=== PATIENT | male | born 1955 | race Caucasian/White ===

== ENCOUNTER 2019-01-22 08:19 | Emergency (ER) | payer BC ==
--- NOTE | 2019-01-22 09:34 | RAD REPORT ---
EXAM DESCRIPTION: RAD - Foot Right 3 View - 01/22/2019 9:20 am CLINICAL HISTORY: wound infection COMPARISON: Foot Right Wo Cont dated 09/04/2017; Foot Right 2 View dated 09/02/2017 FINDINGS: Evidence of multiple previous toe amputations are seen. Soft tissue wound is present along the plantar forefoot. No underlying evidence of osteomyelitis identified. No foreign body visualized .
--- NOTE | 2019-01-22 10:08 | EDPHYS ---
Physician Documentation [facility] Name: Surinder Andrade Age: 63 yrs Sex: Male : 1955 Arrival Date: 01/22/2019 Time: 08:22 Bed 13 Private MD: Varghese Martinez ED Physician Davidson Clark HPI: 01/22 09:52 This 63 yrs old Male presents to ER via Ambulatory with complaints of Foot jr8 Infection. 09:52 The patient presents with pain. The complaints affect the right foot. Onset: The jr8 symptoms/episode began/occurred gradually, 1 week(s) ago. Modifying factors: The symptoms are alleviated by nothing, the symptoms are aggravated by weight bearing. Associated signs and symptoms: The patient has no apparent associated signs or symptoms. Severity of symptoms: At their worst the symptoms were mild, in the emergency department the symptoms are unchanged. The patient has experienced a previous episode. The patient has not recently seen a physician. Patient stated that callous on right foot fell off. Stated that since then has has open wound to foot. Starting to become more painful and now has discoloration to the wound . Historical: - Allergies: 08:29 No Known Allergies; aa5 - Home Meds: 08:50 aspirin 81 mg Oral chew 1 tab once daily [Active]; Nicorette 4 mg Bucl gum 1 piece of tw2 gum as needed [Active]; - PMHx: 08:29 Sanchez's Cyst - right knee; aa5 - PSHx: 08:29 R toes amputated; Abdominal Aorta bypass; aa5 - Immunization history:: Adult Immunizations unknown. - Social history:: Smoking status: Patient uses tobacco products, smokes one pack cigarettes per day. - Ebola Screening: : No symptoms or risks identified at this time. ROS: 09:52 Eyes: Negative for injury, pain, redness, and discharge, ENT: Negative for injury, jr8 pain, and discharge, Neck: Negative for injury, pain, and swelling, Cardiovascular: Negative for chest pain, palpitations, and edema, Respiratory: Negative for shortness of breath, cough, wheezing, and pleuritic chest pain, Abdomen/GI: Negative for abdominal pain, nausea, vomiting, diarrhea, and constipation, Back: Negative for injury and pain, MS/Extremity: Negative for injury and deformity, Neuro: Negative for headache, weakness, numbness, tingling, and seizure. 09:52 Skin: Positive for ulceration, of the ball of right foot. Exam: 09:52 Eyes: Pupils equal round and reactive to light, extra-ocular motions intact. Lids and jr8 lashes normal. Conjunctiva and sclera are non-icteric and not injected. Cornea within normal limits. Periorbital areas with no swelling, redness, or edema. ENT: Nares patent. No nasal discharge, no septal abnormalities noted. Tympanic membranes are normal and external auditory canals are clear. Oropharynx with no redness, swelling, or masses, exudates, or evidence of obstruction, uvula midline. Mucous membranes moist. Neck: Trachea midline, no thyromegaly or masses palpated, and no cervical lymphadenopathy. Supple, full range of motion without nuchal rigidity, or vertebral point tenderness. No Meningismus. Cardiovascular: Regular rate and rhythm with a normal S1 and S2. No gallops, murmurs, or rubs. Normal PMI, no JVD. No pulse deficits. Respiratory: Lungs have equal breath sounds bilaterally, clear to auscultation and percussion. No rales, rhonchi or wheezes noted. No increased work of breathing, no retractions or nasal flaring. Abdomen/GI: Soft, non-tender, with normal bowel sounds. No distension or tympany. No guarding or rebound. No evidence of tenderness throughout. Back: No spinal tenderness. No costovertebral tenderness. Full range of motion. MS/ Extremity: Pulses equal, no cyanosis. Neurovascular intact. Full, normal range of motion. Neuro: Awake and alert, GCS 15, oriented to person, place, time, and situation. Cranial nerves II-XII grossly intact. Motor strength 5/5 in all extremities. Sensory grossly intact. Cerebellar exam normal. Normal gait. 09:52 Skin: quarter sized ulcer noted to right ball of foot that has neon green appearance to it. No purulent discharge or surrounding erythema/cellulitis noted. Mild pain to palpation . Vital Signs: 08:29 BP 170 / 114; Pulse 80; Resp 16 S; Temp 98.2(TE); Pulse Ox 96% on R/A; Weight 72.57 kg aa5 (R); Height 5 ft. 10 in. (177.80 cm) (R); Pain 3/10; 09:23 BP 138 / 78; Pulse 70; Resp 17; Pulse Ox 97% on R/A; tw2 10:26 BP 135 / 83; Pulse 79; Resp 17; Pulse Ox 97% on R/A; tw2 08:29 Body Mass Index 22.96 (72.57 kg, 177.80 cm) aa5 MDM: 08:34 Patient medically screened. jr8 09:52 Data reviewed: vital signs, nurses notes, radiologic studies, plain films, and as a jr8 result, I will discharge patient. Data interpreted: Pulse oximetry: on room air is 97 %. Interpretation: normal. Counseling: I had a detailed discussion with the patient and/or guardian regarding: the historical points, exam findings, and any diagnostic results supporting the discharge/admit diagnosis, radiology results, the need for outpatient follow up, a general surgeon, to return to the emergency department if symptoms worsen or persist or if there are any questions or concerns that arise at home. ED course: Spoke with Dr. Edouard who will see patient in wound healing clinic. To start him on 1/4 % acetic acid and antibiotics . 01/22 08:55 Order name: Wound Culture jr8 01/22 08:55 Order name: XRAY Foot RIGHT 3 View; Complete Time: 09:43 jr8 Administered Medications: No medications were administered Disposition: 11:30 Co-signature as Attending Physician, Davidson Clark MD. rn Disposition: 01/22/19 10:08 Discharged to Home. Impression: Open wound of foot. - Condition is Stable. - Discharge Instructions: Wound Care. - Prescriptions for Levaquin 750 mg Oral Tablet - take 1 tablet by ORAL route once daily for 10 days; 10 tablet. - Medication Reconciliation Form, Thank You Letter, Antibiotic Education, Prescription Opioid Use form. - Follow up: Jonatan Edouard MD; When: 2 - 3 days; Reason: Recheck today's complaints, Continuance of care, Re-evaluation by your physician. - Problem is new. - Symptoms have improved. - Notes: Written prescripton for 0.25% acetic acid solution Signatures: Dispatcher [employer] EDMS Davidson Clark MD MD rn Calderon, Audri, RN RN aa5 Stuart Valencia PA PA jr8 Lashonda Mcdaniel RN RN tw2 Corrections: (The following items were deleted from the chart) 10:27 10:08 01/22/2019 10:08 Discharged to Home. Impression: Open wound of foot. Condition is tw2 Stable. Forms are Medication Reconciliation Form, Thank You Letter, Antibiotic Education, Prescription Opioid Use. Follow up: Dr. Jonatan Edouard; When: 2 - 3 days; Reason: Recheck today's complaints, Continuance of care, Re-evaluation by your physician. Problem is new. Symptoms have improved. jr8
--- NOTE | 2019-01-22 10:08 | ER ---
Nurse's Notes [facility] Name: Surinder Andrade Age: 63 yrs Sex: Male : 1955 Arrival Date: 01/22/2019 Time: 08:22 Bed 13 Private MD: Varghese Martinez Diagnosis: Open wound of foot Presentation: 01/22 08:22 Presenting complaint: Patient states: "I've got a foot infection for about a week now". aa5 Pt c/o pain to right foot. 08:22 Transition of care: patient was not received from another setting of care. Onset of aa5 symptoms was January 2019. Risk Assessment: Do you want to hurt yourself or someone else? Patient reports no desire to harm self or others. Care prior to arrival: None. 08:22 Method Of Arrival: Ambulatory aa5 08:22 Acuity: ANDREA 3 aa5 08:50 Initial Sepsis Screen: Does the patient meet any 2 criteria? No. Patient's initial tw2 sepsis screen is negative. Does the patient have a suspected source of infection? Yes: Skin breakdown/wound. Historical: - Allergies: 08:29 No Known Allergies; aa5 - Home Meds: 08:50 aspirin 81 mg Oral chew 1 tab once daily [Active]; Nicorette 4 mg Bucl gum 1 piece of tw2 gum as needed [Active]; - PMHx: 08:29 Sanchez's Cyst - right knee; aa5 - PSHx: 08:29 R toes amputated; Abdominal Aorta bypass; aa5 - Immunization history:: Adult Immunizations unknown. - Social history:: Smoking status: Patient uses tobacco products, smokes one pack cigarettes per day. - Ebola Screening: : No symptoms or risks identified at this time. Screenin:29 Abuse screen: Denies threats or abuse. Nutritional screening: No deficits noted. tw2 Tuberculosis screening: No symptoms or risk factors identified. Fall Risk Secondary diagnosis (15 points) impaired mobility. Assessment: 08:30 General: Appears in no apparent distress. Behavior is calm, cooperative, appropriate tw2 for age. Pain: Complains of pain in ball of right foot. Neuro: Level of Consciousness is awake, alert, obeys commands, Oriented to person, place, time, situation. Cardiovascular: Denies chest pain, shortness of breath, Heart tones S1 S2 Patient's skin is warm and dry. Respiratory: Airway is patent Respiratory effort is even, unlabored, Respiratory pattern is regular, symmetrical, Breath sounds are clear bilaterally. GI: No signs and/or symptoms were reported involving the gastrointestinal system. Abdomen is flat, Bowel sounds present X 4 quads. : No signs and/or symptoms were reported regarding the genitourinary system. EENT: No signs and/or symptoms were reported regarding the EENT system. Derm: Wound noted ball of right foot Wound is appears to be a pressure callused wound about a quarter in size with green tinge noted, pt has right great toe, 2nd toe, 4th and 5th toe amputated on this foot. Musculoskeletal: Range of motion: intact in all extremities. 09:21 Reassessment: Patient appears in no apparent distress at this time. No changes from tw2 previously documented assessment. Patient and/or family updated on plan of care and expected duration. Pain level reassessed. Patient is alert, oriented x 3, equal unlabored respirations, skin warm/dry/pink. 10:26 Reassessment: Patient appears in no apparent distress at this time. No changes from tw2 previously documented assessment. Patient and/or family updated on plan of care and expected duration. Pain level reassessed. Patient is alert, oriented x 3, equal unlabored respirations, skin warm/dry/pink. Vital Signs: 08:29 BP 170 / 114; Pulse 80; Resp 16 S; Temp 98.2(TE); Pulse Ox 96% on R/A; Weight 72.57 kg aa5 (R); Height 5 ft. 10 in. (177.80 cm) (R); Pain 3/10; 09:23 BP 138 / 78; Pulse 70; Resp 17; Pulse Ox 97% on R/A; tw2 10:26 BP 135 / 83; Pulse 79; Resp 17; Pulse Ox 97% on R/A; tw2 08:29 Body Mass Index 22.96 (72.57 kg, 177.80 cm) aa5 ED Course: 08:22 Patient arrived in ED. rg4 08:22 Varghese Martinez MD is Private Physician. rg4 08:22 Arm band placed on Patient placed in an exam room, on a stretcher. aa5 08:28 Triage completed. aa5 08:29 Mcdaniel, Lashonda, RN is Primary Nurse. tw2 08:30 Bed in low position. Call light in reach. awake overnight monitor on. Pulse ox on. NIBP on. tw2 08:34 Stuart Valencia PA is PHCP. jr8 08:34 Davidson Clark MD is Attending Physician. jr8 09:11 Wound Culture Sent. tw2 09:21 XRAY Foot RIGHT 3 View In Process Unspecified. EDMS 10:08 Jonatan Edouard MD is Referral Physician. jr8 10:27 No provider procedures requiring assistance completed. Patient did not have IV access tw2 during this emergency room visit. Administered Medications: No medications were administered Outcome: 10: Discharge ordered by . jr8 10: Discharged to home ambulatory. tw2 10:27 Condition: stable 10:27 Discharge instructions given to patient, Instructed on discharge instructions, follow up and referral plans. medication usage, wound care, Demonstrated understanding of instructions, follow-up care, medications, wound care. 10:27 Patient left the ED. tw2 Signatures: Dispatcher [employer] [facility] Dayanara Jiang RN RN aa5 Stuart Valencia PA PA jr8 Lashonda Mcdaniel RN RN tw2 Ida Choudhury rg4 Corrections: (The following items were deleted from the chart) 09:50 08:30 Derm: Wound noted ball of right foot Wound is appears to be a pressure callused tw2 wound about a quarter in size, pt has right great toe, 2nd toe, 4th and 5th toe amputated on this foot tw2
[2019-01-22 10:31] VITALS: TEMP 98.2
[2019-01-22 10:33] VITALS: O2SAT 97
[2019-01-22 10:34] VITALS: BP 135/83
== END 2019-01-22 10:27 | disposition home or self-care (01) ==
LOC: ER 08:19
DX: S91.301A Unspecified open wound, right foot, initial encounter (principal); Z79.82 Long term (current) use of aspirin; F17.210 Nicotine dependence, cigarettes, uncomplicated
CPT/HCPCS: 87070; 87077; 87186; 87205; 99284

== ENCOUNTER 2019-05-31 16:49 | Inpatient (IN) | payer BC ==
--- OUTSIDE RECORDS SUMMARY | 2019-05-31 16:51 | XMS REPORT ---
:1955 [facility] Address [address] [place] [address] Dr. Hope [address] [place] [id number] Care Team Providers Name Role Phone Unavailable Unavailable Unavailable Problems This patient has no known problems. Allergies, Adverse Reactions, Alerts This patient has no known allergies or adverse reactions. Medications This patient has no known medications.
[2019-05-31 18:23] LABS: Absolute Lymphocytes (CBC) 1.1 K/uL (0.7-4.9); Basophils % 0.3 % (0-1.3); Hematocrit 41.6 % (39.6-49.0); Lymphocytes % 13.1 % (15.3-44.8); RBC Red Blood Cell Count 3.89 M/uL (4.33-5.43)
[2019-05-31 18:47] LABS: Albumin 2.8 g/dL (3.4-5.0); Bilirubin Total 0.4 mg/dL (0.2-1.0); Potassium 3.3 mmol/L (3.5-5.1); Protein, Total 7.5 g/dL (6.4-8.2)
[2019-05-31 18:51] LABS: Blood Morphology Comment NOTED (NOT SEEN); Macrocytosis 1+; Platelet Estimate ADEQ; Urine White Blood Cell Casts OK
--- NOTE | 2019-05-31 19:07 | RAD REPORT ---
EXAM DESCRIPTION: RAD - Tib Fib Right - 05/31/2019 6:48 pm CLINICAL HISTORY: leg pain Pain to left leg COMPARISON: No comparisons FINDINGS: Soft tissue swelling is seen along the medial aspect of the left leg. No fracture, disloca tion or evidence of osteomyelitis. No subcutaneous gas.
[2019-05-31] MEDS ORDERED: VANCOMYCIN 1 GM/VIAL ONE (19:47)
[2019-05-31] MEDS ORDERED: NA CHLORIDE 0.9% 250 ML ONE (19:47)
--- NOTE | 2019-05-31 19:47 | ER ---
Nurse's Notes [facility] Name: Surinder Andrade Age: 63 yrs Sex: Male : 1955 Arrival Date: 05/31/2019 Time: 16:51 Bed Ultrasound Private MD: Varghese Martinez Diagnosis: Cellulitis of the right lower limb Presentation: 05/31 17:02 Presenting complaint: Patient states: I see Dr Edouard for wound care of my right foot la1 and he said it looks like the infection is going in deep and if your swelling gets worse to go to the ER. Transition of care: patient was not received from another setting of care. Onset of symptoms was May 31, 2019. Risk Assessment: Do you want to hurt yourself or someone else? Patient reports no desire to harm self or others. Initial Sepsis Screen: Does the patient meet any 2 criteria? No. Patient's initial sepsis screen is negative. Does the patient have a suspected source of infection? No. Patient's initial sepsis screen is negative. Care prior to arrival: None. 17:02 Method Of Arrival: Ambulatory la1 17:02 Acuity: ANDREA 3 la1 Historical: - Allergies: 17:02 No Known Allergies; la1 - Home Meds: 17:04 lisinopril 2.5 mg Oral tab 1 tab once daily [Active]; bupropion HCl 150 mg Oral TbER 1 la1 tab 2 times per day [Active]; clopidogrel 75 mg oral tab 1 tab once daily [Active]; doxycycline hyclate 100 mg Oral cap 1 cap 2 times per day [Active]; Cipro 500 mg Oral tab 1 tab every 12 hours [Active]; - PMHx: 17:02 Sanchez's Cyst - right knee; High Cholesterol; la1 17:04 Hypertension; la1 - PSHx: 21:14 Unable to obtain; rv - Immunization history:: Adult Immunizations up to date. - Social history:: Smoking status: unknown. - Ebola Screening: : No symptoms or risks identified at this time. Screenin:22 Abuse screen: Denies threats or abuse. Denies injuries from another. Nutritional rv screening: No deficits noted. Tuberculosis screening: No symptoms or risk factors identified. Fall Risk None identified. Assessment: 17:20 General: Appears in no apparent distress. uncomfortable, Behavior is calm, cooperative. rv Pain: Complains of pain in right foot. Neuro: Level of Consciousness is awake, alert, obeys commands, Oriented to person, place, time, situation. Cardiovascular: Patient's skin is warm and dry. Respiratory: Airway is patent. GI: No signs and/or symptoms were reported involving the gastrointestinal system. : No signs and/or symptoms were reported regarding the genitourinary system. EENT: No signs and/or symptoms were reported regarding the EENT system. Derm: Skin is red, Wound noted ball of right foot. Musculoskeletal: Swelling present in right massey, anterior aspect of right ankle and dorsum of right foot. Vital Signs: 17:02 BP 109 / 55; Pulse 67; Resp 16; Temp 97.5; Pulse Ox 98% on R/A; Weight 73.94 kg; Height la1 5 ft. 10 in. (177.80 cm); 17:30 BP 104 / 63; Pulse 85; Resp 16; Pulse Ox 96% on R/A; rv 18:00 BP 115 / 63; Pulse 82; Resp 15; Pulse Ox 96% on R/A; rv 18:30 BP 124 / 64; Pulse 80; Resp 15; Pulse Ox 97% on R/A; rv 19:00 BP 115 / 53; Pulse 77; Resp 16; Pulse Ox 97% on R/A; rv 21:10 BP 124 / 64; Pulse 84; Resp 17; Temp 98.2; Pulse Ox 99% ; rr5 17:02 Body Mass Index 23.39 (73.94 kg, 177.80 cm) la1 ED Course: 16:51 Patient arrived in ED. rg4 16:51 Varghese Martinez MD is Private Physician. rg4 17:01 Arm band placed on left wrist. la1 17:03 Triage completed. la1 17:10 Corey Powell RN is Primary Nurse. rv 17:22 Patient has correct armband on for positive identification. Bed in low position. Call rv light in reach. Side rails up X 1. Pulse ox on. NIBP on. 17:32 Adrian Jimenez PA is PHCP. jmm 17:33 Davidson Clark MD is Attending Physician. jmm 18:30 No provider procedures requiring assistance completed. Inserted saline lock: 22 gauge rv in right antecubital area, using aseptic technique. Blood collected. 18:49 Tib Fib Right XRAY In Process Unspecified. EDMS 19:45 Reynold Rivera MD is Hospitalizing Provider. jmm 20:10 US Extremity Venous Unilateral Ltd In Process Unspecified. EDMS 21:16 Patient admitted, IV remains in place. rv Administered Medications: 19:55 Drug: vancoMYCIN 1 grams Route: IVPB; Infused Over: 2 hrs; Site: right antecubital; rv 21:15 Follow up: IV Status: Completed infusion rv 20:41 Drug: Potassium Effervescent Tablet 25 mEq Route: PO; rv 21:15 Follow up: Response: No adverse reaction rv Outcome: 19:46 Decision to Hospitalize by Provider. jmm 21:16 Admitted to Med/surg accompanied by tech, via wheelchair, room 213, with chart, Report rv called to MIGUEL PRETTY 21:16 Condition: good 21:16 Instructed on the need for admit. 21:36 Patient left the ED. rv Signatures: Dispatcher [employer] EDMS Adrian Jimenez PA PA [facility] Sabino Syed, RN RN Ida Sosa rg4 Corey Powell, RN RN rv Lloyd Donaot, RN RN rr5
--- NOTE | 2019-05-31 19:48 | EDPHYS ---
Physician Documentation [facility] Name: Surinder Andrade Age: 63 yrs Sex: Male : 1955 Arrival Date: 05/31/2019 Time: 16:51 Bed Ultrasound Private MD: Varghese Martinez ED Physician Davidson Clark HPI: 05/31 17:39 This 63 yrs old Male presents to ER via Ambulatory with complaints of Foot jmm Pain. 17:39 The patient presents with pain, that is acute, swelling. Onset: The symptoms/episode jmm began/occurred gradually. Modifying factors: The symptoms are alleviated by nothing. the symptoms are aggravated by nothing. This is a 63 year old male with a history of hlp, htn that presents to the ED with complaints of right lower leg pain and swelling which has worsened over the past week. Patient denies fever, chills. Denies shortness of breath. . Historical: - Allergies: 17:02 No Known Allergies; la1 - Home Meds: 17:04 lisinopril 2.5 mg Oral tab 1 tab once daily [Active]; bupropion HCl 150 mg Oral TbER 1 la1 tab 2 times per day [Active]; clopidogrel 75 mg oral tab 1 tab once daily [Active]; doxycycline hyclate 100 mg Oral cap 1 cap 2 times per day [Active]; Cipro 500 mg Oral tab 1 tab every 12 hours [Active]; - PMHx: 17:02 Sanchez's Cyst - right knee; High Cholesterol; la1 17:04 Hypertension; la1 - PSHx: 21:14 Unable to obtain; rv - Immunization history:: Adult Immunizations up to date. - Social history:: Smoking status: unknown. - Ebola Screening: : No symptoms or risks identified at this time. ROS: 17:39 Constitutional: Negative for fever, chills, and weight loss, Cardiovascular: Negative jmm for chest pain, palpitations, and edema, Respiratory: Negative for shortness of breath, cough, wheezing, and pleuritic chest pain. 17:39 MS/extremity: Positive for pain, swelling. 17:39 Skin: Positive for erythema. 17:39 All other systems are negative. Exam: 17:39 Head/Face: atraumatic. Eyes: EOMI, no conjunctival erythema appreciated ENT: Moist jmm Mucus Membranes Neck: Trachea midline, Supple Chest/axilla: Normal chest wall appearance and motion. Cardiovascular: Regular rate and rhythm. No edema appreciated Respiratory: Normal respirations, no respiratory distress appreciated Abdomen/GI: Non distended, soft Back: Normal ROM 17:39 Constitutional: The patient appears in no acute distress, alert, awake. 17:39 Skin: erythema noted to the right lower leg, dorsalis pulse noted, NVI. 17:39 Neuro: Orientation: is normal, Mentation: is normal, Memory: is normal. 17:39 Psych: Behavior/mood is pleasant, cooperative. Vital Signs: 17:02 BP 109 / 55; Pulse 67; Resp 16; Temp 97.5; Pulse Ox 98% on R/A; Weight 73.94 kg; Height la1 5 ft. 10 in. (177.80 cm); 17:30 BP 104 / 63; Pulse 85; Resp 16; Pulse Ox 96% on R/A; rv 18:00 BP 115 / 63; Pulse 82; Resp 15; Pulse Ox 96% on R/A; rv 18:30 BP 124 / 64; Pulse 80; Resp 15; Pulse Ox 97% on R/A; rv 19:00 BP 115 / 53; Pulse 77; Resp 16; Pulse Ox 97% on R/A; rv 21:10 BP 124 / 64; Pulse 84; Resp 17; Temp 98.2; Pulse Ox 99% ; rr5 17:02 Body Mass Index 23.39 (73.94 kg, 177.80 cm) la1 MDM: 17:39 Patient medically screened. [facility] 19:43 Data reviewed: vital signs, nurses notes. Counseling: I had a detailed discussion with abran the patient and/or guardian regarding: the historical points, exam findings, and any diagnostic results supporting the discharge/admit diagnosis, lab results, radiology results, the need for further work-up and treatment in the hospital. ED course: I discussed the patient with Dr. Rivera whom accepted admission. . 05/31 17:43 Order name: CBC with Diff; Complete Time: 18:59 [facility] 05/31 17:43 Order name: CMP; Complete Time: 18:47 [facility] 05/31 17:43 Order name: Lactate; Complete Time: 18:46 [facility] 05/31 17:43 Order name: Procalcitonin; Complete Time: 18:59 [facility] 05/31 17:43 Order name: Blood Culture Adult (2) [facility] 05/31 18:29 Order name: CBC Smear Scan; Complete Time: 18:59 [facility] 05/31 20:26 Order name: Basic Metabolic Panel [facility] 05/31 20:26 Order name: Basic Metabolic Panel [facility] 05/31 20:26 Order name: CBC with Automated Diff [facility] 05/31 20:26 Order name: CBC with Automated Diff [facility] 05/31 20:26 Order name: Protime (+INR) [facility] 05/31 20:26 Order name: Protime (+INR) [facility] 05/31 20:26 Order name: PTT, Activated Partial Thromb [facility] 05/31 20:26 Order name: PTT, Activated Partial Thromb [facility] 05/31 17:43 Order name: Saline Lock; Complete Time: 18:15 [facility] 05/31 17:44 Order name: US Extremity Venous Unilateral Ltd; Complete Time: 20:37 [facility] 05/31 18:25 Order name: Tib Fib Right XRAY; Complete Time: 19:10 [facility] 05/31 20:26 Order name: CONS Pharmacy Consult [facility] 05/31 20:26 Order name: CONS Pharmacy Consult [facility] 05/31 20:26 Order name: Consistent Carb (ADA) [address] EDMS Administered Medications: 19:55 Drug: vancoMYCIN 1 grams Route: IVPB; Infused Over: 2 hrs; Site: right antecubital; rv 21:15 Follow up: IV Status: Completed infusion rv 20:41 Drug: Potassium Effervescent Tablet 25 mEq Route: PO; rv 21:15 Follow up: Response: No adverse reaction rv Disposition: 05/31/19 19:46 Hospitalization ordered by Reynold Rivera for Observation. Preliminary diagnosis is Cellulitis of the right lower limb. - Bed requested for Telemetry/MedSurg (observation). - Status is Observation. rv - Condition is Stable. - Problem is new. - Symptoms have worsened. UTI on Admission? No Addendum: 06/03/2019 07:21 Co-signature as Attending Physician, Davidson Clark MD. r n Signatures: Dispatcher [employer] EDSD Harriett Salinas RN RN mw Mickail, Joel, PA PA jmm Nieto, Roman, MD MD rn Attema, Lee, RN RN la1 Andre, Corey, RN RN rv Corrections: (The following items were deleted from the chart) 05/31 20:37 19:46 Hospitalization Ordered by Reynold Rivera MD for Observation. Preliminary mw diagnosis is Cellulitis of the right lower limb. Bed requested for Telemetry/MedSurg (observation). Status is Observation. Condition is Stable. Problem is new. Symptoms have worsened. UTI on Admission? No. jmm 21:36 20:37 05/31/2019 19:46 Hospitalization Ordered by Reynold Rivera MD for Observation. rv Preliminary diagnosis is Cellulitis of the right lower limb. Bed requested for Telemetry/MedSurg (observation). Status is Observation. Condition is Stable. Problem is new. Symptoms have worsened. UTI on Admission? No. mw
[2019-05-31] MEDS ORDERED: MORPHINE 4 MG/ML SYR IV PRN (20:19)
[2019-05-31] MEDS ORDERED: ACETAMINOPHEN 500 MG TAB PO PRN (20:19)
[2019-05-31] MEDS ORDERED: ONDANSETRON 4 MG/2 ML VIAL IV PRN (20:19)
--- NOTE | 2019-05-31 20:25 | RAD REPORT ---
EXAM DESCRIPTION: US - Extremity Venous Uni Ltd - 05/31/2019 8:09 pm CLINICAL HISTORY: right lower leg Leg swelling and edema. COMPARISON: Extremity Venous Uni Ltd dated 09/02/2017 FINDINGS: Right lower extremity venous system was interrogated with Doppler technique. Normal flow, compressibility and augmentation was noted. There is no DVT present. IMPRESSION: No evidence of right lower extremity deep venous thrombosis.
[2019-05-31] MEDS ORDERED: VANCOMYCIN/NS 1 gm 1 GM/250 ML BAG IVPB SCH (20:30)
[2019-05-31] MEDS ORDERED: POTASSIUM 25 MEQ EFFERV TAB ONE (20:34)
[2019-05-31] MEDS ORDERED: NA CHLORIDE 0.9% 1,000 ML IV SCH (21:00)
[2019-05-31] MEDS: Levofloxacin500mg IV 500 MG/100 ML BAG IV SCH (22:15)
[2019-06-01 01:50] VITALS: BMI 23.3
[2019-06-01 06:05] LABS: Absolute Lymphocytes (CBC) 0.8 K/uL (0.7-4.9); Basophils % 0.5 % (0-1.3); Hematocrit 40.4 % (39.6-49.0); Lymphocytes % 11.9 % (15.3-44.8); MPV 7.3 fL (7.6-11.3); RBC Red Blood Cell Count 3.81 M/uL (4.33-5.43)
[2019-06-01 06:15] LABS: Protime INR 1.13
[2019-06-01 06:22] LABS: BUN Blood Urea Nitrogen 8 mg/dL (7-18); Bicarbonate 28 mmol/L (21-32); Glucose Level 115 mg/dL (74-106); Potassium 4.2 mmol/L (3.5-5.1); Sodium Level 140 mmol/L (136-145)
[2019-06-01] MEDS ORDERED: TRAMADOL HCL 50 MG TAB PO PRN (07:05)
[2019-06-01] MEDS ORDERED: HYDROCODONE/APAP 7.5/325 MG TAB PO PRN (07:05)
[2019-06-01 07:08] LABS: Urine Appearance CLEAR; Urine Bilirubin NEGATIVE (NEG); Urine Blood NEGATIVE (NEG); Urine Color YELLOW; Urine Glucose 1+ (NEG); Urine Protein NEGATIVE (NEG)
[2019-06-01 08:28] LABS: Urine Microscopic Reflex NO UMIC
[2019-06-01] MEDS: CLOPIDOGREL 75 MG TABLET PO SCH (08:50)
[2019-06-01] MEDS: BUPROPRION HCL S.R. 150MG TAB PO SCH ×2 (08:50→20:57)
[2019-06-01] MEDS: LISINOPRIL 5 MG TAB PO SCH (08:50)
[2019-06-01] MEDS: VANCOMYCIN 1.25 GM in NA CHLORIDE 0.9% 250 ML IVPB SCH ×2 (08:51→20:57)
[2019-06-01] MEDS ORDERED: HOME MED 1 EA UNK (Lisinopril [Zestril] 2.5 MG) PO SCH (09:00)
--- NOTE | 2019-06-01 09:46 | P.PN ---
Subjective Date of Service: 06/01/19 Primary Care Provider: Dr. Grigsby; Surgery-Dr. Edouard Chief Complaint: Right lower extremity swelling, pain Subjective: Other (Pain improved. Patient stable at this time) Physical Examination - Vital Signs Temperature: 97.4 F Blood Pressure: 120/72 Pulse: 69 Respirations: 16 Pulse Ox (%): 96 - Physical Exam General: Alert, In no apparent distress, Oriented x3, Cooperative HEENT: Atraumatic Neck: Supple Respiratory: Clear to auscultation bilaterally, Normal air movement Cardiovascular: Normal pulses, Regular rate/rhythm Gastrointestinal: Normal bowel sounds, Soft and benign, Non-distended Musculoskeletal: Other (Patient with prior amputations of the right great toe, 2nd digit, 4th digit, and 5th digit. Ulcer to the distal 1st metatarsal. Swelling, mild erythema noted to the region. Swelling up to mid right lower extremity noted. Pain noted to the foot. No significant exudate noted from the ulcer.) Integumentary: Other (As above) Neurological: Normal speech, Normal strength at 5/5 x4 extr, Normal tone - Studies Laboratory Data (last 24 hrs) 05/31/19 18:12: Sodium 136, Potassium 3.3 L, BUN 8, Creatinine 0.87, Glucose 99 , Total Bilirubin 0.4, AST 44 H, ALT 46, Alkaline Phosphatase 107 05/31/19 18:12: WBC 8.4, Hgb 14.1, Hct 41.6, Plt Count 241 Medications List Reviewed: Yes Assessment & Plan Discharge Plan: Home Plan to discharge in: 48 Hours Physician Review Additional Text: Impression: Right lower extremity cellulitis with chronic foot ulcer complicated with severe PVD suspect possible osteomyelitis Chronic pain with neuropathy COPD Hypertension Hyperlipidemia Tobacco abuse Plan: Right lower extremity cellulitis with chronic foot ulcer complicated with severe PVD suspect possible osteomyelitis: Continue IV antibiotic therapy- Levaquin/vancomycin. Pharmacy to monitor and adjust medication. X-ray shows edema but no bone destruction. Venous Doppler shows no DVT. Prior CT scan reviewed shows severe PVD to the lower extremities. Suspect possible osteomyelitis. Will order MRI further evaluate. If abnormal patient will likely require long-term IV antibiotic therapy. Surgery consulted. Await recommendation. Likely no need for surgical intervention at this time. Will start DVT prophylaxis-Lovenox. Will provide pain medication as needed. Will review and restart home medication. Anticipate discharge in 2-3 days pending clinical improvement and MRI evaluation. Chronic pain with neuropathy: Continue with pain medication. Will add Neurontin. COPD: Continue with COPD medication. Hypertension: Review and restart home medication. Will monitor and adjust appropriately. Hyperlipidemia: Review and restart home medication. Tobacco abuse: Will provide nicotine patch. Tobacco cessation education provided. Time Spent Managing Pts Care (In Minutes): 55
[2019-06-01] MEDS ORDERED: GABAPENTIN 100 MG CAP PO PRN (09:47)
[2019-06-01] MEDS ORDERED: ALBUTEROL 2.5 MG/3 ML NEB SOL NEB PRN (09:58)
[2019-06-01] MEDS ORDERED: IPRATROPIUM BROM 0.5MG/2.5ML NEB PRN (09:58)
[2019-06-01] MEDS: NICOTINE 21 MG/PAT TD SCH (10:23)
--- NOTE | 2019-06-01 12:14 | P.HP ---
Certification for Inpatient Patient admitted to: Inpatient With expected LOS: >2 Midnights Patient will require the following post-hospital care: None Practitioner: I am a practitioner with admitting privileges, knowledge of patient current condition, hospital course, and medical plan of care. Services: Services provided to patient in accordance with Admission requirements found in Title 42 Section 412.3 of the Code of Federal Regulations Patient History Date of Service: 05/31/19 Reason for admission: Right lower extremity swelling, pain History of Present Illness: Pt is a 63-year-old gentleman came in the hospital with a diabetic foot ulcer. Patient has severe peripheral arterial disease. Patient has occlusion of the right femoral artery. He states that he was told he needs a stent but he is not able to get one while he has an active infection. He had a debridement of his diabetic foot ulcer. This was done on Monday. He was told that if his pain got worse to come to the ER. Early this morning his pain got much worse. He decided to come into the hospital for further evaluation. In the emergency room, he has significant cellulitis of the right foot. He had a diabetic foot ulcer which appeared infected. Allergies No Known Allergies Allergy (Verified 09/02/17 14:48) Home Medications: Buproprion S.r. [Wellbutrin Sr*] 150 mg PO BID 09/02/17 Clopidogrel Bisulfate [Plavix*] 75 mg PO DAILY 03/06/19 Lisinopril [Zestril] 2.5 mg PO DAILY 03/06/19 Atorvastatin Calcium [Lipitor] 20 mg PO BEDTIME 05/31/19 Ciprofloxacin HCl [Cipro 500 MG Tablet] 500 mg PO Q12H 05/31/19 Doxycycline Hyclate 100 mg PO BID 05/31/19 - Past Medical/Surgical History Has patient received pneumonia vaccine in the past: No Diabetic: No -: PVD -: History aortofemoral bypass -: History 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 He has 3 children. He works in the [employer] - Family History Mother Medical History: Cancer Father Medical History: Other (see notes) Notes: depression - Social History Smoking Status: Current some day smoker Alcohol use: Yes CD- Drugs: No Caffeine use: Yes Place of Residence: Home Review of Systems 10-point ROS is otherwise unremarkable Physical Examination - Vital Signs Temperature: 97.4 F Blood Pressure: 120/72 Pulse: 69 Respirations: 15 Pulse Ox (%): 95 - Physical Exam General: Alert, In no apparent distress, Oriented x3 HEENT: Atraumatic, PERRLA, Mucous membr. moist/pink, EOMI, Sclerae nonicteric Neck: Supple, 2+ carotid pulse no bruit, No LAD, Without JVD or thyroid abnormality Respiratory: Clear to auscultation bilaterally, Normal air movement Cardiovascular: Regular rate/rhythm, Normal S1 S2, No murmurs Gastrointestinal: Normal bowel sounds, Soft and benign, Non-distended, No tenderness Musculoskeletal: No clubbing, No swelling, No tenderness Integumentary: Tenderness/swelling, Erythema, Warmth, Diabetic ulcer Neurological: Normal speech, Normal tone, Normal affect Lymphatics: No axilla or inguinal lymphadenopathy - Studies Laboratory Data (last 24 hrs) 05/31/19 18:12: Sodium 136, Potassium 3.3 L, BUN 8, Creatinine 0.87, Glucose 99 , Total Bilirubin 0.4, AST 44 H, ALT 46, Alkaline Phosphatase 107 05/31/19 18:12: WBC 8.4, Hgb 14.1, Hct 41.6, Plt Count 241 Assessment & Plan - Problems (Diagnosis) (1) Cellulitis Onset Date: 09/04/17 Current Visit: No Status: Acute Qualifiers: Site of cellulitis: extremity Site of cellulitis of extremity: lower extremity Laterality: right Qualified Code(s): L03.115 - Cellulitis of right lower limb (2) Pressure ulcer of right foot, stage 3 Current Visit: No Status: Acute (3) PVD (peripheral vascular disease) Onset Date: 09/04/17 Current Visit: No Status: Acute (4) COPD (chronic obstructive pulmonary disease) Onset Date: 09/04/17 Current Visit: No Status: Chronic Qualifiers: COPD type: chronic bronchitis (5) History of amputation Onset Date: 09/04/17 Current Visit: No Status: Chronic (6) Neuropathy Onset Date: 09/04/17 Current Visit: No Status: Chronic (7) Tobacco abuse Onset Date: 09/04/17 Current Visit: No Status: Chronic - Plan 1. Continue with IV antibiotic 2. Continue with local wound care 3. Surgical consultation 4. Gentle IV hydration 5. Monitor CBC 6. Strict blood sugar monitoring 7. Pain control 8. Anti-platelet therapy 9. Outpatient follow-up with Interventional Radiology or Cardiology for possible stent placement 10.GI and DVT prophylaxis Discharge Plan: Home Plan to discharge in: Greater than 2 days - Advance Directives Does patient have a Living Will: No Does patient have a Durable POA for Healthcare: No - Code Status/Comfort Care Code Status Assessed: Yes Code Status: Full Code Critical Care: No Time Spent Managing PTS Care (In Minutes): 45
[2019-06-01] MEDS: COLLAGENASE 30 GM OINTMENT TOP SCH (15:42)
[2019-06-01] MEDS: ENOXAPARIN 40 MG/0.4 ML SQ SCH (16:56)
[2019-06-01] MEDS: ATORVASTATIN 20 MG TAB PO SCH (20:56)
[2019-06-01] MEDS: Levofloxacin500mg IV 500 MG/100 ML BAG IV SCH (21:01)
[2019-06-02 08:02] LABS: BUN Blood Urea Nitrogen 7 mg/dL (7-18); Bicarbonate 27 mmol/L (21-32); Glucose Level 109 mg/dL (74-106); Magnesium 2.1 mg/dL (1.8-2.4); Potassium 4.2 mmol/L (3.5-5.1); Sodium Level 141 mmol/L (136-145)
[2019-06-02] MEDS: BUPROPRION HCL S.R. 150MG TAB PO SCH ×2 (08:30→21:00)
[2019-06-02] MEDS: NICOTINE 21 MG/PAT TD SCH (08:30)
[2019-06-02] MEDS: CLOPIDOGREL 75 MG TABLET PO SCH (08:30)
[2019-06-02] MEDS: LISINOPRIL 5 MG TAB PO SCH (08:30)
[2019-06-02] MEDS: COLLAGENASE 30 GM OINTMENT TOP SCH (08:32)
[2019-06-02] MEDS: VANCOMYCIN 1.25 GM in NA CHLORIDE 0.9% 250 ML IVPB SCH (08:39)
[2019-06-02 08:49] LABS: Absolute Lymphocytes (CBC) 1.1 K/uL (0.7-4.9); Basophils % 0.5 % (0-1.3); Hematocrit 39.7 % (39.6-49.0); Lymphocytes % 16.9 % (15.3-44.8); MPV 7.7 fL (7.6-11.3); RBC Red Blood Cell Count 3.68 M/uL (4.33-5.43)
--- NOTE | 2019-06-02 09:28 | P.PN ---
Subjective Date of Service: 06/02/19 Primary Care Provider: Dr. Grigsby; Surgery-Dr. Edouard Chief Complaint: Right lower extremity swelling, pain Subjective: Other (Patient doing well this time. Right lower extremity swelling improved.) Physical Examination - Vital Signs Temperature: 97.3 F Blood Pressure: 117/66 Pulse: 62 Respirations: 16 Pulse Ox (%): 98 - Physical Exam General: Alert, In no apparent distress, Oriented x3, Cooperative HEENT: Atraumatic Neck: Supple Respiratory: Clear to auscultation bilaterally, Normal air movement Cardiovascular: Normal pulses, Regular rate/rhythm Gastrointestinal: Normal bowel sounds, Soft and benign, Non-distended, No tenderness, No masses, No rebound, No guarding Integumentary: Other (Swelling to the right lower extremity improved. Less pain noted. No significant change to ulcer.) Neurological: Normal speech, Normal strength at 5/5 x4 extr, Normal tone, Normal affect - Studies Medications List Reviewed: Yes Assessment & Plan Discharge Plan: Home Plan to discharge in: 24 Hours Physician Review Additional Text: Impression: Right lower extremity cellulitis with chronic foot ulcer complicated with severe PVD suspect possible osteomyelitis Chronic pain with neuropathy COPD Hypertension Hyperlipidemia Tobacco abuse Plan: Right lower extremity cellulitis with chronic foot ulcer complicated with severe PVD suspect possible osteomyelitis: Overall patient improved. Patient working with physical therapy. MRI ordered for tomorrow to rule out osteomyelitis. Continue IV antibiotic therapy-Levaquin/vancomycin. Pharmacy to monitor and adjust medication. Patient continues with Plavix for PVD. Continue DVT prophylaxis-Lovenox. Surgery has been consulted. Await further recommendation. Likely no need for surgical intervention at this time. If MRI positive patient will require long-term IV antibiotic therapy and PICC line. Otherwise if negative likely discharge tomorrow with oral medication. Will discuss with surgery. Chronic pain with neuropathy: Continue with pain medication. COPD: Continue with COPD medication. Hypertension: Blood pressure stable. Continue with medication. Will monitor and adjust appropriately. Hyperlipidemia: Continue with medication Tobacco abuse: Continue with nicotine patch as needed. Tobacco cessation education provided. Time Spent Managing Pts Care (In Minutes): 55
[2019-06-02 09:46] LABS: Blood Morphology Comment NOTED (NOT SEEN); Macrocytosis 1+; Platelet Estimate ADEQ; Urine White Blood Cell Casts OK
--- NOTE | 2019-06-02 10:59 | CON ---
Date of Consultation: 06/01/2019 Reason For Consultation: Infected wound, right foot. History Of Present Illness: The patient is a 63-year-old gentleman, who I have been following in the wound healing center last time and he had beginning to have early cellulitis and he was sta rted on Cipro and doxycycline, and I advised him should the redness and pain get worse over the weeke nd, then he is to go to the emergency room and be admitted for IV antibiotics and that is exactly wha t happened on Monday night, so he was admitted, IV antibiotics were started, and I was consulted to jose m koenig his wound. He is awake and alert. He does have an occlusion of the right femoral artery and c ardiologist are waiting for the infection to be under control before they do any intervention. He de nies any purulent discharge and no fever or chills. Review of Systems: Otherwise unremarkable. No sore throat, runny nose, cough, headaches, or dizziness. No chest pain. Past Medical History: Significant for peripheral vascular disease, hypertension, hyperlipidemia. Past Surgical History: Aortofemoral bypass; 1st, 2nd, 4th, and 5th digits amputation on the right si de. Allergies: NONE. Social History: He does smoke and drink occasionally. He has been counseled. Family History: Significant for unknown type of cancer in the mother and depression. Physical Examination: Vital Signs: Stable. He is currently afebrile. General: He is awake, alert, and oriented x3. Head and Neck: Cranial nerves 2 through 12 are grossly within normal limits. No neck masses. No JV D. Throat clear. Neck is supple. Chest: Clear. Heart: S1, S2. Abdomen: Soft. Extremities: Diminished dorsalis, pedis, and posterior tibial pulses. On the right foot, there is u lcer on the plantar aspect near the base of the 1st metatarsal head. This is approximately 2 cm. Hi s x-ray does not look too bad. Surrounding area, there is minimal edema. It appears the redness has gotten better with the IV antibiotics. There is no purulent discharge; however, there is an area wh ere there is some bogginess to the tissue, may appear to be a bruise from trauma. Laboratory Data: Shows white count is normal. He did have a left shift on admission, which has norm alized. His INR is 1.13. Chemistry reviewed, essentially within normal limits. He had an x-ray, wh ich shows soft tissue swelling seen in the medial aspect of the left leg. No fracture, dislocation, or osteo. No subcutaneous gas. Then he had a venous study done, shows no DVT, and he is currently o n antibiotics, Levaquin and vancomycin. Assessment: Right foot cellulitis, peripheral vascular disease, and wound with a little bit of fibri n on it. Recommendations: We will do collagenase dressing for the wound itself. Continue the IV antibiotics. We will await the results of the MRI and make further recommendations after that. Should the patie nt not have osteo, he could probably be discharged home on oral antibiotics and I can follow him up i n the wound healing center. Should he have osteo, he may need PICC line and 6 weeks of IV antibiotic s, and we will see what the MRI shows regarding that area with little bit of bogginess, make sure federico t he does not have a deep collection that we are missing clinically. CLAIR/ORLY Voice ID: [id number] Report ID: [id number]
[2019-06-02] MEDS: FAMOTIDINE 20 MG TAB PO SCH ×2 (15:56→21:00)
[2019-06-02] MEDS: ENOXAPARIN 40 MG/0.4 ML SQ SCH (15:57)
[2019-06-02] MEDS: ATORVASTATIN 20 MG TAB PO SCH (21:00)
[2019-06-02] MEDS: VANCOMYCIN 1.5 GM in NA CHLORIDE 0.9% 500 ML IVPB SCH (21:01)
[2019-06-02] MEDS: Levofloxacin500mg IV 500 MG/100 ML BAG IV SCH (23:14)
[2019-06-03 05:46] LABS: Absolute Lymphocytes (CBC) 0.9 K/uL (0.7-4.9); Basophils % 0.5 % (0-1.3); Hematocrit 39.3 % (39.6-49.0); Lymphocytes % 15.5 % (15.3-44.8); MPV 7.2 fL (7.6-11.3); RBC Red Blood Cell Count 3.68 M/uL (4.33-5.43)
[2019-06-03 05:58] LABS: Magnesium 2.2 mg/dL (1.8-2.4); Potassium 4.4 mmol/L (3.5-5.1)
[2019-06-03] MEDS: VANCOMYCIN 1.5 GM in NA CHLORIDE 0.9% 500 ML IVPB SCH ×2 (08:45→20:43)
[2019-06-03] MEDS: BUPROPRION HCL S.R. 150MG TAB PO SCH ×2 (08:46→21:00)
[2019-06-03] MEDS: NICOTINE 21 MG/PAT TD SCH (08:46)
[2019-06-03] MEDS: LISINOPRIL 5 MG TAB PO SCH (08:47)
[2019-06-03] MEDS: CLOPIDOGREL 75 MG TABLET PO SCH (08:47)
[2019-06-03] MEDS: FAMOTIDINE 20 MG TAB PO SCH ×2 (08:47→20:59)
[2019-06-03] MEDS: COLLAGENASE 30 GM OINTMENT TOP SCH (08:48)
--- NOTE | 2019-06-03 09:08 | RAD REPORT ---
EXAM DESCRIPTION: MRI - Foot Right Wo Cont - 06/03/2019 8:34 am CLINICAL HISTORY: Soft tissue wound, possible osteomyelitis, prior toe amputations COMPARISON: Right foot January 2019 TECHNIQUE: Multiplanar imaging of the right foot performed using T1 weighted, T1 fat saturation, T2 fat saturation and T2 stir sequencing. FINDINGS: Hyperintense T2 signal is present in the first metatarsal head extending into the distal a spect of the shaft. T1 imaging shows a slight decrease in signal intensity. No cortical disruption co nfirmed. Edema signal is present along the dorsal, plantar and medial margins of the first metatarsal head. Along the medial margin of the first metatarsal head there is a 2.5 centimeter oval fluid julia ection. From this examination, a cannot be determined if this is an abscess or simply a reactive flui d collection from pressure on the medial soft tissues. No other abnormal signal intensity seen in the foot. The first, second, fourth and fifth toes have be en resected. There is been resection and/or remodeling of the fourth and fifth metatarsal heads. No other abnormal fluid collection. No suspicious or abnormal tendon signal abnormality. IMPRESSION: Suspected osteomyelitis of the first metatarsal head. Collective findings favor osteomye litis over reactive edema. Significant edema in the soft tissues along the dorsal, medial and plantar margins of the first metat arsal head. A 2.5 centimeter fluid collection is present adjacent to the medial margin first metatarsal head. Flu id is homogeneous in signal. From this examination it cannot be determined if this is an abscess julia ection or reactive fluid due to pressure on the soft tissues adjacent to the medial metatarsal head.
--- NOTE | 2019-06-03 11:17 | P.PN ---
Subjective Date of Service: 06/03/19 Primary Care Provider: Dr. Grigsby; Surgery-Dr. Edouard Chief Complaint: Right lower extremity swelling, pain Subjective: Improving, Doing well Physical Examination - Vital Signs Temperature: 97.7 F Blood Pressure: 142/65 Pulse: 63 Respirations: 18 Pulse Ox (%): 96 - Physical Exam General: Alert, In no apparent distress, Oriented x3, Cooperative HEENT: Atraumatic Neck: Supple Respiratory: Clear to auscultation bilaterally, Normal air movement Cardiovascular: Normal pulses, Regular rate/rhythm Gastrointestinal: Normal bowel sounds, Soft and benign, Non-distended, No tenderness, No masses, No rebound, No guarding Musculoskeletal: Other (Swelling to the right lower extremity improved. Ulcer to the right foot stable.) - Studies Medications List Reviewed: Yes Assessment & Plan Discharge Plan: Other (snf facility verses long-term acute care facility for long-term IV antibiotic therapy in) Plan to discharge in: 24 Hours Physician Review Additional Text: Impression: Right lower extremity cellulitis with chronic foot ulcer complicated with severe PVD complicated with osteomyelitis of 1st metatarsal head with 2.5 cm fluid collection adjacent to the medial margin of the 1st metatarsal head Chronic pain with neuropathy COPD Hypertension Hyperlipidemia Tobacco abuse Plan: Right lower extremity cellulitis with chronic foot ulcer complicated with severe PVD complicated with osteomyelitis of 1st metatarsal head with 2.5 cm fluid collection adjacent to the medial margin of the 1st metatarsal head: Overall patient improved. Patient on IV antibiotic therapy-Levaquin/ vancomycin. Will discuss with surgery to determine if patient will require surgical intervention. Will discuss findings with surgery of MRI. Patient likely requires long-term IV antibiotic therapy. If so PICC line will need to be arranged. Await further recommendations from surgery. Will need to determine if patient will require skilled placement vs long-term acute facility placement vs IV antibiotic therapy at home with prison IV antibiotics. Anticipate discharge once arrangements for long-term IV antibiotic therapy and determination of disposition can be arranged. Chronic pain with neuropathy: Continue with pain medication. COPD: Continue with COPD medication. Hypertension: Blood pressure stable. Continue with medication. Will monitor and adjust appropriately. Hyperlipidemia: Continue with medication Tobacco abuse: Continue with nicotine patch as needed. Tobacco cessation education provided. Time Spent Managing Pts Care (In Minutes): 55
[2019-06-03] MEDS: ENOXAPARIN 40 MG/0.4 ML SQ SCH (17:52)
--- NOTE | 2019-06-03 18:05 | RAD REPORT ---
EXAM DESCRIPTION: RAD - Chest Single View - 06/03/2019 5:48 pm CLINICAL HISTORY: Picc line placement COMPARISON: Chest Single View dated 08/24/2017; CHEST SINGLE VIEW dated 03/27/2012 FINDINGS: Portable chest was obtained following placement of a left upper extremity PICC line. The c atheter tip projects over the SVC.
--- NOTE | 2019-06-03 20:37 | PN ---
Date of Progress Note: 06/03/2019 Subjective: Patient is awake, alert, no complaint. Vital signs are stable, afebrile. MRI shows a l ittle bit of fluid collection in the medial aspect of the right foot and osteomyelitis. Physical Examination: No significant change. Assessment: Infected wound, right foot with osteo and peripheral vascular disease. Recommendation: We will debride that wound tomorrow in the operating room. The patient understands the risks, benefits, and alternatives and agrees to procedure. Also get a PICC line for 6 weeks IV a ntibdago. /MODL Voice ID: [id number] Report ID: [id number]
[2019-06-03] MEDS ORDERED: NA CHLORIDE 0.9% 250 ML ONE (20:46)
[2019-06-03] MEDS: Levofloxacin500mg IV 500 MG/100 ML BAG IV SCH (20:59)
[2019-06-03] MEDS: ATORVASTATIN 20 MG TAB PO SCH (21:00)
[2019-06-04 06:36] LABS: Absolute Lymphocytes (CBC) 0.9 K/uL (0.7-4.9); Basophils % 0.6 % (0-1.3); Hematocrit 39.2 % (39.6-49.0); Lymphocytes % 14.5 % (15.3-44.8); MPV 7.6 fL (7.6-11.3); RBC Red Blood Cell Count 3.71 M/uL (4.33-5.43)
[2019-06-04 06:52] LABS: Magnesium 2.1 mg/dL (1.8-2.4)
[2019-06-04] MEDS: VANCOMYCIN 1.5 GM in NA CHLORIDE 0.9% 500 ML IVPB SCH (07:25)
[2019-06-04] MEDS: BUPROPRION HCL S.R. 150MG TAB PO SCH (08:56)
[2019-06-04] MEDS: FAMOTIDINE 20 MG TAB PO SCH (08:57)
[2019-06-04] MEDS: CLOPIDOGREL 75 MG TABLET PO SCH (08:57)
[2019-06-04] MEDS: LISINOPRIL 5 MG TAB PO SCH (08:57)
[2019-06-04] MEDS: NICOTINE 21 MG/PAT TD SCH (08:57)
[2019-06-04] MEDS: COLLAGENASE 30 GM OINTMENT TOP SCH (08:58)
--- NOTE | 2019-06-04 10:02 | P.DS ---
Admission Date: 05/31/19 Discharge Date: 06/04/19 Primary Care Provider: Dr. Grigsby; Surgery-Dr. Edouard Disposition: DC HOME/HOME HEALTH CARE Discharge Condition: GOOD Reason for Admission: Right lower extremity swelling, pain Consultations: Surgery: Dr. Edouard Procedures: Xray: COMPARISON: No comparisons FINDINGS: Soft tissue swelling is seen along the medial aspect of the left leg. No fracture, dislocation or evidence of osteomyelitis. No subcutaneous gas. Venous doppler: COMPARISON: Extremity Venous [facility] dated 09/02/2017 FINDINGS: Right lower extremity venous system was interrogated with Doppler technique. Normal flow, compressibility and augmentation was noted. There is no DVT present. IMPRESSION: No evidence of right lower extremity deep venous thrombosis. MRI foot: FINDINGS: Hyperintense T2 signal is present in the first metatarsal head extending into the distal aspect of the shaft. T1 imaging shows a slight decrease in signal intensity. No cortical disruption confirmed. Edema signal is present along the dorsal, plantar and medial margins of the first metatarsal head. Along the medial margin of the first metatarsal head there is a 2.5 centimeter oval fluid collection. From this examination, a cannot be determined if this is an abscess or simply a reactive fluid collection from pressure on the medial soft tissues. No other abnormal signal intensity seen in the foot. The first, second, fourth and fifth toes have been resected. There is been resection and/or remodeling of the fourth and fifth metatarsal heads. No other abnormal fluid collection. No suspicious or abnormal tendon signal abnormality. IMPRESSION: Suspected osteomyelitis of the first metatarsal head. Collective findings favor osteomyelitis over reactive edema. Significant edema in the soft tissues along the dorsal, medial and plantar margins of the first metatarsal head. A 2.5 centimeter fluid collection is present adjacent to the medial margin first metatarsal head. Fluid is homogeneous in signal. From this examination it cannot be determined if this is an abscess collection or reactive fluid due to pressure on the soft tissues adjacent to the medial metatarsal head. Surgery: I and D of right foot Medical Problem List: Right lower extremity cellulitis with chronic foot ulcer complicated with osteomyelitis of 1st metatarsal head with 2.5 cm fluid collection adjacent to the medial margin of the 1st metatarsal head and PVD Chronic pain with neuropathy COPD Hypertension Hyperlipidemia Tobacco abuse Depression with anxiety Brief History of Present Illness: 63-year-old male presented to the emergency room with pain, swelling and erythema to the right lower extremity. Patient has chronic ulcer to the right foot. Patient recently on antibiotic therapy without improvement. Patient was admitted for further evaluation and treatment. Hospital Course: Patient presented with right lower extremity pain, erythema and swelling with chronic ulcer at the distal metatarsal head. Patient previously on oral antibiotic therapy. He reported no improvement on antibiotic therapy. Patient seen in evaluated the emergency room. Found to have right lower extremity cellulitis. Patient was admitted for IV antibiotic treatment and further evaluation. During the course of his stay MRI showed osteomyelitis of the 1st metatarsal head with a 2.5 cm fluid collection adjacent to the medial margin of the 1st metatarsal. Arterial Doppler shows severe lower extremity PVD. Patient seen and evaluated by surgery. Surgical intervention was required. Irrigation and debridement performed by Surgery. Patient requires long-term IV antibiotic therapy for osteomyelitis. PICC line placed. Arrangements for outpatient IV antibiotic therapy has been arranged. Patient will continue with IV vancomycin at home for 6 weeks. At discharge patient currently on vancomycin 1.25 g IV twice daily. Pharmacy is to monitor and adjust medication. Will need to monitor vancomycin trough levels prior to every 3rd dose. Will also need to monitor lab-BMP twice a week. Further adjustment in medication-vancomycin can be done by his PCP-Dr. Grigsby. Goal vancomycin level is 15 to 20 ug/ml. I have contacted his PCP to address plan of care. PCP will follow and adjust closely. Home health will be arranged prior to discharge to help in this process. Patient will continue with wound care as per surgery. Patient will follow up with [facility] to further monitor and treat. Patient with underlying chronic pain with neuropathy. At discharge patient will continue with tramadol 50 mg 1 pill 3 times a day as needed for pain. Will add Neurontin 100 mg 3 times a day as needed for pain as well. Further adjustment can be done by his PCP. Patient with peripheral vascular disease. Patient with prior bypass. Patient will continue with his medication-Plavix 75 mg daily. Patient may follow up with cardiology to further monitor and address. Patient with underlying hypertension. Blood pressure remained stable. At discharge he will continue with lisinopril 2.5 mg daily. Recommend to maintain blood pressures less 150/80. Further adjustment can be done by his PCP. Patient with hyperlipidemia. At discharge he will continue with Lipitor 20 mg daily. Patient with underlying depression/anxiety. Patient will continue with his medication of Wellbutrin SR 150 mg 1 pill twice daily. Further adjustment can be done by his PCP. Patient with tobacco abuse. Tobacco cessation addressed in detail. Patient will continue with nicotine patch. Education on cessation will be provided. Patient likely with underlying COPD due to his tobacco history. Will recommend to start COPD medication. At discharge he will continue with Symbicort 2 puffs 3 times a day and Pro air 2 puffs 3 times a day as needed for shortness of breath. Will recommend to establish care with pulmonology to further address and monitor. Vital Signs/Physical Exam: Temp Pulse Resp BP Pulse Ox 97.6 F 56 18 159/71 H 98 06/04/19 08:00 06/04/19 08:00 06/04/19 08:00 06/04/19 08:00 06/04/19 08:00 General: Alert, In no apparent distress, Oriented x3, Cooperative HEENT: Atraumatic Neck: Supple Respiratory: Clear to auscultation bilaterally, Normal air movement Cardiovascular: Normal pulses, Regular rate/rhythm Gastrointestinal: Normal bowel sounds, No tenderness, No masses, No rebound, No guarding Integumentary: Other (Right foot bandaged) Neurological: Normal speech, Normal strength at 5/5 x4 extr, Normal tone Laboratory Data at Discharge: WBC 6.4 K/uL (4.3-10.9) 06/04/19 06:00 Hgb 13.2 g/dL (13.6-17.9) L 06/04/19 06:00 Hct 39.2 % (39.6-49.0) L 06/04/19 06:00 Plt Count 294 K/uL (152-406) 06/04/19 06:00 PT 13.3 SECONDS (9.5-12.5) H 06/01/19 05:43 INR 1.13 06/01/19 05:43 APTT 29.5 SECONDS (24.3-36.9) 06/01/19 05:43 Sodium 141 mmol/L (136-145) 06/04/19 06:00 Potassium 4.0 mmol/L (3.5-5.1) 06/04/19 06:00 BUN 10 mg/dL (7-18) 06/04/19 06:00 Creatinine 0.96 mg/dL (0.55-1.3) 06/04/19 06:00 Glucose 105 mg/dL (74-106) 06/04/19 06:00 Magnesium 2.1 mg/dL (1.8-2.4) 06/04/19 06:00 Total Bilirubin 0.4 mg/dL (0.2-1.0) 05/31/19 18:12 AST 44 U/L (15-37) H 05/31/19 18:12 ALT 46 U/L (12-78) 05/31/19 18:12 Alkaline Phosphatase 107 U/L (45-117) 05/31/19 18:12 Home Medications: Buproprion S.r. [Wellbutrin Sr*] 150 mg PO BID 09/02/17 Clopidogrel Bisulfate [Plavix*] 75 mg PO DAILY 03/06/19 Lisinopril [Zestril] 2.5 mg PO DAILY 03/06/19 Atorvastatin Calcium [Lipitor*] 20 mg PO BEDTIME 05/31/19 Albuterol Sulfate [Proair Hfa] 2 puff IH TID PRN #1 hfa.aer.ad 06/04/19 Budesonide/Formoterol Fumarate [Symbicort 160-4.5 Mcg Inhaler] 2 puff IH BID #1 hfa.aer.ad 06/04/19 Collagenase [Santyl Ointment*] 1 appl TOP DAILY tube 06/04/19 Gabapentin [Neurontin*] 100 mg PO BID PRN #30 cap 06/04/19 Nicotine [Nicoderm*] 21 mg TD DAILY #30 patch.td24 06/04/19 traMADol HCL [Ultram*] 50 mg PO TID PRN #20 tab 06/04/19 New Medications: Albuterol Sulfate [Proair Hfa] 2 puff IH TID PRN #1 hfa.aer.ad PRN Reason: Shortness Of Breath Budesonide/Formoterol Fumarate [Symbicort 160-4.5 Mcg Inhaler] 2 puff IH BID #1 hfa.aer.ad Gabapentin [Neurontin*] 100 mg PO BID PRN #30 cap PRN Reason: Pain Scale 2-4 (Mild) Nicotine [Nicoderm*] 21 mg TD DAILY #30 patch.td24 traMADol HCL [Ultram*] 50 mg PO TID PRN #20 tab PRN Reason: Pain Scale 2-4 (Mild) Patient Discharge Instructions: 1. Recommend follow up with PCP within 1 week to follow up this hospitalization and to monitor antibiotics. 2. Patient presented with right lower extremity pain, erythema and swelling with chronic ulcer at the distal metatarsal head. Patient previously on oral antibiotic therapy. He reported no improvement on antibiotic therapy. Patient seen in evaluated the emergency room. Found to have right lower extremity cellulitis. Patient was admitted for IV antibiotic treatment and further evaluation. During the course of his stay MRI showed osteomyelitis of the 1st metatarsal head with a 2.5 cm fluid collection adjacent to the medial margin of the 1st metatarsal. Arterial Doppler shows severe lower extremity PVD. Patient seen and evaluated by surgery. Surgical intervention was required. Irrigation and debridement performed by Surgery. Patient requires long-term IV antibiotic therapy for osteomyelitis. PICC line placed. Arrangements for outpatient IV antibiotic therapy has been arranged. Patient will continue with IV vancomycin at home for 6 weeks. At discharge patient currently on vancomycin 1.25 g IV twice daily. Pharmacy is to monitor and adjust medication. Will need to monitor vancomycin trough levels prior to every 3rd dose. Will also need to monitor lab-BMP twice a week. Further adjustment in medication-vancomycin can be done by his PCP-Dr. Grigsby. Goal vancomycin level is 15 to 20 ug/ml. I have contacted his PCP to address plan of care. PCP will follow and adjust closely. Home health will be arranged prior to discharge to help in this process. Patient will continue with wound care as per surgery. Patient will follow up with surgery [facility] to further monitor and treat. 3. Patient with underlying chronic pain with neuropathy. At discharge patient will continue with tramadol 50 mg 1 pill 3 times a day as needed for pain. Will add Neurontin 100 mg 3 times a day as needed for pain as well. Further adjustment can be done by his PCP. 4. Patient with peripheral vascular disease. Patient with prior bypass. Patient will continue with his medication-Plavix 75 mg daily. Patient may follow up with cardiology to further monitor and address. 5. Patient with underlying hypertension. Blood pressure remained stable. At discharge he will continue with lisinopril 2.5 mg daily. Recommend to maintain blood pressures less 150/80. Further adjustment can be done by his PCP. 6. Patient with hyperlipidemia. At discharge he will continue with Lipitor 20 mg daily. 7. Patient with underlying depression/ anxiety. Patient will continue with his medication of Wellbutrin SR 150 mg 1 pill twice daily. Further adjustment can be done by his PCP. 8. Patient with tobacco abuse. Tobacco cessation addressed in detail. Patient will continue with nicotine patch. Education on cessation will be provided. 9. Patient likely with underlying COPD due to his tobacco history. Will recommend to start COPD medication. At discharge he will continue with Symbicort 2 puffs 3 times a day and Pro air 2 puffs 3 times a day as needed for shortness of breath. Will recommend to establish care with pulmonology to further address and monitor. Diet: AHA Activity: Fall precautions Followup: Jonatan Edouard MD [ACTIVE - CAN ADMIT] - 1-2 Weeks ([facility] in my clinic) Time spent managing pt's care (in minutes): 55
[2019-06-04] MEDS ORDERED: NA CHLORIDE 0.9% 1,000 ML ONE (11:11)
[2019-06-04] MEDS ORDERED: COLLAGENASE 30 GM OINTMENT TOP ONE (11:18)
[2019-06-04] MEDS ORDERED: LIDOCAINE 1% MPF 5 ML VIAL ONE (11:49)
[2019-06-04] MEDS ORDERED: MIDAZOLAM HCL 2 MG/2 ML INJ ONE (11:49)
[2019-06-04] MEDS ORDERED: FENTANYL CITR 100 MCG/2 ML ONE (11:49)
[2019-06-04] MEDS ORDERED: PROPOFOL 200 MG/20 ML VIAL IV ONE (11:49)
[2019-06-04] MEDS ORDERED: KETOROLAC 30 MG/ML INJ ONE (12:33)
[2019-06-04] MEDS ORDERED: ONDANSETRON 4 MG/2 ML VIAL ONE (12:46)
[2019-06-04] MEDS ORDERED: VANCOMYCIN 1.25 GM in NA CHLORIDE 0.9% 250 ML IVPB SCH (13:00)
--- NOTE | 2019-06-04 13:12 | P.OP ---
Preoperative diagnosis: Infected wound right foot with osteo Postoperative diagnosis: same Primary procedure: I and D and Debridement Infected right foot wound Anesthesia: gen Estimated blood loss: min Specimen: pus Findings: as above Complications: None Transferred to: Recovery Room Condition: Good
[2019-06-04 13:16] VITALS: O2SAT 99
[2019-06-04 13:22] VITALS: BP 160/69; TEMP 97.9
--- NOTE | 2019-06-05 01:15 | OP ---
Date of Procedure: 06/04/2019 Surgeon: Jonatan Edouard MD Preoperative Diagnosis: Infected wound right foot with osteomyelitis. Postoperative Diagnosis: Infected wound right foot with osteomyelitis. Procedure: Incision and drainage and debridement of right foot infected wound. Estimated Blood Loss: Minimal. Specimen: Pus. Findings: Above. Anesthesia: General. Complications: None. Disposition: Patient tolerated the procedure in stable condition, taken to Recovery in good general condition. Procedure In Detail: Patient was brought to the OR and placed in supine position. General anesthesi a was begun. Patient was prepped and draped in usual sterile fashion. Marcaine 0.5% was infiltrated locally for postop pain control. Then, 15 blade was used to make approximately a 2 cm diameter inci cayetano on the medial aspect of the right foot and in the subcutaneous tissue, pus encounter. Cultures obtained. Necrotic tissue was debrided with sharp and blunt dissection. Bleeding controlled with ca utery. A curette used as well. Wound irrigated. Bleeding controlled with cautery and collagenase dressing was applied. The patient was awakened and taken to Recovery in good general con dition. /MODL Voice ID: [id number] Report ID: [id number]
== END 2019-06-04 16:18 | disposition home or self-care (01) | DRG 623 ==
LOC: ER 16:49 → ERHOLD 20:19 → 2ND 20:56
PROVIDERS: ADMIT Hospitalist; ATTEND Family Medicine
PROC: 02HV33Z Insertion of Infusion Device into Superior Vena Cava, Percutaneous Approach (ICD-10-PCS; 2019-06-03)
PROC: 0JBQ0ZZ Excision of Right Foot Subcutaneous Tissue and Fascia, Open Approach (ICD-10-PCS; principal; 2019-06-04 13:00)
DX: E11.621 Type 2 diabetes mellitus with foot ulcer (principal); L03.115 Cellulitis of right lower limb; M86.171 Other acute osteomyelitis, right ankle and foot; E11.69 Type 2 diabetes mellitus with other specified complication; I73.9 Peripheral vascular disease, unspecified; J44.9 Chronic obstructive pulmonary disease, unspecified; G62.9 Polyneuropathy, unspecified; I10 Essential (primary) hypertension; E78.5 Hyperlipidemia, unspecified; F17.200 Nicotine dependence, unspecified, uncomplicated; Z89.439 Acquired absence of unspecified foot
CPT/HCPCS: 36415; 71045; 80048; 80053; 80202; 81003; 82962; 83605; 83735; 84145; 85025; 85610; 85730; 87040; 87070; 87075; 87077; 87186; 87205; 88304; 93971; 96365; 97116; 97161; 97530; 99285; J1650; J2250; J2405; J2704; J3010; J3590; J7030

== ENCOUNTER 2019-06-11 12:01 | Emergency (ER) | payer BC ==
--- OUTSIDE RECORDS SUMMARY | 2019-06-11 12:23 | XMS REPORT ---
:1955 [facility] Address [address] [place] [address] Dr. Hope [address] [place] [id number] Care Team Providers Name Role Phone Unavailable Unavailable Unavailable Problems This patient has no known problems. Allergies, Adverse Reactions, Alerts This patient has no known allergies or adverse reactions. Medications This patient has no known medications.
--- NOTE | 2019-06-11 13:13 | ER ---
Nurse's Notes [facility] Name: Surinder Andrade Age: 63 yrs Sex: Male : 1955 Arrival Date: 06/11/2019 Time: 12:04 Bed 17 Private MD: Varghese Martinez Diagnosis: Suspected PICC line malfunction, resolved Presentation: 06/11 12:09 Presenting complaint: Patient states: My PICC line works for my vanc but I am due for a la1 vanc blood level and she could not draw from my line and tried to stick me once but didn't get it so they sent me here. Transition of care: patient was not received from another setting of care. Onset of symptoms was June 11, 2019. Risk Assessment: Do you want to hurt yourself or someone else? Patient reports no desire to harm self or others. Initial Sepsis Screen: Does the patient meet any 2 criteria? No. Patient's initial sepsis screen is negative. Does the patient have a suspected source of infection? No. Patient's initial sepsis screen is negative. Care prior to arrival: None. 12:09 Method Of Arrival: Ambulatory la1 12:09 Acuity: ANDREA 4 la1 Historical: - Allergies: 12:10 No Known Allergies; la1 - PMHx: 12:10 Sanchez's Cyst - right knee; High Cholesterol; Hypertension; la1 - Immunization history:: Adult Immunizations up to date. - Social history:: Smoking status: Patient uses tobacco products, smokes one-half pack cigarettes per day. - Ebola Screening: : No symptoms or risks identified at this time. - Family history:: not pertinent. - Hospitalizations: : No recent hospitalization is reported. Screenin:30 Abuse screen: Denies threats or abuse. Denies injuries from another. Nutritional sg screening: No deficits noted. Tuberculosis screening: No symptoms or risk factors identified. Never had TB. Fall Risk None identified. Assessment: 12:30 General: Appears in no apparent distress. well groomed, well developed, well nourished, sg Behavior is calm, cooperative, appropriate for age. Pain: Denies pain. Neuro: Level of Consciousness is awake, alert, obeys commands, Oriented to person, place, time, Geodetic Computator are equal bilaterally Moves all extremities. Gait is steady, Speech is normal, Facial symmetry appears normal, Pupils are PERRLA. Cardiovascular: Heart tones S1 S2 present Capillary refill is brisk in bilateral fingers Patient's skin is warm and dry. Chest pain is denied. Respiratory: Airway is patent Respiratory effort is even, unlabored, Respiratory pattern is regular, symmetrical, Breath sounds are clear. GI: Abdomen is round non-distended. : No signs and/or symptoms were reported regarding the genitourinary system. EENT: No signs and/or symptoms were reported regarding the EENT system. Derm: Skin is pink, warm \T\ dry. Musculoskeletal: Circulation, motion, and sensation intact. Range of motion: intact in all extremities. 13:03 Reassessment: Patient appears in no apparent distress at this time. Patient is alert, sg oriented x 3, equal unlabored respirations, skin warm/dry/pink. awaiting discharge orders at this time. Vital Signs: 12:10 BP 190 / 78; Pulse 67; Resp 16; Temp 97.5; Pulse Ox 98% on R/A; Weight 72.57 kg; Height la1 5 ft. 10 in. (177.80 cm); 13:04 BP 178 / 82; Pulse 67; Resp 16; Pulse Ox 99% on R/A; sg 12:10 Body Mass Index 22.96 (72.57 kg, 177.80 cm) la1 ED Course: 12:04 Patient arrived in ED. mr 12:04 Varghese Martinez MD is Private Physician. mr 12:10 Triage completed. la1 12:11 Arm band placed on right wrist. la1 12:12 Davidson Clark MD is Attending Physician. rn 12:15 Amarjit Doyle RN is Primary Nurse. sg 12:42 Initial lab(s) drawn, by mi, sent to lab. Accessed PICC line. Clean \T\ dry. Dressing sg intact. Good blood return. Flushes easily. 12:44 Patient has correct armband on for positive identification. Bed in low position. Call sg light in reach. Side rails up X2. Pulse ox on. NIBP on. Head of bed elevated. Administered Medications: 12:44 Not Given (PICC Line flushed and Blood returned Bilateral Ports): Activase 2 ml IV sg Thrombolytics once; into each catheter lumnem may repeat once x1 Outcome: 13:12 Discharge ordered by . rn 13:18 Patient left the ED. sg Signatures: Amarjit Doyle RN RN sg Rivera, Suki mr Davidson Clark MD MD rn Attema, SUKHWINDER Gallo RN1
--- NOTE | 2019-06-11 13:13 | EDPHYS ---
Physician Documentation [facility] Name: Surinder Andrade Age: 63 yrs Sex: Male : 1955 Arrival Date: 06/11/2019 Time: 12:04 Bed 17 Private MD: Varghese Martinez ED Physician Davidson Clark HPI: 06/11 13:09 This 63 yrs old Male presents to ER via Ambulatory with complaints of Clogged rn PICC line. 13:09 Reports sent in here for PICC line not drawing, was able to get Vancomycin this AM, but rn nurse unable to get vancomycin trough. No other complaints. . Onset: The symptoms/episode began/occurred today. The patient has not experienced similar symptoms in the past. The patient has not recently seen a physician. Historical: - Allergies: 12:10 No Known Allergies; la1 - PMHx: 12:10 Sanchez's Cyst - right knee; High Cholesterol; Hypertension; la1 - Immunization history:: Adult Immunizations up to date. - Social history:: Smoking status: Patient uses tobacco products, smokes one-half pack cigarettes per day. - Ebola Screening: : No symptoms or risks identified at this time. - Family history:: not pertinent. - Hospitalizations: : No recent hospitalization is reported. ROS: 13:09 Constitutional: Negative for fever, chills, and weight loss, Cardiovascular: Negative rn for chest pain, palpitations, and edema, Respiratory: Negative for shortness of breath, cough, wheezing, and pleuritic chest pain, MS/Extremity: Negative for injury and deformity. Exam: 13:09 Constitutional: This is a well developed, well nourished patient who is awake, alert, rn and in no acute distress. MS/ Extremity: LUE PICC line in place, properly dressed and not withdrawn. Vital Signs: 12:10 BP 190 / 78; Pulse 67; Resp 16; Temp 97.5; Pulse Ox 98% on R/A; Weight 72.57 kg; Height la1 5 ft. 10 in. (177.80 cm); 13:04 BP 178 / 82; Pulse 67; Resp 16; Pulse Ox 99% on R/A; sg 12:10 Body Mass Index 22.96 (72.57 kg, 177.80 cm) la1 MDM: 12:12 Patient medically screened. rn 13:09 Differential Diagnosis clogged PICC line. Data reviewed: vital signs, nurses notes, and rn as a result, I will discharge patient. Counseling: I had a detailed discussion with the patient and/or guardian regarding: the historical points, exam findings, and any diagnostic results supporting the discharge/admit diagnosis, the need for outpatient follow up, to return to the emergency department if symptoms worsen or persist or if there are any questions or concerns that arise at home. ED course: Initially activase ordered for PICC line, but nursing able to withdraw blood easily. Vanc trough sent, patient requests to be discharged and if we could fax over. Amarjit Doyle RN will look for results and fax over. . 06/11 12:16 Order name: Vancomycin,Trough rn Administered Medications: 12:44 Not Given (PICC Line flushed and Blood returned Bilateral Ports): Activase 2 ml IV sg Thrombolytics once; into each catheter lumnem may repeat once x1 Disposition: 06/11/19 13:12 Discharged to Home. Impression: Suspected PICC line malfunction, resolved. - Condition is Stable. - Discharge Instructions: PICC Home Guide. - Medication Reconciliation Form, Thank You Letter, Antibiotic Education, Prescription Opioid Use form. - Follow up: Private Physician; When: As needed; Reason: Recheck today's complaints, Re-evaluation by your physician. - Problem is new. - Symptoms have improved. Signatures: Dispatcher [employer] EDMS Amarjit Doyle, SUKHWINDER PRETTY sg Davidson Clark MD MD rn Attema, Lee, RN RN la1 Corrections: (The following items were deleted from the chart) 13:18 13:12 06/11/2019 13:12 Discharged to Home. Impression: Suspected PICC line malfunction, sg resolved. Condition is Stable. Forms are Medication Reconciliation Form, Thank You Letter, Antibiotic Education, Prescription Opioid Use. Follow up: Private Physician; When: As needed; Reason: Recheck today's complaints, Re-evaluation by your physician. Problem is new. Symptoms have improved. rn
[2019-06-11 14:07] VITALS: TEMP 97.5
[2019-06-11 14:08] VITALS: BP 178/82; O2SAT 99
== END 2019-06-11 13:18 | disposition home or self-care (01) ==
LOC: ER 12:01
DX: T82.9XXA Unspecified complication of cardiac and vascular prosthetic device, implant and graft, initial encounter (principal); I10 Essential (primary) hypertension; F17.210 Nicotine dependence, cigarettes, uncomplicated
CPT/HCPCS: 36415; 80202; 99284

== ENCOUNTER 2019-06-21 13:08 | Inpatient (IN) | payer BC ==
--- OUTSIDE RECORDS SUMMARY | 2019-06-21 13:10 | XMS REPORT ---
:1955 Author Organization [facility] Address [address] [place] [address] [address] [place] [address] Care Team Providers Name Role Phone Unavailable Unavailable Unavailable Problems This patient has no known problems. Allergies, Adverse Reactions, Alerts This patient has no known allergies or adverse reactions. Medications This patient has no known medications.
[2019-06-21 13:57] LABS: Urine Blood TRACE (NEG); Urine Glucose NEGATIVE (NEG); Urine Protein TRACE (NEG); Urine pH 6.5 (5.0-7.0)
--- NOTE | 2019-06-21 14:34 | RAD REPORT ---
EXAM DESCRIPTION: RAD - Chest Single View - 06/21/2019 2:21 pm CLINICAL HISTORY: Renal failure, shortness of breath COMPARISON: June 03 TECHNIQUE: AP portable chest image was obtained 1419 hours . FINDINGS: No peripheral mass or consolidation. Lung markings are not substantially different from co mparison. No significant degree of failure or volume overload seen. Left upper extremity PICC line re marky in place. Heart and vasculature are normal. No measurable pleural effusion and no pneumothorax. No acute bony abnormality seen. No acute aortic findings suspected. IMPRESSION: No acute cardiopulmonary process. Chest findings are not significantly different from comparison.
[2019-06-21 14:52] LABS: Basophils % 0.8 % (0-1.3); Hematocrit 41.9 % (39.6-49.0); Lymphocytes % 11.4 % (15.3-44.8); MPV 7.1 fL (7.6-11.3); RBC Red Blood Cell Count 4.02 M/uL (4.33-5.43)
[2019-06-21 14:53] LABS: Protime INR 1.09
--- NOTE | 2019-06-21 14:53 | RAD REPORT ---
EXAM DESCRIPTION: CT - Stone Protocol - 06/21/2019 2:37 pm CLINICAL HISTORY: Abdominal pain COMPARISON: None. TECHNIQUE: Axial 5 mm thick images were obtained without oral or IV contrast. The [id number] span s the entirety of the system including uppermost abdomen and lung bases. All CT scans are performed using dose optimization technique as appropriate and may include automated exposure control or mA/KV adjustment according to patient size. FINDINGS: No hydronephrosis is present in either kidney and no obstructing calculus. Vascular calcif ications and nonobstructing small calyx calculi are present in each kidney. There is stranding in the perinephric fat that is mild and symmetric. No cortical thinning. No suspicious renal masses. Isoden se masses and pyelonephritis are not excluded on a stone protocol CT scan. No urinary bladder suspici ous finding. No significant adrenal finding. No suspicious prostate gland or seminal vesicle abnormal ity. Imaged portions of the liver, spleen and pancreas show no suspicious findings on non-contrast imaging . Gallbladder is contracted. No biliary tree dilatation. No gastric dilatation or gastric wall thickening seen. No dilation of the small bowel. The appendix i s normal. A slightly thickened irregular haro at the ileocecal valve likely reflect a normal mucosal fold artifact. No stranding in the adjacent fat. Remainder the colon shows no acute finding. Small fat only right inguinal hernia is present. No congestion or edema. No mass or bulky lymphadenop athy. No omental thickening. No free air, free fluid or pneumatosis. Disc and bony degenerative changes are present. Aortic, mesenteric and renal vascular calcifications are present. Patient has an aortobifemoral bypas s graft in place. Patency cannot be assessed on noncontrast imaging. IMPRESSION: No hydronephrosis and no obstructing calculi. Kidneys appear edematous. Isodense masses and pyelonephritis are not excluded. No acute urinary bladd er abnormality seen. Slight thickening of the haro of the colon near the ileocecal valve. This is probably normal fold ar tifact rather than mass. This can be evaluated further with colonoscopy or with outpatient CT imaging using oral and IV contrast. Aortofemoral bypass graft is in place. Patency cannot be assessed on a noncontrast study. Isodense masses and pyelonephritis are not excluded on stone protocol technique.
[2019-06-21 15:12] LABS: ALT/SGPT 26 U/L (12-78); AST/SGOT 18 U/L (15-37); Albumin 3.3 g/dL (3.4-5.0); Alkaline Phosphatase 100 U/L (45-117); BUN Blood Urea Nitrogen 29 mg/dL (7-18); Bicarbonate 25 mmol/L (21-32); Bilirubin Direct 0.1 mg/dL (0-0.2); Bilirubin Total 0.6 mg/dL (0.2-1.0); Glucose Level 81 mg/dL (74-106); Magnesium 2.3 mg/dL (1.8-2.4); NT PRO-BNP 1065 pg/mL (<125); Phosphorus 4.6 mg/dL (2.5-4.9); Potassium 4.5 mmol/L (3.5-5.1); Protein, Total 8.4 g/dL (6.4-8.2); Sodium Level 139 mmol/L (136-145); Troponin (Emerg Dept Use Only) < 0.02 ng/mL (0.0-0.045); Uric Acid 6.2 mg/dL (3.5-7.2)
--- NOTE | 2019-06-21 15:17 | RAD REPORT ---
EXAM DESCRIPTION: US - Renal Ultrasound-Complete - 06/21/2019 3:04 pm CLINICAL HISTORY: Pain, acute kidney injury COMPARISON: CT study same date FINDINGS: The right kidney measures 8.0 x 3.5 x 6.0 cm. The left kidney measures 10.7 x 6.9 x 5.3 c m. Cortical thickness is normal. Slight increase in echogenicity of the cortex seen in each kidney. N o hydronephrosis or suspicious renal mass. No bladder wall thickening or mass. No intraluminal stone or mass. IMPRESSION: Bilateral medical renal disease is evident. No hydronephrosis or suspicious mass.
--- NOTE | 2019-06-21 16:00 | ER ---
Nurse's Notes [facility] Name: Surinder Andrade Age: 63 yrs Sex: Male : 1955 Arrival Date: 06/21/2019 Time: 13:10 Bed 7 Private MD: Diagnosis: Acute Kidney Injury Presentation: 06/21 13:36 Presenting complaint: Patient states: "I did blood work yesterday and called me and aj1 said not to take my Vancomycin, and go to the ER because I have acute kidney failure." Patient has a PICC line to the left upper arm for osteomyelitis in his right foot. Reports abdominal pain. Reports nausea. Denies V?D. Transition of care: patient was not received from another setting of care. Onset of symptoms was June 21, 2019. Risk Assessment: Do you want to hurt yourself or someone else? Patient reports no desire to harm self or others. Initial Sepsis Screen: Does the patient meet any 2 criteria? No. Patient's initial sepsis screen is negative. Does the patient have a suspected source of infection? Yes: Other: known osteomyelitis. Care prior to arrival: None. 13:36 Method Of Arrival: Ambulatory aj 13:36 Acuity: ANDREA 3 aj1 Triage Assessment: 13:38 General: Appears in no apparent distress. comfortable, Behavior is calm, cooperative, aj1 appropriate for age. Pain: Complains of pain in abdomen Pain currently is 3 out of 10 on a pain scale. Neuro: Level of Consciousness is awake, alert, obeys commands. Cardiovascular: Patient's skin is warm and dry. Respiratory: Airway is patent Respiratory effort is even, unlabored, Respiratory pattern is regular, symmetrical. Historical: - Allergies: 13:38 No Known Allergies; aj1 - PMHx: 13:38 Sanchez's Cyst - right knee; High Cholesterol; Hypertension; osteomyelitis; aj1 - Immunization history:: Adult Immunizations up to date. - Ebola Screening: : Patient denies travel to an Ebola-affected area in the 21 days before illness onset. - Social history:: Smoking status: Patient/guardian denies using tobacco. Screenin:45 Abuse screen: Denies threats or abuse. Denies injuries from another. Nutritional bp screening: No deficits noted. Tuberculosis screening: No symptoms or risk factors identified. Fall Risk None identified. Assessment: 13:40 General: SEE TRIAGE NOTE. bp 15:00 Reassessment: ALL CURRENT ORDERS COMPLETED, RESULTS PENDING. bp 16:00 Reassessment: ADMIT IN PROCESS. bp 17:56 Reassessment: ADMIT COMPLETE, REPORT TO EDILMA RN FOR RM 410. bp Vital Signs: 13:38 BP 151 / 76; Pulse 70; Resp 18; Temp 98.2; Pulse Ox 98% on R/A; Weight 72.57 kg (R); iw Height 5 ft. 10 in. (177.80 cm) (R); 15:00 BP 165 / 73; Pulse 67; Resp 17; Pulse Ox 95% ; bp 16:41 BP 183 / 75; Pulse 62; Resp 14; Pulse Ox 99% ; bp 13:38 Body Mass Index 22.96 (72.57 kg, 177.80 cm) iw ED Course: 13:10 Patient arrived in ED. as 13:38 Triage completed. aj1 13:38 Arm band placed on Patient placed in waiting room, Patient notified of wait time. aj1 13:45 Patient has correct armband on for positive identification. Bed in low position. Call bp light in reach. Side rails up X2. Adult w/ patient. 13:48 Arya Braswell, SUKHWINDER is Primary Nurse. bp 13:48 Adrian Jimenez PA is PHCP. jmm 13:48 Shayan Vitale MD is Attending Physician. jmm 14:22 XRAY Chest (1 view) In Process Unspecified. EDMS 14:34 Initial lab(s) drawn, by me, sent to lab. Inserted saline lock: 20 gauge in right ms forearm, using aseptic technique. Blood collected. 14:40 CT Stone Protocol In Process Unspecified. EDMS 15:05 US Rp Exam Complete In Process Unspecified. EDMS 15:58 Justin Marino MD is Hospitalizing Provider. jmm 17:56 No provider procedures requiring assistance completed. Patient admitted, IV remains in bp place. Administered Medications: No medications were administered Outcome: 15:59 Decision to Hospitalize by Provider. jmm 17:57 Admitted to Med/surg accompanied by tech, via wheelchair, room 410, with chart, Report bp called to EDILMA PRETTY 17:57 Condition: stable 17:57 Instructed on the need for admit. 18:20 Patient left the ED. bp Signatures: Dispatcher [employer] Talita Cowan RN RN aj1 Adrian Jimenez PA PA jmm Martinez, Amelia as Christine Merritt RN RN iw Solis, Maria ms Peltier, Brian, RN RN bp Corrections: (The following items were deleted from the chart) 13:47 13:38 BP 151 / 76; Pulse 70bpm; Resp 8bpm; Pulse Ox 98% RA; Temp 98.2F; 72.57 kg iw Reported; Height 5 ft. 10 in. Reported; BMI: 22.9; aj1
--- NOTE | 2019-06-21 16:01 | EDPHYS ---
Physician Documentation [facility] Name: Surinder Andrade Age: 63 yrs Sex: Male : 1955 Arrival Date: 06/21/2019 Time: 13:10 Bed 7 Private MD: ED Physician Shayan Vitale HPI: 06/21 14:12 This 63 yrs old Male presents to ER via Ambulatory with complaints of Flank jmm Pain. 14:12 This is a 63 year old male with a history of htn, hlp that presents to the ED with jmm nausea, 2 episodes of vomiting. Patient is currently taking vancomycin to treat osteomyelitis of the right foot. Patient is s/p debridement of the foot last week and visited with Dr. Edouard whom stated his wound was healing well. . Historical: - Allergies: 13:38 No Known Allergies; aj1 - PMHx: 13:38 Sanchez's Cyst - right knee; High Cholesterol; Hypertension; osteomyelitis; aj1 - Immunization history:: Adult Immunizations up to date. - Ebola Screening: : Patient denies travel to an Ebola-affected area in the 21 days before illness onset. - Social history:: Smoking status: Patient/guardian denies using tobacco. ROS: 14:12 Constitutional: Negative for fever, chills, and weight loss, Cardiovascular: Negative jmm for chest pain, palpitations, and edema, Respiratory: Negative for shortness of breath, cough, wheezing, and pleuritic chest pain. 14:12 Back: Negative for injury and pain, Skin: Negative for injury, rash, and discoloration, Neuro: Negative for headache, weakness, numbness, tingling, and seizure. 14:12 Abdomen/GI: Positive for abdominal pain, nausea and vomiting. 14:12 All other systems are negative. Exam: 14:12 Constitutional: This is a well developed, well nourished patient who is awake, alert, jmm and in no acute distress. Head/Face: atraumatic. Eyes: EOMI, no conjunctival erythema appreciated ENT: Moist Mucus Membranes Neck: Trachea midline, Supple Chest/axilla: Normal chest wall appearance and motion. Cardiovascular: Regular rate and rhythm. No edema appreciated Respiratory: Normal respirations, no respiratory distress appreciated 14:12 Abdomen/GI: Inspection: abdomen appears normal, Bowel sounds: normal, Palpation: abdomen is soft and non-tender, in all quadrants. 14:12 Back: ROM is normal. 14:12 Musculoskeletal/extremity: ROM: intact in all extremities. 14:12 Skin: Appearance: Color: normal in color. 14:12 Neuro: Orientation: is normal, Mentation: is normal, Memory: is normal. 14:12 Psych: Behavior/mood is pleasant, cooperative. 15:55 ECG was reviewed by the Attending Physician. [facility] Vital Signs: 13:38 BP 151 / 76; Pulse 70; Resp 18; Temp 98.2; Pulse Ox 98% on R/A; Weight 72.57 kg (R); iw Height 5 ft. 10 in. (177.80 cm) (R); 15:00 BP 165 / 73; Pulse 67; Resp 17; Pulse Ox 95% ; bp 16:41 BP 183 / 75; Pulse 62; Resp 14; Pulse Ox 99% ; bp 13:38 Body Mass Index 22.96 (72.57 kg, 177.80 cm) iw MDM: 13:51 Patient medically screened. joseph 15:55 Data reviewed: vital signs, nurses notes. Counseling: I had a detailed discussion with [facility] the patient and/or guardian regarding: the historical points, exam findings, and any diagnostic results supporting the discharge/admit diagnosis, lab results, radiology results, the need for further work-up and treatment in the hospital. ED course: I discussed the patient with Dr. Marino whom accepted admission. . 06/21 13:48 Order name: Basic Metabolic Panel; Complete Time: 15:15 06/21 13:48 Order name: CBC with Diff; Complete Time: 15:18 w 06/21 13:48 Order name: LFT's; Complete Time: 15:15 w 06/21 13:48 Order name: Magnesium; Complete Time: 15:15 w 06/21 13:48 Order name: NT PRO-BNP; Complete Time: 15:15 w 06/21 13:48 Order name: PT-INR; Complete Time: 15:12 w 06/21 13:48 Order name: Troponin (emerg Dept Use Only); Complete Time: 15:15 w 06/21 13:48 Order name: LDH; Complete Time: 15:15 w 06/21 13:48 Order name: Uric Acid; Complete Time: 15:15 w 06/21 13:48 Order name: Phosphorus; Complete Time: 15:15 snw 06/21 13:48 Order name: Vancomycin,Trough; Complete Time: 15:15 snw 06/21 13:48 Order name: Blood Culture Adult (2) snw 06/21 13:48 Order name: Lactate; Complete Time: 15:15 snw 06/21 13:54 Order name: Urine Dipstick--Ancillary (enter results); Complete Time: 14:08 06/21 13:48 Order name: US Rp Exam Complete; Complete Time: 15:43 snw 06/21 13:48 Order name: XRAY Chest (1 view); Complete Time: 14:45 snw 06/21 13:48 Order name: EKG; Complete Time: 13:50 snw 06/21 13:48 Order name: Cardiac monitoring; Complete Time: 13:52 snw 06/21 13:48 Order name: EKG - Nurse/Tech; Complete Time: 14:34 snw 06/21 13:48 Order name: IV Saline Lock; Complete Time: 14:34 snw 06/21 13:48 Order name: Labs collected and sent; Complete Time: 14:34 snw 06/21 13:48 Order name: O2 Per Protocol; Complete Time: 13:49 snw 06/21 13:48 Order name: O2 Sat Monitoring; Complete Time: 13:49 snw 06/21 14:08 Order name: CT Stone Protocol; Complete Time: 15:12 jmm EC:55 Rate is 66 beats/min. Rhythm is regular. QRS [place] is Normal. MT interval is normal. QRS jmm interval is normal. QT interval is normal. No Q waves. T waves are Normal. No ST changes noted. Reviewed by me. Administered Medications: No medications were administered Disposition: 06/21/19 15:59 Hospitalization ordered by Justin Marino for Inpatient Admission. Preliminary diagnosis is Acute Kidney Injury. - Bed requested for Telemetry/MedSurg (Inpatient). - Status is Inpatient Admission. bp - Condition is Stable. - Problem is new. - Symptoms are unchanged. UTI on Admission? No Addendum: 06/23/2019 08:14 Co-signature as Attending Physician, Shayan Vitale MD I agree with the assessment and c thomas plan of care. Signatures: Dispatcher [employer] EDMS Payal Gibson Angela, RN RN aj1 Shayan Vitale MD MD cha Therrien, Shelly, SUPPLIER DIVERSITY DIRECTOR-C SUPPLIER DIVERSITY DIRECTOR-Csnw Adrian Jimenez PA PA [facility] Arya Braswell, RN RN bp Corrections: (The following items were deleted from the chart) 06/21 17:05 15:59 Hospitalization Ordered by Justin Marino MD for Inpatient Admission. Preliminary bd diagnosis is Acute Kidney Injury. Bed requested for Telemetry/MedSurg (Inpatient). Status is Inpatient Admission. Condition is Stable. Problem is new. Symptoms are unchanged. UTI on Admission? No. [facility] 18:20 17:05 06/21/2019 15:59 Hospitalization Ordered by Justin Marino MD for Inpatient bp Admission. Preliminary diagnosis is Acute Kidney Injury. Bed requested for Telemetry/MedSurg (Inpatient). Status is Inpatient Admission. Condition is Stable. Problem is new. Symptoms are unchanged. UTI on Admission? No. bd
--- NOTE | 2019-06-21 16:20 | EKG ---
Test Date: 2019-06-21 Test Time: 13:57:07 Director Ship: EMRE MEASUREMENT RESULTS: Intervals: Rate: 66 AR: 152 QRSD: 82 QT: 416 QTc: 436 [place]: P: 71 AR: 152 QRS: 64 T: 69 INTERPRETIVE STATEMENTS: Normal sinus rhythm Normal ECG Compared to ECG 08/24/2017 12:22:45 No significant changes Electronically Signed On 06-21-19 16:19:52 CDT by Lalo Orellana
--- NOTE | 2019-06-21 16:51 | P.HP ---
Patient History Date of Service: 06/21/19 History of Present Illness: Mr. Andrade is a 63-year-old gentleman with past medical history of hypertension , hyperlipidemia and osteomyelitis who presented with nausea/vomiting abdominal pain. Patient is currently undergoing vancomycin treatment for osteomyelitis. He was discharged on June 14 with a 6 weeks IV vancomycin course. Currently he is getting 1.25 mg b.i.d. vancomycin via PICC line at home. He states that for the past 1 week he has been having nausea that has not resolved and a couple episodes of vomiting that has been nonbloody and nonbilious. He did see Dr. Edouard last week for debridement in the wound looked well but his nausea was progressively getting worse. He was also told to come to the ER for after his labs were checked and he was found to have elevated creatinine on the lab work. Therefore, patient came to the ER. In the ER, patient blood pressure was 151/76, heart rate of 70, respirations of 18, afebrile at 98.2 and satting 90% on room air. His BMI is 22.96. His labs were remarkable for creatinine of 4.59 and a vancomycin trough elevated at 50. He is renal ultrasound was positive for medical renal disease. At the time of my exam, he is alert oriented x3, in no acute distress and hemodynamically stable. He denied any chest pain, shortness of breath, headache , vision changes, speech changes, lightheadedness/dizziness or complaints. He continued to complain of nausea but had not had any vomiting. His abdominal pain was improved. Allergies No Known Allergies Allergy (Verified 09/02/17 14:48) Home medications list reviewed: Yes Home Medications: Buproprion S.r. [Wellbutrin Sr*] 150 mg PO BID 09/02/17 Clopidogrel Bisulfate [Plavix*] 75 mg PO DAILY 03/06/19 Lisinopril [Zestril] 2.5 mg PO DAILY 03/06/19 Atorvastatin Calcium [Lipitor*] 20 mg PO BEDTIME 05/31/19 Albuterol Sulfate [Proair Hfa] 2 puff IH TID PRN #1 hfa.aer.ad 06/04/19 Budesonide/Formoterol Fumarate [Symbicort 160-4.5 Mcg Inhaler] 2 puff IH BID #1 hfa.aer.ad 06/04/19 Collagenase [Santyl Ointment*] 1 appl TOP DAILY tube 06/04/19 Gabapentin [Neurontin*] 100 mg PO BID PRN #30 cap 06/04/19 Nicotine [Nicoderm*] 21 mg TD DAILY #30 patch.td24 06/04/19 traMADol HCL [Ultram*] 50 mg PO TID PRN #20 tab 06/04/19 - Past Medical/Surgical History Diabetic: No -: PVD -: History aortofemoral bypass -: History 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 He has 3 children. He works in the [employer] - Family History Mother -: Cancer Father -: Other (see notes) Notes: depression - Social History Alcohol use: Yes CD- Drugs: No Caffeine use: Yes Review of Systems 10-point ROS is otherwise unremarkable Physical Examination - Physical Exam General: Alert, In no apparent distress, Oriented x3 HEENT: Atraumatic, PERRLA, Mucous membr. moist/pink, EOMI, Sclerae nonicteric Neck: Supple, 2+ carotid pulse no bruit, No LAD, Without JVD or thyroid abnormality Respiratory: Clear to auscultation bilaterally, Normal air movement Cardiovascular: Regular rate/rhythm, Normal S1 S2 Gastrointestinal: Normal bowel sounds, No tenderness Musculoskeletal: No tenderness Integumentary: No rashes Neurological: Normal gait, Normal speech, Normal strength at 5/5 x4 extr, Normal tone, Normal affect Lymphatics: No axilla or inguinal lymphadenopathy - Studies Laboratory Data (last 24 hrs) 06/21/19 14:25: PT 12.8 H, INR 1.09 06/21/19 14:25: WBC 8.9, Hgb 14.1, Hct 41.9, Plt Count 254 06/21/19 14:25: Sodium 139, Potassium 4.5, BUN 29 H, Creatinine 4.59 H, Glucose 81, Uric Acid 6.2, Phosphorus 4.6, Magnesium 2.3, Total Bilirubin 0.6, AST 18, ALT 26, Alkaline Phosphatase 100 Assessment and Plan - Problems (Diagnosis) (1) Acute kidney injury Current Visit: Yes Status: Acute Plan: Likely secondary to vancomycin usage -patient may also have some underlying kidney disease, will get nephrology consultation. -IV fluids -will get pharmacy consultation to help dose vancomycin (2) Osteomyelitis Current Visit: No Status: Chronic Plan: Patient was discharged on August 14, 2019 with osteomyelitis, on 6 weeks of IV vancomycin. Patient is currently 7/42 days. -pharmacy consultation to help dose vancomycin -will continue wound care Qualifiers: Osteomyelitis type: subacute Osteomyelitis location: foot Laterality: right Qualified Code(s): M86.271 - Subacute osteomyelitis, right ankle and foot (3) Non-healing surgical wound Current Visit: No Status: Acute Plan: Continue wound care Qualifiers: Encounter type: subsequent encounter Qualified Code(s): T81.89XD - Other complications of procedures, not elsewhere classified, subsequent encounter (4) PVD (peripheral vascular disease) Onset Date: 09/04/17 Current Visit: No Status: Chronic (5) Thromboembolism of abdominal aorta Current Visit: No Status: Acute (6) COPD (chronic obstructive pulmonary disease) Onset Date: 09/04/17 Current Visit: No Status: Chronic Qualifiers: COPD type: chronic bronchitis (7) Tobacco abuse Onset Date: 09/04/17 Current Visit: No Status: Chronic - Plan DVT prophylaxis: Lovenox GI prophylaxis: None Diet: Renal Disposition: pending symptomatic improvement and nephrology evaluation. - Advance Directives Does patient have a Living Will: No Does patient have a Durable POA for Healthcare: No Time Spent Managing Pts Care (In Minutes): 55
[2019-06-21] MEDS: NA CHLORIDE 0.9% 1,000 ML IV SCH (18:44)
[2019-06-21] MEDS ORDERED: ENOXAPARIN 40 MG/0.4 ML SQ SCH (21:00)
[2019-06-22 00:38] LABS: Urine Appearance CLEAR; Urine Bilirubin NEGATIVE (NEG); Urine Blood NEGATIVE (NEG); Urine Color YELLOW; Urine Glucose NEGATIVE (NEG); Urine Protein TRACE (NEG); Urine Urobilinogen 0.2 mg/dL (0.2-1.0); Urine pH 6.5 (5.0-7.0)
[2019-06-22] MEDS ORDERED: ALTEPLASE 2 MG/VIAL IV ONE (00:49)
[2019-06-22 00:54] LABS: Urine Microscopic Reflex ORDER UMIC
[2019-06-22] MEDS ORDERED: WATER FOR INJ,STERILE 10 ML ONE (00:55)
[2019-06-22] MEDS ORDERED: ALTEPLASE 2 MG/VIAL IV SCH (01:00)
[2019-06-22 01:35] LABS: Urine Bacteria <20 /HPF (NONE SEEN); Urine Culture Reflex Order REFLEXED; Urine RBC NONE SEEN /HPF (NONE SEEN)
[2019-06-22] MEDS: NA CHLORIDE 0.9% 1,000 ML IV SCH ×3 (03:17→23:33)
[2019-06-22 05:38] LABS: Absolute Lymphocytes (CBC) 0.9 K/uL (0.7-4.9); Basophils % 0.5 % (0-1.3); Hematocrit 38.6 % (39.6-49.0); MPV 7.3 fL (7.6-11.3); RBC Red Blood Cell Count 3.67 M/uL (4.33-5.43)
[2019-06-22 05:56] LABS: Albumin 2.8 g/dL (3.4-5.0); Bilirubin Total 0.3 mg/dL (0.2-1.0); Potassium 4.2 mmol/L (3.5-5.1); Protein, Total 7.1 g/dL (6.4-8.2)
[2019-06-22 07:42] LABS: Blood Morphology Comment NOTED (NOT SEEN); Macrocytosis 1+; Platelet Estimate ADEQ; Urine White Blood Cell Casts OK
[2019-06-22] MEDS: ASPIRIN 81 MG CHEWABLE TABLET PO SCH (09:43)
[2019-06-22] MEDS: RANITIDINE 150 MG TABLET PO SCH (09:43)
[2019-06-22] MEDS: CLOPIDOGREL 75 MG TABLET PO SCH (09:43)
[2019-06-22] MEDS: BUPROPRION HCL S.R. 150MG TAB PO SCH ×2 (09:46→19:55)
[2019-06-22] MEDS: COLLAGENASE 30 GM OINTMENT TOP SCH (14:59)
[2019-06-22] MEDS ORDERED: HYDRALAZINE HCL 20 MG/ML VIAL IV ONE ×2 (15:46→16:00)
[2019-06-22] MEDS ORDERED: HYDRALAZINE HCL 20 MG/ML VIAL IV PRN (15:47)
[2019-06-22] MEDS: ENOXAPARIN 30 MG/0.3 ML SQ SCH (19:55)
[2019-06-22] MEDS: LINEZOLID 600 MG TAB PO SCH (19:57)
--- NOTE | 2019-06-22 20:15 | PN ---
Subjective: Currently, patient is lying in bed, looks comfortable. Has been having no chest pain. No abdominal pain. He is concerned about his kidneys. He is waiting for fruit or nut farmworker to show up to evaluate him. Physical Examination: Vital Signs: Blood pressure is 153/67, respiratory rate 17, pulse 62, temperature 98.2. General: Patient is alert and oriented x3. Does not look in any distress. HEENT: Atraumatic, normocephalic. PERRLA. Oral mucosa is moist. Neck: Supple. No JVD. No bruits. Chest: Clear to auscultation. Good air entry. Heart: Regular rate and rhythm. S1, S2 normal. No gallop or murmur. Abdomen: Soft, nontender. No masses. No hepatosplenomegaly. Positive bowel sounds. Extremities: No clubbing, cyanosis, or edema. No calf tenderness. Neurologic: Grossly intact. Left foot in dressing. Laboratory Data: Labs today showed CBC was normal except for hemoglobin of 13, platelets 221. Chemi stry within normal except for BUN of 32, creatinine of 4.5, calcium of 8.3. Assessment And Plan: 1.Acute kidney failure secondary to vancomycin and we will hold vancomycin for now. 2.Nephrology consulted. Continue IV fluids. 3.Osteomyelitis. Patient was on IV antibiotic with vancomycin. In the event he has continued nephr otoxicity, we will hold that and start patient on Zyvox 600 mg twice a day. Needs adjustment with re nal insufficiency, according to the Pharmacy. 4.Nonhealing surgical wound. We will continue wound care and consult wound care consult. 5.Peripheral vascular disease, chronic. Observe. 6.History of chronic obstructive pulmonary disease, stable. We will observe for now. 7.Tobacco abuse. Advised to quit. 8.Deep vein thrombosis prophylaxis with Lovenox. 9.Peripheral vascular disease. Continue on Plavix. HERB/ORLY Voice ID: [id number] Report ID: [id number]
[2019-06-23 05:13] LABS: Basophils % 0.8 % (0-1.3); Hematocrit 33.9 % (39.6-49.0); Lymphocytes % 15.4 % (15.3-44.8); MPV 7.3 fL (7.6-11.3); RBC Red Blood Cell Count 3.27 M/uL (4.33-5.43)
[2019-06-23 05:33] LABS: Albumin 2.6 g/dL (3.4-5.0); Bilirubin Total 0.3 mg/dL (0.2-1.0); Potassium 3.5 mmol/L (3.5-5.1); Protein, Total 6.4 g/dL (6.4-8.2)
[2019-06-23] MEDS ORDERED: POTASSIUM CL SA 10 MEQ TAB PO ONE (09:00)
[2019-06-23] MEDS: LINEZOLID 600 MG TAB PO SCH ×2 (09:50→21:37)
[2019-06-23] MEDS: RANITIDINE 150 MG TABLET PO SCH (09:50)
[2019-06-23] MEDS: ASPIRIN 81 MG CHEWABLE TABLET PO SCH (09:50)
[2019-06-23] MEDS: BUPROPRION HCL S.R. 150MG TAB PO SCH ×2 (09:51→21:34)
[2019-06-23] MEDS: CLOPIDOGREL 75 MG TABLET PO SCH (09:51)
[2019-06-23] MEDS: HYDRALAZINE HCL 20 MG/ML VIAL IV PRN (12:22)
[2019-06-23] MEDS: COLLAGENASE 30 GM OINTMENT TOP SCH (12:23)
[2019-06-23] MEDS: NA CHLORIDE 0.9% 1,000 ML IV SCH (14:12)
[2019-06-23] MEDS: HYDRALAZINE HCL 20 MG/ML VIAL IV ONE ×2 (16:09→16:15)
[2019-06-23] MEDS: NACHLORIDE 0.45% 1,000 ML IV SCH (16:13)
[2019-06-23] MEDS: NIFEDIPINE XL 30 MG TABLET PO SCH (17:30)
--- NOTE | 2019-06-23 18:14 | PN ---
Subjective: Currently, patient is lying in bed. He looks comfortable. He has no chest pain. No ab dominal pain. No fever. No chills. His is at the bedside. He continues to have IV fluids and had a good oral intake. Review of Systems: Otherwise negative. Objective: Vital Signs: Currently, blood pressure is 181/77, respiratory rate 18, pulse 59, tempera ture 97.1. General: Patient is alert and oriented x3. Does not look in any distress. HEENT: Atraumatic, normocephalic. PERRLA. Oral mucosa is moist. Neck: Supple. No JVD. No bruits. Chest: Clear to auscultation. Good air entry. Heart: Regular rate and rhythm. S1, S2 normal. No gallop or murmur. Abdomen: Soft, nontender. No masses. No hepatosplenomegaly. Positive bowel sounds. Extremities: No clubbing, cyanosis, or edema. Left foot in dressing. He mostly had multiple amputa kiana toes with open wound. Laboratory Data: CBC was normal except for hemoglobin 11.9, platelets 194, white blood cells of 6.7. Chemistry within normal except for sodium 146, chloride 116, BUN 30, creatinine 3.99, GFR 15, calci um 7.4. Assessment And Plan: 1.Acute kidney failure secondary to vancomycin toxicity. Vancomycin on hold for now. Nephrology co nsult requested and still pending. Continue IV fluids. Creatinine improving. 2.Osteomyelitis. Patient was on antibiotic with vancomycin. Patient was needed to finish a total o f 6 weeks, but due to toxicity was started on Zyvox orally. We will consult Dr. Colby tomorrow to harry samano if patient okay to go on oral versus need for IV, which is most likely the case and then we bebe l need to arrange for home health. 3.Nonhealing surgical wound. We will consult Wound Care tomorrow morning. 4.Peripheral vascular disease, chronic. No active issue. Observe. 5.Hypertension, not well controlled. Patient on IV hydralazine. 6.History of chronic obstructive pulmonary disease, well controlled, observe. 7.Tobacco abuse. Advised to quit. 8.Deep vein thrombosis prophylaxis, on Lovenox. 9.Discharge plan will depend on antibiotic choice in terms of antibiotic as well as Nephrology recom mendation. HERB/ORLY Voice ID: [id number] Report ID: [id number]
[2019-06-23] MEDS ORDERED: ONDANSETRON 4 MG/2 ML VIAL IV ONE (19:00)
--- NOTE | 2019-06-23 20:59 | CON ---
Date of Consultation: 06/23/2019 Reason For Consultation: Acute renal failure. History Of Present Illness: Mr. Andrade is a 63-year-old male with past medical history significant f or history of peripheral vascular disease, who recently had osteomyelitis of his foot, for which he w as undergoing treatment with vancomycin. He was discharged on June 14 with 6 weeks course of IV vancomycin. He was getting 1.25 g twice daily of vancomycin via PICC line at home. He states that h jonh has been having severe episodes of nausea and vomiting, which have been nonbloody and nonbilious, a nd he had routine labs done by Dr. Martinez, and was told that his renal function had also significantl y worse, hence he was brought into the hospital for further evaluation. He is still complaining of n ausea, but is significantly better at this time. Past Medical History: Significant for history of peripheral vascular disease; history of aortofemora l bypass; history of first, second, fourth, and fifth digit amputation; tobacco abuse; history of vas cular surgery with aortic bypass. Social History: Patient is . 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 Denies any alcohol or drug use and is a s moker. Family History: Significant for history of mother with cancer and father with depression. Review of Systems: Positive for some nausea and vomiting and pain in his right foot, but other than that denies any shor tness of breath, chest pain. All other review of systems are negative. Physical Examination: Vital Signs: At this time are showing temperature of 97.9, pulse rate of 57, respiratory rate of 16, and blood pressure 185/82. General: He appears in no acute distress. HEENT: Atraumatic head. Lungs: Clear to auscultation. Heart: Auscultation of the heart reveals regular rate and rhythm. Abdomen: Soft and nontender. Extremities: Showed no evidence of edema. Right foot was noted to be in dressing. Laboratory Data: Sodium of 146; potassium of 3.5; chloride of 116; bicarb of 23; BUN of 30; and crea tinine improving to 3.99, it was 4.5 at the time of admission. He previously had completely normal r enal function. Albumin was low at 2.6. CBC showing stable hemoglobin, hematocrit, and platelet coun t. His vancomycin level was 50 at the time of admission. Current Medications: Normal saline at 100 mL an hour, aspirin, bupropion, Plavix, Lovenox for DVT pr ophylaxis, hydralazine 10 mg q.6 h. p.r.n., potassium 1 time dosage, and ranitidine 150 mg p.o. daily . Impression: 1.Acute renal failure secondary to possibly from interstitial nephritis from vancomycin toxicity bailee roseanna acute tubular necrosis from nausea and vomiting related to side effects from vancomycin. However , vancomycin is currently being held anyway because of higher level. We will need to monitor the tro ugh to ensure improvement in the levels and improvement in renal function. 2.Osteomyelitis. Patient was on IV antibiotic with vancomycin, it is currently on hold. The patien t has been started on Zyvox. 3.Nonhealing surgical wound of his right foot. Wound care and wound care consult are still pending at this time. 4.Peripheral vascular disease. 5.Deep venous thrombosis prophylaxis, on Lovenox. 6.Hypertension seems uncontrolled likely secondary to IV fluids. 7.Mild hypernatremia noted on labs. Plan: Patient's renal function seems to be improving at this time. We will go ahead and discontinue normal saline and just put him on half-normal saline and also resume his home antihypertensive thera py to improve his blood pressures. In the meanwhile, we will continue to monitor his renal function closely and avoid further hypotension, nephrotoxins and monitor him. Thank you very much for this consultation. Please do not hesitate to call us with any questions or c oncerns. DORIS/ORLY Voice ID: [id number] Report ID: [id number]
[2019-06-23] MEDS: ENOXAPARIN 30 MG/0.3 ML SQ SCH (21:34)
--- NOTE | 2019-06-24 01:55 | P.PN ---
Subjective Date of Service: 06/24/19 Primary Care Provider: Dr. Grigsby; Surgery-Dr. Edouard Chief Complaint: Acute renal failure Subjective: Improving Physical Examination - Vital Signs Temperature: 98.8 F Blood Pressure: 156/71 Pulse: 70 Respirations: 16 Pulse Ox (%): 99 - Physical Exam General: Alert, In no apparent distress, Oriented x3, Cooperative HEENT: Atraumatic Neck: Supple Respiratory: Clear to auscultation bilaterally, Normal air movement Cardiovascular: Normal pulses, Regular rate/rhythm Gastrointestinal: Normal bowel sounds, Soft and benign, Non-distended, No masses , No rebound, No guarding Neurological: Normal speech, Normal strength at 5/5 x4 extr, Normal tone - Studies Medications List Reviewed: Yes Assessment & Plan Discharge Plan: Home Plan to discharge in: 72 Hours Physician Review Additional Text: Impression: Acute renal failure secondary to vancomycin toxicity Osteomyelitis of the left foot Peripheral vascular disease Hypertension COPD Tobacco abuse Plan: Acute renal failure secondary to vancomycin toxicity: Vancomycin has been discontinued along with lisinopril. Patient now on Zyvox. Nephrology consulted and has adjusted medication. Continue with IV fluid hydration. Renal function improved. Continue monitor renal function closely. Will need discuss with nephrology and surgery on plan of care. Will need to determine for how long the patient will require antibiotic therapy and where. Patient previously getting antibiotics at home. Follow up on lab has been an issue. Will need to consider home with home antibiotics verses skilled placement to continue possible IV antibiotic therapy. Patient prefers to go home. Infectious disease consulted for further recommendation. Hospitalist Team will continue care and monitoring. Anticipate discharge in the next 48-72 hr pending clinical improvement and determination of plan of care. Osteomyelitis of the left foot: Patient no longer on vancomycin. Currently on oral Zyvox. Infectious disease consulted for further recommendation on type and duration of therapy. Peripheral vascular disease: Continue with medication Hypertension: Continue with medication. Lisinopril discontinued due to renal failure. Further adjustment may be required for better control. COPD: Continue medication. Tobacco abuse: Continue tobacco cessation education. Time Spent Managing Pts Care (In Minutes): 55
[2019-06-24] MEDS ORDERED: ALBUTEROL 2.5 MG/3 ML NEB SOL NEB PRN (01:56)
[2019-06-24] MEDS ORDERED: IPRATROPIUM BROM 0.5MG/2.5ML NEB PRN (01:56)
[2019-06-24 05:33] LABS: Absolute Lymphocytes (CBC) 0.9 K/uL (0.7-4.9); Basophils % 0.8 % (0-1.3); Hematocrit 35.8 % (39.6-49.0); Lymphocytes % 12.6 % (15.3-44.8); MPV 7.1 fL (7.6-11.3); RBC Red Blood Cell Count 3.45 M/uL (4.33-5.43)
[2019-06-24 05:53] LABS: Albumin 2.9 g/dL (3.4-5.0); Bilirubin Total 0.3 mg/dL (0.2-1.0); Potassium 4.1 mmol/L (3.5-5.1); Protein, Total 7.3 g/dL (6.4-8.2)
[2019-06-24 06:13] VITALS: BMI 22.3
[2019-06-24] MEDS ORDERED: ARFORMOTEROL TARTRATE 15 MCG/2 ML VIAL.NEB NEB SCH (08:00)
[2019-06-24] MEDS: BUPROPION 150 MG PO SCH ×2 (08:50→21:33)
[2019-06-24] MEDS: LINEZOLID 600 MG TAB PO SCH (08:51)
[2019-06-24] MEDS: RANITIDINE 150 MG PO SCH (08:51)
[2019-06-24] MEDS: CLOPIDOGREL 75 MG TABLET PO SCH (08:51)
[2019-06-24] MEDS: ASPIRIN EC 81 MG TABLETS PO SCH (08:51)
[2019-06-24] MEDS: NIFEDIPINE XL 30 MG TABLET PO SCH (08:52)
[2019-06-24] MEDS: COLLAGENASE 30 GM OINTMENT TOP SCH (08:52)
[2019-06-24] MEDS ORDERED: NIFEDIPINE XL 30 MG TABLET PO SCH (09:00)
[2019-06-24] MEDS: NACHLORIDE 0.45% 1,000 ML IV SCH ×2 (13:33→21:00)
[2019-06-24] MEDS ORDERED: CIPROFLOXACIN 400mg IV 400 MG/200 ML BAG IV SCH (14:30)
--- NOTE | 2019-06-24 18:21 | RAD REPORT ---
EXAM DESCRIPTION: MRI - Foot Right Wo Cont - 06/24/2019 4:29 pm CLINICAL HISTORY: Follow up osteomyelitis, osteomyelitis findings previously shown first metatarsal head COMPARISON: MRI right foot June 03 TECHNIQUE: Multiplanar imaging of the right foot performed using T1 weighted, T1 fat saturation, T2 fat saturation hand T2 stir sequencing. FINDINGS: Hypointense T1 signal is present in the first metatarsal head primarily along the plantar margin. This is more pronounced than seen on the June 03 examination. Hyperintense T2 signal is pre sent similar to the comparison study. Cortical thinning is seen without homer disruption identified i n the first metatarsal head. T2 signal abnormality extends into the shaft similar to comparison. No o ther metatarsal or phalanx signal abnormality. Fluid collections seen on the medial margin of the fir st metal tarsal head no longer present. There is continued hypointense T1 and hyperintense T2 signal in the soft tissues around the first metatarsal head. IMPRESSION: First metatarsal head osteomyelitis findings are evident with the T1 signal abnormality progressive from June 03. Fluid collection along the medial margin of the first metatarsal head has been drained or resolved. E dematous/inflammatory signal surrounds the first metatarsal head.
[2019-06-24] MEDS: HYDRALAZINE HCL 20 MG/ML VIAL IV PRN (18:53)
--- NOTE | 2019-06-24 19:06 | CON ---
History Of Present Illness: Patient is a 63-year-old male here with decreased kidney function after patient was started on vancomycin for about 10 days for his osteomyelitis of left foot. Patient has significant history of diabetic ulcer and osteomyelitis for which he came in to have his toe debrided. Patient was then sent home on vancomycin 1.25 g IV twice a day. Patient came back with creatinine close to 4 and vancomycin trough level last one was 50. Patient currently being on Zyvox. Past Medical History: Hypertension, hypercholesteremia, COPD, diabetic foot ulcer, diabetic neuropathy, osteomyelitis, peripheral vascular disease, and tobacco use. Social History: Tobacco, positive. Alcohol positive. Family History: Noncontributory. Medications: Zyvox. See MARS for other medication. Allergies: NO KNOWN DRUG ALLERGIES. Review of Systems: A 10-point review was performed. Physical Examination: General: This is a 63-year-old male, lying in bed, not in any acute cardiopulmonary distress. Vital Signs: Temperature 97.6, pulse 59, respirations 16, blood pressure 150/ 68. HEENT: Unremarkable. Neck: Supple. Lungs: Decreased breath sounds. Heart: S1, S2. Regular. Abdomen: Soft. Bowel sounds present. Extremities: No edema. Laboratory Data: WBC 7.3, hemoglobin 12.4, platelets are 225. Chemistry shows sodium 144, potassium 4.1, chloride 111, bicarb 24, BUN 31, creatinine 4.17, glucose is 93. Assessment And Plan: A 63-year-old male with neuropathy and osteomyelitis. Patient was growing Pseudomonas aeruginosa and Staphylococcus aureus on the last culture. Currently on vancomycin with elevated levels, will hold Zyvox as the patient vancomycin levels are elevated. We will recommend to start patient on coverage for Pseudomonas also with Cipro adjusted to his kidney function if MRI shows that he has bone infection. We will follow patient closely. Thank you Dr. Carvajal for consult. ROLDAN/MIGUELL Voice ID: [id number] Report ID: [id number] ULYSSES
--- NOTE | 2019-06-24 20:38 | P.PN ---
Date of Service: 06/24/19 Vital Signs Temp Pulse Resp BP Pulse Ox 97.7 F 67 16 181/88 H 100 06/24/19 16:00 06/24/19 18:54 06/24/19 16:00 06/24/19 18:54 06/24/19 16:00 Medications Albuterol Sulfate (Proventil 0.083% Neb Soln) 2.5 mg NEB [id number] PRN PRN Reason: SHORTNESS OF BREATH Stop: 07/24/19 02:01 Calcitriol (Rocaltrol) 0.5 mcg PO DAILY MAXIMO Stop: 07/25/19 09:01 Cholecalciferol (Vitamin D 5,000 Iu Cap) 5,000 unit PO DAILY MAXIMO Stop: 07/25/19 09:01 Collagenase (Santyl Ointment) 1 appl TOP DAILY MAXIMO Stop: 07/23/19 09:01 Last Admin: 06/24/19 08:52 Dose: 1 paula Enoxaparin Sodium (Lovenox 30 Mg Inj) 30 mg SQ DAILY@2100 MAXIMO Stop: 07/22/19 21:01 Last Admin: 06/23/19 21:34 Dose: 30 mg Home Med (Home Med) 0 ea PO DAILY MAXIMO Stop: 07/24/19 09:01 Last Admin: 06/24/19 08:51 Dose: 1 ea Home Med (Home Med) 0 ea PO DAILY MAXIMO Stop: 07/24/19 09:01 Last Admin: 06/24/19 08:51 Dose: 1 ea Home Med (Home Med) 0 ea PO BID MAXIMO Stop: 07/24/19 09:01 Last Admin: 06/24/19 08:50 Dose: 1 ea Home Med (Home Med) 0 ea PO DAILY MAXIMO Stop: 07/24/19 09:01 Last Admin: 06/24/19 08:51 Dose: 1 ea Hydralazine HCl (Apresoline) 10 mg IV Q6HP PRN PRN Reason: Titrate to SBP (MUST DEFINE) Stop: 07/22/19 17:01 Last Admin: 06/24/19 18:53 Dose: 10 mg Sodium Chloride (Sodium Chloride 0.45%) 1,000 mls @ 50 mls/hr IV .Q20H MAXIMO Stop: 07/23/19 16:01 Last Admin: 06/24/19 13:33 Dose: 1,000 mls Ipratropium [place] (Atrovent Neb) 0.5 mg NEB [id number] PRN PRN Reason: SHORTNESS OF BREATH Stop: 07/24/19 02:01 Nifedipine (Procardia Xl) 30 mg PO DAILY MAXIMO Stop: 07/23/19 17:01 Last Admin: 06/24/19 08:52 Dose: 30 mg Sodium Chloride (Normal Saline Flush) 10 ml IV BID MAXIMO Stop: 07/21/19 21:01 Last Admin: 06/24/19 08:52 Dose: 10 ml Microbiology Results 06/21/19 14:45 Blood - Blood Aerobic Blood Culture - Preliminary No growth in 24 hours. 06/21/19 14:45 Blood - Blood Anaerobic Blood Culture - Preliminary No growth in 24 hours. 06/21/19 14:25 Blood - Blood Aerobic Blood Culture - Preliminary No growth in 24 hours. 06/21/19 14:25 Blood - Blood Anaerobic Blood Culture - Preliminary No growth in 24 hours. Assessment/ Plan: Nephrology CPS stable without CP or SOB. No acute events overnight. Feeling better. Denies NSAIDs or any bladder issues. Vitals, medications, blood work and imaging reviewed in the chart. NAD. MMM. Neck supple. CTA. RRR. Soft Abd. No C/C/E. No rash. Right foot wound. AAO. Normal Speech. A/ MICHEL concerning for ATN. Hypernatremia. Hypocalcemia. HTN. Anemia in chronic illness. Moderate malnutrition. Left foot osteomyelitis. P/ Continue current POC and Medications. AM labs. Daily weight. No NSAIDs. Abx as ordered. ID note reviewed. Start Vitamin D. Increase IVF rate. Low sodium diet. EXAM DESCRIPTION: MRI - Foot Right Wo Cont - 06/24/2019 4:29 pm CLINICAL HISTORY: Follow up osteomyelitis, osteomyelitis findings previously shown first metatarsal head COMPARISON: MRI right foot June 03 TECHNIQUE: Multiplanar imaging of the right foot performed using T1 weighted, T1 fat saturation, T2 fat saturation hand T2 stir sequencing. FINDINGS: Hypointense T1 signal is present in the first metatarsal head primarily along the plantar margin. This is more pronounced than seen on the June 03 examination. Hyperintense T2 signal is present similar to the comparison study. Cortical thinning is seen without homer disruption identified in the first metatarsal head. T2 signal abnormality extends into the shaft similar to comparison. No other metatarsal or phalanx signal abnormality. Fluid collections seen on the medial margin of the first metal tarsal head no longer present. There is continued hypointense T1 and hyperintense T2 signal in the soft tissues around the first metatarsal head. IMPRESSION: First metatarsal head osteomyelitis findings are evident with the T1 signal abnormality progressive from June 03. Fluid collection along the medial margin of the first metatarsal head has been drained or resolved. Edematous/inflammatory signal surrounds the first metatarsal head. EXAM DESCRIPTION: US - Renal Ultrasound-Complete - 06/21/2019 3:04 pm CLINICAL HISTORY: Pain, acute kidney injury COMPARISON: CT study same date FINDINGS: The right kidney measures 8.0 x 3.5 x 6.0 cm. The left kidney measures 10.7 x 6.9 x 5.3 cm. Cortical thickness is normal. Slight increase in echogenicity of the cortex seen in each kidney. No hydronephrosis or suspicious renal mass. No bladder wall thickening or mass. No intraluminal stone or mass. IMPRESSION: Bilateral medical renal disease is evident. No hydronephrosis or suspicious mass.
[2019-06-24] MEDS: ENOXAPARIN 30 MG/0.3 ML SQ SCH (21:34)
[2019-06-24 23:25] LABS: UR MICROALBUMIN 4.8 mg/dL (< 1.9)
[2019-06-25 05:00] LABS: Absolute Lymphocytes (CBC) 0.9 K/uL (0.7-4.9); Basophils % 0.8 % (0-1.3); Hematocrit 34.9 % (39.6-49.0); Lymphocytes % 13.5 % (15.3-44.8); MPV 7.2 fL (7.6-11.3); RBC Red Blood Cell Count 3.31 M/uL (4.33-5.43)
[2019-06-25] MEDS: NACHLORIDE 0.45% 1,000 ML IV SCH ×2 (05:41→10:20)
[2019-06-25 06:12] LABS: Magnesium 1.5 mg/dL (1.8-2.4); Potassium 3.7 mmol/L (3.5-5.1); Uric Acid 4.9 mg/dL (3.5-7.2)
[2019-06-25 06:14] LABS: Urine Appearance CLEAR; Urine Bilirubin NEGATIVE (NEG); Urine Blood NEGATIVE (NEG); Urine Color YELLOW; Urine Glucose NEGATIVE (NEG); Urine Protein NEGATIVE (NEG); Urine Urobilinogen 0.2 mg/dL (0.2-1.0); Urine pH 6.5 (5.0-7.0)
[2019-06-25 06:19] LABS: Urine Bacteria <20 /HPF (NONE SEEN); Urine Culture Reflex Order NOT NEEDED
[2019-06-25 06:20] LABS: Urine RBC NONE SEEN /HPF (NONE SEEN)
[2019-06-25] MEDS ORDERED: MAGNESIUM OXIDE 400 MG TAB PO ONE (07:30)
[2019-06-25] MEDS: BUPROPION 150 MG PO SCH ×2 (08:24→20:43)
[2019-06-25] MEDS: ASPIRIN EC 81 MG TABLETS PO SCH (08:24)
[2019-06-25] MEDS: CLOPIDOGREL 75 MG TABLET PO SCH (08:24)
[2019-06-25] MEDS: RANITIDINE 150 MG PO SCH (08:24)
[2019-06-25] MEDS: NIFEDIPINE XL 30 MG TABLET PO SCH (08:25)
[2019-06-25] MEDS: CALCITROL 0.25 MCG CAP PO SCH (08:25)
[2019-06-25] MEDS: COLLAGENASE 30 GM OINTMENT TOP SCH (08:26)
[2019-06-25] MEDS: VITAMIN D 5,000 UNIT CAP PO SCH (08:26)
[2019-06-25] MEDS ORDERED: COLLAGENASE TOP SCH (14:15)
--- NOTE | 2019-06-25 15:57 | P.PN ---
Subjective Date of Service: 06/25/19 Primary Care Provider: Dr. Grigsby; Surgery-Dr. Edouard Chief Complaint: Acute renal failure Subjective: No new changes, Tolerating diet, Ambulating, Working w/ PT, Doing well Review of Systems 10-point ROS is otherwise unremarkable Physical Examination - Vital Signs Temperature: 97.6 F Blood Pressure: 178/80 Pulse: 65 Respirations: 18 Pulse Ox (%): 100 - Physical Exam General: Alert, In no apparent distress HEENT: Atraumatic, PERRLA, EOMI Neck: Supple, JVD not distended Respiratory: Clear to auscultation bilaterally, Normal air movement Cardiovascular: Regular rate/rhythm, Normal S1 S2 Gastrointestinal: Normal bowel sounds, No tenderness Musculoskeletal: No tenderness Integumentary: No rashes Neurological: Normal speech, Normal tone, Normal affect Lymphatics: No axilla or inguinal lymphadenopathy - Studies Medications List Reviewed: Yes Assessment And Plan Discharge Plan: Home Plan to discharge in: Greater than 2 days - Code Status/Comfort Care Code Status Assessed: Yes Physician Review Additional Text: Impression/Plan: Acute renal failure secondary to vancomycin toxicity: -BUN/CR improved today Still Cr is 3.62 -Vancomycin has been discontinued along with lisinopril. -Nephrology consulted and Appreciated Reccs. -Continue with IV fluid hydration. Osteomyelitis of the left foot: -Foot MRI with Osteomyelitis -Stop Vanc and zosyn and Zyvox -Start Cipro and will need total of 22 days per ID reccs -BMP to be done M/TH at home Peripheral vascular disease: -Continue with medication Hypertension: -Continue with medication. Lisinopril discontinued due to renal failure. COPD: -Continue medication. Tobacco abuse: -Continue tobacco cessation education. Critical Care: No
[2019-06-25] MEDS: CIPROFLOXACIN 400mg IV 400 MG/200 ML BAG IV SCH (16:01)
[2019-06-25] MEDS: ACETIC ACID 0.25% IRRIG IRR SCH (16:01)
--- NOTE | 2019-06-25 18:21 | CON ---
Date of Consultation: 06/24/2019 Reason For Consultation: Wound right foot with osteomyelitis. History Of Present Illness: The patient is a 63-year-old gentleman, who was diagnosed with osteomyel itis approximately 3 or 4 weeks ago and started with a PICC line and vancomycin, and he was having is sues with his vancomycin level and creatinine. He was discharged from the hospital on June 14, for a 6-week course of vancomycin, which he was getting at home, and the levels were being followed by Isidro Martinez, and he had level done last week and was found that he had elevated creatinine, and therefo re he was sent to the ER, was admitted for medical management. Nephrology and Infectious Disease wer e consulted and I was consulted for wound care. He had nausea, vomiting, and abdominal pain prior to admission, does not anymore. No purulent discharge from the wound. The wound was debrided in the [facility] with a curette last . No fever or chills. Review of Systems: Otherwise unremarkable. Past Medical History: Significant for peripheral vascular disease, hypertension, hypercholesterolemi a. Past Surgical History: Aortofemoral bypass; history of 1st, 2nd, 4th, and 5th digits of foot amputat ion on the right side; vascular surgery. Allergies: NONE. Social History: He does not smoke currently, used to in the past. Drinks occasionally. Family History: Unknown type of cancer in the mother and depression in the father. Physical Examination: Vital Signs: Currently are stable. Blood pressure is slightly high at 178/80. He is afebrile. General: He is awake, alert, and oriented x3. Head and Neck: No masses. Chest: Clear. Heart: S1, S2. Abdomen: Soft. Extremities: Diminished dorsalis pedis and posterior tibial pulses. On the medial aspect of the rig ht foot, there is approximately a 1.5 to 1.75 cm wound with minimal fibrin. No surrounding erythema, warmth, or edema. No purulent discharge. Diminished dorsalis pedis and posterior tibial pulses. Laboratory Data: White count is 6.4. There is no left shift. INR is 1.09. Chemistry reviewed. Hi s BUN and creatinine have improved since being hospitalized down to 31 and 3.89. His creatinine was 4.59 on admission. Electrolytes are being checked and being replaced as needed. He had an MRI done on Char[address] 9, which shows 1st metatarsal head osteo, slight progression from June 03, fluid colle ction no longer there, some edematous inflammatory signals around the 1st metatarsal head. Currently , the patient is on Zyvox and vancomycin levels are being monitored. Cultures reviewed. He had righ t foot wound cultures, which reveal pseudomonas, sensitive to Levaquin and Cipro. Assessment: A 63-year-old gentleman with multiple medical problems with right foot wound and periphe ral vascular disease as well as osteomyelitis. Recommendations: Zyvox and Cipro should suffice. Once he is medically stable from renal insufficien cy aspect, he can be discharged. Will clean the wound with acetic acid and do collagenase dressing a nd he can follow up with me in the wound healing center next week. Please note, I discussed the case with Dr. Agrawal. CLAIR/ORLY Voice ID: [id number] Report ID: [id number]
--- NOTE | 2019-06-25 20:27 | P.PN ---
Date of Service: 06/25/19 Vital Signs Temp Pulse Resp BP Pulse Ox 98.2 F 78 18 153/63 H 100 06/25/19 20:00 06/25/19 20:00 06/25/19 20:00 06/25/19 20:00 06/25/19 20:00 Medications Acetic Acid (Acetic Acid 0.25%) 1,000 ml IRR DAILY MAXIMO Stop: 07/26/19 09:01 Last Admin: 06/25/19 16:01 Dose: 50 ml Albuterol Sulfate (Proventil 0.083% Neb Soln) 2.5 mg NEB [id number] PRN PRN Reason: SHORTNESS OF BREATH Stop: 07/24/19 02:01 Calcitriol (Rocaltrol) 0.5 mcg PO DAILY MAXIMO Stop: 07/25/19 09:01 Last Admin: 06/25/19 08:25 Dose: 0.5 mcg Cholecalciferol (Vitamin D 5,000 Iu Cap) 5,000 unit PO DAILY MAXIMO Stop: 07/25/19 09:01 Last Admin: 06/25/19 08:26 Dose: 5,000 unit Enoxaparin Sodium (Lovenox 30 Mg Inj) 30 mg SQ DAILY@2100 MAXIMO Stop: 07/22/19 21:01 Last Admin: 06/24/19 21:34 Dose: 30 mg Home Med (Home Med) 0 ea PO DAILY MAXIMO Stop: 07/24/19 09:01 Last Admin: 06/25/19 08:24 Dose: 1 ea Home Med (Home Med) 0 ea PO DAILY MAXIMO Stop: 07/24/19 09:01 Last Admin: 06/25/19 08:24 Dose: 1 ea Home Med (Home Med) 0 ea PO BID MAXIMO Stop: 07/24/19 09:01 Last Admin: 06/25/19 08:24 Dose: 1 ea Home Med (Home Med) 0 ea PO DAILY MAXIMO Stop: 07/24/19 09:01 Last Admin: 06/25/19 08:24 Dose: 1 ea Home Med (Home Med) 1 ea TOP DAILY MAXIMO Stop: 07/25/19 14:16 Hydralazine HCl (Apresoline) 10 mg IV Q6HP PRN PRN Reason: Titrate to SBP (MUST DEFINE) Stop: 07/22/19 17:01 Last Admin: 06/24/19 18:53 Dose: 10 mg Sodium Chloride (Sodium Chloride 0.45%) 1,000 mls @ 75 mls/hr IV .[id number] MAXIMO Stop: 07/24/19 21:01 Last Admin: 06/25/19 10:20 Dose: Not Given Ciprofloxacin/Dextrose (Cipro 400 Mg/200 Ml Ivpb (Premix)) 400 mg in 200 mls @ 200 mls/hr IV DAILY MAXIMO; Protocol Stop: 07/16/19 09:59 Last Admin: 06/25/19 16:01 Dose: 200 mls Ipratropium Norman (Atrovent Neb) 0.5 mg NEB [id number] PRN PRN Reason: SHORTNESS OF BREATH Stop: 07/24/19 02:01 Nifedipine (Procardia Xl) 30 mg PO DAILY MAXIMO Stop: 07/23/19 17:01 Last Admin: 06/25/19 08:25 Dose: 30 mg Sodium Chloride (Normal Saline Flush) 10 ml IV BID MAXIMO Stop: 07/21/19 21:01 Last Admin: 06/25/19 08:27 Dose: 10 ml Microbiology Results 06/21/19 14:45 Blood - Blood Aerobic Blood Culture - Preliminary No growth in 24 hours. 06/21/19 14:45 Blood - Blood Anaerobic Blood Culture - Preliminary No growth in 24 hours. 06/21/19 14:25 Blood - Blood Aerobic Blood Culture - Preliminary No growth in 24 hours. 06/21/19 14:25 Blood - Blood Anaerobic Blood Culture - Preliminary No growth in 24 hours. Assessment/ Plan: Nephrology CPS stable without CP or SOB. No acute events overnight. Feeling better. Denies NSAIDs or any bladder issues. Vitals, medications, blood work and imaging reviewed in the chart. NAD. MMM. Neck supple. CTA. RRR. Soft Abd. No C/C. RLE edema trace. No rash. Right foot wound. AAO. Normal Speech. A/ MICHEL concerning for ATN. Hypernatremia. Hypocalcemia. HyperPO4. Hypomagnesemia. HTN. Anemia in chronic illness. Moderate malnutrition. Left foot osteomyelitis. P/ Continue current POC and Medications. AM labs. Daily weight. No NSAIDs. Abx as ordered. Will adjust IVF as needed. EXAM DESCRIPTION: MRI - Foot Right Wo Cont - 06/24/2019 4:29 pm CLINICAL HISTORY: Follow up osteomyelitis, osteomyelitis findings previously shown first metatarsal head COMPARISON: MRI right foot June 03 TECHNIQUE: Multiplanar imaging of the right foot performed using T1 weighted, T1 fat saturation, T2 fat saturation hand T2 stir sequencing. FINDINGS: Hypointense T1 signal is present in the first metatarsal head primarily along the plantar margin. This is more pronounced than seen on the June 03 examination. Hyperintense T2 signal is present similar to the comparison study. Cortical thinning is seen without homer disruption identified in the first metatarsal head. T2 signal abnormality extends into the shaft similar to comparison. No other metatarsal or phalanx signal abnormality. Fluid collections seen on the medial margin of the first metal tarsal head no longer present. There is continued hypointense T1 and hyperintense T2 signal in the soft tissues around the first metatarsal head. IMPRESSION: First metatarsal head osteomyelitis findings are evident with the T1 signal abnormality progressive from June 03. Fluid collection along the medial margin of the first metatarsal head has been drained or resolved. Edematous/inflammatory signal surrounds the first metatarsal head. EXAM DESCRIPTION: US - Renal Ultrasound-Complete - 06/21/2019 3:04 pm CLINICAL HISTORY: Pain, acute kidney injury COMPARISON: CT study same date FINDINGS: The right kidney measures 8.0 x 3.5 x 6.0 cm. The left kidney measures 10.7 x 6.9 x 5.3 cm. Cortical thickness is normal. Slight increase in echogenicity of the cortex seen in each kidney. No hydronephrosis or suspicious renal mass. No bladder wall thickening or mass. No intraluminal stone or mass. IMPRESSION: Bilateral medical renal disease is evident. No hydronephrosis or suspicious mass.
[2019-06-25] MEDS: ENOXAPARIN 30 MG/0.3 ML SQ SCH (20:43)
--- NOTE | 2019-06-25 20:57 | PN ---
Subjective: The patient is lying in bed. Denies any headache, nausea, vomiting, chest pain, abdomin al pain, constipation, or diarrhea. Objective: Vital Signs: Temperature 97, pulse 55, respirations 18, blood pressure . Laboratory Data: Shows WBC 6.4, hemoglobin 11.8, platelets 211. Chemistry shows sodium 137, potassi um 3.7, chloride 107, bicarb 31, BUN is 31, creatinine 3.89, better than yesterday. Assessment And Plan: Osteomyelitis of 1st metatarsal head on MRI. Continue on antibiotic for 6 week s. We can stop vancomycin and start patient on Cipro 400 mg once a day adjust antibiotic accordingly. We will follow the patient as needed. ROLDAN/ORLY Voice ID: [id number] Report ID: [id number]
[2019-06-26] MEDS: NACHLORIDE 0.45% 1,000 ML IV SCH (01:40)
[2019-06-26 05:13] LABS: Absolute Lymphocytes (CBC) 0.8 K/uL (0.7-4.9); Hematocrit 36.9 % (39.6-49.0); Lymphocytes % 12.9 % (15.3-44.8); RBC Red Blood Cell Count 3.53 M/uL (4.33-5.43)
[2019-06-26 05:36] LABS: Potassium 3.2 mmol/L (3.5-5.1)
[2019-06-26 06:24] VITALS: O2SAT 98
[2019-06-26 08:22] VITALS: BP 184/78; TEMP 97.8
[2019-06-26] MEDS: CIPROFLOXACIN 400mg IV 400 MG/200 ML BAG IV SCH (08:57)
[2019-06-26] MEDS: BUPROPION 150 MG PO SCH (08:57)
[2019-06-26] MEDS: RANITIDINE 150 MG PO SCH (08:58)
[2019-06-26] MEDS: NIFEDIPINE XL 30 MG TABLET PO SCH (08:58)
[2019-06-26] MEDS: ASPIRIN EC 81 MG TABLETS PO SCH (08:58)
[2019-06-26] MEDS: CLOPIDOGREL 75 MG TABLET PO SCH (08:58)
[2019-06-26] MEDS: CALCITROL 0.25 MCG CAP PO SCH (08:59)
[2019-06-26] MEDS: VITAMIN D 5,000 UNIT CAP PO SCH (08:59)
[2019-06-26] MEDS ORDERED: MAGNESIUM OXIDE 400 MG TAB PO ONE (09:00)
[2019-06-26] MEDS: ACETIC ACID 0.25% IRRIG IRR SCH (09:00)
[2019-06-26] MEDS ORDERED: POTASSIUM CL SA 10 MEQ TAB PO ONE (09:00)
--- NOTE | 2019-06-26 14:44 | PN ---
Date of Progress Note: 06/25/2019 Subjective: The patient is awake, alert, no complaints. Objective: Vital Signs: Stable. Afebrile. Physical exam, no changes. Laboratory Data: Creatinine is improving. Assessment: Right foot wound with osteomyelitis. Recommendation: Agree with Cipro IV for long-term IV antibiotics. Wound care as ordered. Followup [facility] the [facility]. CLAIR/ORLY Voice ID: [id number] Report ID: [id number]
--- NOTE | 2019-06-26 15:28 | PN ---
Subjective: Patient is sitting in bed, not in any acute distress. Objective: Vital Signs: Temperature 97, pulse 63, respirations 16, blood pressure 184/78. No new changes in examination. Assessment And Plan: Right foot diabetic ulcer and osteomyelitis of first metatarsal head. Continue antibiotic, total course of 6 weeks. Patient is on day 21 of 42. To continue Cipro 400 mg IV once a day for 21 more days. We will follow the patient as needed. Patient to follow CBC and BMP. Renal failure, improving. Continue supportive care and wound care. NF/MODL Voice ID: [id number] Report ID: [id number]
--- NOTE | 2019-06-26 16:40 | P.DS ---
Admission Date: 06/21/19 Discharge Date: 06/26/19 Primary Care Provider: Dr. Grigsby; Surgery-Dr. Edouard Disposition: ROUTINE DISCHARGE Discharge Condition: GOOD Reason for Admission: Acute renal failure Consultations: Nephrology-Dr. Mario Brown Infectious Disease-Dr. Colby General Surgery-Dr. Edouard. Procedures: None - Problems (1) Acute kidney injury Status: Acute (2) Cellulitis Onset Date: 09/04/17 Status: Acute Qualifiers: Site of cellulitis: extremity Site of cellulitis of extremity: lower extremity Laterality: right Qualified Code(s): L03.115 - Cellulitis of right lower limb (3) Open wound of right foot with complication Status: Acute (4) Osteomyelitis Status: Chronic Qualifiers: Osteomyelitis type: subacute Osteomyelitis location: foot Laterality: right Qualified Code(s): M86.271 - Subacute osteomyelitis, right ankle and foot Brief History of Present Illness: 63-year-old gentleman who was being treated for osteomyelitis with prolonged outpatient IV vancomycin therapy developed abdominal pain and nausea and presented to the emergency department where he was found to have elevated creatinine suggesting acute renal failure. He had no complain of urinary retention. Patient was subsequently admitted for further management. Hospital Course: Patient was admitted to the medical floor and resuscitated with IV fluids. He was seen by infectious Disease who changed the vancomycin to IV ciprofloxacin due to concern for vancomycin induced nephropathy. He was evaluated by nephrology, renal ultrasound was performed and did not show any hydronephrosis or any evidence of obstructive uropathy. Nephrology recommended IV hydration. His serum creatinine started trending down with hydration. He was also evaluated by general surgery who recommended to continue medical management with antibiotics. Patient is deemed stable for discharge. His creatinine has trended down. He will follow with Dr. Martin for monitoring and further management of his renal function. Patient is slated for a 6 week course of IV antibiotics. He is to complete 3 more weeks of IV ciprofloxacin. Vital Signs/Physical Exam: Temp Pulse Resp BP Pulse Ox 97.8 F 63 16 184/78 H 100 06/26/19 08:00 06/26/19 08:58 06/26/19 08:00 06/26/19 08:58 06/26/19 08:00 General: Alert, In no apparent distress, Oriented x3 HEENT: Atraumatic Neck: Supple Respiratory: Clear to auscultation bilaterally Cardiovascular: No edema, Regular rate/rhythm, Normal S1 S2 Gastrointestinal: Normal bowel sounds, Soft and benign Neurological: Normal gait, Normal speech, Normal strength at 5/5 x4 extr Laboratory Data at Discharge: WBC 6.3 K/uL (4.3-10.9) 06/26/19 04:50 Hgb 12.6 g/dL (13.6-17.9) L 06/26/19 04:50 Hct 36.9 % (39.6-49.0) L 06/26/19 04:50 Plt Count 226 K/uL (152-406) 06/26/19 04:50 PT 12.8 SECONDS (9.5-12.5) H 06/21/19 14:25 INR 1.09 06/21/19 14:25 Sodium 136 mmol/L (136-145) 06/26/19 04:50 Potassium 3.2 mmol/L (3.5-5.1) L 06/26/19 04:50 BUN 35 mg/dL (7-18) H 06/26/19 04:50 Creatinine 3.67 mg/dL (0.55-1.3) H 06/26/19 04:50 Glucose 142 mg/dL (74-106) H 06/26/19 04:50 Uric Acid 4.9 mg/dL (3.5-7.2) 06/25/19 04:30 Phosphorus 5.0 mg/dL (2.5-4.9) H 06/25/19 04:30 Magnesium 1.6 mg/dL (1.8-2.4) L 06/26/19 04:50 Total Bilirubin 0.3 mg/dL (0.2-1.0) 06/24/19 05:05 AST 10 U/L (15-37) L 06/24/19 05:05 ALT 18 U/L (12-78) 06/24/19 05:05 Alkaline Phosphatase 83 U/L (45-117) 06/24/19 05:05 Home Medications: Buproprion S.r. [Wellbutrin Sr*] 150 mg PO BID 09/02/17 Clopidogrel Bisulfate [Plavix*] 75 mg PO DAILY 03/06/19 Aspirin 81 mg PO DAILY 06/21/19 Ranitidine HCl [Acid Control] 150 mg PO DAILY 06/21/19 Collagenase [Santyl Ointment*] 1 paula TOP DAILY 06/22/19 Acetic Acid 0.25% [Acetic Acid 0.25%*] 1,000 ml IRR DAILY btl 06/26/19 Calcitrol [Rocaltrol*] 0.5 mcg PO DAILY 30 Days #30 cap 06/26/19 Cholecalciferol (Vitamin D3) [Vitamin D 5,000 IU Cap*] 5,000 unit PO DAILY 30 Days #30 cap 06/26/19 Nifedipine Xl [Procardia Xl*] 30 mg PO DAILY 30 Days #30 tab 06/26/19 New Medications: Calcitrol [Rocaltrol*] 0.5 mcg PO DAILY 30 Days #30 cap Cholecalciferol (Vitamin D3) [Vitamin D 5,000 IU Cap*] 5,000 unit PO DAILY 30 Days #30 cap Nifedipine Xl [Procardia Xl*] 30 mg PO DAILY 30 Days #30 tab Diet: AHA Activity: Ad christian Followup: Jonatan Edouard MD [ACTIVE - CAN ADMIT] - 1 Week (surgeon- Call to schedule an appointment )
--- NOTE | 2019-06-26 18:02 | PN ---
Date of Progress Note: 06/26/2019 Subjective: Patient is seen and examined. He is presumably be discharged home on p.o. ciprofloxacin and Zyvox. Physical Examination: Vital Signs: Have been reviewed. Blood pressure seems to be running in the 180s range just this mor juliette. Previously was okay. General: He appears in no acute distress. Lungs: Clear to auscultation. Abdomen: Soft and nontender. Extremities: Without any evidence of edema. Right foot was noted to be in dressing. Laboratory Data: Showing creatinine improving to 3.6, potassium of 3.2. Other electrolytes are stab le. CBC showing stable hemoglobin, hematocrit, and platelet count. Current Medications: Have been reviewed. His lisinopril is currently on hold. He has received 10 m Eq of potassium chloride x1 time dose. Impression: 1.Acute renal failure secondary to possibly from vancomycin toxicity versus acute tubular necrosis, improving at this time. 2.Hypertension seems uncontrolled, but we would hold off on lisinopril and would resume nifedipine a t the time of discharge. 3.Hypokalemia has received with mild supplementation. We will need outpatient followup if he is dis charged. 4.Osteomyelitis of the foot. Patient is being followed by Dr. Edouard and the wound seems to be heali ng okay. He is going to be discharged on Zyvox and ciprofloxacin. Plan: Patient is overall doing okay at this time. Continue to monitor renal function closely. We w ill need outpatient followup. I have given him my contact information and my office will be stephanie wagner for followup. Continue to monitor renal function closely and advised to avoid hypotension and nephrotoxins. We will follow up with him. DORIS/ORLY Voice ID: [id number] Report ID: [id number]
[2019-06-27] MEDS ORDERED: COLLAGENASE 30 GM OINTMENT TOP SCH (09:00)
== END 2019-06-26 15:52 | disposition home or self-care (01) | DRG 683 ==
LOC: ER 13:08 → ERHOLD 16:29 → 4TH 17:56
PROVIDERS: ADMIT Internal Medicine; ATTEND Family Medicine
DX: N17.9 Acute kidney failure, unspecified (principal); E87.0 Hyperosmolality and hypernatremia; E46 Unspecified protein-calorie malnutrition; M86.271 Subacute osteomyelitis, right ankle and foot; E83.51 Hypocalcemia; Z68.22 Body mass index [BMI] 22.0-22.9, adult; T36.8X5A Adverse effect of other systemic antibiotics, initial encounter; I73.9 Peripheral vascular disease, unspecified; J44.9 Chronic obstructive pulmonary disease, unspecified; I10 Essential (primary) hypertension; F17.210 Nicotine dependence, cigarettes, uncomplicated; E11.40 Type 2 diabetes mellitus with diabetic neuropathy, unspecified; E11.621 Type 2 diabetes mellitus with foot ulcer
CPT/HCPCS: 36415; 71045; 74176; 76377; 76770; 80048; 80053; 80076; 80202; 81001; 81003; 81015; 82043; 82570; 83605; 83615; 83735; 83880; 84100; 84300; 84484; 84550; 85025; 85610; 87040; 87070; 87077; 87086; 87088; 87186; 87205; 93005; 94760; 99251; 99285; J0360; J0744; J1650; J2405; J2997; J3590; J7030; J7605

== ENCOUNTER 2020-11-28 17:08 | Inpatient (IN) | payer BC, OTHER ==
--- NOTE | 2020-11-28 18:55 | EDPHYS ---
Physician Documentation [facility] Name: Surinder Andrade Age: 65 yrs Sex: Male : 1955 Arrival Date: 11/28/2020 Time: 17:12 Bed 5 Private MD: ED Physician Shayan Vitale HPI: 11/28 18:43 This 65 yrs old Male presents to ER via Ambulatory with complaints of Foot joseph Pain. 18:43 The patient presents with decreased range of motion, pain, swelling, tenderness. The joseph complaints affect the right foot. Context: The problem was sustained at an unknown location. Onset: The symptoms/episode began/occurred 5 day(s) ago. Modifying factors: The symptoms are alleviated by nothing, elevation of extremity, the symptoms are aggravated by weight bearing, movement. Associated signs and symptoms: Pertinent positives: calf tenderness, swelling, warmth. Severity of symptoms: At their worst the symptoms were moderate, in the emergency department the symptoms are unchanged. The patient has experienced similar episodes in the past, multiple times. Historical: - Allergies: 17:19 No Known Allergies; ll1 - PMHx: 17:19 osteomyelitis; High Cholesterol; Sanchez's Cyst - right knee; Hypertension; ll1 - PSHx: 17:19 triple bypass; ll1 - Immunization history:: Flu vaccine is up to date. - Social history:: Smoking status: Patient reports the use of cigarette tobacco products, smokes one pack cigarettes per day. - Family history:: not pertinent. ROS: 18:43 Constitutional: Negative for fever, chills, and weight loss, Eyes: Negative for injury, joseph pain, redness, and discharge, ENT: Negative for injury, pain, and discharge, Neck: Negative for injury, pain, and swelling, Cardiovascular: Negative for chest pain, palpitations, and edema, Respiratory: Negative for shortness of breath, cough, wheezing, and pleuritic chest pain, Abdomen/GI: Negative for abdominal pain, nausea, vomiting, diarrhea, and constipation, Back: Negative for injury and pain, : Negative for injury, bleeding, discharge, and swelling, Neuro: Negative for headache, weakness, numbness, tingling, and seizure, Psych: Negative for depression, anxiety, suicide ideation, homicidal ideation, and hallucinations, Allergy/Immunology: Negative for hives, rash, and allergies, Endocrine: Negative for neck swelling, polydipsia, polyuria, polyphagia, and marked weight changes. 18:43 MS/extremity: Positive for decreased range of motion, pain, swelling, tenderness, of the lateral aspect of right calf, right ankle, lateral aspect of right foot, right Achilles, right heel, medial aspect of right calf, medial aspect of right foot, right massey, anterior aspect of right ankle and dorsum of right foot. Exam: 18:43 Constitutional: This is a well developed, well nourished patient who is awake, alert, joseph and in no acute distress. Head/Face: Normocephalic, atraumatic. Eyes: Pupils equal round and reactive to light, extra-ocular motions intact. Lids and lashes normal. Conjunctiva and sclera are non-icteric and not injected. Cornea within normal limits. Periorbital areas with no swelling, redness, or edema. ENT: Nares patent. No nasal discharge, no septal abnormalities noted. Tympanic membranes are normal and external auditory canals are clear. Oropharynx with no redness, swelling, or masses, exudates, or evidence of obstruction, uvula midline. Mucous membranes moist. Neck: Trachea midline, no thyromegaly or masses palpated, and no cervical lymphadenopathy. Supple, full range of motion without nuchal rigidity, or vertebral point tenderness. No Meningismus. Chest/axilla: Normal chest wall appearance and motion. Nontender with no deformity. No lesions are appreciated. Cardiovascular: Regular rate and rhythm with a normal S1 and S2. No gallops, murmurs, or rubs. Normal PMI, no JVD. No pulse deficits. Respiratory: Lungs have equal breath sounds bilaterally, clear to auscultation and percussion. No rales, rhonchi or wheezes noted. No increased work of breathing, no retractions or nasal flaring. Abdomen/GI: Soft, non-tender, with normal bowel sounds. No distension or tympany. No guarding or rebound. No evidence of tenderness throughout. Back: No spinal tenderness. No costovertebral tenderness. Full range of motion. Male : Normal genitalia with no discharge or lesions. Neuro: Awake and alert, GCS 15, oriented to person, place, time, and situation. Cranial nerves II-XII grossly intact. Motor strength 5/5 in all extremities. Sensory grossly intact. Cerebellar exam normal. Normal gait. Psych: Awake, alert, with orientation to person, place and time. Behavior, mood, and affect are within normal limits. 18:43 Skin: abscess, that is moderate sized, of the right foot, cellulitis, that is moderate, induration, that is mild is noted. Vital Signs: 17:19 BP 145 / 73; Pulse 97; Resp 17; Temp 98.0; Pulse Ox 96% ; Weight 72.57 kg; Height 5 ft. ll1 10 in. (177.80 cm); Pain 7/10; 21:30 BP 114 / 50; Pulse 82; Resp 18; Temp 98; Pulse Ox 94% on R/A; mg2 17:19 Body Mass Index 22.96 (72.57 kg, 177.80 cm) ll1 MDM: 18:07 Patient medically screened. joseph 18:51 Differential diagnosis: fracture, sprain, penetrating trauma, cellulitis. Data joseph reviewed: vital signs, nurses notes, diagnostic data from outside facility, old medical records, lab test result(s), EKG, radiologic studies, doppler, plain films. Data interpreted: monitoring tech: rate is 97 beats/min, rhythm is regular, Pulse oximetry: on room air is 96 %. Test interpretation: by ED physician or midlevel provider: ECG, plain radiologic studies. Counseling: I had a detailed discussion with the patient and/or guardian regarding: the historical points, exam findings, and any diagnostic results supporting the discharge/admit diagnosis, the presence of at least one elevated blood pressure reading (>120/80) during this emergency department visit, lab results, radiology results, the need for further work-up and treatment in the hospital. 11/28 18:43 Order name: Basic Metabolic Panel 11/28 18:43 Order name: CBC with Diff 11/28 18:43 Order name: LFT's 11/28 18:43 Order name: Magnesium 11/28 18:43 Order name: NT PRO-BNP joseph 11/28 18:43 Order name: PT-INR; Complete Time: 21:33 joseph 11/28 18:43 Order name: Troponin (emerg Dept Use Only) 11/28 18:43 Order name: XRAY Chest (1 view); Complete Time: 21:33 11/28 18:43 Order name: Blood Culture Adult (2) 11/28 18:43 Order name: Lactate [facility] 11/28 18:43 Order name: Basic Metabolic Panel [facility] 11/28 18:44 Order name: CBC with Automated Diff [facility] 11/28 19:24 Order name: COVID-19 : Document "Date of Symptom Onset" if Symptomatic. lp1 11/28 21:08 Order name: SARS-COV-2 RT PCR; Complete Time: 21:33 [facility] 11/28 18:43 Order name: EKG; Complete Time: 18:44 [facility] 11/28 18:43 Order name: Cardiac monitoring; Complete Time: 20:20 [facility] 11/28 18:43 Order name: EKG - Nurse/Tech; Complete Time: 20:20 [facility] 11/28 18:43 Order name: Foot Right 3 View XRAY; Complete Time: 21:33 [facility] 11/28 18:43 Order name: US LE Artery Uni Ltd; Complete Time: 21:33 [facility] 11/28 18:43 Order name: US Extremity Venous Unilateral Ltd; Complete Time: 21:33 [facility] 11/28 20:04 Order name: CONS Pharmacy Consult [facility] 11/28 20:04 Order name: CONS Pharmacy Consult [facility] 11/28 20:04 Order name: CONS Pharmacy Consult [facility] 11/28 20:04 Order name: CONS Physician Consult [facility] 11/28 20:04 Order name: Heart Healthy [facility] 11/28 18:43 Order name: IV Saline Lock; Complete Time: 20:20 [facility] 11/28 18:43 Order name: Labs collected and sent; Complete Time: 20:20 [facility] 11/28 18:43 Order name: O2 Per Protocol; Complete Time: 20:20 [facility] 11/28 18:43 Order name: O2 Sat Monitoring; Complete Time: 20:21 [facility] Administered Medications: 20:01 Drug: Zosyn 3.375 grams Route: IVPB; Infused Over: 60 mins; Site: left antecubital; mg2 21:40 Follow up: Response: No adverse reaction; IV Status: Completed infusion mg2 20:19 Drug: morphine 2 mg Route: IVP; Site: left antecubital; mg2 21:40 Follow up: Response: No adverse reaction mg2 20:19 Drug: Zofran (Ondansetron) 4 mg Route: IVP; Site: left antecubital; mg2 21:40 Follow up: Response: No adverse reaction mg2 21:24 Drug: vancoMYCIN 1.5 grams Route: IVPB; Infused Over: 2 hrs; Site: left antecubital; mg2 21:50 Follow up: Response: No adverse reaction; IV Status: Infusion continued upon admission mg2 21:39 Drug: Nicoderm CQ 21 mg/24 hr 21 mg {Note: back area.} Route: Transdermal; Site: mg2 anterior chest wall; 21:50 Follow up: Response: No adverse reaction mg2 Disposition: 11/28/20 18:55 Hospitalization ordered by Daren Jenkins for Inpatient Admission. Preliminary diagnosis are Cellulitis and acute lymphangitis of other parts of limb - right foot / lower extremity, Other peripheral vascular diseases, Tobacco abuse counseling, Tobacco use. - Bed requested for Telemetry/MedSurg (Inpatient). - Status is Inpatient Admission. mg2 - Condition is Stable. - Problem is new. - Symptoms have improved. Critical care time excluding procedures: 18:51 Critical care time: Bedside Care: 20 minutes, Family Intervention: 5 minutes. Total joseph time: 25 minutes Signatures: Dispatcher [employer] EDTN Harriett Salinas RN RN mw Anderson, Corey, MD MD cha Marinas, Patrick, JU [employer] MANA[employer] pm1 Jose A Mccollum RN RN mg2 Mari Karimi RN RN ll1 Corrections: (The following items were deleted from the chart) 21:11 18:55 Hospitalization Ordered by Daren Jenkins MD for Inpatient Admission. Preliminary diagnosis is Cellulitis and acute lymphangitis of other parts of limb - right foot / lower extremity; Other peripheral vascular diseases; Tobacco abuse counseling; Tobacco use. Bed requested for Telemetry/MedSurg (Inpatient). Status is Inpatient Admission. Condition is Stable. Problem is new. Symptoms have improved. joseph 21:56 21:11 11/28/2020 18:55 Hospitalization Ordered by Darne Jenkins MD for Inpatient mg2 Admission. Preliminary diagnosis is Cellulitis and acute lymphangitis of other parts of limb - right foot / lower extremity; Other peripheral vascular diseases; Tobacco abuse counseling; Tobacco use. Bed requested for Telemetry/MedSurg (Inpatient). Status is Inpatient Admission. Condition is Stable. Problem is new. Symptoms have improved.
--- NOTE | 2020-11-28 18:55 | ER ---
Nurse's Notes [facility] Name: Surinder Andrade Age: 65 yrs Sex: Male : 1955 Arrival Date: 11/28/2020 Time: 17:12 Bed 5 Private MD: Diagnosis: Cellulitis and acute lymphangitis of other parts of limb-right foot / lower extremity;Other peripheral vascular diseases;Tobacco abuse counseling;Tobacco use Presentation: 11/28 17:19 Chief complaint: Patient states: R foot pain and infection for 4-5 days. + drainage. No ll1 known fever. Doctor appointment next Monday (Dr. Edouard). Only has 1 toe left on that foot. Foot is red and swollen. Oozing of blood from beneath his only digit and end of foot. Coronavirus screen: Client denies travel out of the [place] in the last 14 days. At this time, the client does not indicate any symptoms associated with coronavirus-19. Ebola Screen: Patient denies travel to an Ebola-affected area in the 21 days before illness onset. Initial Sepsis Screen: Does the patient meet any 2 criteria? HR > 90 bpm. No. Patient's initial sepsis screen is negative. Does the patient have a suspected source of infection? Yes: Skin breakdown/wound. Risk Assessment: Do you want to hurt yourself or someone else? Patient reports no desire to harm self or others. Onset of symptoms was November 24, 2020. 17:19 Method Of Arrival: Ambulatory ll1 17:19 Acuity: ANDREA 3 ll1 Triage Assessment: 17:25 General: Appears in no apparent distress. Behavior is calm, cooperative, appropriate ll1 for age. Pain: Complains of pain in right foot Quality of pain is described as aching. Neuro: No deficits noted. Cardiovascular: No deficits noted. Respiratory: No deficits noted. Derm: Reports pain, redness, swelling to R foot for 4-5 days. + bloody drainage. Musculoskeletal: Circulation, motion, and sensation intact. Capillary refill < 3 seconds, Swelling present in right foot Tenderness present in right foot Reports pain in right foot. Historical: - Allergies: 17:19 No Known Allergies; ll1 - PMHx: 17:19 osteomyelitis; High Cholesterol; Sanchez's Cyst - right knee; Hypertension; ll1 - PSHx: 17:19 triple bypass; ll1 - Immunization history:: Flu vaccine is up to date. - Social history:: Smoking status: Patient reports the use of cigarette tobacco products, smokes one pack cigarettes per day. - Family history:: not pertinent. Screenin:55 Abuse screen: Denies threats or abuse. Nutritional screening: No deficits noted. ll1 Tuberculosis screening: No symptoms or risk factors identified. Fall Risk IV access (20 points). Gait- Impaired (20 pts.). Total Collins Fall Scale indicates Low Risk Score (25-44 pts). Fall prevention measures have been instituted. Side Rails Up X 2 Frequent Obs/Assesments occuring As available Patient and Family Educated on Fall Prevention Program and strategies. Assessment: 20:00 General: Appears in no apparent distress. comfortable, Behavior is calm, cooperative. mg2 Pain: Complains of pain in right foot. Neuro: Level of Consciousness is awake, alert, obeys commands, Oriented to person, place, time, situation. Cardiovascular: Capillary refill < 3 seconds Patient's skin is warm and dry. Respiratory: Airway is patent Respiratory effort is even, unlabored, Respiratory pattern is regular, symmetrical. GI: No signs and/or symptoms were reported involving the gastrointestinal system. : No signs and/or symptoms were reported regarding the genitourinary system. EENT: No signs and/or symptoms were reported regarding the EENT system. Derm: swelling and redness in right foot. Musculoskeletal: 21:49 Reassessment: Patient appears in no apparent distress at this time. Patient and/or mg2 family updated on plan of care and expected duration. Pain level reassessed. Patient is alert, oriented x 3, equal unlabored respirations, skin warm/dry/pink. floor nurse will call me back to receive report. Vital Signs: 17:19 BP 145 / 73; Pulse 97; Resp 17; Temp 98.0; Pulse Ox 96% ; Weight 72.57 kg; Height 5 ft. ll1 10 in. (177.80 cm); Pain 7/10; 21:30 BP 114 / 50; Pulse 82; Resp 18; Temp 98; Pulse Ox 94% on R/A; mg2 17:19 Body Mass Index 22.96 (72.57 kg, 177.80 cm) ll1 ED Course: 17:12 Patient arrived in ED. ds1 17:21 Triage completed. ll1 17:22 Arm band placed on. ll1 18:07 Shayan Vitale MD is Attending Physician. joseph 18:07 Brooklynn Garcia RN is Primary Nurse. ph 18:53 Daren Jenkins MD is Hospitalizing Provider. joseph 19:09 XRAY Chest (1 view) In Process Unspecified. EDMS 19:09 Foot Right 3 View XRAY In Process Unspecified. EDMS 19:45 Inserted saline lock: 20 gauge in left antecubital area, using aseptic technique. mg2 19:55 Primary Nurse role handed off by Brooklynn Garcia RN mw2 20:18 Jose A Mccollum, SUKHWINDER is Primary Nurse. mg2 20:19 US LE Artery Uni Ltd In Process Unspecified. EDMS 20:19 US Extremity Venous Unilateral Ltd In Process Unspecified. EDMS 20:23 Patient has correct armband on for positive identification. Door closed. Warm blanket mg2 given. 20:23 No provider procedures requiring assistance completed. mg2 21:48 Patient admitted, IV remains in place. mg2 Administered Medications: 20:01 Drug: Zosyn 3.375 grams Route: IVPB; Infused Over: 60 mins; Site: left antecubital; mg2 21:40 Follow up: Response: No adverse reaction; IV Status: Completed infusion mg2 20:19 Drug: morphine 2 mg Route: IVP; Site: left antecubital; mg2 21:40 Follow up: Response: No adverse reaction mg2 20:19 Drug: Zofran (Ondansetron) 4 mg Route: IVP; Site: left antecubital; mg2 21:40 Follow up: Response: No adverse reaction mg2 21:24 Drug: vancoMYCIN 1.5 grams Route: IVPB; Infused Over: 2 hrs; Site: left antecubital; mg2 21:50 Follow up: Response: No adverse reaction; IV Status: Infusion continued upon admission mg2 21:39 Drug: Nicoderm CQ 21 mg/24 hr 21 mg {Note: back area.} Route: Transdermal; Site: mg2 anterior chest wall; 21:50 Follow up: Response: No adverse reaction mg2 Outcome: 18:55 Decision to Hospitalize by Provider. joseph 21:55 Admitted to Med/surg accompanied by tech, via stretcher, room 209, with chart, Report mg2 called to SUKHWINDER Bocanegra 21:55 Condition: good 21:55 Instructed on the need for admit, Demonstrated understanding of instructions. 21:56 Patient left the ED. mg2 Signatures: Dispatcher [employer] EDMS Shayan Vitale MD MD cha Sanford, Demi ds1 Brooklynn Garcia, SUKHWINDER RN Rod Taylor mw2 Jose A Mccollum RN RN mg2 Mari Karimi RN RN ll1 Corrections: (The following items were deleted from the chart) 17:53 17:19 Chief complaint: Patient states: R foot pain and infection for 4-5 days. + ll1 drainage. No known fever. Doctor appointment next Monday (Dr. Edouard) ll1 21:49 21:30 Pulse 82bpm; Resp 18bpm; Temp 98F; mg2 mg2
[2020-11-28] MEDS ORDERED: MORPHINE 2 MG/ML SYR ONE (19:46)
[2020-11-28] MEDS ORDERED: PIPER/TAZO/NS 3.375gm 3.375 GM/100 ML BAG ONE (19:47)
[2020-11-28] MEDS ORDERED: ONDANSETRON 4 MG/2 ML VIAL ONE (19:47)
[2020-11-28] MEDS ORDERED: VANCOMYCIN 1 GM/VIAL ONE (19:47)
[2020-11-28] MEDS ORDERED: NA CHLORIDE 0.9% 250 ML ONE (19:47)
--- NOTE | 2020-11-28 19:47 | RAD REPORT ---
EXAM DESCRIPTION: RAD - Chest Single View - 11/28/2020 7:18 pm CLINICAL HISTORY: COUGH Chest pain. COMPARISON: Chest Single View dated 06/21/2019; Chest Single View dated 06/03/2019; Chest Single View d ated 08/24/2017; CHEST SINGLE VIEW dated 03/27/2012 FINDINGS: Portable technique limits examination quality. The lungs are emphysematous but grossly clear. The heart is normal in size. No displaced fractures. IMPRESSION: Mild diffuse COPD.
--- NOTE | 2020-11-28 19:48 | RAD REPORT ---
EXAM DESCRIPTION: RAD - Foot Right 3 View - 11/28/2020 7:11 pm CLINICAL HISTORY: PAIN Pain and swelling COMPARISON: Foot Right Wo Cont dated 06/24/2019; Foot Right Wo Cont dated 06/03/2019 FINDINGS: First, second, fourth and fifth toe amputation noted. Soft tissue swelling affects the thi rd toe. No radiographic finding to indicate osteomyelitis. If osteomyelitis remains a clinical concer n, follow-up MRI of the foot would be recommended.
[2020-11-28] MEDS ORDERED: MORPHINE 2 MG/ML SYR IV PRN (19:53)
[2020-11-28] MEDS ORDERED: ACETAMINOPHEN 500 MG TAB PO PRN (19:53)
[2020-11-28] MEDS ORDERED: ONDANSETRON 4 MG/2 ML VIAL IV PRN (19:53)
[2020-11-28] MEDS ORDERED: ALBUTEROL 2.5 MG/3 ML NEB SOL NEB PRN ×2 (19:53→20:30)
[2020-11-28] MEDS ORDERED: VANCOMYCIN/NS 1 gm 1 GM/250 ML BAG IVPB SCH (20:00)
--- NOTE | 2020-11-28 20:20 | P.HP ---
Certification for Inpatient Patient admitted to: Observation With expected LOS: >2 Midnights Patient will require the following post-hospital care: None Practitioner: I am a practitioner with admitting privileges, knowledge of patient current condition, hospital course, and medical plan of care. Services: Services provided to patient in accordance with Admission requirements found in Title 42 Section 412.3 of the Code of Federal Regulations Patient History Date of Service: 11/28/20 Reason for admission: leg pain History of Present Illness: 65-year-old male past medical history of HTN, PVD s/p bilateral lower extremity angiogram with reported b/l stent placement by a physician in [place] about 3 years ago; history of RLE right 2nd to 4th digit amputation about 4 years ago, developed shooting pain from the lower back radiating to both legs since over 1 week with worsening right lower extremity pain and swelling. He has seen his primary care physician and was recommended to see Dr Arias General surgery on Monday but patient presented to ED because of worsening symptoms. He denies any fever or chills. He denies any nausea and vomiting. He denies any recent trauma to the foot. He still continues to smoke. He has been admitted for persistent right lower extremity cellulitis Allergies No Known Allergies Allergy (Verified 09/02/17 14:48) Home medications list reviewed: No Home Medications: Buproprion S.r. [Wellbutrin Sr*] 150 mg PO BID 09/02/17 Clopidogrel Bisulfate [Plavix*] 75 mg PO DAILY 03/06/19 Aspirin 81 mg PO DAILY 06/21/19 raNITIdine HCl [Acid Control] 150 mg PO DAILY 06/21/19 Collagenase [Santyl Ointment*] 1 paula TOP DAILY 06/22/19 Acetic Acid 0.25% [Acetic Acid 0.25%*] 1,000 ml IRR DAILY btl 06/26/19 Calcitrol [Rocaltrol*] 0.5 mcg PO DAILY 30 Days #30 cap 06/26/19 Cholecalciferol (Vitamin D3) [Vitamin D 5,000 IU Cap*] 5,000 unit PO DAILY 30 Days #30 cap 06/26/19 Nifedipine Xl [Procardia Xl*] 30 mg PO DAILY 30 Days #30 tab 06/26/19 - Past Medical/Surgical History Has patient received pneumonia vaccine in the past: No Diabetic: No -: PVD -: History aortofemoral bypass -: History 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 He has 3 children. He works in the [employer] - Family History Mother -: Cancer Father -: Other (see notes) Notes: depression - Social History Smoking Status: Current every day smoker Alcohol use: No CD- Drugs: No Caffeine use: Yes Place of Residence: Home Review of Systems 10-point ROS is otherwise unremarkable Physical Examination - Physical Exam General: Alert, In no apparent distress, Oriented x3 HEENT: Atraumatic, Normocephalic, PERRLA Neck: Supple, 2+ carotid pulse no bruit, JVD not distended Respiratory: Clear to auscultation bilaterally, Normal air movement Cardiovascular: No edema, Normal pulses, Regular rate/rhythm, Normal S1 S2 Gastrointestinal: Normal bowel sounds, Soft and benign, Non-distended, No tenderness Musculoskeletal: Other (Right LE edema, erythema and tenderness,amputated 2-4th toe, black blister over lateral 5th bed ) Integumentary: No rashes, No breakdown, No significant lesion Neurological: Normal gait, Normal speech, Normal strength at 5/5 x4 extr, Sensation intact, Cranial nerves 3-12 intact - Studies Imagings Data: FINDINGS: First, second, fourth and fifth toe amputation noted. Soft tissue swelling affects the third toe. No radiographic finding to indicate osteomyelitis. If osteomyelitis remains a clinical concern, follow-up MRI of the foot would be recommended. Assessment and Plan - Problems (Diagnosis) (1) COPD (chronic obstructive pulmonary disease) Onset Date: 09/04/17 Current Visit: No Status: Chronic Qualifiers: COPD type: chronic bronchitis (2) PVD (peripheral vascular disease) Onset Date: 09/04/17 Current Visit: No Status: Chronic (3) Tobacco abuse Onset Date: 09/04/17 Current Visit: No Status: Chronic (4) Cellulitis Onset Date: 09/04/17 Current Visit: No Status: Resolved Qualifiers: Site of cellulitis: extremity Site of cellulitis of extremity: lower extremity Laterality: right Qualified Code(s): L03.115 - Cellulitis of right lower limb - Plan # Right lower leg extremity cellulitis- unclear etiology Follow Doppler ultrasound of the lower extremity to assess vascular flow Start empirical vancomycin Obtain blood culture Consult General surgery next primary need repeat angiogram if impaired vascular flow on ultrasound # PVD-continue aspirin and Plavix # COPD-noted on chest x-ray, start duonebs No urgent need for steroids now #Tobacco use-start nicotine patch # DVT prophylaxis-subcutaneous Lovenox # Advanced directive-full code - Advance Directives Does patient have a Living Will: No Does patient have a Durable POA for Healthcare: No - Code Status/Comfort Care Code Status: Full Code Physician Review: Patient Assessed, Agree with Above Assessment and Plan Time Spent Managing Pts Care (In Minutes): 65
[2020-11-28] MEDS ORDERED: HYDRALAZINE HCL 20 MG/ML VIAL IV PRN (20:30)
--- NOTE | 2020-11-28 20:39 | RAD REPORT ---
EXAM DESCRIPTION: US - Extremity Venous Uni Ltd - 11/28/2020 8:19 pm CLINICAL HISTORY: PAIN Leg swelling and edema. COMPARISON: Extremity Venous Uni Ltd dated 05/31/2019 FINDINGS: Right lower extremity venous system was interrogated with Doppler technique. Normal flow, compressibility and augmentation was noted. There is no DVT present.4-5 cm complex popliteal cyst. IMPRESSION: No evidence of right lower extremity deep venous thrombosis.
--- NOTE | 2020-11-28 20:40 | RAD REPORT ---
EXAM DESCRIPTION: US - Lower Extremity Artery [facility] - 11/28/2020 8:19 pm CLINICAL HISTORY: PAIN COMPARISON: Lower Ext Angio dated 02/28/2019 FINDINGS: Doppler interrogation of the right lower extremity arterial system was performed. Triphasi c and biphasic flow is seen without a significant flow restricting lesion or stenosis. No occlusion o r near occlusion seen. IMPRESSION: No significant flow abnormality seen right lower extremity arterial system.
[2020-11-28] MEDS: IPRATROPIUM BROM 0.5MG/2.5ML NEB SCH (20:45)
[2020-11-28] MEDS ORDERED: VANCOMYCIN 1.25 GM in NA CHLORIDE 0.9% 250 ML IVPB ONE (21:00)
[2020-11-28 21:19] LABS: Absolute Lymphocytes (CBC) 1.4 K/uL (0.7-4.9); Basophils % 0.5 % (0-1.3); Hematocrit 43.6 % (39.6-49.0); Lymphocytes % 16.1 % (15.3-44.8); RBC Red Blood Cell Count 3.89 M/uL (4.33-5.43)
[2020-11-28 21:20] LABS: Protime INR 1.03
[2020-11-28 21:36] LABS: ALT/SGPT 44 U/L (12-78); AST/SGOT 37 U/L (15-37); Albumin 2.9 g/dL (3.4-5.0); Alkaline Phosphatase 99 U/L (45-117); BUN Blood Urea Nitrogen 5 mg/dL (7-18); Bicarbonate 28 mmol/L (21-32); Bilirubin Direct 0.2 mg/dL (0-0.2); Bilirubin Total 0.5 mg/dL (0.2-1.0); Glucose Level 90 mg/dL (74-106); Magnesium 2.3 mg/dL (1.8-2.4); NT PRO-BNP 162 pg/mL (<125); Protein, Total 7.2 g/dL (6.4-8.2); Sodium Level 140 mmol/L (136-145); Troponin (Emerg Dept Use Only) < 0.02 ng/mL (0.0-0.045)
[2020-11-28] MEDS: NA CHLORIDE 0.9% 1,000 ML IV SCH (23:01)
[2020-11-28 23:16] LABS: Blood Morphology Comment NOTED (NOT SEEN); Macrocytosis 3+; Platelet Estimate ADEQ; White Blood Cell Scan OK (OK)
[2020-11-29] MEDS: GABAPENTIN 100 MG CAP PO SCH ×4 (01:27→20:14)
[2020-11-29] MEDS: IPRATROPIUM BROM 0.5MG/2.5ML NEB SCH ×4 (01:40→19:30)
[2020-11-29] MEDS ORDERED: INFLUENZA VACCINE (for 3y+) 0.5 ML DOSE IMVAC ONE (06:00)
[2020-11-29] MEDS ORDERED: PNEUMOCOCCAL VACCINE 0.5 ML IMVAC ONE (06:00)
[2020-11-29] MEDS: NICOTINE 21 MG/PAT TD SCH (09:42)
[2020-11-29] MEDS: ASPIRIN 81 MG CHEWABLE TABLET PO SCH (09:42)
[2020-11-29] MEDS: ENOXAPARIN 40 MG/0.4 ML SQ SCH (09:42)
[2020-11-29] MEDS: CLOPIDOGREL 75 MG TABLET PO SCH (09:42)
[2020-11-29] MEDS: VANCOMYCIN 1.25 GM in NA CHLORIDE 0.9% 250 ML IVPB SCH ×2 (09:52→20:14)
--- NOTE | 2020-11-29 12:12 | P.PN ---
Subjective Date of Service: 11/29/20 Patient appears to have osteomyelitis. Patient will need surgical intervention. At this time or not really shore the extent of the surgery that will be needed. Arterial Dopplers were unremarkable. Patient is going to get a MRI of the foot in the morning. Review of Systems 10-point ROS is otherwise unremarkable Physical Examination - Vital Signs Temperature: 98.5 F Blood Pressure: 138/65 Pulse: 81 Respirations: 16 Pulse Ox (%): 99 - Physical Exam General: Alert, In no apparent distress, Oriented x3 HEENT: Atraumatic, PERRLA, EOMI Neck: Supple, JVD not distended Respiratory: Clear to auscultation bilaterally, Normal air movement Cardiovascular: Regular rate/rhythm, Normal S1 S2 Gastrointestinal: Normal bowel sounds, No tenderness Musculoskeletal: No tenderness Integumentary: No rashes Neurological: Normal speech, Normal tone, Normal affect Lymphatics: No axilla or inguinal lymphadenopathy - Studies Medications List Reviewed: Yes Assessment & Plan - Problems (Diagnosis) (1) Foot osteomyelitis, right Current Visit: Yes Status: Acute (2) History of peripheral arterial disease Current Visit: Yes Status: Acute (3) Tobacco abuse Onset Date: 09/04/17 Current Visit: No Status: Chronic - Plan 1. Continue with IV antibiotic 2. Continue with local wound care 3. Wound care consultation/surgical consultation 4. Gentle IV hydration 5. Monitor CBC 6. Strict blood sugar monitoring 7. Pain control 8. MRI of the right foot in the morning 9. Arterial Dopplers are unremarkable so the large vessel (arterial) circulation is adequate 10. GI and DVT prophylaxis - Advance Directives Does patient have a Living Will: No Does patient have a Durable POA for Healthcare: No - Code Status/Comfort Care Code Status: Full Code Physician Review: Patient Assessed, Agree with Above Assessment and Plan
--- NOTE | 2020-11-29 13:31 | CON ---
Date of Consultation: 11/28/2020 Reason For Consultation: Infection of right foot. History Of Present Illness: The patient is a 65-year-old gentleman comes in with about a week histor y of pain, redness, swelling and a developing ulcer on the right lateral foot. He was admitted for I V antibiotics and further work up. He denies any purulent discharge. No groin pain. No fever or ch ills. No sore throat, runny nose, cough, headaches, or dizziness. He has had similar episodes in th e past. Does not recall any trauma or wearing tight shoes. Review of Systems: Otherwise unremarkable. Past Medical History: Peripheral vascular disease. Tobacco abuse. Past Surgical History: Aortobifemoral bypass, amputation of the first, second, fourth and fifth digi t. Allergies: NO ALLERGIES. HE STILL CONTINUES TO SMOKE, HAS BEEN COUNSELED, DRINKS OCCASIONALLY. Family History: Noncontributory. Physical Examination: Vital Signs: Stable. He is currently afebrile. General: He is awake, alert, and oriented x3. Head and Neck: Cranial nerves 2 through 12 are grossly within normal limits. No neck masses. No JV D. Throat clear. Neck is supple. Chest: Clear. Heart: S1, S2. Abdomen: Soft. Extremities: Neurovascularly intact. There are diminished dorsalis pedis and posterior tibial pulse s. There is redness and some wrinkling of the skin and swelling in the right forefoot and lateral fo ot. There is necrotic blister approximately 4 x 4 cm. As to how deep the infection goes is hard to tell. The area is tender and warm. Imaging: His foot x-ray reviewed and shows soft tissue swelling of third toe. If osteo remains a co ncern, followup MRI would be recommended. No obvious osseous seen on the x-ray. Venous study is neg ative for DVT. Had a Doppler study, which shows no significant flow abnormality seen in the right lo wer extremity arterial system; however, the study does not indicate whether the dorsalis pedis and po sterior tibial are patient. Laboratory Data: White count is 8.7. There is no left shift. INR is 1.03. Chemistry reviewed; lact ic acid was 1.4. Assessment: Cellulitis and infected wound right foot. Possible osteomyelitis. Recommendation: IV antibiotics as ordered. We will get an MRI to better evaluate that area to see i f the patient indeed does have osteomyelitis clinically suspicious for osteomyelitis that necrotic ar ea does need to be debrided and therefore we will take the patient to the OR in the morning for debri fausto of the infected wound on the right foot. The patient understands the risks, benefits, and alt ernatives and agrees to procedure. Plan of care discussed with Dr. Rivera and Javan. CLAIR/ORLY Voice ID: [id number] Report ID: [id number]
[2020-11-29] MEDS: NA CHLORIDE 0.9% 1,000 ML IV SCH (20:14)
[2020-11-30] MEDS: IPRATROPIUM BROM 0.5MG/2.5ML NEB SCH ×4 (01:20→19:30)
[2020-11-30 04:57] VITALS: BMI 21.0
[2020-11-30] MEDS: GABAPENTIN 100 MG CAP PO SCH ×3 (09:00→21:02)
[2020-11-30] MEDS: NA CHLORIDE 0.9% 1,000 ML ONE (09:30)
[2020-11-30] MEDS ORDERED: BUPIVACAINE 0.5% PF 10 ML VIAL ONE (09:47)
[2020-11-30] MEDS ORDERED: MIDAZOLAM HCL 2 MG/2 ML INJ ONE (09:50)
[2020-11-30] MEDS ORDERED: FENTANYL CITR 100 MCG/2 ML ONE (09:50)
[2020-11-30] MEDS ORDERED: propofoL 200 MG/20 ML VIAL IV ONE (09:50)
[2020-11-30] MEDS ORDERED: LIDOCAINE 1% MPF 5 ML VIAL ONE (09:50)
[2020-11-30] MEDS: VANCOMYCIN 1.25 GM in NA CHLORIDE 0.9% 250 ML IVPB SCH ×2 (10:00→10:19)
[2020-11-30] MEDS ORDERED: KETOROLAC 30 MG/ML INJ ONE (10:15)
[2020-11-30] MEDS ORDERED: ONDANSETRON 4 MG/2 ML VIAL ONE (10:26)
[2020-11-30] MEDS ORDERED: COLLAGENASE 30 GM OINTMENT TOP ONE (10:34)
--- NOTE | 2020-11-30 10:34 | P.OP ---
Business Applications Analyst: NONE,NONE Preoperative diagnosis: Infected wound right foot Postoperative diagnosis: same Primary procedure: I and D and Debridement Right Foot infected wound Anesthesia: General Estimated blood loss: min Specimen: Pus and C&S and debridement tissue Findings: as above Complications: None Transferred to: Recovery Room Condition: Good
--- NOTE | 2020-11-30 11:29 | OP ---
Date of Procedure: 11/30/2020 Surgeon: Jonatan Edouard MD Baker Doughnut: CLIFTON Vega. Preoperative Diagnosis: Infected wound right foot with cellulitis. Postoperative Diagnosis: Infected wound right foot with cellulitis. Procedure: Incision, drainage and debridement of right foot infected wound to subcutaneous tissue 4 x 4 cm. Estimated Blood Loss: Minimal. Specimen: Pus for culture and sensitivity and debridement tissue. Finding: As above. Anesthesia: General. Complications: None. Disposition: The patient tolerated the procedure in stable condition, taken to Recovery in good gene ral condition. Procedure In Detail: The patient was brought to the OR and placed in supine position. General anest hesia was begun. The patient was prepped and draped in usual sterile fashion. Marcaine 0.5% was inf iltrated locally and a 15 blade and sharp dissection utilized to debride any infected wound on the la teral aspect of the right foot with the toe amputation had been done and it was approximately 4 x 4 c m. There was brownish pus that was encountered in the subcutaneous tissue. Pus was cultured and anitra ridement tissue were sent to Pathology. A 4 x 4 cm area of wound was debrided down through the subcu taneous tissue close to the bone but not involving the bone. Wound irrigated, bleeding controlled wi th cautery and then collagenase dressing applied. The patient tolerated the procedure in stable condition and taken to Recovery in good general condition. Curette and rasps were used on debridemen t and calluses nearby as well. /MODL Voice ID: [id number] Report ID: [id number]
[2020-11-30] MEDS: ASPIRIN 81 MG CHEWABLE TABLET PO SCH (11:39)
[2020-11-30] MEDS: NICOTINE 21 MG/PAT TD SCH (11:40)
[2020-11-30] MEDS: NA CHLORIDE 0.9% 1,000 ML IV SCH (12:00)
[2020-11-30] MEDS ORDERED: TRAMADOL HCL 50 MG TAB PO PRN (12:47)
--- NOTE | 2020-11-30 12:48 | P.PN ---
Subjective Date of Service: 11/30/20 Primary Care Provider: Dr. Grigsby; Surgery-Dr. Edouard Chief Complaint: leg pain Subjective: Doing well Physical Examination - Vital Signs Temperature: 97.5 F Blood Pressure: 156/76 Pulse: 72 Respirations: 16 Pulse Ox (%): 94 - Studies Medications List Reviewed: Yes Assessment & Plan Discharge Plan: Home Plan to discharge in: 72 Hours Physician Review Additional Text: Physical exam: Patient alert, cooperative without significant distress. Heart: Regular rate rhythm Lungs: Clear to auscultation Abdomen: Soft Extremities: Mild erythema noted to the right foot. Prior amputations noted. Some swelling noted compared to the left. Impression: Infected right foot with cellulitis status post incision, drainage and debridement Hypertension Depression Peripheral vascular disease with prior bypass Tobacco abuse Plan: Infected right foot with cellulitis status post incision, drainage and debridement: Continue IV antibiotic therapy. Spoke with surgery. Surgery recommends to get either MRI or bone scan to evaluate for possible osteomyeli tis. If osteomyelitis noted patient will require long-term IV antibiotic therapy with PICC line. If negative patient can likely go home with oral antibiotic therapy. Await culture results. Will continue to assess. Will provide medication for pain. Hypertension: Restart Procardia Depression: Restart Wellbutrin Peripheral vascular disease with prior bypass: Continue Plavix. Tobacco abuse: Continue nicotine patch. Time Spent Managing Pts Care (In Minutes): 55
--- NOTE | 2020-11-30 13:16 | EKG ---
Test Date: 2020-11-28 Test Time: 20:10:16 Helicopter Crew Chief: MG MEASUREMENT RESULTS: Intervals: Rate: 77 ID: [id number] QRSD: 74 QT: 394 QTc: 445 Mcbh [place]: P: 82 ID: [id number] QRS: 74 T: 98 INTERPRETIVE STATEMENTS: Normal sinus rhythm ST & T wave abnormality, consider inferior ischemia Abnormal ECG Compared to ECG 06/21/2019 13:57:07 ST (T wave) deviation now present Possible ischemia now present Electronically Signed On 11-30-20 13:12:44 SCREED PERSON by Leif Garza
--- NOTE | 2020-11-30 15:59 | RAD REPORT ---
EXAM DESCRIPTION: MRI - Foot Right Wo Cont - 11/30/2020 3:43 pm CLINICAL HISTORY: Osteomyelitis Pain, swelling, osteomyelitis COMPARISON: Foot Right Wo Cont dated 06/24/2019; Foot Right Wo Cont dated 06/03/2019; Foot Right Wo Con t dated 09/04/2017; MRI FOOT RIGHT dated 07/18/2013; Foot Right 3 View dated 11/28/2020 FINDINGS: Previous amputation of the first, second, third and fourth toes noted. Moderate soft tissue thickening is seen along the plantar aspect of the forefoot. Edema signal is seen in the distal most portion of the first metatarsal head with diminished T1 signa l also present in this region. This is suspicious for mild osteomyelitis. No drainable fluid collecti on seen. IMPRESSION: Mild osteomyelitis suspected distal aspect of the first metatarsal head.
[2020-11-30] MEDS: BUPROPRION HCL S.R. 150MG TAB PO SCH (21:02)
[2020-12-01] MEDS: IPRATROPIUM BROM 0.5MG/2.5ML NEB SCH ×4 (02:26→19:45)
[2020-12-01] MEDS: VANCOMYCIN/NS 1 gm 1 GM/250 ML BAG IV SCH ×2 (06:06→18:40)
[2020-12-01 06:35] LABS: Absolute Lymphocytes (CBC) 0.7 K/uL (0.7-4.9); Basophils % 0.8 % (0-1.3); Hematocrit 41.7 % (39.6-49.0); Lymphocytes % 13.7 % (15.3-44.8); MPV 7.4 fL (7.6-11.3); RBC Red Blood Cell Count 3.69 M/uL (4.33-5.43)
[2020-12-01 06:47] LABS: Magnesium 2.3 mg/dL (1.8-2.4)
[2020-12-01 07:56] LABS: Blood Morphology Comment NOT SEEN (NOT SEEN); Platelet Estimate ADEQ; White Blood Cell Scan OK (OK)
[2020-12-01] MEDS: ENOXAPARIN 40 MG/0.4 ML SQ SCH (09:10)
[2020-12-01] MEDS: NICOTINE 21 MG/PAT TD SCH (09:11)
[2020-12-01] MEDS: BUPROPRION HCL S.R. 150MG TAB PO SCH ×2 (09:11→20:43)
[2020-12-01] MEDS: CLOPIDOGREL 75 MG TABLET PO SCH (09:11)
[2020-12-01] MEDS: ASPIRIN 81 MG CHEWABLE TABLET PO SCH (09:11)
[2020-12-01] MEDS: GABAPENTIN 100 MG CAP PO SCH ×3 (09:11→20:43)
[2020-12-01] MEDS: NIFEDIPINE XL 30 MG TABLET PO SCH (09:12)
--- NOTE | 2020-12-01 14:33 | P.PN ---
Subjective Date of Service: 12/01/20 Primary Care Provider: Dr. Grigsby; Surgery-Dr. Edouard Chief Complaint: leg pain Subjective: Improving, Doing well Physical Examination - Vital Signs Temperature: 96.8 F Blood Pressure: 159/74 Pulse: 87 Respirations: 18 Pulse Ox (%): 94 - Studies Medications List Reviewed: Yes Assessment & Plan Discharge Plan: Home Plan to discharge in: 48 Hours Physician Review Additional Text: Physical exam: Patient alert, cooperative without significant distress. Heart: Regular rate rhythm Lungs: Clear to auscultation Abdomen: Soft Extremities: Bandage to the right foot noted Impression: Infected right foot with cellulitis status post incision, drainage and debridement with noted mild osteomyelitis of the distal aspect of the 1st metatarsal head Hypertension Depression Peripheral vascular disease with prior bypass Tobacco abuse Plan: Infected right foot with cellulitis status post incision, drainage and debridement with noted mild osteomyelitis of the distal aspect of the 1st metatarsal head: Continue IV antibiotic therapy. Await wound culture results. Spoke with surgery yesterday. Patient will require PICC line. Await culture results to determine what antibiotic the patient will require as an outpatient. Patient will need IV antibiotic therapy for 6 weeks. Will arrange for outpatient antibiotic therapy at home in the next 48 hr. Hypertension: Continue Procardia Depression: Continue Wellbutrin Peripheral vascular disease with prior bypass: Continue Plavix. Tobacco abuse: Continue nicotine patch. Time Spent Managing Pts Care (In Minutes): 55
[2020-12-01] MEDS ORDERED: ALBUTEROL 2.5 MG/3 ML NEB SOL NEB PRN (18:00)
[2020-12-01] MEDS: HYDROCODONE/APAP 7.5/325 MG TAB PO PRN (20:42)
[2020-12-01] MEDS: COLLAGENASE 30 GM OINTMENT TOP SCH (21:52)
[2020-12-02] MEDS: IPRATROPIUM BROM 0.5MG/2.5ML NEB SCH ×2 (01:35→08:05)
[2020-12-02 05:56] LABS: Absolute Lymphocytes (CBC) 0.6 K/uL (0.7-4.9); Basophils % 0.8 % (0-1.3); Hematocrit 40.6 % (39.6-49.0); Lymphocytes % 11.1 % (15.3-44.8); MPV 7.2 fL (7.6-11.3); RBC Red Blood Cell Count 3.63 M/uL (4.33-5.43)
[2020-12-02] MEDS: VANCOMYCIN/NS 1 gm 1 GM/250 ML BAG IV SCH (06:00)
[2020-12-02 06:21] LABS: Magnesium 2.1 mg/dL (1.8-2.4); Potassium 3.4 mmol/L (3.5-5.1)
[2020-12-02 07:13] LABS: White Blood Cell Scan OK (OK)
[2020-12-02 07:14] LABS: Blood Morphology Comment NOTED (NOT SEEN); Macrocytosis 1+; Platelet Estimate ADEQ
--- NOTE | 2020-12-02 07:18 | RAD REPORT ---
EXAM DESCRIPTION: RAD - Chest Single View - 12/01/2020 10:36 pm CLINICAL HISTORY: Device placement PICC line placement IMPRESSION: PICC line with its tip in the distal superior vena cava
[2020-12-02] MEDS: ENOXAPARIN 40 MG/0.4 ML SQ SCH (09:21)
[2020-12-02] MEDS: NICOTINE 21 MG/PAT TD SCH (09:21)
[2020-12-02] MEDS: BUPROPRION HCL S.R. 150MG TAB PO SCH ×2 (09:21→20:00)
[2020-12-02] MEDS: GABAPENTIN 100 MG CAP PO SCH ×3 (09:22→20:04)
[2020-12-02] MEDS: ASPIRIN 81 MG CHEWABLE TABLET PO SCH (09:22)
[2020-12-02] MEDS: HYDROCODONE/APAP 7.5/325 MG TAB PO PRN ×2 (09:22→22:51)
[2020-12-02] MEDS: CLOPIDOGREL 75 MG TABLET PO SCH (09:22)
[2020-12-02] MEDS: NIFEDIPINE XL 30 MG TABLET PO SCH (09:22)
[2020-12-02] MEDS: COLLAGENASE 30 GM OINTMENT TOP SCH (09:23)
[2020-12-02] MEDS ORDERED: ALBUTEROL 2.5 MG/3 ML NEB SOL NEB PRN (10:39)
[2020-12-02] MEDS ORDERED: IPRATROPIUM BROM 0.5MG/2.5ML NEB PRN (10:39)
--- NOTE | 2020-12-02 10:39 | P.PN ---
Subjective Date of Service: 12/02/20 Primary Care Provider: Dr. Grigsby; Surgery-Dr. Edouard Chief Complaint: leg pain Subjective: Improving, Doing well Physical Examination - Vital Signs Temperature: 98.2 F Blood Pressure: 179/75 Pulse: 73 Respirations: 18 Pulse Ox (%): 95 - Studies Medications List Reviewed: Yes Assessment & Plan Discharge Plan: Home Plan to discharge in: 48 Hours Physician Review Additional Text: Physical exam: Patient alert, cooperative without significant distress. Heart: Regular rate rhythm Lungs: Clear to auscultation Abdomen: Soft Extremities: Bandage to the right foot noted Impression: Infected right foot with cellulitis status post incision, drainage and debridement with noted mild osteomyelitis of the distal aspect of the 1st metatarsal head Hypertension Depression Peripheral vascular disease with prior bypass Tobacco abuse Suspect underlying COPD Plan: Infected right foot with cellulitis status post incision, drainage and debridement with noted mild osteomyelitis of the distal aspect of the 1st metatarsal head: Continue IV antibiotic therapy. Await wound culture results. PICC line now in place. Will consult infectious disease on IV antibiotic therapy at discharge. If cultures negative then will rely on the Infectious Disease to provide antibiotic, dosage and duration of therapy. Once this has been determined then will arrange for IV antibiotic therapy as an outpatient. Case discussed with social media sr strategy manager. Anticipate possible discharge in the next 48 hr pending set up for IV antibiotic therapy. Hypertension: Continue Procardia Depression: Continue Wellbutrin Peripheral vascular disease with prior bypass: Continue Plavix. Tobacco abuse: Continue nicotine patch. Suspect underlying COPD: Will start Dulera. Continue albuterol/Atrovent as needed. Time Spent Managing Pts Care (In Minutes): 55
--- NOTE | 2020-12-02 13:04 | PN ---
Date of Progress Note: 12/02/2020 Subjective: MRI reviewed. The patient has mild osteomyelitis of the first toe. The area where infe ction was actually does not appear to be involved. Vitals are stable, afebrile. White count is with in normal. His cultures are showing normal skin dewayne so far. His wound is clean with good granulat ion tissue. No surrounding erythema, warmth or edema. They have markedly improved. Assessment: Status post incision and drainage and debridement of right foot infected wound. Recommendations: Continue IV antibiotics. Check cultures and adjust antibiotics accordingly. PICC line has already been place. Discharged planning. We will follow the patient in the [facility] and wound care is ordered. /MODL Voice ID: [id number] Report ID: [id number]
[2020-12-02] MEDS: DULERA 100/5 (MOMETASONE/FORMOTEROL) INHALER IH SCH (19:59)
[2020-12-02] MEDS: LACTOBACILLUS/ACIDOPHILUS TAB PO SCH (20:03)
[2020-12-03 06:15] LABS: Absolute Lymphocytes (CBC) 0.8 K/uL (0.7-4.9); Basophils % 0.7 % (0-1.3); Hematocrit 42.8 % (39.6-49.0); Lymphocytes % 13.4 % (15.3-44.8); MPV 7.1 fL (7.6-11.3); RBC Red Blood Cell Count 3.86 M/uL (4.33-5.43)
[2020-12-03 06:25] LABS: Magnesium 2.2 mg/dL (1.8-2.4); Potassium 3.5 mmol/L (3.5-5.1)
[2020-12-03] MEDS: VANCOMYCIN/NS 1 gm 1 GM/250 ML BAG IV SCH (07:19)
[2020-12-03] MEDS: ENOXAPARIN 40 MG/0.4 ML SQ SCH (09:46)
[2020-12-03] MEDS: DOCUSATE NA 100 MG CAP PO SCH (09:47)
[2020-12-03] MEDS: BUPROPRION HCL S.R. 150MG TAB PO SCH ×2 (09:47→21:22)
[2020-12-03] MEDS: CLOPIDOGREL 75 MG TABLET PO SCH (09:47)
[2020-12-03] MEDS: LACTOBACILLUS/ACIDOPHILUS TAB PO SCH ×2 (09:47→21:22)
[2020-12-03] MEDS: HYDROCODONE/APAP 7.5/325 MG TAB PO PRN ×2 (09:47→21:22)
[2020-12-03] MEDS: NICOTINE 21 MG/PAT TD SCH (09:47)
[2020-12-03] MEDS: GABAPENTIN 100 MG CAP PO SCH ×3 (09:47→21:22)
[2020-12-03] MEDS: NIFEDIPINE XL 30 MG TABLET PO SCH (09:48)
[2020-12-03] MEDS: ASPIRIN 81 MG CHEWABLE TABLET PO SCH (09:48)
[2020-12-03] MEDS: COLLAGENASE 30 GM OINTMENT TOP SCH (09:52)
[2020-12-03] MEDS: DULERA 100/5 (MOMETASONE/FORMOTEROL) INHALER IH SCH ×2 (13:23→21:22)
--- NOTE | 2020-12-03 14:46 | P.PN ---
Subjective Date of Service: 12/03/20 Primary Care Provider: Dr. Grigsby; Surgery-Dr. Edouard Chief Complaint: leg pain Subjective: No new changes, Doing well Physical Examination - Vital Signs Temperature: 98 F Blood Pressure: 107/61 Pulse: 72 Respirations: 18 Pulse Ox (%): 94 - Studies Medications List Reviewed: Yes Assessment & Plan Discharge Plan: Home Plan to discharge in: 24 Hours Physician Review Additional Text: Physical exam: Patient alert, cooperative without significant distress. Heart: Regular rate rhythm Lungs: Clear to auscultation Abdomen: Soft Extremities: Bandage to the right foot noted Impression: Infected right foot with cellulitis status post incision, drainage and debridement with noted mild osteomyelitis of the distal aspect of the 1st metatarsal head Hypertension Depression Peripheral vascular disease with prior bypass Tobacco abuse Suspect underlying COPD Plan: Infected right foot with cellulitis status post incision, drainage and debridement with noted mild osteomyelitis of the distal aspect of the 1st metatarsal head: Continue IV antibiotic therapy-vancomycin. Wound culture results still negative. Will pursue IV antibiotic therapy as an outpatient. Patient currently on IV vancomycin 1 g every [address] in place. Social work to work on outpatient antibiotic therapy. Social work also to set up home health to to monitor vanc trough prior to every 3rd dose and lab-BMP twice per week for the duration of therapy. Once this has been arranged then can think about discharging patient. Case discussed with surgery yesterday. Patient may be able to continue IV antibiotic therapy as an outpatient then transition to oral medication but this will be depend on how the patient does. Patient to follow up with surgery at [facility]. Plan of care discussed with PCP- Dr. Grigsby. patient agrees with plan of care. Hypertension: Continue Procardia Depression: Continue Wellbutrin Peripheral vascular disease with prior bypass: Continue Plavix. Tobacco abuse: Continue nicotine patch. Suspect underlying COPD: Continued Dulera. Continue albuterol/Atrovent as needed. Time Spent Managing Pts Care (In Minutes): 55
[2020-12-04] MEDS: VANCOMYCIN/NS 1 gm 1 GM/250 ML BAG IV SCH (05:53)
[2020-12-04 09:20] LABS: Magnesium 2.1 mg/dL (1.8-2.4); Potassium 4.7 mmol/L (3.5-5.1)
[2020-12-04] MEDS: ASPIRIN 81 MG CHEWABLE TABLET PO SCH (09:26)
[2020-12-04] MEDS: NIFEDIPINE XL 30 MG TABLET PO SCH (09:26)
[2020-12-04] MEDS: LACTOBACILLUS/ACIDOPHILUS TAB PO SCH (09:26)
[2020-12-04] MEDS: GABAPENTIN 100 MG CAP PO SCH ×2 (09:26→13:46)
[2020-12-04] MEDS: CLOPIDOGREL 75 MG TABLET PO SCH (09:26)
[2020-12-04] MEDS: BUPROPRION HCL S.R. 150MG TAB PO SCH (09:27)
[2020-12-04] MEDS: NICOTINE 21 MG/PAT TD SCH (09:27)
[2020-12-04] MEDS: DOCUSATE NA 100 MG CAP PO SCH (09:27)
[2020-12-04] MEDS: DULERA 100/5 (MOMETASONE/FORMOTEROL) INHALER IH SCH (09:28)
[2020-12-04] MEDS: ENOXAPARIN 40 MG/0.4 ML SQ SCH (09:28)
[2020-12-04] MEDS: COLLAGENASE 30 GM OINTMENT TOP SCH (09:29)
[2020-12-04 09:37] VITALS: O2SAT 95
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
--- NOTE | 2020-12-04 15:25 | P.DS ---
Admission Date: 11/28/20 Discharge Date: 12/04/20 Primary Care Provider: Dr. Grigsby; Surgery-Dr. Edouard Disposition: DC HOME/HOME HEALTH CARE Discharge Condition: GOOD Reason for Admission: leg pain Consultations: Surgery-Dr. Edouard Procedures: COVID: Negative Venous doppler: FINDINGS: Right lower extremity venous system was interrogated with Doppler technique. Normal flow, compressibility and augmentation was noted. There is no DVT present.4-5 cm complex popliteal cyst. IMPRESSION: No evidence of right lower extremity deep venous thrombosis. Arterial doppler: COMPARISON: Lower Ext Angio dated 02/28/2019 FINDINGS: Doppler interrogation of the right lower extremity arterial system wa s performed. Triphasic and biphasic flow is seen without a significant flow restricting lesion or stenosis. No occlusion or near occlusion seen. IMPRESSION: No significant flow abnormality seen right lower extremity arterial system. Surgery: Date of Procedure: 11/30/2020 Surgeon: Jonatan Edouard MD Pulmonary Physical Therapist: CLIFTON Vega. Preoperative Diagnosis: Infected wound right foot with cellulitis. Postoperative Diagnosis: Infected wound right foot with cellulitis. Procedure: Incision, drainage and debridement of right foot infected wound to subcutaneous tissue 4 x 4 cm. Estimated Blood Loss: Minimal. Specimen: Pus for culture and sensitivity and debridement tissue. Finding: As above. Anesthesia: General. Complications: None. MRI: FINDINGS: Previous amputation of the first, second, third and fourth toes noted. Moderate soft tissue thickening is seen along the plantar aspect of the forefoot. Edema signal is seen in the distal most portion of the first metatarsal head with diminished T1 signal also present in this region. This is suspicious for mild osteomyelitis. No drainable fluid collection seen. IMPRESSION: Mild osteomyelitis suspected distal aspect of the first metatarsal head. Impression: Infected right foot with cellulitis status post incision, drainage and debridement with noted mild osteomyelitis of the distal aspect of the 1st metatarsal head Hypertension Depression Peripheral vascular disease with prior bypass Tobacco abuse Suspect underlying COPD Brief History of Present Illness: 65-year-old male with multiple medical problems presented to the emergency room with right foot pain. Patient with prior amputations in the past. Patient was found to have significant cellulitis to the right foot. Osteomyelitis was suspected. Patient admitted for further evaluation and treatment. Hospital Course: Patient presented with Infected right foot with cellulitis. Patient with prior amputations of the digits. Patient was seen and evaluated by surgery. Venous and arterial Doppler unremarkable. Surgery recommended intervention. Patient had incision, drainage and debridement of the foot. Surgery also recommended MRI to rule out osteomyelitis. MRI showed mild osteomyelitis of the distal aspect of the 1st metatarsal head. Patient did well post operatively. Patient continue with IV vancomycin. Surgery recommended to continue IV antibiotic therapy for up to 6 weeks. IV antibiotic therapy has been arranged. Patient will continue with IV vancomycin 1 g every 24 hr at home. Home health arranged to check lab-vancomycin trough prior to every 3rd dose and lab-BMP twice per week. Adjustments in medication can be done by his PCP Dr. Grigsby. This was discussed in detail with his PCP who agrees with plan of care. Patient will continue with current wound care as recommended by surgery. Patient will [facility] next week with surgery-Dr. Edouard. Surgery will determine for how long patient will continue with IV antibiotic therapy as patient may be able to transition to oral medication-antibiotic for 6 weeks. Patient with history of hypertension. At discharge patient will continue with Procardia XL 30 mg daily. Recommend to monitor blood pressure daily. Recommend to maintain blood pressure less than 130/80. Further adjustment can be done by his PCP. If blood pressure remains elevated greater than 140/90. He is to co ntact his PCP for further recommendation. Patient with depression. At discharge patient will continue with Wellbutrin 150 mg 1 pill twice daily. Further adjustment can be done by his PCP. Patient with history of peripheral vascular disease with prior bypass. At discharge patient will continue with aspirin 81 mg daily and aspirin 75 mg daily. Patient with tobacco abuse. Tobacco cessation addressed in detail. Patient may continue with nicotine patch daily. Further adjustment can be done by his PCP. Suspect underlying COPD. Medications initiated. At discharge patient will continue with Symbicort 2 puffs twice daily and Pro air 2 puffs 3 times a day as needed for shortness of breath. Patient would benefit with pulmonology evaluation as an outpatient. Patient may require pulmonary function test to further evaluate. At discharge patient will be provided gabapentin 100 mg 3 times a day as needed for pain. Patient also provided lactobacillus 1 pill 3 times a day for the duration of antibiotics. Docusate 100 mg daily will be provided as stool softener. Vital Signs/Physical Exam: Temp Pulse Resp BP Pulse Ox 97.4 F 71 16 173/76 H 95 12/04/20 14:22 12/04/20 14:22 12/04/20 14:22 12/04/20 14:22 12/04/20 14:22 General: Alert, In no apparent distress, Oriented x3, Cooperative HEENT: Atraumatic Neck: Supple Respiratory: Clear to auscultation bilaterally, Normal air movement Cardiovascular: Normal pulses, Regular rate/rhythm Gastrointestinal: Normal bowel sounds, No masses, No rebound, No guarding Neurological: Normal speech, Normal strength at 5/5 x4 extr, Normal tone, Normal affect Laboratory Data at Discharge: WBC 6.20 K/uL (4.3-10.9) 12/03/20 06:00 Hgb 14.8 g/dL (13.6-17.9) 12/03/20 06:00 Hct 42.8 % (39.6-49.0) 12/03/20 06:00 Plt Count 215 K/uL (152-406) 12/03/20 06:00 PT 11.8 SECONDS (9.5-12.5) 11/28/20 20:55 INR 1.03 11/28/20 20:55 Sodium 140 mmol/L (136-145) 12/04/20 08:42 Potassium 4.7 mmol/L (3.5-5.1) 12/04/20 08:42 BUN 16 mg/dL (7-18) 12/04/20 08:42 Creatinine 1.28 mg/dL (0.55-1.3) 12/04/20 08:42 Glucose 138 mg/dL (74-106) H 12/04/20 08:42 Magnesium 2.1 mg/dL (1.8-2.4) 12/04/20 08:42 Total Bilirubin 0.5 mg/dL (0.2-1.0) 11/28/20 20:55 AST 37 U/L (15-37) 11/28/20 20:55 ALT 44 U/L (12-78) 11/28/20 20:55 Alkaline Phosphatase 99 U/L (45-117) 11/28/20 20:55 Home Medications: Buproprion S.r. [Wellbutrin Sr*] 150 mg PO BID 09/02/17 Clopidogrel Bisulfate [Plavix*] 75 mg PO DAILY 03/06/19 Aspirin 81 mg PO DAILY 06/21/19 raNITIdine HCl [Acid Control] 150 mg PO DAILY 06/21/19 Nifedipine Xl [Procardia Xl*] 30 mg PO DAILY 30 Days #30 tab 06/26/19 Albuterol Sulfate [Proair Hfa] 2 puff IH TID PRN #1 hfa.aer.ad 12/04/20 Budesonide/Formoterol Fumarate [Symbicort 160-4.5 Mcg Inhaler] 2 puff IH BID #1 hfa.aer.ad 12/04/20 Collagenase [Santyl Ointment*] 1 appl TOP DAILY #1 tube 12/04/20 Docusate [Colace Cap*] 100 mg PO DAILY #30 cap 12/04/20 Gabapentin [Neurontin*] 100 mg PO TID PRN #30 cap 12/04/20 Lactobacillus Acidophilus [Acidophilus Lactobacilli] 1 each PO TID #90 capsule 12/04/20 Nicotine [Nicoderm*] 21 mg TD DAILY #30 patch.td24 12/04/20 New Medications: Lactobacillus Acidophilus [Acidophilus Lactobacilli] 1 each PO TID #90 capsule Docusate [Colace Cap*] 100 mg PO DAILY #30 cap Gabapentin [Neurontin*] 100 mg PO TID PRN #30 cap PRN Reason: Pain Scale 2-4 (Mild) Nicotine [Nicoderm*] 21 mg TD DAILY #30 patch.td24 Albuterol Sulfate [Proair Hfa] 2 puff IH TID PRN #1 hfa.aer.ad PRN Reason: Shortness Of Breath Collagenase [Santyl Ointment*] 1 appl TOP DAILY #1 tube Budesonide/Formoterol Fumarate [Symbicort 160-4.5 Mcg Inhaler] 2 puff IH BID #1 hfa.aer.ad Physician Discharge Instructions: Follow up with PCP in 1 week. Patient presented with Infected right foot with cellulitis. Patient with prior amputations of the digits. Patient was seen and evaluated by surgery. Venous and arterial Doppler unremarkable. Surgery recommended intervention. Patient had incision, drainage and debridement of the foot. Surgery also recommended MRI to rule out osteomyelitis. MRI showed mild osteomyelitis of the distal aspect of the 1st metatarsal head. Patient did well post operatively. Patient continue with IV vancomycin. Surgery recommended to continue IV antibiotic therapy for up to 6 weeks. IV antibiotic therapy has been arranged. Patient will continue with IV vancomycin 1 g every 24 hr at home. Home health arranged to check lab-vancomycin trough prior to every 3rd dose and lab-BMP twice per week. Adjustments in medication can be done by his PCP Dr. Grigsby. This was discussed in detail with his PCP who agrees with plan of care. Patient will continue with current wound care as recommended by surgery. Patient will follow [facility] next week with surgery-Dr. Edouard. Surgery will determine for how long patient will continue with IV antibiotic therapy as patient may be able to transition to oral medication-antibiotic for 6 weeks. Patient with history of hypertension. At discharge patient will continue with Procardia XL 30 mg daily. Recommend to monitor blood pressure daily. Recommend to maintain blood pressure less than 130/80. Further adjustment can be done by his PCP. If blood pressure remains elevated greater than 140/90. He is to contact his PCP for further recommendation. Patient with depression. At discharge patient will continue with Wellbutrin 150 mg 1 pill twice daily. Further adjustment can be done by his PCP. Patient with history of peripheral vascular disease with prior bypass. At discharge patient will continue with aspirin 81 mg daily and aspirin 75 mg daily. Patient with tobacco abuse. Tobacco cessation addressed in detail. Patient may continue with nicotine patch daily. Further adjustment can be done by his PCP. Suspect underlying COPD. Medications initiated. At discharge patient will continue with Symbicort 2 puffs twice daily and Pro air 2 puffs 3 times a day as needed for shortness of breath. Patient would benefit with pulmonology evaluation as an outpatient. Patient may require pulmonary function test to further evaluate. At discharge patient will be provided gabapentin 100 mg 3 times a day as needed for pain. Patient also provided lactobacillus 1 pill 3 times a day for the duration of antibiotics. Docusate 100 mg daily will be provided as stool softener. Diet: AHA Activity: Fall precautions Followup: Varghese Martinez MD [Primary Care Provider] - Time spent managing pt's care (in minutes): 55
[2020-12-04 17:38] VITALS: BP 137/65; TEMP 97.5
== END 2020-12-04 19:48 | disposition home health service (06) | DRG 464 ==
LOC: ER 17:08 → ERHOLD 19:54 → 2ND 21:36
PROVIDERS: ADMIT Internal Medicine; ATTEND Family Medicine
PROC: 0JBQ0ZZ Excision of Right Foot Subcutaneous Tissue and Fascia, Open Approach (ICD-10-PCS; principal; 2020-11-30 10:00)
PROC: 02HV33Z Insertion of Infusion Device into Superior Vena Cava, Percutaneous Approach (ICD-10-PCS; 2020-12-01)
DX: M86.8X7 Other osteomyelitis, ankle and foot (principal); L03.115 Cellulitis of right lower limb; I73.9 Peripheral vascular disease, unspecified; I10 Essential (primary) hypertension; F32.9 Major depressive disorder, single episode, unspecified; J44.9 Chronic obstructive pulmonary disease, unspecified; F17.210 Nicotine dependence, cigarettes, uncomplicated; Z89.421 Acquired absence of other right toe(s); Z79.02 Long term (current) use of antithrombotics/antiplatelets; Z79.82 Long term (current) use of aspirin; Z79.899 Other long term (current) drug therapy; Z20.822 Contact with and (suspected) exposure to COVID-19
CPT/HCPCS: 36415; 36569; 71045; 80048; 80076; 80202; 83605; 83735; 83880; 84484; 85025; 85610; 87040; 87070; 87075; 87205; 88304; 93005; 93926; 93971; 94010; 94640; 96365; 96375; 99285; J0360; J1650; J2250; J2270; J2405; J2543; J2704; J3010; J3370; J3590; J7030; J7050; J7606; U0003

== ENCOUNTER 2021-10-29 10:04 | Day surgery (SDC) | payer BC, OTHER ==
[2021-10-29] MEDS ORDERED: OXYMETAZOLINE HCL 0.05% 15ML NAS ONE ×5 (11:14→12:07)
[2021-10-29] MEDS: Ringers Lactate 1,000 ML IV ONE ×2 (11:30→13:09)
[2021-10-29] MEDS ORDERED: dexAMETHasone 10 MG/ML VIAL ONE ×2 (12:00→13:00)
[2021-10-29] MEDS ORDERED: MIDAZOLAM HCL 2 MG/2 ML INJ ONE ×2 (12:00→12:16)
[2021-10-29] MEDS ORDERED: propofoL 200 MG/20 ML VIAL IV ONE ×2 (12:00→12:15)
[2021-10-29] MEDS ORDERED: LIDOCAINE 1% MPF 5 ML VIAL ONE (12:00)
[2021-10-29] MEDS ORDERED: FENTANYL CITR 100 MCG/2 ML ONE ×2 (12:00→12:16)
[2021-10-29] MEDS ORDERED: ROCURONIUM 50 MG/5 ML VIAL IV ONE ×2 (12:03→12:16)
[2021-10-29] MEDS ORDERED: LIDOCAINE 1% W/EPI 1:100,000 MDV 20 ML VIAL ONE (12:07)
[2021-10-29] MEDS ORDERED: ONDANSETRON 4 MG/2 ML VIAL ONE (12:16)
[2021-10-29] MEDS ORDERED: LIDOCAINE 2% MPF 5 ML VIAL ONE (12:16)
[2021-10-29] MEDS ORDERED: EPHEDRINE SULF 50 MG/ML VIAL ONE (13:18)
[2021-10-29] MEDS ORDERED: KETOROLAC 30 MG/ML INJ ONE (13:43)
[2021-10-29] MEDS ORDERED: GLYCOPYRROLATE 0.2 MG/ML SYR ONE (13:43)
[2021-10-29] MEDS ORDERED: NEOSTIGMINE 1 MG/ML -5 ML ONE (13:44)
[2021-10-29] MEDS ORDERED: LABETALOL 20 MG/4ML SYRINGE IV ONE (14:27)
[2021-10-29] MEDS: HYDRALAZINE HCL 20 MG/ML VIAL ONE ×2 (14:36→14:46)
[2021-10-29] MEDS: MORPHINE 4 MG/ML SYR ONE ×2 (14:46→14:51)
[2021-10-29 15:00] VITALS: TEMP 97.6
[2021-10-29] MEDS ORDERED: Ringers Lactate 1,000 ML IV ONE (15:18)
[2021-10-29] MEDS ORDERED: IBUPROFEN 400 MG TAB ONE (15:21)
[2021-10-29 17:00] VITALS: BP 152/61; O2SAT 95
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
== END 2021-10-29 16:30 | disposition home or self-care (01) ==
LOC: OR 10:04
PROVIDERS: ATTEND Otolaryngology
PROC: 0NSB0ZZ Reposition Nasal Bone, Open Approach (ICD-10-PCS; principal; 2021-10-29 12:15)
DX: S02.2XXA Fracture of nasal bones, initial encounter for closed fracture (principal); J34.0 Abscess, furuncle and carbuncle of nose; J34.2 Deviated nasal septum; H60.42 Cholesteatoma of left external ear; Z20.822 Contact with and (suspected) exposure to COVID-19
CPT/HCPCS: 21336; U0003; J0360; J2704; J2250; J3010; J1100; J2710; J7120 ×2; J2405

== ENCOUNTER 2022-02-02 07:34 | Emergency (ER) | payer BC, OTHER ==
--- OUTSIDE RECORDS SUMMARY | 2022-02-02 07:38 | XMS REPORT | Continuity of Care Document ---
:1955 Author Organization [facility] t Address [address] [place] [address] Dr. Hope [address] [place] [id number] Care Team Providers Name Role Phone Unavailable Unavailable Unavailable Problems This patient has no known problems. Allergies, Adverse Reactions, Alerts This patient has no known allergies or adverse reactions. Medications This patient has no known medications. Procedures This patient has no known procedures. Results This patient has no known results.
[2022-02-02 08:22] LABS: Absolute Lymphocytes (CBC) 1.1 K/uL (0.7-4.9); Hematocrit 54.7 % (39.6-49.0); Lymphocytes % 14.5 % (15.3-44.8); MPV 7.1 fL (7.6-11.3)
[2022-02-02 08:35] LABS: Albumin 3.6 g/dL (3.4-5.0); Bilirubin Total 0.7 mg/dL (0.2-1.0); Potassium 4.6 mmol/L (3.5-5.1); Protein, Total 7.8 g/dL (6.4-8.2)
[2022-02-02 08:43] LABS: Blood Morphology Comment NOTED (NOT SEEN); Macrocytosis 2+; Platelet Estimate ADEQ; White Blood Cell Scan OK (OK)
--- NOTE | 2022-02-02 09:26 | RAD REPORT ---
EXAM DESCRIPTION: US - Lower Extremity Artery Uni Ltd - 02/02/2022 9:17 am CLINICAL HISTORY: Pain, cool extremity COMPARISON: Lower Extremity Artery Uni Ltd dated 11/28/2020 FINDINGS: Color Doppler, grayscale, and spectral analysis was performed. Patent right common femoral artery. There is a stent in the right SFA. It is completely occluded arthur g much of its course. No flow is identified within the popliteal artery, posterior tibial artery, dick salis pedis arteries. Incidental note of a Sanchez cyst measuring 3.3 cm. IMPRESSION: Occluded right SFA, popliteal artery, dorsalis pedis artery, and posterior tibial artery .
--- NOTE | 2022-02-02 09:56 | ER ---
Nurse's Notes [facility] Name: Surinder Andrade Age: 66 yrs Sex: Male : 1955 Arrival Date: 02/02/2022 Time: 07:36 Bed 13 Private MD: Varghese Martinez Diagnosis: Severe Peripheral arterial disease- Ischemic RLE Presentation: 02/02 08:02 Chief complaint: Patient states: My right leg is cool, painful, it started yesterday iw but worse today. I have had many vascular procedures in the past. Coronavirus screen: Vaccine status: Patient reports receiving the 2nd dose of the covid vaccine. Ebola Screen: Patient negative for fever greater than or equal to 101.5 degrees Fahrenheit, and additional compatible Ebola Virus Disease symptoms. Initial Sepsis Screen: Does the patient meet any 2 criteria? No. Patient's initial sepsis screen is negative. Does the patient have a suspected source of infection? No. Patient's initial sepsis screen is negative. Risk Assessment: Do you want to hurt yourself or someone else? Patient reports no desire to harm self or others. Onset of symptoms was February 02, 2022. 08:02 Method Of Arrival: Wheelchair iw 08:02 Acuity: ANDREA 2 iw Triage Assessment: 10:42 General: Appears in no apparent distress. Behavior is calm, cooperative. ap3 Historical: - Allergies: 10:38 No Known Allergies; ap3 - Home Meds: 10:38 lisinopril 2.5 mg Oral tab 1 tab once daily [Active]; ap3 - PMHx: 10:38 osteomyelitis; Hypertension; High Cholesterol; Sanchez's Cyst - right knee; ap3 - PSHx: 10:38 bypass; Cholecystectomy; ap3 - Immunization history:: Adult Immunizations unknown. - Social history:: Smoking status: Patient reports the use of cigarette tobacco products, smokes one pack cigarettes per day. Screenin:39 Abuse screen: Denies threats or abuse. Nutritional screening: No deficits noted. ap3 Tuberculosis screening: No symptoms or risk factors identified. Fall Risk Fall in past 12 months (25 points). Secondary diagnosis (15 points) impaired mobility, IV access (20 points). Ambulatory Aid- Crutches/Cane/Walker (15 pts). Gait- Weak (10 pts.). Mental Status- Oriented to own ability (0 pts). Total Collins Fall Scale indicates High Risk Score (45 or more points). Fall prevention measures have been instituted. Side Rails Up X 2 Placed Close to Nursing Station Frequent Obs/Assessments Occuring Family Present and informed to notify staff if the need to leave the bedside As available patient and family educated on Fall Prevention Program and Strategies. Assessment: 10:20 General: next Ptt and PT/INR due at 1412. ap3 10:40 Pain: Complains of pain in right leg Pain currently is 3 out of 10 on a pain scale. at ap3 worst was 10 out of 10 on a pain scale. Aggravated by exercise, increased activity, repositioning, weight bearing, Also complains of effected leg is cool to the touch at the foot. Neuro: Level of Consciousness is awake, alert, obeys commands, Oriented to person, place, time, situation, Appropriate for age Gait is unsteady, Speech is normal. Musculoskeletal: Reports weakness in right leg numbness in right leg. 10:53 General: patient provided with urinal. ap3 12:43 Reassessment: Patient and/or family updated on plan of care and expected duration. Pain ap3 level reassessed. Patient is alert, oriented x 3, equal unlabored respirations, skin warm/dry/pink. 13:53 Reassessment: Patient and/or family updated on plan of care and expected duration. Pain ap3 level reassessed. Patient is alert, oriented x 3, equal unlabored respirations, skin warm/dry/pink. Vital Signs: 08:03 BP 169 / 75; Pulse 93; Resp 16; Temp 98.2; Pulse Ox 100% on R/A; Weight 70.31 kg; iw Height 5 ft. 10 in. (177.80 cm); 10:00 BP 148 / 81; Pulse 64; Pulse Ox 96% ; ap3 10:45 BP 142 / 97; Pulse 68; Pulse Ox 97% ; ap3 12:20 BP 146 / 69; Pulse 75; Pulse Ox 95% on R/A; ap3 13:46 BP 160 / 76; Pulse 72; Pulse Ox 96% ; ap3 08:03 Body Mass Index 22.24 (70.31 kg, 177.80 cm) iw ED Course: 07:36 Patient arrived in ED. as 07:36 Varghese Martinez MD is Private Physician. as 07:49 Sabino [facility]ed [facility]C [facility] la1 07:49 Shayan Vitale MD is Attending Physician. la1 08:03 Triage completed. iw 08:03 Arm band placed on left wrist. iw 08:16 Initial lab(s) drawn, by me, sent to lab. Inserted saline lock: 20 gauge in right em1 forearm, using aseptic technique. Blood collected. 08:18 CBC with Diff Sent. em1 08:18 CMP Sent. em1 08:18 PT-INR Sent. em1 08:18 Ptt, Activated Sent. em1 08:58 Adrianna Valentin, RN is Primary Nurse. ap3 09:18 Extremity Venous Uni Ltd US In Process Unspecified. EDMS 09:18 Lower Extremity Artery Uni Ltd US In Process Unspecified. EDMS 09:53 SARS-COV-2 RT PCR (Document "Date of Onset" if Symptomatic) Sent. zm 10:05 SARS-COV-2 RT PCR (Document "Date of Onset" if Symptomatic) Sent. zm 10:39 Patient has correct armband on for positive identification. Placed in gown. Bed in low ap3 position. Call light in reach. Side rails up X2. cafeteria monitor on. Pulse ox on. NIBP on. Door closed. Noise minimized. Warm blanket given. 13:46 initiated transfer to [facility]. bd 14:36 Report given to SUKHWINDER Evans at [facility]. ap3 15:25 No provider procedures requiring assistance completed. Patient transferred, IV remains ap3 in place. Administered Medications: 10:12 Drug: Heparin (OK Drip) 12 units/kg/hr - (HEParin 70681 units, D5W 500 ml) ap3 {Co-Signature: jshantell (Iban Barger RN).} Route: IV; Rate: calculated rate; Site: right forearm; 15:26 Follow up: IV Status: Infusion continued upon transfer ap3 10:15 Drug: Heparin (OK-Bolus No thrombolytic) - HEParin 60 units/kg {Co-Signature: tommie ap3 (Iban Barger RN).} Route: IVP; Site: right forearm; 10:46 Follow up: Response: No adverse reaction ap3 10:19 Drug: Aspirin 81 mg Route: PO; ap3 10:45 Follow up: Response: No adverse reaction ap3 10:19 Drug: PlaVIX (clopidogrel) 75 mg Route: PO; ap3 10:45 Follow up: Response: No adverse reaction ap3 Outcome: 09:55 ER care complete, transfer ordered by MD. poole 15:25 Transferred by ground EMS to [facility]. ap3 15:25 Condition: stable 15:25 Discharge instructions given to patient, Instructed on the need for transfer. 15:27 Patient left the ED. ap3 Signatures: Dispatcher [employer] EDMS Payal Gibson Amelia as Williams, Irene, RN SUKHWINDER iw Crow Clarke em1 Sabino Syed, MARSHMALLOW MAKER-C MARSHMALLOW MAKER-Cla1 Adrianna Valentin RN RN ap3 Lucila Clarke RN jd3 Corrections: (The following items were deleted from the chart) 10:45 10:00 BP 142 / 97; Pulse 68bpm; Pulse Ox 97%; ap3 ap3
--- NOTE | 2022-02-02 09:56 | EDPHYS ---
Physician Documentation [facility] Name: Surinder Andrade Age: 66 yrs Sex: Male : 1955 Arrival Date: 02/02/2022 Time: 07:36 Bed 13 Private MD: Varghese Martinez ED Physician Shayan Vitale HPI: 02/02 08:17 This 66 yrs old Male presents to ER via Wheelchair with complaints of Numbness - Leg. la1 08:17 Onset: The symptoms/episode began/occurred yesterday. Associated signs and symptoms: la1 Pertinent positives: Cool/pale RLE , Pertinent negatives: abdominal pain, chest pain. Modifying factors: The patient symptoms are alleviated by movement, the patient symptoms are aggravated by nothing. The patient has experienced similar episodes in the past. Patient has significant vascular disease/PAD and multiple surgeries with stents, cleanouts, bypass. Extremity appears cool, is painful no palpable pulse DP/PT. Historical: - Allergies: 10:38 No Known Allergies; ap3 - Home Meds: 10:38 lisinopril 2.5 mg Oral tab 1 tab once daily [Active]; ap3 - PMHx: 10:38 osteomyelitis; Hypertension; High Cholesterol; Sanchez's Cyst - right knee; ap3 - PSHx: 10:38 bypass; Cholecystectomy; ap3 - Immunization history:: Adult Immunizations unknown. - Social history:: Smoking status: Patient reports the use of cigarette tobacco products, smokes one pack cigarettes per day. ROS: 08:19 Constitutional: Negative for fever, chills, and weight loss, Eyes: Negative for injury, la1 pain, redness, and discharge, Neck: Negative for injury, pain, and swelling, Cardiovascular: Negative for chest pain, palpitations, and edema, Respiratory: Negative for shortness of breath, cough, wheezing, and pleuritic chest pain, Abdomen/GI: Negative for abdominal pain, nausea, vomiting, diarrhea, and constipation. 08:19 : Negative for injury, bleeding, discharge, and swelling, Neuro: Negative for headache, weakness, numbness, tingling, and seizure. 08:19 MS/extremity: Positive for Pain, numbness/tingling to right lower extremity. 08:19 Skin: Positive for pallor. Exam: 08:20 Constitutional: This is a well developed, well nourished patient who is awake, alert, la1 and in no acute distress. Head/Face: Normocephalic, atraumatic. Chest/axilla: Normal chest wall appearance and motion. Nontender with no deformity. No lesions are appreciated. Cardiovascular: Regular rate and rhythm with a normal S1 and S2. No gallops, murmurs, or rubs. Normal PMI, no JVD. No pulse deficits. Respiratory: Lungs have equal breath sounds bilaterally, clear to auscultation and percussion. No rales, rhonchi or wheezes noted. No increased work of breathing, no retractions or nasal flaring. Abdomen/GI: Soft, non-tender, with normal bowel sounds. No distension or tympany. No guarding or rebound. No evidence of tenderness throughout. 08:20 Musculoskeletal/extremity: Extremities: noted in the right leg: Pain, pallor, cool to touch, Pulses: are absent in the right posterior tibial artery and right dorsalis pedis artery, numbness. 08:20 Skin: Pallor, cool to touch right lower extremity. Vital Signs: 08:03 BP 169 / 75; Pulse 93; Resp 16; Temp 98.2; Pulse Ox 100% on R/A; Weight 70.31 kg; iw Height 5 ft. 10 in. (177.80 cm); 10:00 BP 148 / 81; Pulse 64; Pulse Ox 96% ; ap3 10:45 BP 142 / 97; Pulse 68; Pulse Ox 97% ; ap3 12:20 BP 146 / 69; Pulse 75; Pulse Ox 95% on R/A; ap3 13:46 BP 160 / 76; Pulse 72; Pulse Ox 96% ; ap3 08:03 Body Mass Index 22.24 (70.31 kg, 177.80 cm) iw MDM: 08:26 Patient medically screened. la1 14:04 Data reviewed: vital signs, nurses notes, radiologic studies, I have discussed the la1 patient's presentation/case with the attending Emergency Department Physician; and as a result, I will admit patient. Counseling: I had a detailed discussion with the patient and/or guardian regarding: the historical points, exam findings, and any diagnostic results supporting the discharge/admit diagnosis, radiology results, the need to transfer to another facility, [facility] does not immediately have the required specialist. 02/02 08:04 Order name: Ptt, Activated; Complete Time: 08:44 iw 02/02 08:04 Order name: PT-INR; Complete Time: 08:44 iw 02/02 08:04 Order name: CBC with Diff; Complete Time: 08:56 iw 02/02 08:04 Order name: CMP; Complete Time: 08:44 iw 02/02 08:44 Order name: CBC Smear Scan; Complete Time: 08:56 EDMS 02/02 09:50 Order name: SARS-COV-2 RT PCR (Document "Date of Onset" if Symptomatic); Complete Time: iw 12:00 02/02 08:02 Order name: Extremity Venous Uni Ltd US; Complete Time: 10:00 iw 02/02 08:02 Order name: Lower Extremity Artery Uni Ltd US; Complete Time: 09:28 iw 02/02 08:04 Order name: IV; Complete Time: 08:17 iw 02/02 13:55 Order name: Ptt, Activated ap3 02/02 14:04 Order name: NPO; Complete Time: 14:11 la1 Administered Medications: 10:12 Drug: Heparin (OR Drip) 12 units/kg/hr - (HEParin 81543 units, D5W 500 ml) ap3 {Co-Signature: jd3 (Iban Barger RN).} Route: IV; Rate: calculated rate; Site: right forearm; 15:26 Follow up: IV Status: Infusion continued upon transfer ap3 10:15 Drug: Heparin (OR-Bolus No thrombolytic) - HEParin 60 units/kg {Co-Signature: jd3 ap3 (Iban Barger RN).} Route: IVP; Site: right forearm; 10:46 Follow up: Response: No adverse reaction ap3 10:19 Drug: Aspirin 81 mg Route: PO; ap3 10:45 Follow up: Response: No adverse reaction ap3 10:19 Drug: PlaVIX (clopidogrel) 75 mg Route: PO; ap3 10:45 Follow up: Response: No adverse reaction ap3 Disposition Summary: 02/02/22 09:55 Transfer Ordered Transfer Location: [facility] la1 Reason: Higher level of care la1 Condition: Serious la1 Problem: new la1 Symptoms: have improved la1 Accepting Physician: Dr. Ramon Linares(02/02/22 15:27) ap3 Diagnosis - Severe Peripheral arterial disease- Ischemic RLE la1 Forms: - Medication Reconciliation Form la1 - SBAR form la1 Addendum: 02/04/2022 07:48 Co-signature as Attending Physician, Shayan Vitale MD I agree with the assessment and c thomas plan of care. Signatures: Dispatcher [employer] EDShayan Todd MD MD cha Williams, Irene, SUKHWINDER PRETTY iw Sabino Syed, MATH PROFESSOR-C MATH PROFESSOR-[facility] Adrianna Valentin RN RN ap3 Iban Barger RN jd3 Corrections: (The following items were deleted from the chart) 02/02 14:04 09:55 Dr. Boogie mercer1 la1 15:27 14:04 Dr. Ramon Linares la1 ap3
--- NOTE | 2022-02-02 09:57 | RAD REPORT ---
EXAM DESCRIPTION: US - Extremity Venous Uni Ltd - 02/02/2022 9:37 am CLINICAL HISTORY: Pain COMPARISON: None. TECHNIQUE: Real-time sonographic evaluation of the right lower extremity deep venous system was perf ormed. FINDINGS: Normal compressibility, flow augmentation, phasic flow and spontaneous flow is identified in the right lower extremity deep venous system. No intraluminal filling defects seen. IMPRESSION: No DVT in the right lower extremity.
[2022-02-02] MEDS ORDERED: HEPARIN/D5W 25,000 UNIT/500 ML BAG IV ONE (10:11)
[2022-02-02] MEDS ORDERED: CLOPIDOGREL 75 MG TABLET ONE (10:11)
[2022-02-02] MEDS ORDERED: ASPIRIN EC 81 MG TAB PO ONE (10:11)
[2022-02-02] MEDS ORDERED: HEPARIN 5000 UNIT/ML 1 ML VIAL ONE (10:17)
[2022-02-02 21:41] VITALS: TEMP 98.2
[2022-02-02 21:46] VITALS: BP 160/76; O2SAT 96
--- NOTE | 2022-02-03 07:56 | EKG ---
Test Date: 2022-02-02 Test Time: 10:04:26 Second Baller: LAURA MEASUREMENT RESULTS: Intervals: Rate: 66 NC: 144 QRSD: 76 QT: 408 QTc: 427 [place]: P: 73 NC: 144 QRS: 80 T: 78 INTERPRETIVE STATEMENTS: Normal sinus rhythm Possible Anterior infarct, age undetermined Abnormal ECG Compared to ECG 11/28/2020 20:10:16 Myocardial infarct finding now present ST (T wave) deviation no longer present Possible ischemia no longer present Electronically Signed On 02-03-22 07:55:32 CDT by Leif Garza
== END 2022-02-02 15:27 | disposition short-term general hospital (02) ==
LOC: ER 07:34
DX: I73.89 Other specified peripheral vascular diseases (principal); I10 Essential (primary) hypertension; E78.00 Pure hypercholesterolemia, unspecified; F17.210 Nicotine dependence, cigarettes, uncomplicated; Z20.822 Contact with and (suspected) exposure to COVID-19
CPT/HCPCS: 96365; 93005; 85025; 36415; 85610; 85730 ×2; 80053; 93926; 93971; 99285; 96366; U0003; J1644 ×3

== ENCOUNTER 2023-01-05 19:15 | Emergency (ER) | payer BC ==
--- NOTE | 2023-01-05 19:41 | EDPHYS ---
Physician Documentation [facility] Name: Surinder Andrade Age: 67 yrs Sex: Male : 1955 Arrival Date: 01/05/2023 Time: 19:20 Bed IW1 Private MD: Varghese Martinez ED Physician Davidson Clark HPI: 01/05 19:35 This 67 yrs old Male presents to ER via Unassigned with complaints of Check out knees. cp 19:35 Details of fall: The patient fell from an upright position, while standing. cp 19:35 Onset: The symptoms/episode began/occurred today. cp 19:35 Patient declines being evaluated in exam room and requests discharge to f/u at [place]. cp ROS: 19:37 Constitutional: Negative for body aches, chills, fever, poor PO intake. cp 19:37 Cardiovascular: Negative for chest pain. 19:37 Abdomen/GI: Negative for abdominal pain, vomiting, diarrhea, constipation. 19:37 Neuro: Negative for altered mental status, headache, loss of consciousness. cp 19:37 All other systems are negative. Exam: 19:38 Constitutional: The patient appears in no acute distress, alert, awake, comfortable, cp non-diaphoretic, non-toxic, well developed, well nourished. 19:38 Head/Face: Normocephalic, atraumatic. cp 19:38 Neck: ROM/movement: is normal, is supple, without pain, no range of motions limitations. 19:38 Chest/axilla: Inspection: normal. 19:38 Respiratory: the patient does not display signs of respiratory distress, Respirations: normal, no use of accessory muscles, no retractions, labored breathing, is not present. 19:38 Abdomen/GI: Exam negative for discomfort, distension, guarding, Inspection: abdomen appears normal. 19:38 Neuro: Orientation: to person, place \T\ time. Mentation: is normal, Motor: moves all fours, strength is normal. MDM: 19:36 Patient medically screened. cp 19:38 Differential diagnosis: closed head injury, contusion, fracture, laceration, multiple cp trauma. 19:40 Data reviewed: nurses notes. cp 19:40 Test considered but Not performed: X-ray: knee. cp 19:40 Counseling: I had a detailed discussion with the patient and/or guardian regarding: the cp historical points, exam findings, and any diagnostic results supporting the discharge/admit diagnosis, to return to the emergency department if symptoms worsen or persist or if there are any questions or concerns that arise at home. ED course: Patient refuses further evaluation at this time. Patient understands risks of missed diagnosis and may return at any time for reevaluation. Administered Medications: No medications were administered Disposition: 19:59 Co-signature as Attending Physician, Davidson Clark MD I reviewed the patient's care rn provided by the Advanced Practice Provider and agree with the diagnosis and treatment plan. Disposition Summary: 01/05/23 19:40 Discharge Ordered Location: Home cp Problem: new cp Symptoms: are unchanged cp Condition: Stable cp Diagnosis - Fall on same level, unspecified cp Followup: cp - With: Private Physician - When: 1 - 2 days - Reason: Recheck today's complaints Discharge Instructions: - Discharge Summary Sheet cp - Fall Prevention in the Home, Adult cp Forms: - Medication Reconciliation Form cp - Thank You Letter cp - Antibiotic Education cp - Prescription Opioid Use cp Signatures: Davidson Clark MD MD rn Shayan Garcia PA PA cp Corrections: (The following items were deleted from the chart) 01/06 11:37 01/05 19:33 Constitutional: Negative for body aches, chills, fever, poor PO intake, cp cp 01/06 11:37 01/05 19:33 Cardiovascular: Negative for chest pain, cp cp 01/06 11:37 01/05 19:33 Abdomen/GI: Negative for abdominal pain, cp cp
--- NOTE | 2023-01-05 19:41 | ER ---
Nurse's Notes [facility] Name: Surinder Andrade Age: 67 yrs Sex: Male : 1955 Arrival Date: 01/05/2023 Time: 19:20 Bed IW1 Private MD: Varghese Martinez Diagnosis: Fall on same level, unspecified Assessment: 01/05 19:38 Reassessment: Pt states he doesn't want to be seen at our ER. He wants to be seen at [facility] [place]. Pt declines vital signs at this time. ED Course: 19:20 Patient arrived in ED. es 19:21 Varghese Martinez MD is Private Physician. es 19:33 Shyaan Garcia PA is PHCP. cp 19:33 Davidson Clark MD is Attending Physician. cp Administered Medications: No medications were administered Outcome: 19:40 Discharge ordered by MD. cp 19:43 Patient left the ED. [facility] Signatures: Shayy Dawson Shayan Garcia PA PA cp Sonali Bolden, RN RN vc1
--- OUTSIDE RECORDS SUMMARY | 2023-01-05 20:19 | XMS REPORT | Continuity of Care Document ---
:1955 Author Organization [facility] t Address [address] [place] [address] Care Team Providers Name Role Phone Asked, No Pcp Primary Care Physician Unavailable Aakash Meraz Attending Clinician NILA VALDEZ Attending Clinician Unavailable Christopher HINTON, Ashley Attending Clinician Gina Singh MA Attending Clinician Unavailable Jorge HINTON, Minesh Sorto Attending Clinician Kolby HINTON, Bony Emerson Attending Clinician [phone] Ramon Wheat Attending Clinician Otilia HINTON, Javier Blum Attending Clinician Barrie HINTON, Ceci Lares Attending Clinician Briana Giron Attending Clinician MINESH PATEL Admitting Clinician Unavailable Payers Payer Name Policy Type Policy Number Effective Date Expiration Date S ource Problems Condition Condition Condition Status Onset Resolution Last Treating Co mments Source Name Details Category Date Date Treatment Clinician Date Cold foot Cold foot Disease Active Met hodi with with 02-02 st peripheral peripheral 00:00: Ho spita vascular vascular 00 l disease disease Tobacco Tobacco Disease Active Methodi use use 4-20 st 00:00: Hospita 00 l Primary Primary Disease Active Methodi hypertensi hypertensi 4-20 st on on 00:00: Hospita 00 l Allergies, Adverse Reactions, Alerts Allergy Allergy Status Severity Reaction(s) Onset Inactive Treating Comm ents Source Name Type Date Date Clinician Chlorhex Propensi Active Rash Method i idine ty to 02-03 st Gluconat adverse 00:00: Hospita e reaction 00 l s to drug Social History Social Habit Start Date Stop Date Quantity Comments Source History of Smokes tobacco [facility] tobacco use daily Hospital Alcohol intake 2022-08-29 2022-08-29 Current drinker [facility] 00:00:00 00:00:00 of alcohol Hospital (finding) Tobacco use and 2022-02-03 2022-02-03 Smokeless tobacco Me [facility]od[facility] exposure 00:00:00 00:00:00 non-user Hospital Sex Ass[birth year] At [birth year] [facility] 00:00:00 00:00:00 Hospital Smoking Status Start Date Stop Date Source Smokes tobacco daily 2022-02-03 [facility]:00[facility] Ordered Filled Start Stop Current Ordering Indication Dosage Frequency Signature Comments Components Source Medication Medication Date Date Medication? Clinician (SIG) Name Name gabapentin 2021-10- No 300mg Q.[id number] Take 1 Methodi (NEURONTIN) 14 -[id number] 300 mg 00:00: 05:59 3D (300 mg Hospita capsule 00 :00 total) by l mouth 3 (three) times a day. gabapentin 2022- No [id number] 300mg Q.[id number] Take 1 Methodi (NEURONTIN) 07-04 09-[id number] 300 mg 00:00: 04:59 3D (300 mg Hospita capsule 00 :00 total) by l mouth 3 (three) times a day. Eliquis 5 Yes 5mg Q.5D Take 1 Method i mg tablet 8-05 tablet (5 st 00:00: mg total) Hospita 00 by mouth 2 l (two) times a day. atorvastati Yes 40mg QD Take 1 Meth analisa n (LIPITOR) 8-05 tablet (40 st 40 mg 00:00: mg total) Hospita tablet 00 by mouth l daily. apixaban 2021- No 5mg Q.5D Take 1 Method i (ELIQUIS) 5 4-30 05-31 tablet (5 st mg tablet 00:00: 04:59 mg total) Ho spita 00 :00 by mouth 2 l (two) times a day for 30 days. clopidogreL 2021- No 75mg QD Take 75 mg Methodi (PLAVIX) 75 -07 02-[address] mg tablet 13:19: 00:00 daily. Hospi ta 00 :00 l aspirin 2021- No 81mg QD Take 81 mg Met hodi (ECOTRIN) 02-07-[address] 81 MG 13:19: 00:00 daily. Hospita enteric 00 :00 l coated tablet lisinopriL 2021- No 2.5mg QD Take 2.5 M ethodi (PRINIVIL) 02-07-[address] 2.5 mg 13:19: 00:00 mouth Hospita tablet 00 :00 daily. l lisinopriL 2021- No 10mg QD Take 1 Meth analisa (PRINIVIL) 02-07-26 tablet (10 st 10 mg 00:00: 04:59 mg total) Hospit a tablet 00 :00 by mouth l daily for 30 days. clopidogreL 2021- No 75mg QD Take 1 Met hodi (PLAVIX) 75 -08 05-24 tablet (75 s t mg tablet 00:00: 04:59 mg total) Ho spita 00 :00 by mouth l daily for 90 days. acetaminoph 2021- No 650mg Q4H Take 2 Me thodi en -08 03-[address] (TYLENOL) 00:00: 04:59 (650 mg Hosp trinh 325 MG 00 :00 total) by l tablet mouth every 4 (four) hours for 30 days. atorvastati 2021- No 40mg QD Take 1 Met hodi n (Lipitor) - 05-25 tablet (40 s t 40 mg 00:00: 04:59 mg total) Hospit a tablet 00 :00 by mouth l daily for 30 days. [place]DROcodone 2021- [place] [address] 1{tbl} Q6H Take 1 Methodi -acetaminop -24 05-[address] hen (NORCO) 00:00: 04:59 mouth Hosp trinh 10-325 mg 00 :00 every 6 l per tablet (six) hours as needed for severe pain for up to 10 days .acute pain. Max Daily Amount: 4 tablets apixaban 2021- No 10mg Q.5D Take 2 Method i (ELIQUIS) 5 424 04-[address] mg tablet 00:00: 04:59 (10 mg Hospi ta 00 :00 total) by l mouth 2 (two) times a day for 5 days. LISINOPRIL, Yes Method i BULK, MISC 3 st 00:00: Hospita 00 l clopidogreL 2021- No 75mg QD Take 1 Met brannon (PLAVIX) 75 05-28 09- tablet (75 s t mg tablet 00:00: 00:00 mg total) Ho spita 00 :00 by mouth l daily. Vital Signs Vital Name Observation Time Observation Value Comments Source Body height 2022-08-29 14:49:00 177.8 cm [facility] Body weight 2022-08-29 14:49:00 68.947 kg [facility] BMI 2022-08-29 14:49:00 21.81 kg/m2 [facility] Systolic blood 2022-03-10 18:05:00 166 mm[Hg] [facility] pressure Diastolic blood 2022-03-10 18:05:00 76 mm[Hg] [facility] pressure Heart rate 2022-03-10 18:05:00 72 /min [facility] Body temperature 2022-03-10 18:05:00 36.72 Xochilt [facility] Oxygen saturation in 2022-03-10 18:05:00 99 /min [facility] Arterial blood by Pulse oximetry Respiratory rate 2022-02-06 13:40:00 18 /min [facility] Procedures Procedure Date / Time Performing Clinician Source Performed XR LUMBAR SPINE COMPLETE 2022-07-04 13:42:10 Aakash Meraz [facility] 4+ VW Andry US DUPLEX ARTERIAL LOWER 2022-03-10 17:58:59 Ashley White [facility] EXTREMITY RIGHT US ANKLE BRACHIAL INDEX 2022-03-10 17:58:46 Ashley White [facility] HEPATIC FUNCTION PANEL 2022-02-06 14:52:00 Crow Feliciano [facility] XR CHEST 1 VW PORTABLE 2022-02-06 12:11:00 [facility] Trevon ECG 12-LEAD 2022-02-06 08:58:19 [facility]spital Trevon ECG 12-LEAD 2022-02-05 18:06:25 [facility] PART[facility] THROMB[facility]LASTIN 2022-02-05 16:37:00 Javier Bingham [facility] TIME (PTT) XR CHEST 1 VW PORTABLE 2022-02-05 10:20:00 [facility] Trevon CBC WITH PLATELET AND 2022-02-05 08:58:00 [facility] DIFFERENTIAL [place] BASIC METABOLIC PANEL 2022-02-05 08:58:00 [facility] Trevon PARTIAL THROMBOPLASTIN 2022-02-05 08:58:00 Minesh Patel [facility] TIME (PTT) ESTIMATED GFR 2022-02-05 08:58:00 [facility] PROTHROMBIN TIME WITH INR 2022-02-04 21:48:00 [facility] PARTIAL THROMBOPLASTIN 2022-02-04 21:48:00 [facility] TIME (PTT) CBC WITH PLATELET AND 2022-02-04 19:24:00 [facility] DIFFERENTIAL [place] BASIC METABOLIC PANEL 2022-02-04 19:24:00 [facility] Trevon ESTIMATED GFR 2022-02-04 19:24:00 [facility] ACTIVATED CLOTTING TIME 2022-02-04 17:37:00 [facility] ACTIVATED CLOTTING TIME 2022-02-04 17:03:00 [facility] ACTIVATED CLOTTING TIME 2022-02-04 15:49:00 [facility] [place] AN ELECTIVE 2022-02-04 15:34:00 Yolie Barlow [facility] SUPRAGLOTTIC AIRWAY ARTERIOGRAM WITH 2022-02-04 15:18:00 Otilia Javieryumiko Blum [facility] ANGIOPLASTY, IF INDICATED FIBRINOGEN 2022-02-04 12:56:00 hSireen Hilario Ho spital CBC HEMOGRAM 2022-02-04 12:56:00 Shireen Hilario Ho spital POC GLUCOSE 2022-02-04 09:58:00 [facility] 2022-02-04 08:52:00 Shireen Hilario Ho spital CBC HEMOGRAM 2022-02-04 08:52:00 Shireen Hilario Ho spital PARTIAL THROMBOPLASTIN 2022-02-04 08:52:00 Shireen Hilario [facility] TIME (PTT) ARTERIAL BLOOD GAS 2022-02-04 08:52:00 [facility] XR CHEST 1 VW PORTABLE 2022-02-04 06:03:00 [facility] P[facility] GLUCOSE 2022-02-04 05:32:00 Jorge [facility] CBC WITH PLATELET AND 2022-02-04 05:31:00 [facility] DIFFERENTIAL [place] BASIC METABOLIC PANEL 2022-02-04 05:31:00 [facility] Trevon FIBRINOGEN 2022-02-04 05:31:00 Shireen Hilario spital ESTIMATED GFR 2022-02-04 05:31:00 [facility] PRE/POST OP 2022-02-04 05:02:18 Suma [facility] Leann ACTIVATED CLOTTING TIME 2022-02-04 03:21:00 [facility] ACTIVATED CLOTTING TIME 2022-02-04 03:09:00 [facility] ACTIVATED CLOTTING TIME 2022-02-04 02:53:00 [facility] ARTERIAL BLOOD GAS, 2022-02-04 02:28:00 [facility] CORRECTED SODIUM LEVEL, SYRINGE 2022-02-04 02:28:00 Minesh Patel [facility] POTASSIUM, SYRINGE 2022-02-04 02:28:00 [facility] HEMOGLOBIN, SYRINGE 2022-02-04 02:28:00 [facility] IONIZED CALCIUM, ARTERIAL 2022-02-04 02:28:00 [facility] GLUCOSE LEVEL, SYRINGE 2022-02-04 02:28:00 [facility] POC ARTERIAL BLOOD GAS, 2022-02-04 02:24:00 [facility] CORRECTED AND LYTES ACTIVATED CLOTTING TIME 2022-02-04 02:23:00 [facility] ARTERIAL LINE 2022-02-04 01:38:08 [facility] [place] AN ELECTIVE 2022-02-04 01:35:00 [facility] ENDOTRACHEAL AIRWAY LOWER EXTREMITY 2022-02-04 01:12:00 Ashley White [facility] spital ANGIOGRAM,POSSIBLE ANGIOPLASTY,POSSIBLE STENT ANTI XA, UNFRACTIONATED 2022-02-03 17:56:00 [facility] ABO AND RH CONFIRMATION 2022-02-03 14:45:00 [facility] BY PROTOCOL US ANKLE BRACHIAL INDEX 2022-02-03 13:23:43 [facility] CBC WITH PLATELET AND 2022-02-03 10:08:00 [facility] DIFFERENTIAL [place] BASIC METABOLIC PANEL 2022-02-03 10:08:00 [facility] Trevon LIPID PANEL 2022-02-03 10:08:00 [facility] ANTI XA, UNFRACTIONATED 2022-02-03 10:08:00 [facility] ESTIMATED GFR 2022-02-03 10:08:00 [facility] COVID-19 QUALITATIVE 2022-02-03 04:54:00 [facility] RT-PCR Michelle BASIC METABOLIC PANEL 2022-02-03 04:54:00 [facility] Michelle CBC WITH PLATELET AND 2022-02-03 04:54:00 [facility] DIFFERENTIAL [facility] PROTHROMBIN TIME WITH INR 2022-02-03 04:54:00 [facility] Michelle PARTIAL THROMBOPLASTIN 2022-02-03 04:54:00 [facility] TIME (PTT) Michelle ESTIMATED GFR 2022-02-03 04:54:00 [facility] US DUPLEX ARTERIAL LOWER 2022-02-03 03:00:21 [facility] EXTREMITY BILATERAL CT ANGIOGRAM ABDOMINAL 2022-02-03 02:41:10 [facility] AORTA AND BILATERAL ILIOFEMORAL RUNOFF W WO CONTRAST ZZCOVID-19 ANTI-SPIKE IGG 2022-02-02 23:47:00 [facility] ANTIBODY TITER COVID-19 SEROLOGY 2022-02-02 23:47:00 [facility] PATIENT SURVEILLANCE HEMOGLOBIN A1C 2022-02-02 23:47:00 [facility] THYROID STIMULATING 2022-02-02 23:47:00 [facility] HORMONE T4, FREE 2022-02-02 23:47:00 [facility] PARTIAL THROMBOPLASTIN 2022-02-02 23:47:00 [facility] TIME (PTT) PROTHROMBIN TIME WITH INR 2022-02-02 23:47:00 [facility] ANTI XA, UNFRACTIONATED 2022-02-02 23:47:00 [facility] BASIC METABOLIC PANEL 2022-02-02 23:47:00 [facility] ESTIMATED GFR 2022-02-02 23:47:00 [facility] TYPE AND SCREEN 2022-02-02 23:45:00 [facility] ECG 12-LEAD 2022-02-02 23:41:03 [facility] NON VASCULAR EXTERNAL 2022-02-02 13:53:00 [facility] STUDY NON VASCULAR EXTERNAL 2022-02-02 13:01:00 [facility] STUDY Plan of Care Planned Activity Planned Date Details Comments Source Future Scheduled 2022-11-30 INFLUENZA VACCINE Method [facility] Test 14:58:53 [code = INFLUENZA VACCINE] Future Scheduled 2022-11-30 Hepatitis C screening [facility] Test 14:58:53 (procedure) [code = 712710905] Future Scheduled 2022-11-30 SHINGLES VACCINES (1 Met [facility] Test 14:58:53 of 2) [code = SHINGLES VACCINES (1 of 2)] Future Scheduled 2022-11-30 COLONOSCOPY SCREENING [facility] Test 14:58:53 [code = COLONOSCOPY SCREENING] Future Scheduled 2022-11-30 65+ PNEUMOCOCCAL Methodi [facility] Test 14:58:53 VACCINE (2 - PCV) [code = 65+ PNEUMOCOCCAL VACCINE (2 - PCV)] Future Scheduled 2022-11-30 COVID-19 VACCINE (3 - [facility] Test 14:58:53 Booster for Moderna series) [code = COVID-19 VACCINE (3 - Booster for Moderna series)] Encounters Start End Encounter Admission Attending Care Care Encounter Source Date/Time Date/Time Type Type Clinicians Facility Department ID 2022-08-30 2022-08-30 Telephone Elizabeth 1.2.840.1 [id number] Methodi 00:00:00 00:00:[address] Andry 3.430.2.7 Hospit a .3.505568 l .8 2022-08-29 2022-08-29 Office Elizabeth 1.2.840.1 [id number] Methodi 09:00:00 09:07:13 Visit Aakash 25486.1.[address] Andry 3.430.2.7 Hospit a .3.280120 l .8 2022-08-29 2022-08-29 Travel 1.2.840.1 1.2.144.392 [id number] Methodi 00:00:00 00:00:[address] 3.430.2.7 0.2.7.3.698 Ho spita .3.539000 084.8 l .8 2022-08-29 2022-08-29 Outpatient ELIZABETH [facility] [id number] Jbsa Randolph 00:00:00 00:00:00 AAKASH [address] 2022-07-21 2022-07-21 Telephone Elizabeth, 1.2.840.1 [id number] Methodi 00:00:00 00:00:[address] Andry 3.430.2.7 Hospit a .3.776636 l .8 2022-07-04 2022-07-04 Office Pauline, 1.2.840.1 [id number] Methodi 08:30:00 09:28:12 Visit Aakash 96826.1.[address] Andry 3.430.2.7 Hospit a .3.900453 l .8 2022-07-04 2022-07-04 Travel 1.2.840.1 1.2.667.963 [id number] Methodi 00:00:00 00:00:[address] 3.430.2.7 0.2.7.3.698 Ho spita .3.628133 084.8 l .8 2022-07-04 2022-07-04 Outpatient PAULINE, [facility] [id number] Jbsa Randolph 00:00:00 00:00:00 AAKASH [address] 2022-07-04 2022-07-04 Outpatient PAULINE, [facility] [id number] Jbsa Randolph 00:00:00 00:00:00 AAKASH [address] 2022-06-27 2022-06-27 [facility], 1.2.840.1 [id number] Methodi 08:56:46 23:59:00 Encounter Aakash 17472.1.[address] Andry 3.430.2.7 Hospit a .3.059427 l .8 2022-06-27 2022-06-27 [facility] 1.2.840.1 [id number] Methodi 08:34:05 08:55:00 Encounter Aakash 82372.1.[address] Andry 3.430.2.7 Hospit a .3.065398 l .8 2022-06-27 2022-06-27 [facility], 1.2.840.1 [id number] Methodi 08:33:56 08:33:56 Encounter Aakash 02492.1.[address] Andry 3.430.2.7 Hospit a .3.217712 l .8 2022-06-27 2022-06-27 [facility], 1.2.840.1 [id number] Methodi 00:00:00 00:00:00 Only Aakash 01966.1.[address] Andry 3.430.2.7 Hospit a .3.105981 l .8 2022-06-27 2022-06-27 Outpatient JOSÉ MIGUEL [facility] [id number] Jbsa Randolph 00:00:00 00:00:00 NILA 876 Method i 2022-06-27 2022-06-27 Outpatient [facility] [id number] Jbsa Randolph 00:00:00 00:00:00 AAKASH 467 Method i 2022-06-27 2022-06-27 Outpatient [facility] [id number] Jbsa Randolph 00:00:00 00:00:00 AAKASH 493 Method i 2022-06-27 2022-06-27 Outpatient [facility] [id number] Jbsa Randolph 00:00:00 00:00:00 AAKASH 339 Method i 2022-03-10 2022-03-10 Office Ashley White 1.2.840.1 [id number] Methodi 13:50:00 14:41:[address] 3.430.2.7 Hospit a .3.575906 l .8 2022-03-10 2022-03-10 Travel 1.2.840.1 1.2.474.840 [id number] Methodi 00:00:00 00:00:[address] 3.430.2.7 0.2.7.3.698 Ho spita .3.386901 084.8 l .8 2022-03-10 2022-03-10 Outpatient ASHLEY WHITE [facility] [id number] Jbsa Randolph 00:00:00 00:00:[address] 2022-03-10 2022-03-10 Outpatient ASHLEY WHITE [facility] [id number] Jbsa Randolph 00:00:00 00:00:[address] 2022-03-10 2022-03-10 Outpatient ASHLEY WHITE [facility] [id number] Jbsa Randolph 00:00:00 00:00:[address] 2022-02-07 2022-02-07 Telephone Samantha, 1.2.840.1 [id number] Methodi 00:00:00 00:00:[address] 3.430.2.7 Hospit a .3.944223 l .8 2022-02-02 2022-02-06 Hospital Jroge, 1.2.840.1 [id number] Methodi 16:53:00 13:19:00 Encounter Minesh Sorto 59510.1.[address] 3.430.2.7 Hospit a .3.013869 l .8 2022-02-02 2022-02-06 Inpatient JORGE [facility] [id number] Jbsa Randolph 00:00:00 00:00:00 MINESH 536 Method i 2022-02-04 2022-02-04 Anesthesia Bony Jarrett 1.2.840.1 [id number] Methodi 10:19:00 13:09:00 Event Ramon Wheat 05700.1.[address] 3.430.2.7 Hospit a .3.993119 l .8 2022-02-04 2022-02-04 Surgery [facility], 1.2.840.1 [id number] Methodi 10:15:00 12:40:00 Javier Blum 58849.1.[address] 3.430.2.7 Hospit a .3.972172 l .8 2022-02-03 2022-02-04 Surgery Ashley White 1.2.840.1 [id number] Methodi 20:00:00 01:15:[address] 3.430.2.7 Hospit a .3.788894 l .8 2022-02-03 2022-02-03 Anesthesia Ceci Sood 1.2.840.1 [id number] Methodi 20:13:00 23:33:00 Event Briana Giron 54397.1.[address] 3.430.2.7 Hospit a .3.144143 l .8 Results Test Description Test Time Test Comments Results Result Comments Source ECG 12 lead 2022-02-06 16:02:26 Test Item Value Reference Range Interpretation Comme nts Ventricular rate (test code = 253) 60 Atrial rate (test code = 255) 60 OH interval (test code = 266) 158 QRSD interval (test code = 260) 66 QT interval (test code = 264) 430 QTC interval (test code = 265) 430 P axis 1 (test code = 267) 68 QRS axis 1 (test code = 268) 47 T wave axis (test code = 270) 70 EKG impression (test code = 273) Normal sinus rhythm-Normal ECG-In automated comparison with ECG of 05-FEB-2022 13:06,-No significant change was found- [facility] [id number] 17:42:00 Test Item Value Reference Range Interpretation Comments Activated clotting time 114 See_Comment Oper ator Name: Kolby (test code = 5298) Analisa ce ID: [id number] [Automated mess age] The system which ge nerated this result tra nsmitted reference range : 96 - 152 sec. The refere nce range was not used to interpret this result as normal/abnormal . [facility] Pre/Post [id number] 14:24:33 Test Item Value Reference Range Interpretation Comments Ventricular rate (test 88 code = 253) Atrial rate (test code = 88 255) OH interval (test code = 132 266) QRSD interval (test code 62 = 260) QT interval (test code = 360 264) QTC interval (test code = 435 265) P axis 1 (test code = 49 267) QRS axis 1 (test code = 60 268) T wave axis (test code = 52 270) EKG impression (test code Normal sinus = 273) rhythm-Normal ECG- [facility] [id number] 10:01:00 Test Item Value Reference Range Interpretation Comments POC glucose (test code 113 mg/dL 65-99 H Opera veronica Name: Sagar = [id number]) Jailyn ID : [id number] able: [facility] 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 The reference r massimo was not used to interpret this result as normal/abnor mal. pO2, arterial (test code 243 See_Comment H [A utomated message] = 2703-7) The system [employer] h generated this result transmitted ref erence range: 80 - 90 mmHg. The reference r massimo was not used to interpret this result as normal/abnor mal. Temperature, Celsius 37.0 Degrees C (test code = 8310-5) O2 saturation, arterial 100 % 95-100 (test code = 2708-6) pH, arterial corrected 7.32 (test code = 72791-1) pCO2, arterial corrected 33 mmHg (test code = 21717-0) pO2, arterial corrected 243 mmHg (test code = 76755-9) Base excess, arterial -8 See_Comment L [Auto mated message] (test code = 1925-7) The [facility] tem which generated this result transmitted ref erence range: -2 - 2 m Eq/L. The reference r massimo was not used to interpret this result as normal/abnor mal. Lab Interpretation (test Abnormal code = 67378-2) [facility], [id number] 02:35:00 Test Item Value Reference Range Interpretation Comments Glucose, syringe (test code = 76 mg/dL 65-99 2345-7) [facility], [id number] 02:35:00 Test Item Value Reference Range Interpretation Comments Hemoglobin, syringe (test code = 11.6 g/dL 14.0-18.0 L 718-7) Lab Interpretation (test code = Abnormal 34432-4) [facility] calcium, [id number] 02:35:00 Test Item Value Reference Range Interpretation Comments Ionized calcium, arterial (test 1.74 mmol/L 1.11-1.32 HH code = 72099-7) Lab Interpretation (test code = Abnormal 05226-8) [facility], [id number] 02:35:00 Test Item Value Reference Range Interpretation Comments Potassium, syringe (test 2.6 See_Comment LL [A utomated message] code = 2007) The system [employer] generated this result transmitted ref erence range: 3.5 - 5. 0 mEq/L. The refe rence range was not u sed to interpret this result as normal/abnor mal. Lab Interpretation (test Abnormal code = 45660-0) [facility], [id number] 02:35:00 Test Item Value Reference Range Interpretation Comments Sodium, syringe (test 137 See_Comment [Auto mated message] The code = 2947-0) system which generated this result tra nsmitted reference range : 135 - 148 mEq/L. The refe rence range was not used to interpret this result as normal/abnormal . [facility] arterial blood gas, corrected and [id number] 02:24:00 Test Item Value Reference Range Interpretation Comments pH, arterial (test code 7.32 7.35-7.45 L = 2744-1) pCO2, arterial (test 37 See_Comment [Autom ated code = 2019-8) message] The system which generated this result transmitted reference range : 35 - 45 mmHg. The reference range was not used to interpret this result as normal/abnormal . pO2, arterial (test 295 See_Comment H [Automa kiana code = 2703-7) message] The system which generated this result transmitted reference range : 80 - 90 mmHg. The reference range was not used to interpret this result as normal/abnormal . Temperature, Celsius 37.0 Degrees C (test code = 8310-5) O2 saturation, arterial 95-100 (test code = 2708-6) pH, arterial corrected 7.32 (test code = 54421-3) pCO2, arterial 37 mmHg corrected (test code = 03295-0) pO2, arterial corrected 295 mmHg Oper ator ID: (test code = 06642-2) Ekta Kovacs ID: [id number] Base excess, arterial -7 See_Comment L [Auto mated (test code = 1925-7) message ] The system which generated this result transmitted reference range : -2 - 2 mEq/L. The reference range was not used to interpret this result as normal/abnormal . Hemoglobin, syringe 12.4 g/dL 14.0-18.0 L (test code = 718-7) Potassium, syringe 2.8 See_Comment LL [Automat ed (test code = 2007) message] The system which generated this result transmitted reference range : 3.5 - 5.0 mEq/L . The reference r massimo was not used to interpret this result as normal/abnormal . Sodium, syringe (test 138 See_Comment [Auto mated code = 2947-0) message] The system which generated this result transmitted reference range : 135 - 148 mEq/L . The reference r massimo was not used to interpret this result as normal/abnormal . Ionized calcium, 0.96 mmol/L 1.11-1.32 L arterial (test code = 56274-5) Glucose, syringe (test 73 mg/dL 65-99 code = 2345-7) Lactic acid, syringe 0.9 mmol/L 0.5-2.2 (test code = 82067-7) Lab Interpretation Abnormal (test code = 55092-3) Lianne BalbuenaARS-CoV-2 (COVID-19) RNA [Presence] in Respiratory specimen by DERRELL with probe [id number] 04:00:10 Test Item Value Reference Range Interpretation Comments SARS-CoV-2 (COVID-19) RNA Not detected [Presence] in Respiratory specimen by DERRELL with probe detection (test code = 72271-7) Whether patient is employed in a Unknown healthcare setting (test code = 75189-5) Whether the patient has symptoms Unknown related to condition of interest (test code = 03087-8) Whether the patient was Unknown hospitalized for condition of interest (test code = 77152-9) Whether the patient was admitted Unknown to intensive care unit (ICU) for condition of interest (test code = 28422-8) Whether patient resides in a Unknown congregate care setting (test code = 30374-8) status (test code = Unknown 21939-6) Date and time of symptom onset Unknown (test code = 61004-9) [employer]
== END 2023-01-05 19:43 | disposition home or self-care (01) ==
LOC: ER 19:15
DX: S89.92XA Unspecified injury of left lower leg, initial encounter (principal); S89.91XA Unspecified injury of right lower leg, initial encounter; W19.XXXA Unspecified fall, initial encounter; Y93.9 Activity, unspecified; Y92.9 Unspecified place or not applicable

== ENCOUNTER 2023-04-12 07:30 | Emergency (ER) | payer BC ==
--- OUTSIDE RECORDS SUMMARY | 2023-04-12 07:33 | XMS REPORT | Continuity of Care Document ---
:1955 Author Organization [facility] t Address [address] [place] [address] Care Team Providers Name Role Phone Asked, No Pcp Primary Care Physician Unavailable Aakash Meraz Attending Clinician NILA VALDEZ Attending Clinician Unavailable Christopher HINTON, Ashley Attending Clinician Gina Singh MA Attending Clinician Unavailable René HINTON, Minesh Sorto Attending Clinician Kolby HINTON, Bony Emerson Attending Clinician [phone] Ramon Wheat Attending Clinician Otilia HINTON, Javier [...] Stop Date Quantity Comments Source History of tobacco Cigarette [facility]oker [facility] Alcohol intake 2022-08-29 2022-08-29 Current drinker [facility] 00:00:00 00:00:00 of alcohol Hospital (finding) History of Social 2022-08-29 2022-08-[address] function 00:00:00 00:00:00 Hospital Tobacco use and 2022-02-03 2022-02-03 Smokeless [facility] exposure 00:00:00 00:00:00 tobacco non-user Hospital Sex Assigned At [birth year] [facility] 00[facility]:00 Hospital Smoking Status Start Date Stop Date Source Smokes tobacco daily 2022-02-03 [facility]:00[facility] Ordered Filled Start Stop Current Ordering Indication Dosage Frequency Signature Comments Components Source Medication Medication Date Date Medication? Clinician (SIG) Name Name gabapentin 2021-10- No 300mg Q.[id number] Take 1 Method[facility] (NEURONTIN) 10-[id number] 300 mg 00:00: 05:59 3D (300 mg Hospita capsule 00 :00 total) by l mouth 3 (three) times a day. gabapentin 2021-10- No 300mg Q.[id number] Take 1 [facility] (NEURONTIN) 10-[id number] 300 mg 00:00: 05:59 3D (300 mg Hospita capsule 00 :00 total) by l mouth 3 (three) times a day. gabapentin 2022- No [id number] 300mg Q.[id number] Take 1 [facility] (NEURONTIN) 07-[id number] 300 mg 00:00: 04:59 3D (300 mg Hospita capsule 00 :00 total) by l mouth 3 (three) times a day. gabapentin 2022- No [id number] 300mg Q.[id number] Take 1 [facility] (NEURONTIN) 9 09-[id number] 300 mg 00:00: 04:59 3D (300 mg Hospita capsule 00 :00 total) by l mouth 3 (three) times a day. Eliquis 5 2022-0 Yes 5mg Q.5D Take 1 Method i mg tablet 8-05 tablet (5 st 00:00: mg total) Hospita 00 by mouth 2 l (two) times a day. atorvastati 2021-0 Yes 40mg QD Take 1 Meth analisa n (LIPITOR) 8-05 tablet (40 st 40 mg 00:00: mg total) Hospita tablet 00 by mouth l daily. Eliquis 5 2021-0 Yes 5mg Q.5D Take 1 Method i mg tablet 8-05 tablet (5 st 00:00: mg total) Hospita 00 by mouth 2 l (two) times a day. atorvastati 2021-0 Yes 40mg QD Take 1 Meth analisa n (LIPITOR) 8-05 tablet (40 st 40 mg 00:00: mg total) Hospita tablet 00 by mouth l daily. apixaban 2021-2021- No 5mg Q.5D Take 1 Method i (ELIQUIS) 5 4-30 05-31 tablet (5 st mg tablet 00:00: 04:59 mg total) Ho spita 00 :00 by mouth 2 l (two) times a day for 30 days. clopidogreL 2021-2021- No 75mg QD Take 75 mg [facility] (PLAVIX) 75 4- 04-[address] mg tablet 13:19: 00:00 daily. Hospi ta 00 :00 l aspirin 2021-0 2021- No 81mg QD Take 81 mg Met hodi (ECOTRIN) 4-25 04-[address] 81 MG 13:19: 00:00 daily. Hospita enteric 00 :00 l coated tablet lisinopriL 2021-2021- No 2.5mg QD Take 2.5 M ethodi (PRINIVIL) 4-25 04-[address] 2.5 mg 13:19: 00:00 mouth Hospita tablet 00 :00 daily. l lisinopriL 2021-2021- No 10mg QD Take 1 Meth analisa (PRINIVIL) 4-25 05-26 tablet (10 st 10 mg 00:00: 04:59 mg total) Hospit a tablet 00 :00 by mouth l daily for 30 days. clopidogreL 2021- No 75mg QD Take 1 Met hodi (PLAVIX) 75 02-06-24 tablet (75 s t mg tablet 00:00: 04:59 mg total) Ho spita 00 :00 by mouth l daily for 90 days. clopidogreL 2021- No 75mg QD Take 1 Met hodi (PLAVIX) 75 02-06-24 tablet (75 s t mg tablet 00:00: 04:59 mg total) Ho spita 00 :00 by mouth l daily for 90 days. acetaminoph 2021- No 650mg Q4H Take 2 Me thodi en 02-06-[address] (TYLENOL) 00:00: 04:59 (650 mg Hosp trinh 325 MG 00 :00 total) by l tablet mouth every 4 (four) hours for 30 days. atorvastati 2021- No 40mg QD Take 1 Met hodi n (Lipitor) 02-06 tablet (40 s t 40 mg 00:00: 04:59 mg total) Hospit a tablet 00 :00 by mouth l daily for 30 days. HYDROcodone 2021- No [id number] 1{tbl} Q6H Take 1 Methodi -acetaminop 02-06-[address] hen (NORCO) 00:00: 04:59 mouth Hosp trinh 10-325 mg 00 :00 every 6 l per tablet (six) hours as needed for severe pain for up to 10 days .acute pain. Max Daily Amount: 4 tablets apixaban 2021- No 10mg Q.5D Take 2 Method i (ELIQUIS) 5 02-06-[address] mg tablet 00:00: 04:59 (10 mg Hospi ta 00 :00 total) by l mouth 2 (two) times a day for 5 days. LISINOPRIL, Yes Method i BULK, MISC 12-15 st 00:00: Hospita 00 l LISINOPRIL, Yes Method i BULK, MISC 12-15 st 00:00: Hospita 00 l clopidogreL No 75mg QD Take 1 Met hodi (PLAVIX) 75 8-13 - tablet (75 s t mg tablet 00:00: 00:00 mg total) Ho spita 00 :00 by mouth l daily. clopidogreL No 75mg QD Take 1 Met hodi (PLAVIX) 75 8-13 -23 tablet (75 s t mg tablet 00:00: 00:00 mg total) Ho spita 00 :00 by mouth l daily. Vital Signs Vital Name Observation Time Observation Value Comments Source Body height 2022-08-29 14:49:00 177.8 cm [facility] Body weight 2022-08-29 14:49:00 68.947 kg [facility] BMI 2022-08-29 14:49:00 21.81 kg/m2 [facility] Systolic blood 2022-03-10 18:05:00 166 mm[Hg] [facility] pressure Diastolic blood 2022-03-10 18:05:00 76 mm[Hg] [facility] pressure Heart rate 2022-03-10 18:05:00 72 /min [facility] Body temperature 2022-03-10 18:05:00 36.72 Xochilt [facility] Oxygen saturation in 2022-03-10 18:05:00 99 /min [facility] Arterial blood by Pulse oximetry Respiratory rate 2022-02-06 13:40:00 18 /min [facility] Procedures Procedure Date / Time Performing Clinician Source Performed XR LUMBAR SPINE COMPLETE 2022-07-04 13:42:10 Aakash Meraz [facility] 4+ VW Andry US DUPLEX ARTERIAL LOWER 2022-03-10 17:58:59 Christopher [facility] EXTREMITY RIGHT US ANKLE BRACHIAL INDEX 2022-03-10 17:58:46 Christopher [facility] HEPATIC FUNCTION PANEL 2022-02-06 14:52:00 Crow Feliciano [facility] XR CHEST 1 VW PORTABLE 2022-02-06 12:11:00 [facility] Trevon ECG 12-LEAD 2022-02-06 08:58:19 [facility] ospital [place] ECG 12-LEAD 2022-02-05 18:06:25 [facility] ospital [place] PARTIAL THROMBOPLASTIN 2022-02-05 16:37:00 Javier Bingham [facility] TIME (PTT) XR CHEST 1 VW PORTABLE 2022-02-05 10:20:00 [facility] Trevon CBC WITH PLATELET AND 2022-02-05 08:58:00 [facility] DIFFERENTIAL [place] BASIC METABOLIC PANEL 2022-02-05 08:58:00 [facility] Trevon PARTIAL THROMBOPLASTIN 2022-02-05 08:58:00 Minesh Patel [facility] TIME (PTT) ESTIMATED GFR 2022-02-05 08:58:00 [facility] PROTHROMBIN TIME WITH INR 2022-02-04 21:48:00 [facility] PARTIAL THROMBOPLASTIN 2022-02-04 21:48:00 Javier Bingham [facility] TIME (PTT) CBC WITH PLATELET AND 2022-02-04 19:24:00 [facility] DIFFERENTIAL [place] BASIC METABOLIC PANEL 2022-02-04 19:24:00 [facility] Trevon ESTIMATED GFR 2022-02-04 19:24:00 [facility] ACTIVATED CLOTTING TIME 2022-02-04 17:37:00 [facility] ACTIVATED CLOTTING TIME 2022-02-04 17:03:00 [facility] ACTIVATED CLOTTING TIME 2022-02-04 15:49:00 [facility] AR AN ELECTIVE 2022-02-04 15:34:00 [facility] SUPRAGLOTTIC AIRWAY ARTERIOGRAM WITH 2022-02-04 15:18:00 [facility] Javier [facility] ANGIOPLASTY, IF INDICATED FIBRINOGEN 2022-02-04 12:56:00 Shireen Hilario Ho spital CBC HEMOGRAM 2022-02-04 12:56:00 Shireen Hilario Ho spital POC GLUCOSE 2022-02-04 09:58:00 [facility] FIBRINOGEN 2022-02-04 08:52:00 Shireen Hilario spital CBC HEMOGRAM 2022-02-04 08:52:00 Shireen Hilario spital PARTIAL THROMBOPLASTIN 2022-02-04 08:52:00 [facility] ([facility]TT[facility] ARTERIAL BLOOD GAS 2022-02-04 08:52:00 [facility] XR CHEST 1 VW PORTABLE 2022-02-04 06:03:00 [facility] Leann POC GLUCOSE 2022-02-04 05:32:00 [facility] CBC WITH PLATELET AND 2022-02-04 05:31:00 [facility] DIFFERENTIAL [place] BASIC METABOLIC PANEL 2022-02-04 05:31:00 [facility] Trevon FIBRINOGEN 2022-02-04 05:31:00 Shireen Hilario [facility] spital ESTIMATED GFR 2022-02-04 05:31:00 [facility] ECG PRE/POST OP 2022-02-04 05:02:18 [facility] 2022-02-04 03:21:00 [facility] ACTIVATED CLOTTING TIME 2022-02-04 03:09:00 [facility] ACTIVATED CLOTTING TIME 2022-02-04 02:53:00 [facility] ARTERIAL BLOOD GAS, 2022-02-04 02:28:00 [facility] CORRECTED SODIUM LEVEL, SYRINGE 2022-02-04 02:28:00 [facility] POTASSIUM, SYRINGE 2022-02-04 02:28:00 [facility] HEMOGLOBIN, SYRINGE 2022-02-04 02:28:00 [facility] IONIZED CALCIUM, ARTERIAL 2022-02-04 02:28:00 [facility] GLUCOSE LEVEL, SYRINGE 2022-02-04 02:28:00 [facility] POC ARTERIAL BLOOD GAS, 2022-02-04 02:24:00 [facility] CORRECTED AND LYTES ACTIVATED CLOTTING TIME 2022-02-04 02:23:00 [facility] ARTERIAL LINE 2022-02-04 01:38:08 [facility] AR AN ELECTIVE 2022-02-04 01:35:00 [facility] ENDOTRACHEAL AIRWAY LOWER EXTREMITY 2022-02-04 01:12:00 Ashley White [facility] spital ANGIOGRAM,POSSIBLE ANGIOPLASTY,POSSIBLE STENT ANTI XA, UNFRACTIONATED 2022-02-03 17:56:00 [facility] ABO AND RH CONFIRMATION 2022-02-03 14:45:00 [facility] BY PROTOCOL US ANKLE BRACHIAL INDEX 2022-02-03 13:23:43 [facility] CBC WITH PLATELET AND 2022-02-03 10:08:00 [facility] DIFFERENTIAL [place] BASIC METABOLIC PANEL 2022-02-03 10:08:00 [facility] Trevon LIPID PANEL 2022-02-03 10:08:00 [facility] ANTI XA, UNFRACTIONATED 2022-02-03 10:08:00 [facility] ESTIMATED GFR 2022-02-03 10:08:00 [facility] COVID-19 QUALITATIVE 2022-02-03 04:54:00 [facility] RT-PCR [facility] BASIC METABOLIC PANEL 2022-02-03 04:54:00 [facility] Michelle CBC WITH PLATELET AND 2022-02-03 04:54:00 [facility] DIFFERENTIAL [facility] PROTHROMBIN TIME WITH INR 2022-02-03 04:54:00 [facility] PARTIAL THROMBOPLASTIN 2022-02-03 04:54:00 [facility] TIME (PTT) Michelle ESTIMATED GFR 2022-02-03 04:54:00 [facility] US DUPLEX ARTERIAL LOWER 2022-02-03 03:00:21 [facility] EXTREMITY BILATERAL CT ANGIOGRAM ABDOMINAL 2022-02-03 02:41:10 [place] [facility] AORTA AND BILATERAL ILIOFEMORAL RUNOFF W WO CONTRAST ZZCOVID-19 ANTI-SPIKE IGG 2022-02-02 23:47:00 [facility] ANTIBODY TITER ZZCOVID-19 SEROLOGY 2022-02-02 23:47:00 [facility] PATIENT SURVEILLANCE HEMOGLOBIN A1C 2022-02-02 23:47:00 [facility] THYROID STIMULATING 2022-02-02 23:47:00 [facility] HORMONE T4, FREE 2022-02-02 23:47:00 [facility] PARTIAL THROMBOPLASTIN 2022-02-02 23:47:00 [facility] TIME (PTT) PROTHROMBIN TIME WITH INR 2022-02-02 23:47:00 [facility] ANTI XA, UNFRACTIONATED 2022-02-02 23:47:00 [facility] BASIC METABOLIC PANEL 2022-02-02 23:47:00 [place] [facility] ESTIMATED GFR 2022-02-02 23:47:00 [facility] TYPE AND SCREEN 2022-02-02 23:45:00 [facility] ECG 12-LEAD 2022-02-02 23:41:03 [facility] NON VASCULAR EXTERNAL 2022-02-02 13:53:00 [facility] STUDY NON VASCULAR EXTERNAL 2022-02-02 13:01:00 [facility] STUDY Plan of Care Planned Activity Planned Date Details Comments Source Future Scheduled 2023-03-30 Screening for [facility] Test 17:42:15 malignant neoplasm of colon (procedure) [code = 578416193] Future Scheduled 2023-03-30 Screening for [facility] Test 17:42:15 malignant neoplasm of colon (procedure) [code = 041332316] Future Scheduled 2023-03-30 Hepatitis C screening [facility] Test 17:42:15 (procedure) [code = 837683141] Future Scheduled 2023-03-30 SHINGLES VACCINES (1 [facility] Test 17:42:15 of 2) [code = SHINGLES VACCINES (1 of 2)] Future Scheduled 2023-03-30 65+ PNEUMOCOCCAL [facility] Test 17:42:15 VACCINE (2 - PCV) [code = 65+ PNEUMOCOCCAL VACCINE (2 - PCV)] Future Scheduled 2023-03-30 COVID-19 VACCINE (3 - [facility] Test 17:42:15 Moderna series) [code = COVID-19 VACCINE (3 - Moderna series)] Future Scheduled 2023-03-30 INFLUENZA VACCINE [facility] Test 17:42:15 [code = INFLUENZA VACCINE] Future Scheduled 2023-03-30 Screening for [facility] Test 17:42:15 malignant neoplasm of colon (procedure) [code = 701228231] Future Scheduled 2023-03-30 Screening for [facility] Test 17:42:15 malignant neoplasm of colon (procedure) [code = 383797325] Future Scheduled 2023-03-30 Screening for [facility] Test 17:42:15 malignant neoplasm of colon (procedure) [code = 265912359] Future Scheduled 2022-11-30 Hepatitis C screening [facility] Test 14:58:53 (procedure) [code = 409727278] Future Scheduled 2022-11-30 SHINGLES VACCINES (1 [facility] Test 14:58:53 of 2) [code = SHINGLES VACCINES (1 of 2)] Future Scheduled 2022-11-30 COLONOSCOPY SCREENING [facility] Test 14:58:53 [code = COLONOSCOPY SCREENING] Future Scheduled 2022-11-30 65+ PNEUMOCOCCAL [facility] Test 14:58:53 VACCINE (2 - PCV) [code = 65+ PNEUMOCOCCAL VACCINE (2 - PCV)] Future Scheduled 2022-11-30 COVID-19 VACCINE (3 - [facility] Test 14:58:53 Booster for Moderna series) [code = COVID-19 VACCINE (3 - Booster for Moderna series)] Future Scheduled 2022-11-30 INFLUENZA VACCINE [facility] Test 14:58:53 [code = INFLUENZA VACCINE] Encounters Start End Encounter Admission Attending Care Care Encounter Source Date/Time Date/Time Type Type Clinicians Facility Department ID 2022-08-30 2022-08-30 Telephone Ratusznik, 1.2.840.1 [id number] Methodi 00:00:00 00:00:[address] Andry 3.430.2.7 Hospit a .3.911339 l .8 2022-08-30 2022-08-30 Telephone Elizabeth, 1.2.840.1 [id number] Methodi 00:00:00 00:00:[address] Andry 3.430.2.7 Hospit a .3.827203 l .8 2022-08-29 2022-08-29 Office Elizabeth, 1.2.840.1 [id number] Methodi 09:00:00 09:07:13 Visit Aakash 02389.1.[address] Andry 3.430.2.7 Hospit a .3.723754 l .8 2022-08-29 2022-08-29 Office Elizabeth, 1.2.840.1 [id number] Methodi 09:00:00 09:07:13 Visit Aakash 01376.1.[address] Andry 3.430.2.7 Hospit a .3.412291 l .8 2022-08-29 2022-08-29 Travel 1.2.840.1 1.2.383.235 [id number] Methodi 00:00:00 00:00:[address] 3.430.2.7 0.2.7.3.698 Ho spita .3.710950 084.8 l .8 2022-08-29 2022-08-29 Travel 1.2.840.1 1.2.918.137 [id number] Methodi 00:00:00 00:00:[address] 3.430.2.7 0.2.7.3.698 Ho spita .3.940120 084.8 l .8 2022-07-21 2022-07-21 Telephone Elizabeth, 1.2.840.1 [id number] Methodi 00:00:00 00:00:[address] Andry 3.430.2.7 Hospit a .3.307598 l .8 2022-07-21 2022-07-21 Telephone Elizabeth, 1.2.840.1 [id number] Methodi 00:00:00 00:00:[address] Andry 3.430.2.7 Hospit a .3.739643 l .8 2022-07-04 2022-07-04 Office Elizabeth, 1.2.840.1 [id number] Methodi 08:30:00 09:28:12 Visit Aakash 46651.1.[address] Andry 3.430.2.7 Hospit a .3.291696 l .8 2022-07-04 2022-07-04 Office Elizabeth, 1.2.840.1 [id number] Methodi 08:30:00 09:28:12 Visit Aakash 09995.1.[address] Andry 3.430.2.7 Hospit a .3.309055 l .8 2022-07-04 2022-07-04 Travel 1.2.840.1 1.2.962.644 [id number] Methodi 00:00:00 00:00:[address] 3.430.2.7 0.2.7.3.698 Ho spita .3.688161 084.8 l .8 2022-07-04 2022-07-04 [id number] Pengilly 00:00:00 00:00:00 AAKASH [address] 2022-07-04 2022-07-04 Travel 1.2.840.1 1.2.766.538 5775 [id number] Methodi 00:00:00 00:00:[address] 3.430.2.7 0.2.7.3.698 Ho spita .3.205799 084.8 l .8 2022-06-27 2022-06-27 [facility], 1.2.840.1 [id number] Methodi 08:56:46 23:59:00 Encounter Aakash 06485.1.[address] Andry 3.430.2.7 Hospit a .3.694198 l .8 2022-06-27 2022-06-27 [facility], 1.2.840.1 [id number] 21 [id number] Methodi 08:56:46 23:59:00 Encounter Aakash 74566.1.[address] Andry 3.430.2.7 Hospit a .3.148170 l .8 2022-06-27 2022-06-27 [facility], 1.2.840.1 [id number] Methodi 08:34:05 08:55:00 Encounter Aakash 02009.1.[address] [place]ry 3.430.2.7 Hospit a .3.799551 l .8 2022-06-27 2022-06-27 [facility], 1.2.840.1 [id number] Methodi 08:34:05 08:55:00 Encounter Aakash 63563.1.[address] [place]ry 3.430.2.7 Hospit a .3.062894 l .8 2022-06-27 2022-06-27 [facility], 1.2.840.1 [id number] Methodi 08:33:56 08:33:56 Encounter Aakash 86899.1.[address] Andry 3.430.2.7 Hospit a .3.875600 l .8 2022-06-27 2022-06-27 [facility], 1.2.840.1 [id number] 21 [id number] Methodi 08:33:56 08:33:56 Encounter Aakash 17902.1.[address] [place]ry 3.430.2.7 Hospit a .3.121558 l .8 2022-06-27 2022-06-27 [facility], 1.2.840.1 [id number] Methodi 00:00:00 00:00:00 Only Aakash 21878.1.[address] [place]ry 3.430.2.7 Hospit a .3.269079 l .8 2022-06-27 2022-06-27 Outpatient JOSÉ MIGUEL, [facility] [id number] Pengilly 00:00:00 00:00:[address] NILA [address] 2022-06-27 2022-06-27 Orders Elizabeth, 1.2.840.1 [id number] Methodi 00:00:00 00:00:00 Only Aakash 74804.1.[address] Andry 3.430.2.7 Hospit a .3.499225 l .8 2022-03-10 2022-03-10 Office Christopher Ashley 1.2.840.1 [id number] Methodi 13:50:00 14:41:[address] 3.430.2.7 Hospit a .3.862440 l .8 2022-03-10 2022-03-10 Travel 1.2.840.1 1.2.634.232 4788 [id number] Methodi 00:00:00 00:00:[address] 3.430.2.7 0.2.7.3.698 Ho spita .3.980401 084.8 l .8 2022-03-10 2022-03-10 Outpatient CHRISTOPHERASHLEY [facility] [id number] Pengilly 00:00:00 00:00:[address] 2022-03-10 2022-03-10 Outpatient ASHLEY WHITE [facility] [id number] Pengilly 00:00:00 00:00:[address] 2022-02-07 2022-02-07 Telephone Samantha 1.2.840.1 [id number] Methodi 00:00:00 00:00:[address] 3.430.2.7 Hospit a .3.881485 l .8 2022-02-02 2022-02-06 Hospital René, 1.2.840.1 [id number] Methodi 16:53:00 13:19:00 Encounter Minesh Sorto 19719.1.[address] 3.430.2.7 Hospit a .3.252869 l .8 2022-02-04 2022-02-04 Anesthesia Bony Jarrett 1.2.840.1 [id number] Methodi 10:19:00 13:09:00 Event Ramon Wheat 01223.1.[address] 3.430.2.7 Hospit a .3.544176 l .8 2022-02-04 2022-02-04 Surgery Otilia, 1.2.840.1 [id number] Methodi 10:15:00 12:40:00 Javier Blum [address]8685.1.[address] 3.430.2.7 Hospit a .3.371548 l .8 2022-02-03 2022-02-04 Surgery Ashley White 1.2.840.1 [id number] Methodi 20:00:00 01:15:[address] 3.430.2.7 Hospit a .3.664067 l .8 2022-02-03 2022-02-03 Anesthesia Ceci Sood 1.2.840.1 [id number] Methodi 20:13:00 23:33:00 Event Briana Giron 84946.1.[address] 3.430.2.7 Hospit a .3.357371 l .8 Results Test Description Test Time Test Comments Results Result Comments Source ECG 12 lead 2022-02-06 16:02:26 Test Item Value Reference Range Interpretation Comme nts Ventricular rate (test code = 253) 60 Atrial rate (test code = 255) 60 AR interval (test code = 266) 158 QRSD [...] of 05-FEB-2022 13:06,-No significant change was found- [facility] [id number] 17:42:00 Test Item Value Reference Range Interpretation Comments Activated clotting time 114 See_Comment Oper ator Name: Kolby (test code = 5298) Analisa ce ID: [id number] [Automated mess age] The system which ge nerated this result tra nsmitted reference range : 96 - 152 sec. The refere nce range was not used to interpret this result as normal/abnormal . [facility] Pre/Post [id number] 14:24:33 Test Item Value Reference Range Interpretation Comments Ventricular rate (test 88 code = 253) Atrial rate (test code = 88 255) AR interval (test code = 132 266) QRSD interval (test code 62 = 260) QT interval (test code = 360 264) QTC interval (test code = 435 265) P axis 1 (test code = 49 267) QRS axis 1 (test code = 60 268) T wave axis (test code = 52 270) EKG impression (test code Normal sinus = 273) rhythm-Normal ECG- [facility] [id number] 10:01:00 Test Item Value Reference Range Interpretation Comments POC glucose (test code 113 mg/dL 65-99 H Opera tor Name: Sagar = [id number]) Jailyn ID : [id number] able: [facility] 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 The reference r massimo was not used to interpret this result as normal/abnor mal. pO2, arterial (test code 243 See_Comment H [A utomated message] = 1313-7) The system [employer] generated this result transmitted ref erence range: 80 - 90 mmHg. The reference r massimo was not used to interpret this result as normal/abnor mal. Temperature, Celsius 37.0 Degrees C (test code = 8310-5) O2 saturation, arterial 100 % 95-100 (test code = 2708-6) pH, arterial corrected 7.32 (test code = 27652-5) pCO2, arterial corrected 33 mmHg (test code = 18639-3) pO2, arterial corrected 243 mmHg (test code = 26178-2) Base excess, arterial -8 See_Comment L [Auto mated message] (test code = 1925-7) The s tem which generated this result transmitted ref erence range: -2 - 2 m Eq/L. The reference r massimo was not used to interpret this result as normal/abnor mal. Lab Interpretation (test Abnormal code = 42337-2) [facility] [id number] 02:35:00 Test Item Value Reference Range Interpretation Comments Glucose, syringe (test code = 76 mg/dL 65-99 2345-7) [facility] [id number] 02:35:00 Test Item Value Reference Range Interpretation Comments Hemoglobin, syringe (test code = 11.6 g/dL 14.0-18.0 L 718-7) Lab Interpretation (test code = Abnormal 60384-5) [facility], [id number] 02:35:00 Test Item Value Reference Range Interpretation Comments Ionized calcium, arterial (test 1.74 mmol/L 1.11-1.32 code = 38825-7) Lab Interpretation (test code = Abnormal 83157-2) [facility], [id number] 02:35:00 Test Item Value Reference Range Interpretation Comments Potassium, syringe (test 2.6 See_Comment LL [A utomated message] code = 2007) The system [employer] generated this result transmitted ref erence range: 3.5 - 5. 0 mEq/L. The refe rence range was not u sed to interpret this result as normal/abnor mal. Lab Interpretation (test Abnormal code = 38713-2) [facility] [id number] 02:35:00 Test Item Value Reference Range Interpretation Comments Sodium, syringe (test 137 See_Comment [Auto mated message] The code = 2947-0) system which generated this result tra nsmitted reference range : 135 - 148 mEq/L. The refe rence range was not used to interpret this result as normal/abnormal . [facility] arterial blood gas, corrected and [id number] 02:24:00 Test Item Value Reference Range Interpretation [...] pH, arterial corrected 7.32 (test code = 29548-0) pCO2, arterial 37 mmHg corrected (test code = 82685-7) pO2, arterial corrected 295 mmHg Oper ator ID: (test code = 07503-2) [facility]: [id number] Base excess, arterial -7 See_Comment L [Auto [...] mmol/L 1.11-1.32 L arterial (test code = 72825-5) Glucose, syringe (test 73 mg/dL 65-99 code = 2345-7) Lactic acid, syringe 0.9 mmol/L 0.5-2.2 (test code = 87290-7) Lab Interpretation Abnormal (test code = 64990-8) Lianne BalbuenaARS-CoV-2 (COVID-19) RNA [Presence] in Respiratory specimen by DERRELL with probe [id number] 04:00:10 Test Item Value Reference Range Interpretation Comments SARS-CoV-2 (COVID-19) RNA Not detected [Presence] in Respiratory specimen by DERRELL with probe detection (test code = 45660-2) Whether patient is employed in a Unknown healthcare setting (test code = 50134-1) Whether the patient has symptoms Unknown related to condition of interest (test code = 90801-9) Whether the patient was Unknown hospitalized for condition of interest (test code = 32777-5) Whether the patient was admitted Unknown to intensive care unit (ICU) for condition of interest (test code = 55996-8) Whether patient resides in a Unknown congregate care setting (test code = 63073-6) status (test code = Unknown 94456-5) Date and time of symptom onset Unknown (test code = 59827-5) [employer]
[2023-04-12 08:11] LABS: Absolute Lymphocytes (CBC) 0.9 K/uL (0.7-4.9); Hematocrit 46.5 % (39.6-49.0); Lymphocytes % 13.8 % (15.3-44.8); MCV 112.6 fL (80-100); MPV 6.9 fL (7.6-11.3); RBC Red Blood Cell Count 4.13 M/uL (4.33-5.43)
[2023-04-12 08:14] LABS: Protime INR 0.89
--- NOTE | 2023-04-12 08:17 | RAD REPORT ---
EXAM DESCRIPTION: CT - Head Brain Wo Cont - 04/12/2023 8:05 am CLINICAL HISTORY: Right numbness COMPARISON: None TECHNIQUE: Computed axial tomography of the head was obtained. IV contrast was not requested. All CT scans are performed using dose optimization technique as appropriate and may include automated exposure control or mA/KV adjustment according to patient size. FINDINGS: An intracranial bleed is not seen The ventricles are normal in caliber No extra-axial fluid collection is noted. Mild gliosis right frontal lobe. Moderate gliosis left frontal lobe. These could be secondary to eith er an old infarct or old bleed. Mild low-density periventricular, deep and subcortical white matter l ikely ischemic changes secondary to small vessel disease Fluid within the sinuses/ mastoids is not seen. IMPRESSION: No acute intracranial abnormality is seen If patient's symptoms persist MRI of the brain would be recommended
--- NOTE | 2023-04-12 08:22 | RAD REPORT ---
EXAM DESCRIPTION: CTPelvis Angio04/12/2023 8:09 am CLINICAL HISTORY: Decreased pulses leg and feet. Numbness COMPARISON: 2021 TECHNIQUE: One hundred fifty cc Isovue 370 was administered intravenously. 3D MIP reconstruction per formed. CT angiogram pelvis obtained All CT scans are performed using dose optimization technique as appropriate and may include automated exposure control or mA/KV adjustment according to patient size. FINDINGS: Aortobifemoral graft is patent. The grand traverse aorta and iliac vessels are occluded. IMPRESSION: Aorto bi femoral graft is patent
--- NOTE | 2023-04-12 08:27 | RAD REPORT ---
EXAM DESCRIPTION: CTAbdomen Angio04/12/2023 8:09 am CLINICAL HISTORY: Diminished leg and foot pulses. Numbness. Pain COMPARISON: 2019 TECHNIQUE: One hundred fifty cc Isovue 370 was administered intravenously. 3D MIP reconstruction per formed. CTA abdomen performed All CT scans are performed using dose optimization technique as appropriate and may include automated exposure control or mA/KV adjustment according to patient size. FINDINGS: Mild atherosclerosis proximal and mid abdominal aorta. [place] abdominal aorta and iliac ar teries are occluded. Patent aortobifemoral graft. Celiac, SMA and EULOGIO are patent Mild calcified plaque renal arteries Fatty liver IMPRESSION: Patent aortobifemoral graft
[2023-04-12 08:37] LABS: Albumin 3.7 g/dL (3.4-5.0); Bilirubin Direct 0.3 mg/dL (0-0.2); Bilirubin Indirect, Calculated 0.7 mg/dL (0.2-0.8); Potassium 3.9 mEq/L (3.5-5.1); Protein, Total 7.8 g/dL (6.4-8.2); Troponin High Sensitivity 47.7 pg/mL (<58.9)
--- NOTE | 2023-04-12 08:39 | RAD REPORT ---
EXAM DESCRIPTION: Diane Ext Angio04/12/2023 8:09 am CLINICAL HISTORY: Diminished pulses leg and foot, pain, numbness COMPARISON: 2021 TECHNIQUE: 150 cc Isovue 370 was administered intravenously. 3D MIP reconstruction performed. CT ang iogram lower extremities All CT scans are performed using dose optimization technique as appropriate and may include automated exposure control or mA/KV adjustment according to patient size. FINDINGS: Patent aortobifemoral graft. Right superficial femoral stent patent. Occlusion of the distal right superficial femoral artery and right popliteal arteries. Right popliteal stent occluded. Right peroneal artery patent. Little flow and right anterior posterior tibial arteries. Stents have been placed into the left superficial femoral artery. Mild multifocal plaque. Left popliteal artery patent. Portions of left anterior posterior tibial artery occluded. 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
--- NOTE | 2023-04-12 08:44 | RAD REPORT ---
EXAM DESCRIPTION: Benjamin Single View04/12/2023 8:38 am CLINICAL HISTORY: Chest pain COMPARISON: 2020 FINDINGS: Moderately hyperaerated lungs. The lungs appear clear of acute infiltrate. The heart is normal size IMPRESSION: No acute abnormalities displayed
[2023-04-12 09:03] LABS: White Blood Cell Scan OK (OK)
[2023-04-12 09:04] LABS: Blood Morphology Comment NOTED (NOT SEEN); Macrocytosis 1+; Platelet Estimate ADEQ
[2023-04-12] MEDS ORDERED: MORPHINE 4 MG/ML SYR ONE (11:10)
[2023-04-12] MEDS ORDERED: ONDANSETRON 4 MG/2 ML VIAL ONE (11:11)
[2023-04-12 11:56] LABS: SARS-CoV-2 Antigen Rapid Res Negative (Negative)
--- NOTE | 2023-04-12 12:15 | EDPHYS ---
Physician Documentation [facility] Name: Surinder Andrade Age: 67 yrs Sex: Male : 1955 Arrival Date: 04/12/2023 Time: 07:30 Bed 14 Private MD: ED Physician Ata Hernandez HPI: 04/12 08:31 This 67 yrs old Male presents to ER via Wheelchair with complaints of Numbness Of Arm, rt Dizziness. 08:31 Patient presents to the ED with about 36 hours of a right arm pain, numbness as well as rt a right leg pain, numbness, weakness. Patient states that it makes it difficult for him to walk. Patient states that the pain worsened when he was trying to walk. Denies facial pain, numbness. Denies other acute complaints at this time. Symptoms are moderate in severity, no other aggravating or alleviating factors.. Historical: - Allergies: 07:44 No Known Allergies; iw - Home Meds: 07:42 lisinopril 2.5 mg Oral tab 1 tab once daily [Active]; iw - PMHx: 07:42 Sanchez's Cyst - right knee; High Cholesterol; Hypertension; osteomyelitis; iw - PSHx: 07:42 bypass; Cholecystectomy; iw - Family history:: not pertinent. ROS: 08:31 Constitutional: Negative for fever, chills, and weight loss, Cardiovascular: Negative rt for chest pain, palpitations, and edema, Respiratory: Negative for shortness of breath, cough, wheezing, and pleuritic chest pain, Abdomen/GI: Negative for abdominal pain, nausea, vomiting, diarrhea, and constipation, Skin: Negative for injury, rash, and discoloration, Psych: Negative for depression, anxiety, suicide ideation, homicidal ideation, and hallucinations. 08:31 MS/extremity: Positive for decreased range of motion, pain. 08:31 Neuro: Positive for numbness, weakness. Exam: 08:31 Constitutional: This is a well developed, well nourished patient who is awake, alert, rt and in no acute distress. Head/Face: Normocephalic, atraumatic. Chest/axilla: Normal chest wall appearance and motion. Nontender with no deformity. No lesions are appreciated. Cardiovascular: Regular rate and rhythm with a normal S1 and S2. No gallops, murmurs, or rubs. Normal PMI, no JVD. No pulse deficits. Respiratory: Lungs have equal breath sounds bilaterally, clear to auscultation and percussion. No rales, rhonchi or wheezes noted. No increased work of breathing, no retractions or nasal flaring. Abdomen/GI: Soft, non-tender, with normal bowel sounds. No distension or tympany. No guarding or rebound. No evidence of tenderness throughout. Skin: Warm, dry with normal turgor. Normal color with no rashes, no lesions, and no evidence of cellulitis. Psych: Awake, alert, with orientation to person, place and time. Behavior, mood, and affect are within normal limits. 08:31 Eyes: Extraocular muscles intact, no visual field deficit. 08:31 ECG was reviewed by the Attending Physician. 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 No palpable pulses. 08:31 Neuro: Numbness with drift to the right lower extremity, strength and sensation intact to the other extremities, cranial nerves II through XII intact, speech normal.. Vital Signs: 07:39 BP 158 / 80; Pulse 81; Resp 16; Temp 97.5; Pulse Ox 97% on R/A; iw 08:36 BP 178 / 74; Pulse 61; Resp 17 S; Pulse Ox 98% on R/A; kc6 09:22 BP 160 / 80; Pulse 56; Resp 15 S; Pulse Ox 99% on R/A; kc6 10:07 BP 161 / 81; Pulse 59; Resp 19 S; Pulse Ox 100% on R/A; kc6 11:08 BP 169 / 69; Pulse 64; Resp 14 S; Pulse Ox 92% on R/A; kc6 11:59 Pulse 57; Resp 19 S; Pulse Ox 99% on R/A; kc6 13:26 Weight 67.5 kg (M); Height 5 ft. 10 in. (R); kc6 14:08 BP 134 / 67; Pulse 69; Resp 15 S; Pulse Ox 97% on 2 lpm NC; kc6 13:26 Body Mass Index 21.35 (67.50 kg, 177.8 cm) kc6 MDM: 07:47 Patient medically screened. rt 10:14 Differential diagnosis: CVA, paresthesia, peripheral arterial disease, claudication. rt Data reviewed: vital signs, nurses notes, lab test result(s), EKG, radiologic studies. Consideration of Admission/Observation Escalation of care including admission/observation considered. Due to occluded, symptomatic popliteal artery, patient requires transfer for vascular surgery, request transfer to [facility].. Independent interpretation of the following test(s) in the Emergency Department CT Scan: My interpretation is Occlusion seen on interpretation of the CT scan images. Care significantly affected by the following chronic conditions: PAD, hypertension-hyperlipidemia. Counseling: I had a detailed discussion with the patient and/or guardian regarding: the historical points, exam findings, and any diagnostic results supporting the discharge/admit diagnosis, lab results, radiology results, the need to transfer to another facility. ED course: After discussion with the patient, he is found to have an acute arterial occlusion of the popliteal artery, the bypasses to seem to be patent. Patient is reporting his symptoms that are worsening with walking, he has significantly diminished sensation distal to the knee. This is consistent with an acute arterial occlusion. Attempted to contact the patient's doctor who placed stents previously, was unable to do so, ever, the office states that he is only had ultrasounds done in the office. The patient requires transfer for higher level of care as well as evaluation by vascular surgeon.. 13:23 Management of patient was discussed with the following: Environmental Health Safety Engineer: Discussed with rt accepting physician at the [facility], recommends heparin drip, will accept patient transfer. 04/12 07:48 Order name: Basic Metabolic Panel; Complete Time: 08:56 rt 04/12 07:48 Order name: CBC with Diff; Complete Time: 09:05 rt 04/12 07:48 Order name: Hepatic Function; Complete Time: 08:56 rt 04/12 07:48 Order name: High Sensitivity Troponin; Complete Time: 08:56 rt 04/12 07:48 Order name: Magnesium; Complete Time: 08:56 rt 04/12 07:48 Order name: Protime (+inr); Complete Time: 08:56 rt 04/12 07:48 Order name: Ptt, Activated; Complete Time: 08:56 rt 04/12 08:17 Order name: CBC Smear Scan; Complete Time: 09:05 EDMS 04/12 11:00 Order name: SARS RAPID; Complete Time: 11:57 em1 04/12 07:48 Order name: Stroke CXR 1 View; Complete Time: 08:56 rt 04/12 07:52 Order name: Abdomen Angio; Complete Time: 08:56 EDMS 04/12 07:54 Order name: Pelvis Angio; Complete Time: 08:56 EDMS 04/12 07:54 Order name: Lower Ext Angio; Complete Time: 08:56 EDMS 04/12 07:56 Order name: Head Brain Wo Cont; Complete Time: 08:56 EDMS 04/12 07:48 Order name: EKG; Complete Time: 07:49 rt 04/12 07:48 Order name: Accucheck; Complete Time: 07:57 rt 04/12 07:48 Order name: Cardiac monitoring; Complete Time: 07:58 rt 04/12 07:48 Order name: EKG - Nurse/Tech; Complete Time: 07:57 rt 04/12 07:48 Order name: IV Saline Lock; Complete Time: 07:57 rt 04/12 07:48 Order name: Labs collected and sent; Complete Time: 07:57 rt 04/12 07:48 Order name: NPO; Complete Time: 07:57 rt 04/12 07:48 Order name: O2 Per Protocol; Complete Time: 07:58 rt 04/12 07:48 Order name: O2 Sat Monitoring; Complete Time: 07:58 rt 04/12 07:48 Order name: Stroke Swallow Screen; Complete Time: 07:58 rt EC:31 Rate is 61 beats/min. Rhythm is regular, Normal Sinus Rhythm with No ectopy. QRS Monument rt is Normal. NE interval is normal. QRS interval is normal. QT interval is normal. No Q waves. T waves are Normal. No ST changes noted. Interpreted by me. Administered Medications: 11:07 Drug: morphine IVP or IV 4 mg Route: IVP; Infused Over: 4 mins; Site: left antecubital; kc6 14:09 Follow up: Response: No adverse reaction; Pain is decreased; RASS: Alert and Calm (0) kc6 11:07 Drug: Ondansetron IVP 4 mg Route: IVP; Site: left antecubital; kc6 14:09 Follow up: Response: No adverse reaction 6 13:35 Drug: Heparin (DVT/PE- Bolus per protocol) - HEParin IVP 80 units/kg {Co-Signature: kcGareth iw (Shari Li RN).} Route: IVP; Site: left antecubital; 14:09 Follow up: Response: No adverse reaction kc6 13:37 Drug: Heparin (DVT/PE Drip) - ([place] [address] units, D5W IV 500 ml) 18 units/kg/hr iw {Co-Signature: kc6 (Shari Li RN).} Route: IV; Rate: calculated rate; Site: left antecubital; 14:38 Follow up: Response: No adverse reaction; IV Status: Infusion continued upon transfer kc6 Disposition Summary: 04/12/23 12:14 Transfer [facility] rt Reason: Patient request rt Condition: Stable rt Problem: new rt Symptoms: are unchanged rt Accepting Physician: (04/12/23 14:38) kc6 Diagnosis - Arterial occlusion of right popliteal artery rt Forms: - Medication Reconciliation Form rt - SBAR form rt Signatures: Dispatcher [employer] EDChristine Lima RN RN iw Shari Li RN RN kc6 Ata Hernandez MD MD rt Shari Li RN kc6 Corrections: (The following items were deleted from the chart) 07:51 07:49 Angio Aorta For Dissection+CT.RAD.BRZ ordered. EDMS EDMS 07:56 07:49 CT-STROKE BRAIN W/O CONTRAST+CT.RAD.BRZ ordered. EDMS EDMS 14:38 12:14 rt kc6
--- NOTE | 2023-04-12 12:15 | ER ---
Nurse's Notes [facility] Name: Surinder Andrade Age: 67 yrs Sex: Male : 1955 Arrival Date: 04/12/2023 Time: 07:30 Bed 14 Private MD: Diagnosis: Arterial occlusion of right popliteal artery Presentation: 04/12 07:39 Chief complaint: Patient states: pain and numbness in right side of neck radiating to iw right elbow, also has pain /numbness in right ankle up to right knee, started at around midnight, he couldn't sleep, also had a similar episode the night before. Coronavirus screen: At this time, the client does not indicate any symptoms associated with coronavirus-19. Ebola Screen: Patient negative for fever greater than or equal to 101.5 degrees Fahrenheit, and additional compatible Ebola Virus Disease symptoms Patient denies exposure to infectious person. Patient denies travel to an Ebola-affected area in the 21 days before illness onset. No symptoms or risks identified at this time. Initial Sepsis Screen: Does the patient meet any 2 criteria? No. Patient's initial sepsis screen is negative. Does the patient have a suspected source of infection? No. Patient's initial sepsis screen is negative. Risk Assessment: Do you want to hurt yourself or someone else? Patient reports no desire to harm self or others. Onset of symptoms was April 12, 2023. 07:39 Method Of Arrival: Wheelchair iw 07:39 Acuity: ANDREA 3 iw Historical: - Allergies: 07:44 No Known Allergies; iw - Home Meds: 07:42 lisinopril 2.5 mg Oral tab 1 tab once daily [Active]; iw - PMHx: 07:42 Sanchez's Cyst - right knee; High Cholesterol; Hypertension; osteomyelitis; iw - PSHx: 07:42 bypass; Cholecystectomy; iw - Family history:: not pertinent. Screenin:41 [facility] ED Fall Risk Assessment (Adult) History of falling in the last 3 months, kc6 including since admission No falls in past 3 months (0 pts) Confusion or Disorientation No (0 pts) Intoxicated or Sedated No (0 pts) Impaired Gait No (0 pts) Mobility Assist Device Used No (0 pt) Altered Elimination No (0 pt) Score/Fall Risk Level 0 - 2 = Low Risk Oriented to surroundings, Maintained a safe environment, Educated pt \T\ family on fall prevention, incl call for assistance when getting out of bed, Assessed \T\ reinforced patient's understanding of fall precautions, Hourly rounding (assess needs \T\ fall precautionary measures) done. Abuse screen: Denies threats or abuse. Denies injuries from another. Nutritional screening: No deficits noted. Tuberculosis screening: No symptoms or risk factors identified. Assessment: 07:59 General: Appears in no apparent distress. comfortable, Behavior is calm, cooperative, kc6 appropriate for age. Pain: Complains of pain in right arm and right leg Pain currently is 5 out of 10 on a pain scale. Quality of pain is described as tingling, numb, Pain began 1 day ago. Neuro: Wong Agitation-Sedation Scale (RASS): 0 - Alert and Calm Level of Consciousness is awake, alert, obeys commands, Oriented to person, place, time, situation, Appropriate for age [place] are weak on right Moves all extremities. Speech is normal, Facial symmetry appears normal, Pupils are PERRLA, Tingling in right arm and right leg Numbness in right arm and right leg Reports dizziness. Cardiovascular: Heart tones S1 S2 present Capillary refill < 3 seconds Rhythm is sinus rhythm. Respiratory: Airway is patent Trachea midline Respiratory effort is even, unlabored, Respiratory pattern is regular, symmetrical. GI: No signs and/or symptoms were reported involving the gastrointestinal system. : No signs and/or symptoms were reported regarding the genitourinary system. EENT: No signs and/or symptoms were reported regarding the EENT system. Derm: No signs and/or symptoms reported regarding the dermatologic system. Skin is intact, Skin is pink, warm \T\ dry. Musculoskeletal: No signs and/or symptoms reported regarding the musculoskeletal system. Circulation, motion, and sensation intact. Capillary refill < 3 seconds, Range of motion: intact in all extremities. 08:36 Reassessment: Patient appears in no apparent distress at this time. No changes from kc6 previously documented assessment. Patient and/or family updated on plan of care and expected duration. Pain level reassessed. Patient is alert, oriented x 3, equal unlabored respirations, skin warm/dry/pink. 09:22 Reassessment: Patient appears in no apparent distress at this time. No changes from kc6 previously documented assessment. Patient and/or family updated on plan of care and expected duration. Pain level reassessed. Patient is alert, oriented x 3, equal unlabored respirations, skin warm/dry/pink. 10:07 Reassessment: Patient appears in no apparent distress at this time. No changes from kc6 previously documented assessment. Patient and/or family updated on plan of care and expected duration. Pain level reassessed. Patient is alert, oriented x 3, equal unlabored respirations, skin warm/dry/pink. 10:54 Reassessment: Patient appears in no apparent distress at this time. No changes from kc6 previously documented assessment. Patient and/or family updated on plan of care and expected duration. Pain level reassessed. Patient is alert, oriented x 3, equal unlabored respirations, skin warm/dry/pink. 11:59 Reassessment: Patient appears in no apparent distress at this time. No changes from kc6 previously documented assessment. Patient and/or family updated on plan of care and expected duration. Pain level reassessed. Patient is alert, oriented x 3, equal unlabored respirations, skin warm/dry/pink. 13:59 Reassessment: Patient appears in no apparent distress at this time. No changes from kc6 previously documented assessment. Patient and/or family updated on plan of care and expected duration. Pain level reassessed. Patient is alert, oriented x 3, equal unlabored respirations, skin warm/dry/pink. Vital Signs: 07:39 BP 158 / 80; Pulse 81; Resp 16; Temp 97.5; Pulse Ox 97% on R/A; iw 08:36 BP 178 / 74; Pulse 61; Resp 17 S; Pulse Ox 98% on R/A; kc6 09:22 BP 160 / 80; Pulse 56; Resp 15 S; Pulse Ox 99% on R/A; kc6 10:07 BP 161 / 81; Pulse 59; Resp 19 S; Pulse Ox 100% on R/A; kc6 11:08 BP 169 / 69; Pulse 64; Resp 14 S; Pulse Ox 92% on R/A; kc6 11:59 Pulse 57; Resp 19 S; Pulse Ox 99% on R/A; kc6 13:26 Weight 67.5 kg (M); Height 5 ft. 10 in. (R); kc6 14:08 BP 134 / 67; Pulse 69; Resp 15 S; Pulse Ox 97% on 2 lpm NC; kc6 13:26 Body Mass Index 21.35 (67.50 kg, 177.8 cm) kc6 ED Course: 07:34 Patient arrived in ED. ts1 07:34 Ata Hernandez MD is Attending Physician. rt 07:40 Shari Li, RN is Primary Nurse. kc6 07:41 Triage completed. iw 07:41 Arm band placed on. iw 07:42 Patient has correct armband on for positive identification. Bed in low position. Call kc6 light in reach. Side rails up X 1. 07:58 Inserted saline lock: 20 gauge in left antecubital area, using aseptic technique. Blood kc6 collected. 08:07 Head Brain Wo Cont In Process Unspecified. EDMS 08:11 Abdomen Angio In Process Unspecified. EDMS 08:11 Pelvis Angio In Process Unspecified. EDMS 08:11 Lower Ext Angio In Process Unspecified. EDMS 08:40 Stroke CXR 1 View In Process Unspecified. EDMS 10:10 Transfer initiated with [place] transfer center; clinical information faxed to [phone]. em1 14:37 No provider procedures requiring assistance completed. Patient transferred, IV remains kc6 in place. Administered Medications: 11:07 Drug: morphine IVP or IV 4 mg Route: IVP; Infused Over: 4 mins; Site: left antecubital; kc6 14:09 Follow up: Response: No adverse reaction; Pain is decreased; RASS: Alert and Calm (0) kc6 11:07 Drug: Ondansetron IVP 4 mg Route: IVP; Site: left antecubital; kc6 14:09 Follow up: Response: No adverse reaction kc6 13:35 Drug: Heparin (DVT/PE- Bolus per protocol) - HEParin IVP 80 units/kg {Co-Signature: kc6 iw (Shari Li RN).} Route: IVP; Site: left antecubital; 14:09 Follow up: Response: No adverse reaction kc6 13:37 Drug: Heparin (DVT/PE Drip) - ([place] [address] units, D5W IV 500 ml) 18 units/kg/hr iw {Co-Signature: kc6 (Shari Li RN).} Route: IV; Rate: calculated rate; Site: left antecubital; 14:38 Follow up: Response: No adverse reaction; IV Status: Infusion continued upon transfer kc6 Medication: 14:38 VIS not applicable for this client. kc6 Output: 10:58 Urine: 575ml (Voided); Total: 575ml. kc6 Outcome: 12:14 ER care complete, transfer ordered by . rt 14:38 Transferred by ground EMS to [facility] Transfer form completed. kc6 Note: report called to SUKHWINDER Pringle 14:38 Condition: stable 14:38 Patient left the ED. kc6 Signatures: Dispatcher [employer] EDChristine Lima RN RN iw Martinez, Eric emShari Bender RN RN kc6 Ata Hernandez MD MD rt Eleni Marques, PAS PAS ts1 Shari Li RN kc6 Corrections: (The following items were deleted from the chart) 10:07 10:07 BP 161 / 71; Pulse 59bpm; Resp 19bpm; Spontaneous; Pulse Ox 100% RA; kc6 kc6
[2023-04-12] MEDS ORDERED: HEPARIN/D5W 25,000 UNIT/500 ML BAG IV ONE (13:40)
[2023-04-12] MEDS ORDERED: HEPARIN 5000 UNIT/ML 1 ML VIAL ONE (13:40)
[2023-04-12 14:43] VITALS: TEMP 97.5
[2023-04-12 14:54] VITALS: BP 134/67; O2SAT 97
--- NOTE | 2023-04-12 18:08 | EKG ---
Test Date: 2023-04-12 Test Time: 07:49:19 Engineering Operations Leader: MICAELA MEASUREMENT RESULTS: Intervals: Rate: 61 MI: 144 QRSD: 80 QT: 438 QTc: 440 Sealy: P: 69 MI: 144 QRS: 74 T: 74 INTERPRETIVE STATEMENTS: Normal sinus rhythm Normal ECG Compared to ECG 02/02/2022 10:04:26 Myocardial infarct finding no longer present Electronically Signed On 04-12-23 18:07:05 CDT by Lele Camilo
== END 2023-04-12 14:38 ==
LOC: ER 07:30
DX: I70.8 Atherosclerosis of other arteries (principal); I10 Essential (primary) hypertension; Z20.822 Contact with and (suspected) exposure to COVID-19; Z95.1 Presence of aortocoronary bypass graft
CPT/HCPCS: 93005; 85025; 80048; 36415; 83735; 85610; 80076; 85730; 84484; 70450; 73706; 72191; 74175; 71045; 87811; Q9967; J1644; J2405; 96365; 96375; 99285

== ENCOUNTER 2023-05-20 13:19 | Inpatient (IN) | payer BC, OTHER ==
--- OUTSIDE RECORDS SUMMARY | 2023-05-20 13:24 | XMS REPORT | Continuity of Care Document ---
:1955 Author Organization [facility] t Address [address] 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 00:00: Ho spita vascular [...] Comments Source History of tobacco Cigarette Sm[facility] Alcohol intake 2022-08-29 2022-08-29 Current drinker [facility] 00:00:00 00:00:00 of alcohol Hospital (finding) History of Social 2022-08-29 2022-08-[address] function 00:00:00 00:00:00 Hospital Tobacco use and 2022-02-03 2022-02-03 Smokeless [facility] 00:[facility]:00 00:00:00 tobacco non-user Hospital Sex Assigned At [birth year] [facility] Smoking Status Start Date Stop Date Source Smokes tobacco daily 2022-02-03 00:00:00 [facility] Medications Ordered Filled Start Stop Current Ordering Indication Dosage Frequency Signature Comments Components Source Medication Medication Date Date Medication? Clinician (SIG) Name Name gabapentin 2021-10- No 300mg Q.[id number] Take 1 [facility] (NEURONTIN) 10-[id number] 300 mg 00:00: 05:59 3D (300 mg Hospita capsule 00 :00 total) by l mouth 3 (three) times a day. gabapentin 2021-10 No 300mg Q.[id number] Take 1 [facility] (NEURONTIN) 10-[id number] 300 mg 00:00: 05:59 3D (300 mg Hospita capsule 00 :00 total) by l mouth 3 (three) times a day. gabapentin 2021-10- No 300mg Q.[id number] Take 1 [facility] (NEURONTIN) 10-[id number] 300 mg 00:00: 05:59 3D (300 mg Hospita capsule 00 :00 total) by l mouth 3 (three) times a day. gabapentin 2022- No [id number] 300mg Q.[id number] Take 1 [facility] (NEURONTIN) 07-[id number] 300 mg 00:00: 04:59 3D (300 mg Hospita capsule 00 :00 total) by l mouth 3 (three) times a day. gabapentin 2021-2022- No [id number] 300mg Q.[id number] Take 1 [facility] (NEURONTIN) 07-[id number] 300 mg 00:00: 04:59 3D (300 mg Hospita capsule 00 :00 total) by l mouth 3 (three) times a day. gabapentin 2021-2022- No [id number] 300mg Q.[id number] Take 1 [facility] (NEURONTIN) 07-[id number] 300 mg 00:00: 04:59 3D (300 mg Hospita capsule 00 :00 total) by l mouth 3 (three) times a day. Eliquis 5 202-0 Yes 5mg Q.5D Take 1 Method i mg tablet 8-05 tablet (5 st 00:00: mg total) Hospita 00 by mouth 2 l (two) times a day. atorvastati 2022-0 Yes 40mg QD Take 1 Meth analisa n (LIPITOR) 8-05 tablet (40 st 40 mg 00:00: mg total) Hospita tablet 00 by mouth l daily. Eliquis 5 2-0 Yes 5mg Q.5D Take 1 Method i mg tablet 8-05 tablet (5 st 00:00: mg total) Hospita 00 by mouth 2 l (two) times a day. atorvastati 2022-0 Yes 40mg QD Take 1 Meth analisa n (LIPITOR) 8-05 tablet (40 st 40 mg 00:00: mg total) Hospita tablet 00 by mouth l daily. Eliquis 5 2022-0 Yes 5mg Q.5D Take 1 Method i mg tablet 8-05 tablet (5 st 00:00: mg total) Hospita 00 by mouth 2 l (two) times a day. atorvastati 2022-0 Yes 40mg QD Take 1 Meth analisa n (LIPITOR) 8-05 tablet (40 st 40 mg 00:00: mg total) Hospita tablet 00 by mouth l daily. apixaban 2021-0 2022- No 5mg Q.5D Take 1 Method i (ELIQUIS) 5 02-12-31 tablet (5 st mg tablet 00:00: 04:59 mg total) Ho spita 00 :00 by mouth 2 l (two) times a day for 30 days. clopidogreL 2021- No 75mg QD Take 75 mg [facility] (PLAVIX) 75 02-07-[address] mg tablet 13:19: 00:00 [...] 10mg QD Take 1 Meth analisa (PRINIVIL) 02-07 05-26 tablet (10 st 10 mg 00:00: [...] 650mg Q4H Take 2 Me thodi en - 05-[address] (TYLENOL) 00:00: 04:59 (650 mg Hosp trinh 325 MG 00 :00 total) by l tablet mouth every 4 (four) hours for 30 days. atorvastati 2021- No 40mg QD Take 1 Met hodi n (Lipitor) 02-06 05-25 tablet (40 s t 40 mg 00:00: 04:59 mg total) Hospit a tablet 00 :00 by mouth l daily for 30 days. HYDROcodone 2021- No [id number] 1{tbl} Q6H Take 1 Methodi -acetaminop 424 05-[address] hen (NORCO) 00:00: 04:59 mouth Hosp trinh 10-325 mg 00 :00 every 6 l per tablet (six) hours as needed for severe pain for up to 10 days .acute pain. Max Daily Amount: 4 tablets apixaban 2021- No 10mg Q.5D Take 2 Method i (ELIQUIS) 5 24 04-[address] mg tablet 00:00: 04:59 (10 mg Hospi ta 00 :00 total) by l mouth 2 (two) times a day for 5 days. LISINOPRIL, Yes Method i BULK, MISC 3 st 00:00: Hospita 00 l LISINOPRIL, Yes Method i BULK, MISC 3 st 00:00: Hospita 00 l LISINOPRIL, Yes Method i BULK, MISC 3- st 00:00: Hospita 00 l clopidogreL 2021- No 75mg QD Take 1 Met hodi (PLAVIX) 75 05-28 tablet (75 s t mg tablet 00:00: 00:00 mg total) Ho spita 00 :00 by mouth l daily. clopidogreL No 75mg QD Take 1 Met hodi (PLAVIX) 75 05-28-23 tablet (75 s t mg tablet 00:00: 00:00 mg total) Ho spita 00 :00 by mouth l daily. clopidogreL 2021- No 75mg QD Take 1 Met hodi (PLAVIX) 75 05-28-23 tablet (75 s t mg tablet 00:00: 00:00 mg total) Ho spita 00 :00 by mouth l daily. Vital Signs Vital Name Observation Time Observation Value Comments Source Body height 2022-08-29 14:49:00 177.8 cm [facility] Body weight 2022-08-29 14:49:00 68.947 kg [facility] BMI 2022-08-29 14:49:00 21.81 kg/m2 [facility] Systolic blood 2022-03-10 18:05:00 166 mm[Hg] [facility] pressure Diastolic blood 2022-03-10 18:05:00 76 mm[Hg] [facility] pressure Heart rate 2022-03-10 18:05:00 72 /min [facility] Body temperature 2022-03-10 18:05:[address] [facility] Oxygen saturation in 2022-03-10 18:05:00 99 /min [facility] Arterial blood by Pulse oximetry Respiratory rate 2022-02-06 13:40:00 18 /min [facility] Procedures Procedure Date / Time Performing Clinician Source Performed XR LUMBAR SPINE COMPLETE 2022-07-04 13:42:10 Aakash Meraz [facility] 4+ VW Andry US DUPLEX ARTERIAL LOWER 2022-03-10 17:58:59 Christopher [facility] EXTREMITY RIGHT US ANKLE BRACHIAL INDEX 2022-03-10 17:58:46 Christopher [facility] HEPATIC FUNCTION PANEL 2022-02-06 14:52:00 Crow Feliciano [facility] XR CHEST 1 VW PORTABLE 2022-02-06 12:11:00 [facility] ECG 12-LEAD 2022-02-06 08:58:19 [facility] ospital [place] ECG 12-LEAD 2022-02-05 18:06:25 [facility]IN 2022-02-05 16:37:00 Javier Bingham [facility] TIME (PTT) XR CHEST 1 VW PORTABLE 2022-02-05 10:20:00 [facility] [place] CBC WITH PLATELET AND 2022-02-05 08:58:00 [facility] DIFFERENTIAL [place] BASIC METABOLIC PANEL 2022-02-05 08:58:00 [facility] [place] PARTIAL THROMBOPLASTIN 2022-02-05 08:58:00 Minesh Patel [facility] TIME (PTT) ESTIMATED GFR 2022-02-05 08:58:00 Otilia, Javier [facility] PROTHROMBIN TIME WITH INR 2022-02-04 21:48:00 [facility] PARTIAL THROMBOPLASTIN 2022-02-04 21:48:00 Javier Bingham [facility] TIME (PTT) CBC WITH PLATELET AND 2022-02-04 19:24:00 [facility] DIFFERENTIAL [place] BASIC METABOLIC PANEL 2022-02-04 19:24:00 [facility] Tre[place] ESTIMATED GFR 2022-02-04 19:24:00 Javier Bingham [facility] ACTIVATED CLOTTING TIME 2022-02-04 17:37:00 [facility] ACTIVATED CLOTTING TIME 2022-02-04 17:03:00 [facility] ACTIVATED CLOTTING TIME 2022-02-04 15:49:00 [facility] MO AN ELECTIVE 2022-02-04 15:34:00 [facility] SUPRAG[facility] AIRWAY ARTERIOGRAM WITH 2022-02-04 15:18:00 Javier Bingham Blum [facility] ANGIOPLASTY, IF INDICATED FIBRINOGEN 2022-02-04 12:56:00 Shireen Hilario Ho spital CBC HEMOGRAM 2022-02-04 12:56:00 Shireen Hilario [facility]ital POC GLUCOSE 2022-02-04 09:58:00 [facility] FIBRINOGEN 2022-02-04 08:52:00 Shireen Hilario Ho spital CBC HEMOGRAM 2022-02-04 08:52:00 Shireen Hilario spital PARTIAL THROMBOPLASTIN 2022-02-04 08:52:00 Shireen Hilario [facility] TIME (PTT) ARTERIAL BLOOD GAS 2022-02-04 08:52:00 [facility] XR CHEST 1 VW PORTABLE 2022-02-04 06:03:00 Josiane Moise [facility] Leann POC GLUCOSE 2022-02-04 05:32:00 [facility] CBC WITH PLATELET AND 2022-02-04 05:31:00 [facility] DIFFERENTIAL [place] BASIC METABOLIC PANEL 2022-02-04 05:31:00 JefferyTrev [facility] [place] FIBRINOGEN 2022-02-04 05:31:00 Shireen Hilariotal ESTIMATED GFR 2022-02-04 05:31:00 [facility] ECG PRE/POST OP 2022-02-04 05:02:18 Josiane Moise [facility] Leann ACTIVATED CLOTTING TIME 2022-02-04 03:21:00 [facility] ACTIVATED CLOTTING TIME 2022-02-04 03:09:00 [facility] ACTIVATED CLOTTING TIME 2022-02-04 02:53:00 [facility] ARTERIAL BLOOD GAS, 2022-02-04 02:28:00 [facility] CORRECTED SODIUM LEVEL, SYRINGE 2022-02-04 02:28:00 [facility] POTASSIUM, SYRINGE 2022-02-04 02:28:00 [facility] HEMOGLOBIN, SYRINGE 2022-02-04 02:28:00 [facility] IONIZED CALCIUM, ARTERIAL 2022-02-04 02:28:00 [facility] GLUCOSE LEVEL, SYRINGE 2022-02-04 02:28:00 [facility] POC ARTERIAL BLOOD GAS, 2022-02-04 02:24:00 [facility] CORRECTED AND LYTES ACTIVATED CLOTTING TIME 2022-02-04 02:23:00 [facility] ARTERIAL LINE 2022-02-04 01:38:08 [facility] MO AN ELECTIVE 2022-02-04 01:35:00 [facility] ENDOTRACHEAL AIRWAY LOWER EXTREMITY 2022-02-04 01:12:00 Ashley White ANGIOGRAM,POSSIBLE ANGIOPLASTY,POSSIBLE STENT ANTI XA, UNFRACTIONATED 2022-02-03 17:56:00 [facility] ABO AND RH CONFIRMATION 2022-02-03 14:45:00 [facility] BY PROTOCOL US ANKLE BRACHIAL INDEX 2022-02-03 13:23:43 [facility] CBC WITH PLATELET AND 2022-02-03 10:08:00 [facility] DIFFERENTIAL [place] BASIC METABOLIC PANEL 2022-02-03 10:08:00 [facility] [place] LIPID PANEL 2022-02-03 10:08:00 [facility] ANTI XA, UNFRACTIONATED 2022-02-03 10:08:00 [facility] ESTIMATED GFR 2022-02-03 10:08:00 [facility] COVID-19 QUALITATIVE 2022-02-03 04:54:00 [facility] RT-PCR Michelle BASIC METABOLIC PANEL 2022-02-03 04:54:00 [facility] Michelle CBC WITH PLATELET AND 2022-02-03 04:54:00 [facility] DIFFERENTIAL [facility] PROTHROMBIN TIME WITH INR 2022-02-03 04:54:00 [facility] PARTIAL THROMBOPLASTIN 2022-02-03 04:54:00 [facility] TIME (PTT) Michelle ESTIMATED GFR 2022-02-03 04:54:00 [facility] US DUPLEX ARTERIAL LOWER 2022-02-03 03:00:21 [facility] EXTREMITY BILATERAL CT ANGIOGRAM ABDOMINAL 2022-02-03 02:41:10 [facility] AORTA AND BILATERAL ILIOFEMORAL RUNOFF W WO CONTRAST ZZCOVID-19 ANTI-SPIKE IGG 2022-02-02 23:47:00 [facility] ANTIBODY TITER ZZCOVID-19 SEROLOGY 2022-02-02 23:47:00 [facility] PATIENT SURVEILLANCE HEMOGLOBIN A1C 2022-02-02 23:47:00 [facility] THYROID STIMULATING 2022-02-02 23:47:00 [facility] HORMONE T4, FREE 2022-02-02 23:47:00 [facility] PARTIAL THROMBOPLASTIN 2022-02-02 23:47:00 [facility]TT[facility] PROTHROMBIN TIME WITH INR 2022-02-02 23:47:00 Minesh Patel [facility] ANTI XA, UNFRACTIONATED 2022-02-02 23:47:00 [facility] BASIC METABOLIC PANEL 2022-02-02 23:47:00 Minesh Patel [facility] ESTIMATED GFR 2022-02-02 23:47:00 RenéMinesh [facility] TYPE AND SCREEN 2022-02-02 23:45:00 [facility] ECG 12-LEAD 2022-02-02 23:41:03 [facility] NON VASCULAR EXTERNAL 2022-02-02 13:53:00 [facility] STUDY NON VASCULAR EXTERNAL 2022-02-02 13:01:00 [facility] STUDY Plan of Care Planned Activity Planned Date Details Comments Source Future Scheduled 2023-05-18 Screening for [facility] Test 17:48:50 malignant neoplasm of colon (procedure) [code = 314306465] Future Scheduled 2023-05-18 Screening for [facility] Test 17:48:50 malignant neoplasm of colon (procedure) [code = 721359355] Future Scheduled 2023-05-18 Hepatitis C screening [facility] Test 17:48:50 (procedure) [code = 956667556] Future Scheduled 2023-05-18 Screening for [facility] Test 17:48:50 malignant neoplasm of colon (procedure) [code = 463874511] Future Scheduled 2023-05-18 SHINGLES VACCINES (1 [facility] Test 17:48:50 of 2) [code = SHINGLES VACCINES (1 of 2)] Future Scheduled 2023-05-18 65+ PNEUMOCOCCAL [facility] Test 17:48:50 VACCINE (2 - PCV) [code = 65+ PNEUMOCOCCAL VACCINE (2 - PCV)] Future Scheduled 2023-05-18 COVID-19 VACCINE (3 - [facility] Test 17:48:50 Moderna series) [code = COVID-19 VACCINE (3 - Moderna series)] Future Scheduled 2023-05-18 Screening for [facility] Test 17:48:50 malignant neoplasm of colon (procedure) [code = 358764746] Future Scheduled 2023-05-18 [facility] Test 17:48:50 malignant neoplasm of colon (procedure) [code = 032185591] Future Scheduled 2023-05-18 INFLUENZA VACCINE [facility] Test 17:48:50 [code = INFLUENZA VACCINE] Future Scheduled 2023-03-30 [facility] Test 17:42:15 malignant neoplasm of colon (procedure) [code = 679420344] Future Scheduled 2023-03-30 [facility] Test 17:42:15 malignant neoplasm of colon (procedure) [code = 599343991] Future Scheduled 2023-03-30 Hepatitis C screening [facility] Test 17:42:15 (procedure) [code = 693515670] Future Scheduled 2023-03-30 SHINGLES VACCINES (1 Met [facility] Test 17:42:15 of 2) [code = SHINGLES VACCINES (1 of 2)] Future Scheduled 2023-03-30 65+ [facility]CCAL [facility] 17:42:15 VACCINE (2 - PCV) [code = 65+ PNEUMOCOCCAL VACCINE (2 - PCV)] Future Scheduled 2023-03-30 COVID-19 VACCINE (3 - [facility] Test 17:42:15 Moderna series) [code = COVID-19 VACCINE (3 - Moderna series)] Future Scheduled 2023-03-30 INFLUENZA VACCINE [facility] Test 17:42:15 [code = INFLUENZA VACCINE] Future Scheduled 2023-03-30 [facility] Test 17:42:15 malignant neoplasm of colon (procedure) [code = 564129409] Future Scheduled 2023-03-30 [facility] Test 17:42:15 malignant neoplasm of colon (procedure) [code = 486809502] Future Scheduled 2023-03-30 [facility] Test 17:42:15 malignant neoplasm of colon (procedure) [code = 188931931] Future Scheduled 2022-11-30 Hepatitis C screening [facility] Test 14:58:53 (procedure) [code = 285538011] Future Scheduled 2022-11-30 SHINGLES VACCINES (1 Met [facility] Test 14:58:53 of 2) [code = SHINGLES VACCINES (1 of 2)] Future Scheduled 2022-11-[address] [facility] Test 14:58:53 [code = COLONOSCOPY SCREENING] Future Scheduled 2022-11-30 65+ PNEUMOCOCCAL [facility] Test 14:58:53 VACCINE (2 - PCV) [code = 65+ PNEUMOCOCCAL VACCINE (2 - PCV)] Future Scheduled 2022-11-30 COVID-19 VACCINE (3 - [facility] Test 14:58:53 Booster for Moderna series) [code = COVID-19 VACCINE (3 - Booster for Moderna series)] Future Scheduled 2022-11-30 INFLUENZA VACCINE [facility] Test 14:58:53 [code = INFLUENZA VACCINE] Encounters Start End Encounter Admission Attending Care Care Encounter Source Date/Time Date/Time Type Type Clinicians Facility Department ID 2022-08-30 2022-08-30 Telephone Elizabeth, 1.2.840.1 [id number] [facility] 00:00:00 00:00:[address] Andry 3.430.2.7 Hospit a .3.994397 l .8 2022-08-30 2022-08-30 Telephone Elizabeth, 1.2.840.1 [id number] [facility] 00:00:00 00:00:[address] Andry 3.430.2.7 Hospit a .3.955345 l .8 2022-08-29 2022-08-29 Office Elizabeth, 1.2.840.1 [id number] [facility] 09:00:00 09:07:13 Visit Aakash 27630.1.[address] Andry 3.430.2.7 Hospit a .3.953348 l .8 2022-08-29 2022-08-29 Office Elizabeth, 1.2.840.1 [id number] [facility] 09:00:00 09:07:13 Visit Aakash 67377.1.[address] Andry 3.430.2.7 Hospit a .3.844286 l .8 2022-08-29 2022-08-29 Travel 1.2.840.1 1.2.388.079 [id number] [facility] 00:00:00 00:00:[address] 3.430.2.7 0.2.7.3.698 Ho spita .3.637165 084.8 l .8 2022-08-29 2022-08-29 Travel 1.2.840.1 1.2.763.982 [id number] [facility] 00:00:00 00:00:[address] 3.430.2.7 0.2.7.3.698 Ho spita .3.956542 084.8 l .8 2022-07-21 2022-07-21 Telephone Ratzn, 1.2.840.1 [id number] [facility] 00:00:00 00:00:[address] Andry 3.430.2.7 Hospit a .3.944434 l .8 2022-07-21 2022-07-21 Telephone Ratmeghan, 1.2.840.1 [id number] [facility] 00:00:00 00:00:[address] Andry 3.430.2.7 Hospit a .3.727791 l .8 2022-07-04 2022-07-04 Office Ratzntara, 1.2.840.1 [id number] Methodi 08:30:00 09:28:12 Visit Aakash 83417.1.[address] Andry 3.430.2.7 Hospit a .3.502225 l .8 2022-07-04 2022-07-04 Office Ratuszn, 1.2.840.1 [id number] Methodi 08:30:00 09:28:12 Visit Aakash 59749.1.[address] Andry 3.430.2.7 Hospit a .3.556545 l .8 2022-07-04 2022-07-04 Travel 1.2.840.1 1.2.335.532 [id number] [facility] 00:00:00 00:00:[address] 3.430.2.7 0.2.7.3.698 Ho spita .3.904476 084.8 l .8 2022-07-04 2022-07-04 [facility] ELIZABETH, [facility] [id number] [place] 00:00:00 00:00:00 AAKASH [address] 2022-07-04 2022-07-04 Travel 1.2.840.1 1.2.790.454 [id number] [facility] 00:00:00 00:00:[address] 3.430.2.7 0.2.7.3.698 Ho spita .3.312386 084.8 l .8 2022-06-27 2022-06-27 [facility], 1.2.840.1 [id number] Methodi 08:56:46 23:59:00 Encounter Aakash 21638.1.[address] [place]ry 3.430.2.7 Hospit a .3.076997 l .8 2022-06-27 2022-06-27 [facility], 1.2.840.1 [id number] 21 [id number] Methodi 08:56:46 23:59:00 Encounter Aakash 04751.1.[address] [facility]ry 3.430.2.7 Hospit a .3.108496 l .8 2022-06-27 2022-06-27 [facility], 1.2.840.1 [id number] 21 [id number] Methodi 08:34:05 08:55:00 Encounter Aakash 87377.1.[address] [facility] 3.430.2.7 Hospit a .3.560636 l .8 2022-06-27 2022-06-27 [facility], 1.2.840.1 [id number] 21 [id number] Methodi 08:34:05 08:55:00 Encounter Aakash 67734.1.[address] [facility] 3.430.2.7 Hospit a .3.425950 l .8 2022-06-27 2022-06-27 [facility] Elizabeth, 1.2.840.1 [id number] Methodi 08:33:56 08:33:56 Encounter Aakash 94815.1.[address] [place] 3.430.2.7 Hospit a .3.506223 l .8 2022-06-27 2022-06-27 [facility] Elizabeth, 1.2.840.1 [id number] 21 [id number] Methodi 08:33:56 08:33:56 Encounter Aakash 34933.1.[address] [facility] 3.430.2.7 Hospit a .3.682423 l .8 2022-06-27 2022-06-27 [facility] Elizabeth, 1.2.840.1 [id number] Methodi 00:00:00 00:00:00 Only Aakash 89308.1.[address] [facility] 3.430.2.7 Hospit a .3.553911 l .8 2022-06-27 2022-06-27 Outpatient [facility] 993 [id number] [place] 00:00:00 00:00:[address] NILA [address] 2022-06-27 2022-06-27 [facility] Elizabeth, 1.2.840.1 [id number] Method[facility] 00:00:00 00:00:00 Only Aakash 24657.1.[address] [place]ry 3.430.2.7 Hospit a .3.445418 l .8 2022-03-10 2022-03-10 Office Ashley White 1.2.840.1 [id number] 21 [id number] Methodi 13:50:00 14:41:[address] 3.430.2.7 Hospit a .3.930769 l .8 2022-03-10 2022-03-10 Travel 1.2.840.1 1.2.793.655 7689 [id number] [facility] 00:00:00 00:00:[address] 3.430.2.7 0.2.7.3.698 Ho spita .3.993136 084.8 l .8 2022-03-10 2022-03-10 Outpatient ASHLEY WHITE [facility] [id number] [place] 00:00:00 00:00:[address] 2022-03-10 2022-03-10 Outpatient ASHLEY WHITE [facility] 176 [id number] [place] 00:00:00 00:00:[address] 2022-02-07 2022-02-07 Telephone Samantha, 1.2.840.1 [id number] Method[facility] 00:00:00 00:00:[address] 3.430.2.7 Hospit a .3.722265 l .8 2022-02-02 2022-02-06 [facility], 1.2.840.1 [id number] Methodi 16:53:00 13:19:00 Encounter Minesh Sorto 71362.1.[address] 3.430.2.7 Hospit a .3.045955 l .8 2022-02-04 2022-02-04 Anesthesia Bony Jarrett 1.2.840.1 [id number] Method[facility] 10:19:00 13:09:00 Event JarretRamon sexton 05679.1.[address] 3.430.2.7 Hospit a .3.891558 l .8 2022-02-04 2022-02-04 Surgery [facility], 1.2.840.1 [id number] Methodi 10:15:00 12:40:00 Javier Blum 81264.1.[address] 3.430.2.7 Hospit a .3.632250 l .8 2022-02-03 2022-02-04 Surgery Ashley White 1.2.840.1 [id number] Methodi 20:00:00 01:15:[address] 3.430.2.7 Hospit a .3.235570 l .8 2022-02-03 2022-02-03 Anesthesia Ceci Sood 1.2.840.1 [id number] Methodi 20:13:00 23:33:00 Event Briana Giron 62566.1.[address] 3.430.2.7 Hospit a .3.533988 l .8 Results Test Description Test Time Test Comments Results Result Comments Source ECG 12 lead 2022-02-06 16:02:26 Test Item Value Reference Range Interpretation Comme nts Ventricular rate (test code = 253) 60 Atrial rate (test code = 255) 60 MO interval (test code = 266) 158 QRSD [...] of 05-FEB-2022 13:06,-No significant change was found[facility] [id number] 17:42:00 Test Item Value Reference Range Interpretation Comments Activated clotting time 114 See_Comment Oper ator Name: Kolby (test code = 5298) BonyKashluz maria ce ID: [id number] [Automated mess age] The system which ge nerated this result tra nsmitted reference range : 96 - 152 sec. The refere nce range was not used to interpret this result as normal/abnormal . [facility]Post [id number] 14:24:33 Test Item Value Reference Range Interpretation Comments Ventricular rate (test 88 code = 253) Atrial rate (test code = 88 255) MO interval (test code = 132 266) QRSD interval (test code 62 = 260) QT interval (test code = 360 264) QTC interval (test code = 435 265) P axis 1 (test code = 49 267) QRS axis 1 (test code = 60 268) T wave axis (test code = 52 270) EKG impression (test code Normal sinus = 273) rhythm-Normal ECG- [facility] [id number] 10:01:00 Test Item Value Reference Range Interpretation Comments POC glucose (test code 113 mg/dL 65-99 H Opera veronica Name: Sagar = [id number]) Jailyn ID : [id number] able: [facility] 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 The reference r massimo was not used to interpret this result as normal/abnor mal. pO2, arterial (test code 243 See_Comment H [A utomated message] = 2703-7) The system [employer] generated this result transmitted ref erence range: 80 - 90 mmHg. The reference r massimo was not used to interpret this result as normal/abnor mal. Temperature, Celsius 37.0 Degrees C (test code = 8310-5) O2 saturation, arterial 100 % 95-100 (test code = 2708-6) pH, arterial corrected 7.32 (test code = 73572-8) pCO2, arterial corrected 33 mmHg (test code = 49868-2) pO2, arterial corrected 243 mmHg (test code = 47402-9) Base excess, arterial -8 See_Comment L [Auto mated message] (test code = 1925-7) The [facility] tem which generated this result transmitted ref erence range: -2 - 2 m Eq/L. The reference r massimo was not used to interpret this result as normal/abnor mal. Lab Interpretation (test Abnormal code = 03311-6) [facility], [id number] 02:35:00 Test Item Value Reference Range Interpretation Comments Glucose, syringe (test code = 76 mg/dL 65-99 2345-7) [facility] [id number] 02:35:00 Test Item Value Reference Range Interpretation Comments Hemoglobin, syringe (test code = 11.6 g/dL 14.0-18.0 L 718-7) Lab Interpretation (test code = Abnormal 01902-2) [facility] calcium, [id number] 02:35:00 Test Item Value Reference Range Interpretation Comments Ionized calcium, arterial (test 1.74 mmol/L 1.11-1.32 HH code = 39580-4) Lab Interpretation (test code = Abnormal 34808-4) [facility], [id number] 02:35:00 Test Item Value Reference Range Interpretation Comments Potassium, syringe (test 2.6 See_Comment LL [A utomated message] code = 2007) The system ic h generated this result transmitted ref erence range: 3.5 - 5. 0 mEq/L. The refe rence range was not u sed to interpret this result as normal/abnor mal. Lab Interpretation (test Abnormal code = 16366-1) [facility] level, [id number] 02:35:00 Test Item Value Reference Range Interpretation Comments Sodium, syringe (test 137 See_Comment [Auto mated message] The code = 2947-0) system which generated this result tra nsmitted reference range : 135 - 148 mEq/L. The refe rence range was not used to interpret this result as normal/abnormal . [facility] arterial blood gas, corrected and [id number] 02:24:00 Test Item Value Reference Range Interpretation [...] pH, arterial corrected 7.32 (test code = 14600-0) pCO2, arterial 37 mmHg corrected (test code = 71430-2) pO2, arterial corrected 295 mmHg Oper ator ID: (test code = 59787-4) Ekta Kovacs ID: [id number] Base excess, arterial -7 See_Comment L [Auto [...] mmol/L 1.11-1.32 L arterial (test code = 15878-7) Glucose, syringe (test 73 mg/dL 65-99 code = 2345-7) Lactic acid, syringe 0.9 mmol/L 0.5-2.2 (test code = 33619-1) Lab Interpretation Abnormal (test code = 05511-1) Lianne BalbuenaARS-CoV-2 (COVID-19) RNA [Presence] in Respiratory specimen by DERRELL with probe [id number] 04:00:10 Test Item Value Reference Range Interpretation Comments SARS-CoV-2 (COVID-19) RNA Not detected [Presence] in Respiratory specimen by DERRELL with probe detection (test code = 10949-0) Whether patient is employed in a Unknown healthcare setting (test code = 05037-5) Whether the patient has symptoms Unknown related to condition of interest (test code = 91333-5) Whether the patient was Unknown hospitalized for condition of interest (test code = 12043-6) Whether the patient was admitted Unknown to intensive care unit (ICU) for condition of interest (test code = 52214-0) Whether patient resides in a Unknown congregate care setting (test code = 58178-7) status (test code = Unknown 67952-8) Date and time of symptom onset Unknown (test code = 48445-2) [employer]
--- NOTE | 2023-05-20 13:47 | RAD REPORT ---
EXAM DESCRIPTION: RAD - Foot Right 3 View - 05/20/2023 1:34 pm CLINICAL HISTORY: r/o osteomyelitis Pain and swelling COMPARISON: <Comparisons> FINDINGS: There is prior amputation of the first, second, fourth and fifth toes. Third toe is presen t. Moderate soft tissue swelling is seen affecting the foot. No evidence of osteomyelitis.
[2023-05-20 13:49] LABS: Absolute Lymphocytes (CBC) 0.8 K/uL (0.7-4.9); Hematocrit 38.2 % (39.6-49.0); Lymphocytes % 7.6 % (15.3-44.8); MCV 110.4 fL (80-100); MPV 6.8 fL (7.6-11.3); Platelets 357 thou/uL (152-406); RBC Red Blood Cell Count 3.46 M/uL (4.33-5.43)
[2023-05-20 13:56] LABS: Protime INR 1.04
[2023-05-20 14:07] LABS: Albumin 2.7 g/dL (3.4-5.0); Bilirubin Total 0.4 mg/dL (0.2-1.0); Protein, Total 8.1 g/dL (6.4-8.2)
[2023-05-20] MEDS ORDERED: VANCOMYCIN 1 GM/VIAL ONE (14:28)
[2023-05-20] MEDS ORDERED: NA CHLORIDE 0.9% 1,000 ML ONE ×2 (14:28→16:16)
[2023-05-20] MEDS ORDERED: NA CHLORIDE 0.9% 100 ML ONE ×2 (14:28→16:17)
[2023-05-20] MEDS ORDERED: NA CHLORIDE 0.9% 0 ML ONE ×2 (14:28→16:16)
[2023-05-20] MEDS ORDERED: CEFEPIME 1 GM/VIAL ONE (14:29)
--- NOTE | 2023-05-20 14:46 | ER ---
Nurse's Notes [facility] Name: Surinder Andrade Age: 67 yrs Sex: Male : 1955 Arrival Date: 05/20/2023 Time: 13:19 Bed 7 Private MD: Diagnosis: Cellulitis of right lower limb-foot Presentation: 05/20 13:36 Chief complaint: Patient states: RIGHT FOOT PAIN. Coronavirus screen: Vaccine status: dd1 Patient reports receiving the 2nd dose of the covid vaccine. Patient reports receiving the 1st dose of the Covid vaccine. Client denies travel out of the [place] in the last 14 days. At this time, the client does not indicate any symptoms associated with coronavirus-19. Ebola Screen: No symptoms or risks identified at this time. Initial Sepsis Screen: Does the patient meet any 2 criteria? HR > 90 bpm. No. Patient's initial sepsis screen is negative. Does the patient have a suspected source of infection? Yes: Skin breakdown/wound. Risk Assessment: Do you want to hurt yourself or someone else? Patient reports no desire to harm self or others. Onset of symptoms was May 19, 2023. 13:36 Method Of Arrival: Ambulatory dd1 13:36 Acuity: ANDREA 3 dd1 Historical: - Allergies: 13:37 No Known Allergies; dd1 - Home Meds: 13:37 lisinopril 2.5 mg Oral tab 1 tab once daily [Active]; aspirin 81 mg Oral capsule once dd1 [Active]; clopidogrel 75 mg oral tablet [Active]; - PMHx: 13:37 Sanchez's Cyst - right knee; High Cholesterol; Hypertension; osteomyelitis; dd1 - PSHx: 13:37 bypass; Cholecystectomy; RIGHT FOOT SURGERY; dd1 - Immunization history:: Adult Immunizations up to date. - Social history:: Smoking status: Patient denies any tobacco usage or history of. Screenin:51 [facility] ED Fall Risk Assessment (Adult) History of falling in the last 3 months, mb9 including since admission No falls in past 3 months (0 pts) Confusion or Disorientation No (0 pts) Intoxicated or Sedated No (0 pts) Impaired Gait No (0 pts) Mobility Assist Device Used No (0 pt) Altered Elimination No (0 pt) Score/Fall Risk Level 0 - 2 = Low Risk Oriented to surroundings, Maintained a safe environment, Educated pt \T\ family on fall prevention, incl call for assistance when getting out of bed. Abuse screen: Denies threats or abuse. Nutritional screening: No deficits noted. Tuberculosis screening: No symptoms or risk factors identified. Assessment: 14:14 General: Appears in no apparent distress. Behavior is calm, cooperative. Pain: mb9 Complains of pain in right foot Pain does not radiate. Pain currently is 4 out of 10 on a pain scale. Quality of pain is described as throbbing, Pain began years ago. Is continuous. Neuro: Wong Agitation-Sedation Scale (RASS): 0 - Alert and Calm Level of Consciousness is awake, alert, obeys commands, Oriented to person, place, time, situation, Appropriate for age. Cardiovascular: Heart tones S1 S2 present Patient's skin is warm and dry. Respiratory: Airway is patent Respiratory effort is even, unlabored, Respiratory pattern is regular, symmetrical, Breath sounds are clear bilaterally. GI: Abdomen is flat, non-distended, Bowel sounds present X 4 quads. Abd is soft and non tender X 4 quads. Reports diarrhea. Derm: Skin is pink, warm \T\ dry. Musculoskeletal: Swelling present in right foot. 15:00 Reassessment: No changes from previously documented assessment. Patient and/or family mb9 updated on plan of care and expected duration. Pain level reassessed. Patient is alert, oriented x 3, equal unlabored respirations, skin warm/dry/pink. 16:00 Reassessment: No changes from previously documented assessment. Patient and/or family mb9 updated on plan of care and expected duration. Pain level reassessed. Patient is alert, oriented x 3, equal unlabored respirations, skin warm/dry/pink. 16:08 Reassessment: attempted to call report to admitting nurse. mb9 Vital Signs: 13:36 BP 126 / 61; Pulse 92; Resp 17; Temp 98.5; Pulse Ox 97% ; Weight 67.13 kg; Height 5 ft. dd1 10 in. ; Pain 5/10; 14:15 BP 101 / 68; Pulse 85; Resp 18; Pulse Ox 97% on R/A; mb9 15:08 BP 124 / 80; Pulse 80; Resp 16; Pulse Ox 98% on R/A; mb9 13:36 Body Mass Index 21.24 (67.13 kg, 177.8 cm) dd1 13:36 Pain Scale: Adult dd1 ED Course: 13:21 Patient arrived in ED. im 13:22 Akiko Griffin FNP-C is [facility]. kb 13:22 Sandi Silver MD is Attending Physician. kb 13:27 Arm band placed on. mb9 13:27 Placed in gown. Bed in low position. Call light in reach. Side rails up X 1. Client mb9 placed on continuous cardiac and pulse oximetry monitoring. NIBP monitoring applied. cardiac monitor on. 13:35 First set of blood cultures drawn by me. mb9 13:36 Foot Right 3 View XRAY In Process Unspecified. EDMS 13:37 Triage completed. dd1 13:43 Suki Swan, SUKHWINDER is Primary Nurse. mb9 13:43 Inserted saline lock: 20 gauge in right forearm, using aseptic technique. Blood mb9 collected. 13:50 CBC with Diff Sent. mb9 13:50 CMP Sent. mb9 13:50 Protime (+inr) Sent. mb9 13:50 Ptt, Activated Sent. mb9 13:50 EKG done, by ED staff, reviewed by Akiko BILL. mb9 14:14 Blood Culture Adult (2) Sent. mb9 14:15 No provider procedures requiring assistance completed. mb9 14:15 Second set of blood cultures drawn by me. mb9 14:15 Inserted saline lock: 18 gauge in left antecubital area, using aseptic technique. mb9 14:46 Fuad Tang MD is Hospitalizing Provider. kb 16:15 Patient admitted, IV remains in place. mb9 Administered Medications: 14:20 Drug: NS 0.9% IV 1000 ml Route: IV; Rate: 1000 ml; Site: right forearm; mb9 14:35 Drug: Cefepime IVPB 1 grams Route: IVPB; Rate: 200 ml/hr; Infused Over: 30 mins; Site: mb9 right forearm; 14:59 Follow up: Response: No adverse reaction; IV Status: Completed infusion mb9 14:59 Drug: vancoMYCIN IVPB 1 grams Route: IVPB; Infused Over: 2 hrs; Site: right forearm; mb9 Medication: 13:27 VIS not applicable for this client. mb9 Outcome: 14:45 Discharge ordered by . kb 14:46 Decision to Hospitalize by Provider. kb 16:27 Admitted to Med/surg accompanied by tech, room 204, with chart, Report called to shelly Castano RN 16:27 Condition: stable 16:27 Instructed on the need for admit. 16:33 Patient left the ED. shelly Signatures: Dispatcher [employer] EDAkiko Hawkins, SUPERVISOR SHIPFITTERS-C SUPERVISOR SHIPFITTERS-CkSuki Hayward RN RN eros9 Abiola Shaver Daniel, RN RN dd1
--- NOTE | 2023-05-20 14:46 | EDPHYS ---
Physician Documentation [facility] Name: Surinder Andrade Age: 67 yrs Sex: Male : 1955 Arrival Date: 05/20/2023 Time: 13:19 Bed 7 Private MD: ED Physician Sandi Silver HPI: 05/20 14:43 This 67 yrs old Male presents to ER via Ambulatory with complaints of Foot Pain - right.kb 14:43 The patient presents with cellulitis of the right foot. Description: erythematous, hot, kb swollen. Onset: The symptoms/episode began/occurred 3 day(s) ago. Possible cause(s): unknown. Associated signs and symptoms: Pertinent positives: erythema, swelling, Pertinent negatives: discharge, drainage, foreign body sensation, fever, headache, nausea, shortness of breath, vomiting. Modifying factors: the symptoms are alleviated by nothing, the symptoms are aggravated by nothing. Severity of symptoms: At their worst the symptoms were moderate, in the emergency department the symptoms are unchanged. The patient has not experienced similar symptoms in the past. The patient has not recently seen a physician. Historical: - Allergies: 13:37 No Known Allergies; dd1 - Home Meds: 13:37 lisinopril 2.5 mg Oral tab 1 tab once daily [Active]; aspirin 81 mg Oral capsule once dd1 [Active]; clopidogrel 75 mg oral tablet [Active]; - PMHx: 13:37 Sanchez's Cyst - right knee; High Cholesterol; Hypertension; osteomyelitis; dd1 - PSHx: 13:37 bypass; Cholecystectomy; RIGHT FOOT SURGERY; dd1 - Immunization history:: Adult Immunizations up to date. - Social history:: Smoking status: Patient denies any tobacco usage or history of. ROS: 14:42 Constitutional: Negative for fever, chills, and weight loss. kb 14:42 Skin: Positive for erythema, swelling, of the right foot. 14:42 All other systems are negative. Exam: 13:51 Constitutional: This is a well developed, well nourished patient who is awake, alert, kb and in no acute distress. Head/Face: Normocephalic, atraumatic. ENT: Moist Mucous membranes Cardiovascular: Regular rate and rhythm with a normal S1 and S2. No gallops, murmurs, or rubs. No pulse deficits. Respiratory: Respirations even and unlabored. No increased work of breathing. Talking in full sentences Abdomen/GI: Soft, non-tender. No distention MS/ Extremity: Pulses equal, no cyanosis. Neurovascular intact. Full, normal range of motion. Neuro: Awake and alert, GCS 15, oriented to person, place, time, and situation. Moves all extremities. Normal gait. 13:51 ECG was reviewed by the Attending Physician. 13:51 Skin: cellulitis, that is moderate, on the right foot, lesion(s), open wound to ball of right foot. Vital Signs: 13:36 BP 126 / 61; Pulse 92; Resp 17; Temp 98.5; Pulse Ox 97% ; Weight 67.13 kg; Height 5 ft. dd1 10 in. ; Pain 5/10; 14:15 BP 101 / 68; Pulse 85; Resp 18; Pulse Ox 97% on R/A; mb9 15:08 BP 124 / 80; Pulse 80; Resp 16; Pulse Ox 98% on R/A; mb9 13:36 Body Mass Index 21.24 (67.13 kg, 177.8 cm) dd1 13:36 Pain Scale: Adult dd1 MDM: 13:22 Patient medically screened. kb 14:42 Differential diagnosis: osteomyelitis, cellulitis, abscess, wound infection. Data kb reviewed: vital signs, nurses notes. Consideration of Admission/Observation Patient was admitted/placed on observation. Escalation of care including admission/observation considered. Management of patient was discussed with the following: Hospitalist: Dr Tang. Counseling: I had a detailed discussion with the patient and/or guardian regarding: the historical points, exam findings, and any diagnostic results supporting the discharge/admit diagnosis, lab results, radiology results, the need for further work-up and treatment in the hospital. 05/20 13:26 Order name: Blood Culture Adult (2) kb 05/20 13:26 Order name: CBC with Diff; Complete Time: 14:11 kb 05/20 13:26 Order name: CMP; Complete Time: 14:11 kb 05/20 13:26 Order name: Lactate w/ 2H reflex if indic.; Complete Time: 14:11 kb 05/20 13:26 Order name: Protime (+inr); Complete Time: 14:11 kb 05/20 13:26 Order name: Ptt, Activated; Complete Time: 14:11 kb 05/20 14:18 Order name: Glucose, Ancillary Testing; Complete Time: 14:22 EDMS 05/20 15:29 Order name: Comprehensive Metabolic Panel EDMS 05/20 15:29 Order name: Comprehensive Metabolic Panel EDMS 05/20 15:40 Order name: Lactate w/ 2H reflex if indic. mb9 05/20 13:26 Order name: Foot Right 3 View XRAY; Complete Time: 13:49 kb 05/20 13:26 Order name: EKG; Complete Time: 13:27 kb 05/20 15:29 Order name: Regular EDMS 05/20 13:26 Order name: Accucheck; Complete Time: 14:14 kb 05/20 13:26 Order name: Cardiac monitoring; Complete Time: 13:44 kb 05/20 13:26 Order name: EKG - Nurse/Tech; Complete Time: 13:50 kb 05/20 13:26 Order name: IV Saline Lock - Large Bore; Complete Time: 13:44 kb 05/20 13:26 Order name: Labs collected and sent; Complete Time: 13:44 kb 05/20 13:26 Order name: O2 Per Protocol; Complete Time: 13:44 kb 05/20 13:26 Order name: O2 Sat Monitoring; Complete Time: 13:44 kb 05/20 13:26 Order name: Vital Signs; Complete Time: 13:44 kb EC:51 Rate is 85 beats/min. Rhythm is regular. QRS Jasper is Normal. ID interval is normal at kb 146 msec. QRS interval is normal at 84 msec. QT interval is normal at 428 msec. Administered Medications: 14:20 Drug: NS 0.9% IV 1000 ml Route: IV; Rate: 1000 ml; Site: right forearm; mb9 14:35 Drug: Cefepime IVPB 1 grams Route: IVPB; Rate: 200 ml/hr; Infused Over: 30 mins; Site: mb9 right forearm; 14:59 Follow up: Response: No adverse reaction; IV Status: Completed infusion mb9 14:59 Drug: vancoMYCIN IVPB 1 grams Route: IVPB; Infused Over: 2 hrs; Site: right forearm; mb9 Disposition: 19:17 I reviewed the patient's care provided by Advanced Practice Provider \T\ agree w/ the cp3 diagnosis \T\ care plan. I personally saw the pt \T\ performed a substantive portion of the visit, incldng all aspects of the (History/Exam/Medical Decision Making). Disposition Summary: 05/20/23 14:46 Hospitalization Ordered Hospitalization Status: Inpatient Admission kb Provider: Fuad Tang Location: Telemetry/MedSurg (Inpatient)(05/20/23 14:46) kb Condition: Stable(05/20/23 14:46) kb Problem: new kb Symptoms: are unchanged kb Bed/Room Type: Standard Room Assignment: 204(05/20/23 16:04) iw Diagnosis - Cellulitis of right lower limb - foot(05/20/23 14:46) kb Forms: - Medication Reconciliation Form kb - SBAR form kb Signatures: Dispatcher [employer] EDAkiko Hawkins FNP-C FNP-Ckb Pinckney, Cwanza, MD MD cp3 Christine Merritt, RN RN iw Suki Swan RN RN mb9 Subhash Vail RN RN dd1 Corrections: (The following items were deleted from the chart) 14:42 13:51 Skin: cellulitis, that is moderate, on the right foot, kb kb 14:45 14:45 Home kb kb 14:45 14:45 Stable kb kb 14:45 14:45 Cellulitis of right lower limb - foot kb kb 16:04 14:46 kb iw
--- NOTE | 2023-05-20 15:32 | P.HP ---
Certification for Inpatient With expected LOS: >2 Midnights Patient will require the following post-hospital care: None Practitioner: I am a practitioner with admitting privileges, knowledge of patient current condition, hospital course, and medical plan of care. Services: Services provided to patient in accordance with Admission requirements found in Title 42 Section 412.3 of the Code of Federal Regulations Patient History Date of Service: 05/20/23 Reason for admission: R foot cellulits History of Present Illness: R foot pain for 3 days Allergies No Known Allergies Allergy (Verified 10/28/21 10:14) Home Medications: Diphenhydramine [Benadryl*] PRN PRN 10/28/21 Lisinopril [Zestril] 1 tab PO DAILY 10/28/21 - Past Medical/Surgical History Diabetic: No -: PVD -: History aortofemoral bypass -: History 1st 2nd 4th 5th digit foot amputation -: Tobacco abuse -: Sleep apnea -: Osteomyelitis -: Smoker -: HTN -: 1st 2nd 4th 5th right foot digit amputation -: vascular surgery aortic bypass Psychosocial/ Personal History: The patient is . He has 3 children. He works in the [employer] - Family History Mother -: Cancer Father -: Other (see notes) Notes: depression - Social History Alcohol use: No CD- Drugs: No Caffeine use: Yes Physical Examination - Vital Signs Temperature: 98.5 F Blood Pressure: 126/61 Pulse: 92 Respirations: 17 Pulse Ox (%): 97 - Physical Exam General: Alert, In no apparent distress, Oriented x3 Neck: Supple Respiratory: Clear to auscultation bilaterally, Diminished Cardiovascular: Regular rate/rhythm Gastrointestinal: Normal bowel sounds, Soft and benign Musculoskeletal: Swelling (Foot is significantly swollen above ankle red and) - Studies Laboratory Data (last 24 hrs) 05/20/23 05/20/23 05/20/23 13:39 13:39 13:39 WBC 11.20 H Hgb 12.8 L Hct 38.2 L Plt Count 357 PT 11.4 INR 1.04 APTT 30.5 Sodium 131 L Potassium 4.0 BUN 17 Creatinine 1.17 Glucose 114 H Total Bilirubin 0.4 AST 40 H ALT 39 Alkaline Phosphatase 123 H Assessment and Plan - Problems (Diagnosis) (1) Cellulitis of foot, right Current Visit: Yes Status: Acute Plan: Admt IV AB. labs reviewed. Xray neg for osteo. MRI of foot, TX with merem and vanc/ LA elevated patient's right foot is very swollen he is to be no significant discomfort - Advance Directives Does patient have a Living Will: No Does patient have a Durable POA for Healthcare: No
[2023-05-20] MEDS ORDERED: VANCOMYCIN 500 MG in NA CHLORIDE 0.9% 100 ML IVPB ONE (16:00)
[2023-05-20] MEDS: NA CHLORIDE 0.9% 1,000 ML IV SCH (16:00)
[2023-05-20] MEDS ORDERED: VANCOMYCIN 500 MG/VIAL ONE (16:16)
[2023-05-20] MEDS ORDERED: Meropenem 1000 MG/VIAL IV ONE (16:16)
[2023-05-20 17:25] VITALS: BMI 21.2
[2023-05-20] MEDS: Meropenem 1,000 MG in NA CHLORIDE 0.9% 100 ML IV SCH (19:14)
[2023-05-20] MEDS: MORPHINE 2 MG/ML SYR IV PRN (20:16)
[2023-05-21] MEDS: Meropenem 1,000 MG in NA CHLORIDE 0.9% 100 ML IV SCH ×3 (00:18→17:09)
[2023-05-21] MEDS: ONDANSETRON 4 MG/2 ML VIAL IV PRN ×2 (00:21→14:13)
[2023-05-21 03:34] LABS: Bilirubin Total 0.3 mg/dL (0.2-1.0); Potassium 4.1 mEq/L (3.5-5.1); Protein, Total 6.1 g/dL (6.4-8.2)
[2023-05-21] MEDS: NA CHLORIDE 0.9% 1,000 ML IV SCH (05:46)
[2023-05-21] MEDS ORDERED: NAPROXEN 250 MG TAB PO PRN (08:56)
--- NOTE | 2023-05-21 08:58 | P.PN ---
Subjective Date of Service: 05/23/23 Chief Complaint: R foot cellulits Subjective: Improving (Patient is improving pain and swelling is decreased denies any complaints) Pain and swelling has improved Review of Systems Unremarkable Physical Examination - Vital Signs Temperature: 98.7 F Blood Pressure: 123/64 Pulse: 71 Respirations: 16 Pulse Ox (%): 95 - Physical Exam General: Alert, In no apparent distress, Oriented x3 Respiratory: Clear to auscultation bilaterally Cardiovascular: Normal S1 S2 Gastrointestinal: Normal bowel sounds Musculoskeletal: Other (Right foot swelling has decreased significantly from yesterday) - Studies Laboratory Data (last 24 hrs) 05/20/23 05/20/23 05/20/23 13:39 13:39 13:39 WBC 11.20 H Hgb 12.8 L Hct 38.2 L Plt Count 357 PT 11.4 INR 1.04 APTT 30.5 Sodium 131 L Potassium 4.0 BUN 17 Creatinine 1.17 Glucose 114 H Total Bilirubin 0.4 AST 40 H ALT 39 Alkaline Phosphatase 123 H Assessment And Plan - Current Problems (Diagnosis) (1) Cellulitis of foot, right Current Visit: Yes Status: Acute Plan: Patient is improving scheduled for an MRI he is already had his toes amputated in the past. Continue with present antibiotics labs have been ordered vital signs stable DC IV fluids ambulate chemistries unremarkable CBC is pending Discharge Plan: Home Plan to discharge in: 48 Hours
[2023-05-21 09:11] LABS: Hematocrit 32.3 % (39.6-49.0); MCV 110.6 fL (80-100); MPV 7.1 fL (7.6-11.3); Platelets 275 thou/uL (152-406); RBC Red Blood Cell Count 2.92 M/uL (4.33-5.43)
[2023-05-21] MEDS ORDERED: VANCOMYCIN 1.25 GM in NA CHLORIDE 0.9% 250 ML IVPB SCH (14:00)
[2023-05-21] MEDS: VANCOMYCIN 1.25 GM in NA CHLORIDE 0.9% 250 ML IVPB SCH (14:14)
[2023-05-21] MEDS: MORPHINE 2 MG/ML SYR IV PRN (18:42)
[2023-05-22] MEDS: Meropenem 1,000 MG in NA CHLORIDE 0.9% 100 ML IV SCH ×2 (01:27→08:53)
[2023-05-22 06:50] LABS: MCV 109.2 fL (80-100); MPV 6.8 fL (7.6-11.3); Platelets 272 thou/uL (152-406); RBC Red Blood Cell Count 2.93 M/uL (4.33-5.43)
[2023-05-22 07:01] LABS: Potassium 4.1 mEq/L (3.5-5.1)
[2023-05-22 10:20] LABS: Blood Morphology Comment NOTED (NOT SEEN); Macrocytosis 1+; Platelet Estimate ADEQ; White Blood Cell Scan OK (OK)
--- NOTE | 2023-05-22 12:18 | RAD REPORT ---
EXAM DESCRIPTION: MRI - Foot Right Wo Cont - 05/22/2023 9:30 am CLINICAL HISTORY: osteomyelitis COMPARISON: Foot Right Wo Cont dated 11/30/2020; Foot Right Wo Cont dated 06/24/2019; Foot Right Wo Con t dated 06/03/2019; Foot Right Wo Cont dated 09/04/2017; Foot Right 3 View dated 05/20/2023 TECHNIQUE: Multiplanar multisequence MRI of the right foot, obtained without IV contrast. FINDINGS: Patchy marrow signal abnormality including T1 hypointensity and T2 hyperintensity involvin g the head of the second and third metatarsal, as well as the third metatarsal proximal and middle ph alanges. Lobulated dorsal fluid collection adjacent to the second interdigital space, limited by the third met atarsophalangeal articulation inferiorly, measuring 2.6 x 1.5 x 1.6 cm. Soft tissue swelling as well as poorly delineated smaller collection components extend along the proximal aspect of the third toe. Sequelae of prior amputation of the first and second digits with no significant marrow signal abnorma lity of the first metatarsal head. Sequelae of amputation at the level of the fourth metatarsal head, and metatarsal midshaft. Atrophic changes of the deep muscles of the foot. No other appreciable fluid collections. IMPRESSION: Patchy marrow signal abnormalities involving the head of the second and third metatarsal s, as well as the third metatarsal proximal and middle phalanges, concerning for osteomyelitis. Lobulated dorsal fluid collection adjacent to the second interdigital space as above measuring 2.6 cm in greatest dimension, could relate to a seroma or ganglion cyst. Superimposed infection is difficul t to exclude.
--- NOTE | 2023-05-22 13:06 | EKG ---
Test Date: 2023-05-20 Test Time: 13:47:53 Casino Attendant: MB MEASUREMENT RESULTS: Intervals: Rate: 85 GA: 146 QRSD: 84 QT: 360 QTc: 428 [place]: P: 82 GA: 146 QRS: 81 T: 77 INTERPRETIVE STATEMENTS: Normal sinus rhythm Normal ECG Compared to ECG 04/12/2023 07:49:19 No significant changes Electronically Signed On 05-22-23 13:04:37 CDT by Lele Camilo
[2023-05-22] MEDS: VANCOMYCIN 1.25 GM in NA CHLORIDE 0.9% 250 ML IVPB SCH (14:21)
--- NOTE | 2023-05-22 15:57 | P.PN ---
Subjective Date of Service: 05/22/23 Chief Complaint: R foot cellulits No acute events overnight. He reports minimal foot discomfort. He denies any fevers, chills. His MRI was concerning for osteomyelitis. Infectious Diseases and General Surgery consulted. Review of Systems 10-point ROS is otherwise unremarkable Musculoskeletal: Foot Pain (minimal) Physical Examination - Vital Signs Temperature: 98.3 F Blood Pressure: 134/63 Pulse: 62 Respirations: 16 Pulse Ox (%): 97 - Physical Exam General: Alert, In no apparent distress, Oriented x3 HEENT: Atraumatic, Mucous membr. moist/pink, Sclerae nonicteric Neck: JVD not distended Respiratory: Clear to auscultation bilaterally, Normal air movement Cardiovascular: No edema, Regular rate/rhythm, Normal S1 S2, No gallops, No rubs, No murmurs Gastrointestinal: Normal bowel sounds, Soft and benign, Non-distended, No tenderness, No rebound, No guarding Musculoskeletal: Other (s/p 1st, 2nd, 4th, 5th right toes amputations. ) Integumentary: Other (small ulcer noted on plantar aspect of foot proximal to the toe.) Neurological: Normal speech, Normal affect Assessment And Plan - Plan # Right Third Toe Osteomyelitis with Fluid Collection # Peripheral Artery Disease complicated by Right 1st, 2nd, 4th, 5th Toe Amputations s/p Aortofemoral Bypass # Tobacco Use Disorder # Hypertension - Does not meet sepsis criteria - Radiology: - Right foot x-ray = "there is prior amputation of the first, second, fourth and fifth toes. Third toe is present. Moderate soft tissue swelling is seen affecting the foot. No evidence of osteomyelitis." - MRI right foot = "patchy marrow signal abnormalities involving the head of the second and third metatarsals, as well as the third metatarsal proximal and middle phalanges, concerning for osteomyelitis. Lobulated dorsal fluid collection adjacent to the second interdigital space as above measuring 2.6 cm in greatest dimension, could relate to a seroma or ganglion cyst. Superimposed infection is difficult to exclude." - Consulted Infectious Disease and spoke with JU Sim - recommendations appreciated - Consulted General Surgery and spoke with Dr. Clarke - recommendations appreciated - Continue vancomycin. Switched meropenem to ceftriaxone - Hold aspirin + clopidogrel pending Surgery recs - Continue home lisinopril Omer Morgan M.D.
[2023-05-22] MEDS ORDERED: VANCOMYCIN 500 MG in NA CHLORIDE 0.9% 100 ML IVPB ONE (16:00)
[2023-05-22] MEDS: lisinopriL 10 MG TAB PO SCH (16:51)
[2023-05-22] MEDS: ONDANSETRON 4 MG/2 ML VIAL IV PRN (19:26)
--- NOTE | 2023-05-22 20:12 | P.PN ---
Date of Service: 05/23/23 Subjective: 05/23 note ROS: 10 point ROS as noted above, otherwise negative Physical Exam: GEN: Alert, oriented, NAD HEENT: Normal conjunctiva, sclera anicteric CV: Regular rate & rhythm, no edema Pulm: Nonlabored respiraitons on room air ABD: Soft, nontender, nondistended MSK: s/p 1st, 2nd, 4th, 5th right toes amputations. Integumentary: small ulcer noted on plantar aspect of foot proximal to the toe Neuro: Normal speech, normal affect Problem List: 1. Right Third Toe Osteomyelitis with Fluid Collection 2. Peripheral Artery Disease complicated by Right 1st, 2nd, 4th, 5th Toe Amputations s/p Aortofemoral Bypass 3. Tobacco Use Disorder 4. Hypertension PLAN MRI right foot (05/22): patchy marrow signal abnormalities involving the head of the second and third metatarsals, as well as the third metatarsal proximal and middle phalanges, concerning for osteomyelitis. Lobulated dorsal fluid collection adjacent to the second interdigital space as above measuring 2.6 cm in greatest dimension, could relate to a seroma or ganglion cyst. Superimposed infection is difficult to exclude ID consulted General surgery consulted Continue vancomycin (05/20-) meropenem (05/20-05/22) switched to ceftriaxone (05/23-) Hold aspirin + clopidogrel pending Surgery recs Continue home lisinopril VTE: SCD Code: Full Dispo: Home
[2023-05-22] MEDS: MORPHINE 2 MG/ML SYR IV PRN (20:28)
--- NOTE | 2023-05-22 21:36 | CON ---
Date of Consultation: 05/22/2023 Diagnosis: Right foot cellulitis and osteomyelitis. History Of Present Illness: This is the case of a male, who comes to us with a swollen foot. There were some ulcerations in the plantar part of it. The patient was seen in the ER about 3 days ago, ad mitted to the hospital for IV antibiotics, and today a surgical consult was obtained. He denies any trauma, although he has not much sensation in that region, actually he has missed all the toes except one. He comes with some ulcers in the plantar surface. He has not been using any diabetic shoes or offloading shoes. Allergies: NONE. Medications: Lisinopril and aspirin. Past Medical History: Sanchez cyst in the right knee, hypercholesterolemia, hypertension, history of o steomyelitis on multiple bones in the past. He says he remembers at least having PICC lines and vanc omycin twice in his life. Past Surgical History: Multiple digit amputations of the same foot, cholecystectomy, vascular bypass . The details are none known. Social History: He does not smoke. He does not drink alcohol. Review of Systems: Pain on the right foot with erythema. He states it improved when compared to when he came here the f irst time. Once again, drainage coming from the plantar surface of the same foot. Physical Examination: General: The patient is awake, alert. No distress. HEENT: Pupils are equal and reactive. Anicteric. Neck: Supple. Chest: Clear. Heart: S1, S2. Abdomen: Soft and depressible. Extremity: Diminished pulses, dorsalis pedis and popliteal. No cyanosis. Neuropathy present in federico t foot. The patient has area of erythema over the plantar surface and dorsal surface of the foot, al though we cannot see the fluctuance. There are some necrotic wounds on the plantar surface that may need some debridement. Laboratory Data: Blood work shows WBC count of 7.8, hemoglobin of 10.8, and platelets of 272. His i nitially WBC count on admission was 11.2. INR is 1.04. Sodium is 134, potassium is 4.1. Foot MRI d one today shows patchy marrow signal abnormalities involving the head of the second and third metatar al bone on the right foot as well as ulcer of the third metatarsal bone and middle phalanx concernin g for osteomyelitis. There is a lobulated dorsal fluid collection adjacent to the second interdigita l space about 2.6 cm. They are sure if this is a ganglion cyst or seroma. Assessment: This is a 67-year-old with cellulitis of the right foot, peripheral vascular disease, ul ceration of the plantar surface of the foot, and osteomyelitis of multiple metatarsal regions. From the surgical standpoint, I am trying to figure out his previous surgeries and who did most of the amp utations and what kind of treatment he is referring to since he says he has been given IV antibiotics for osteomyelitis in the past. He may need subcutaneous debridement of the right plantar surface. The benefits, alternatives, and risks fully explained, which include, but not limited to infection, b leeding, damage to adjacent structures, nonhealing wound, PA, and . It is important also he has offloading shoes, at least trying to equalize the pressure over his foot. Obviously, based on what I see in his extremities, he has probably had some vascular studies in the past. We are trying to se e we can localize them. Otherwise, complete vascular study has to be done to see the chances of him recovering from this trauma. We will follow the patient with you. We are going to trying to once robe jaimieyumiko get more information about his admission to this hospital and see when can we do some debridement of that region. ANI/ORLY Voice ID: [id number] Report ID: [id number]
[2023-05-22] MEDS ORDERED: PROMETHAZINE INJ 25 MG/ML AMP IV ONE (22:09)
[2023-05-22] MEDS: DOCUSATE NA 100 MG CAP PO SCH (22:20)
[2023-05-23 07:04] LABS: Potassium 4.2 mEq/L (3.5-5.1)
[2023-05-23 07:09] LABS: Hematocrit 33.2 % (39.6-49.0); MPV 6.8 fL (7.6-11.3); Platelets 301 thou/uL (152-406); RBC Red Blood Cell Count 3.04 M/uL (4.33-5.43)
[2023-05-23] MEDS: DOCUSATE NA 100 MG CAP PO SCH ×2 (09:03→22:05)
[2023-05-23] MEDS: VANCOMYCIN 1.5 GM in NA CHLORIDE 0.9% 500 ML IVPB SCH (09:04)
[2023-05-23] MEDS: CEFTRIAXONE 1,000 MG in NA CHLORIDE 0.9% 50 ML IVPB SCH (09:04)
[2023-05-23] MEDS: lisinopriL 10 MG TAB PO SCH (09:04)
[2023-05-23] MEDS ORDERED: VANCOMYCIN 1.5 GM in NA CHLORIDE 0.9% 500 ML IVPB SCH (14:00)
--- NOTE | 2023-05-23 14:56 | P.CNS ---
Date of Consult: 05/23/23 Reason for Consult: osteomyelitis Chief Complaint: R foot cellulits History of Present Illness: Patient is a 67 yo male with a history of hypertension and multiple toe amputations of right foot who presented to the ED with complaints of right foot swelling and pain. He has a right plantar foot ulcer which has been present for unknown duration. MRI right foot obtained, concern for osteomyelitis. ID was consulted. Allergies No Known Allergies Allergy (Verified 10/28/21 10:14) Home medications list reviewed: Yes Home Medications: Aspirin Chewable [Aspirin Chewable*] 1 tab PO DAILY 05/20/23 Clopidogrel Bisulfate [Plavix] 1 tab PO DAILY 05/20/23 Lisinopril [Zestril] 1 tab PO DAILY 05/20/23 - Past Medical/Surgical History Diabetic: No -: PVD -: History aortofemoral bypass -: History 1st 2nd 4th 5th digit foot amputation -: Tobacco abuse -: Sleep apnea -: Osteomyelitis -: Smoker -: HTN -: 1st 2nd 4th 5th right foot digit amputation -: vascular surgery aortic bypass Psychosocial/ Personal History: The patient is . He has 3 children. He works in the [employer] - Family History Mother Medical History: Cancer Father Medical History: Other (see notes) Notes: depression - Social History Smoking Status: Current every day smoker Alcohol use: No CD- Drugs: No Caffeine use: Yes Place of Residence: Home Review of Systems 10-point ROS is otherwise unremarkable Musculoskeletal: Foot Pain (right foot), Other (hx multiple toe amputations ) Integumentary: As per HPI Physical Examination Temp Pulse Resp BP Pulse Ox 98.1 F 58 16 140/67 97 05/23/23 12:00 05/23/23 12:00 05/23/23 12:00 05/23/23 12:05/23/23 12:00 General: Alert, In no apparent distress, Oriented x3 HEENT: Atraumatic, Normocephalic Neck: Supple, JVD not distended Respiratory: Clear to auscultation bilaterally, Normal air movement Cardiovascular: No edema, Regular rate/rhythm, Abnormal pulses (nonpalpable pedal pulse right foot) Gastrointestinal: Normal bowel sounds, Soft and benign Musculoskeletal: Other (hx of 1st, 2nd, 4th and 5th toe amputation right foot) Integumentary: Tenderness/swelling (right foot), Warmth (right foot), Other (ulcer on plantar surface of right foot with serosanguinous fluid ) Neurological: Normal speech, Normal tone, Normal affect Laboratory Data - Reviewed Microbiology Data - Reviewed Imagings Data: - Reviewed Conclusions/Impression: Problem List Cellulitis Right Foot Ostemyelitis Right Foot Hypertension Hyperlipidemia Cellulitis, Osteomyelitis of Right Foot Complicated by peripheral vascular disease, likely arterial. - MRI right foot 05/22: "Patchy marrow signal abnormalities involving the head of the second and third metatarsals, as well as the third metatarsal proximal and middle phalanges, concerning for osteomyelitis. Lobulated dorsal fluid collection adjacent to the second interdigital space as above measuring 2.6 cm in greatest dimension, could relate to a seroma or ganglion cyst. Superimposed infection is difficult to exclude." - Patient already has multiple digit amputations of right foot. He also reports having recieved Vancomycin via PICC line "multiple time in the past for infection." - Possible debridement. General Surgery following. - On Rocephin and Vancomycin (05/22-) Blood cultures no growth to date Leukocytosis resolved. Afebrile. Recommendations - Osteomyelitis: Continue current antibiotics for now. Patient will require 6 weeks of IV antibiotics. He reports having PICC line to receive vancomycin IV for infection in the past. - pending possible debridement. general surgery on case. - Apply medihoney to right plantar foot wound and cover with foam dressing. Case discussed with Liberty Reynoso
--- NOTE | 2023-05-23 20:27 | RAD REPORT ---
[facility]12 [facility] CLINICAL HISTORY: Left PICC line insertion COMPARISON: Chest Single View dated 04/12/2023; Chest Single View dated 12/01/2020; Chest Single View dated 11/28/2020; Chest Single View dated 06/21/2019 TECHNIQUE: Portable AP view of the chest. FINDINGS: The lungs show improving airspace opacities with minimal residual opacities in the central right lung.Left arm PICC has been placed, with catheter tip projecting along the distal SVC. No pneu mothorax or effusion. The cardiomediastinal contours are unremarkable. IMPRESSION: Satisfactory left arm PICC positioning. Improving airspace opacities as above.
[2023-05-23] MEDS: Mupirocin NASAL 2 APPL/1 GM TUBE NAS SCH (22:05)
[2023-05-23] MEDS: MORPHINE 2 MG/ML SYR IV PRN (22:06)
[2023-05-24] MEDS ORDERED: MEDIHONEY 44 ML TOPICAL TUBE TOP SCH (09:00)
[2023-05-24] MEDS: lisinopriL 10 MG TAB PO SCH (09:01)
[2023-05-24] MEDS: DOCUSATE NA 100 MG CAP PO SCH (09:01)
[2023-05-24] MEDS: VANCOMYCIN 1.5 GM in NA CHLORIDE 0.9% 500 ML IVPB SCH (09:02)
[2023-05-24] MEDS: CEFTRIAXONE 1,000 MG in NA CHLORIDE 0.9% 50 ML IVPB SCH (09:02)
[2023-05-24] MEDS: Mupirocin NASAL 2 APPL/1 GM TUBE NAS SCH (09:03)
[2023-05-24 09:48] VITALS: O2SAT 97
[2023-05-24] MEDS ORDERED: LIDOCAINE 1% MPF 5 ML VIAL IJ ONE (12:00)
[2023-05-24 13:43] VITALS: BP 149/60; TEMP 98.2
--- NOTE | 2023-05-24 16:53 | P.PN ---
Date of Service: 05/24/23 Chief Complaint: R foot cellulits Subjective: Patient seen and examined at bedside. Denies any new or worsening complaints. No acute events reported overnight. Physical Examination Temp Pulse Resp BP Pulse Ox 98.2 F 56 18 149/60 H 98 05/24/23 12:00 05/24/23 12:00 05/24/23 12:00 05/24/23 12:00 05/24/23 12:00 General: Alert, In no apparent distress, Oriented x3 HEENT: Atraumatic, Normocephalic Neck: Supple, JVD not distended Respiratory: Clear to auscultation bilaterally, Normal air movement Cardiovascular: No edema, Regular rate/rhythm, Abnormal pulses (nonpalpable pedal pulse right foot) Gastrointestinal: Normal bowel sounds, Soft and benign Musculoskeletal: Other (hx of 1st, 2nd, 4th and 5th toe amputation right foot) Integumentary: Tenderness/swelling (right foot), Warmth (right foot), Other (ulcer on plantar surface of right foot with serosanguinous fluid ) Neurological: Normal speech, Normal tone, Normal affect Laboratory Data - Reviewed Microbiology Data - Reviewed Imagings Data: - Reviewed Medication List: Reviewed Assessment and Plan Problem List Cellulitis Right Foot Ostemyelitis Right Foot Hypertension Hyperlipidemia Cellulitis, Osteomyelitis of Right Foot Complicated by peripheral vascular disease, likely arterial. - MRI right foot 05/22: "Patchy marrow signal abnormalities involving the head of the second and third metatarsals, as well as the third metatarsal proximal and middle phalanges, concerning for osteomyelitis. Lobulated dorsal fluid collection adjacent to the second interdigital space as above measuring 2.6 cm in greatest dimension, could relate to a seroma or ganglion cyst. Superimposed infection is difficult to exclude." - Patient already has multiple digit amputations of right foot. He also reports having recieved Vancomycin via PICC line "multiple time in the past for infection." - Possible debridement. General Surgery following. - On Rocephin and Vancomycin (05/22-) Blood cultures no growth to date Leukocytosis resolved. Afebrile. Recommendations - Osteomyelitis: Continue current antibiotics for now. Follow up with wound culture results - Patient will require 6 weeks of IV antibiotics. He reports having PICC line to receive vancomycin IV for infection in the past. - Apply medihoney to right plantar foot wound and cover with foam dressing. Case discussed with Liberty Reynoso
--- NOTE | 2023-05-24 22:41 | OP ---
Date of Procedure: 05/24/2023 Surgeon: Saulo Clarke MD Diagnoses: Right foot cellulitis and osteomyelitis. Indications: Patient is already set up with Infectious Disease. They were nice enough to see the pa tient and they have long-term plan for antibiotics. The patient just received a PICC line. On his r ight foot, he has an area of necrotic tissue that need to be removed. He just gave us consent for th at. The benefits, alternatives, and risks of debridement were fully explained, which include, but no t limited to infection, bleeding, damage to adjacent structures, anesthesia complication, nonhealing wound, ID, and even . He has only 1 toe in that area left, that toe is involved in this osteomy elitis and infection, not sure if that toe will survive. We are going to remove the necrotic tissue, allow the antibiotics to treat that area, and in the next week or so, we will be able to see any kin d of delineation and when that made sure, if we see that toe is not viable, he may have to decide for his amputation, but he is not ready for that yet. Preoperative Diagnoses: Cellulitis and osteomyelitis of the right foot, necrotic nonhealing wound. Postoperative Diagnoses: Cellulitis and osteomyelitis of the right foot, necrotic nonhealing wound. Procedure: Excisional debridement of the right foot, necrotic ulcer is about 3 x 2 x 0.5 cm. Anesthesia: Local. Complications: None. Packing: Wet-to-dry. Description Of Procedure: After explaining the patient benefits, alternative, and risks of procedure and after time-out, we prepped and draped the right side in usual sterile fashion. Then, we injecte d local lidocaine 1% plain and then after that I proceeded to remove devitalized tissue underneath. We noticed at the base of that toe and the foot there is an abscess present and fluid collection with homer pus. The pus was culture and the devitalized tissue was removed. The area was packed with we t-to-dry dressing after obtaining hemostasis with pressure. Patient tolerated the procedure well. S ponge count is correct. Plan: Continue care by the Infectious Disease. [facility] week from now or my office. Once again, he has been a patient of I believe, Dr. Edouard in the past, so he has the option to show at the [facility] morning or in the afternoon. Continue with Dr Dandy Edouard's clinic. ANI/ORLY Voice ID: [id number] Report ID: [id number]
== END 2023-05-24 16:10 | disposition home health service (06) | DRG 464 ==
LOC: ER 13:19 → ERHOLD 15:25 → 2ND 16:28
PROVIDERS: ADMIT Internal Medicine Sleep Medicine; ATTEND Hospitalist
PROC: 02HV33Z Insertion of Infusion Device into Superior Vena Cava, Percutaneous Approach (ICD-10-PCS; 2023-05-23)
PROC: 0JBQ0ZZ Excision of Right Foot Subcutaneous Tissue and Fascia, Open Approach (ICD-10-PCS; principal; 2023-05-24)
DX: M86.8X7 Other osteomyelitis, ankle and foot (principal); L03.115 Cellulitis of right lower limb; I10 Essential (primary) hypertension; I73.9 Peripheral vascular disease, unspecified; E78.00 Pure hypercholesterolemia, unspecified; L97.519 Non-pressure chronic ulcer of other part of right foot with unspecified severity; Z95.1 Presence of aortocoronary bypass graft; Z90.49 Acquired absence of other specified parts of digestive tract; Z79.02 Long term (current) use of antithrombotics/antiplatelets; Z79.82 Long term (current) use of aspirin; Z79.899 Other long term (current) drug therapy; Z87.891 Personal history of nicotine dependence; Z89.421 Acquired absence of other right toe(s)
CPT/HCPCS: 36415; 36569; 71045; 80048; 80053; 80202; 82947; 83605; 85025; 85027; 85610; 85730; 87040; 87070; 87075; 87077; 87186; 87205; 93005; 96365; 96375; 99285; J0692; J0696; J2001; J2185; J2270; J2405; J2550; J7030; J7040; J7050